=== PATIENT | male | born 1975 | race Caucasian/White ===

== ENCOUNTER 2018-11-04 17:53 | Emergency (ER) | payer OTHER ==
--- OUTSIDE RECORDS SUMMARY | 2018-11-04 18:09 | XMS REPORT | Continuity of Care Document ---
:1975 External Reference #:[id number] Author Name Kavita Smith Care Team Providers Name Role Phone Aman Dunham MD Primary Care Physician Unavailable Payers Type Date Identification Numbers Payment Provider Subscriber Effective: Policy Number: [id number] Hayder Andrade 2016 Group Number: [id number] [address] PayID: [id number] [place] [address] Advance Directives Description No Information Available Problems Date Description Provider Status Onset: 07/28/2016 Essential hypertension Aman Dunham M.D. Active Onset: 07/28/2016 Thoracic and lumbosacral neuritis Aman Dunham M.D. Active Onset: 07/28/2016 Knee pain Aman Dunham M.D. Active Onset: 07/28/2016 Type 2 diabetes mellitus with Aman Dunham M.D. Active diabetic neuropathy, unspecified Onset: 07/28/2016 Morbid obesity Aman Dunham M.D. Active Onset: 08/11/2016 Spinal stenosis of lumbar region Aman Dunham M.D. Active Onset: 08/11/2016 Mild recurrent major depression Aman Dunham M.D. Active Onset: 08/11/2016 Testicular hypofunction Aman Dunham M.D. Active Onset: 08/11/2016 Mixed hyperlipidemia Aman Dunham M.D. Active Onset: 09/22/2016 Diabetes mellitus Aman Dunham M.D. Active Onset: 10/24/2016 Type II diabetes mellitus Aman Dunham M.D. Active uncontrolled Onset: 11/22/2016 Lumbar radiculopathy Aman Dunham M.D. Active Onset: 11/22/2016 Insomnia Aman Dunham M.D. Active Onset: 09/05/2017 Umbilical hernia Aman Dunham M.D. Active Onset: 03/27/2018 Panic disorder with agoraphobia Aman Dunham M.D. Active Family History Date Family Member(s) Problem(s) Comments General Parkinson's Disease General Heart Disease General Hypertension Father Hypertension Father Heart Disease Mother due to Parkinsons Disease () Social History Type Date Description Comments Sex Unknown Occupation Unemployed [employer] ETOH Use Denies alcohol use Tobacco Use Start: Unknown Patient has never smoked Recreational Drug Use Denies Drug Use Smoking Status Reviewed: 10/23/18 Patient has never smoked Allergies, Adverse Reactions, Alerts Description No Known Drug Allergies Medications Medication Date Status Form Strength Qnty SIG Indications Ordering Provider Trulicity 10/23 Active Solution 0.75mg/0. 2ml inject 0.75mg E11.65 Haseeb Geiger /2018 Pen-Injec 5ML once a week halima Butt M.D. Lisinopril 08/23 Active Tablets 20mg 30tab 1 by mouth I10 s every day Juanita Dunham Basaglar 08/23 Active Solution 100Unit/M 30ml 90 units at E11.65 Aman Kwik Pen-Injec L bedtime Roly varghese M.D. Escitalopram 03/27 Active Tablets 10mg 30tab 1 by mouth F40.01 Aman Oxalate s every day Juanita Dunham Pen [place] 12/05 Active Misc 32G X 5 90uni once daily with Aman mm milagro Dunham M.D. BD Pen 12/04 Active Misc 31G X 5 100un use with Haseeb Geiger Needle/Mini/Ul mm carlos Morris/31G X Juanita 12/22" Zolpidem 11/22 Active Tablets 10mg 30tab 1/2 to 1 tab by G47.00 [place] Tartrate s mouth every MD Mamadou night at bedtime as needed Amlodipine 10/24 Active Tablets 5mg 30tab 1 by mouth I10 [place] Besylate s every day in [place] the morning , Juanita Oxycodone-Acet 10/24 Active Tablets 10-325mg 120ta take 1 tablet M51.16 Haseeb Geiger aminophen bs by mouth every Filomena, 6 hours as M.DPaddy needed for pain Atorvastatin 10/13 Active Tablets 40mg 30tab 1 by mouth E78.2 [place] Calcium s every day Juanita Dunham Contour Next 10/13 Active Kit 1unit chesk cs twice E11.8 [place] One Blood s daily Roly Glucose Juanita Monitoring System Control Test 10/13 Active Strips 100un check cs twice E11.8 its daily and as Roly needed , MJayce Testosterone 09/22 Active Gel 50mg/5GM 150gm apply 1 E29.1 (1%) application MD Mamadou (50mg) to the skin once daily Freestyle Lite 09/22 Active Device 1unit check [place] [facility] Dx: Juanita System E11.40 Last visit: 09/22/16 Freestyle Lite 09/22 Active Strips 100un test up to 2 Test its times a day dx Roly code: e11.Juanita Carr last visit: 09/22/16 Freestyle Lite 09/22 Active 100un two times daily Lanc its or as needed Roly dx: e11.40 Juanita Harper visit: 09/22/16 Metformin HCL 07/28 Active Tablets 1000mg 60tab Take One Tablet E11.40 s By Mouth Twice Roly Daily Juanita Basaglar 07/24 Hx Solution 100Unit/M 15ml 75 units sc E11.40 Uvaldo Ibarra Pen-Injec L once daily Carleen Medel M.D.,[facility] 08/23 Toujeo 07/12 Hx Solution 300Unit/M 4.500 inject 75 units E11.40 Marco Shane Pen-Injec L ml subcutaneously Carleen Medel t once daily Juanita,[facility] 07/24 Basaglar 07/31 Hx Solution 100Unit/M 9ml 65 units at E11.40 [place] Pen-Injec L bedtime [place] - t , M.DPaddy 07/12 Basaglar 03/27 Hx Solution 100Unit/M 30ml 50 units at E11.40 Pen-Injec L bedtime [place] - t , M.D. 05/08 Basaglar 01/09 Hx Solution 100Unit/M 15ml 35 units at E11.40 [place] Pen-Injec L bedtime [place] - t , M.DPaddy 03/27 Basaglar 12/07 Hx Solution 100Unit/M 15ml 45 units at E11.65 [place] Pen-Injec L bedtime [place] - t , M.DPaddy 01/09 Basaglar 11/30 Hx Solution 100Unit/M 30ml 25 units at E11.65 [place] Pen-Injec L bedtime [place] - t , M.DPaddy 12/07 Oxycodone HCL 06/26 Hx Tab ER 10mg 10tab 1 jozef every 12 M54.16 [place] 12H s hours [place] - Abuse-Det , Juanita 08/01 Glipizide 01/10 Hx Tablets 10mg 60tab take 1 tablet E11. s by mouthtwiJoseph HighDPaddy 11/30 Invokana 01/10 Hx Tablets 100mg 30tab once daily E11.65 s Roly - Juanita 12/07 Bupropion HCL 12/06 Hx Tablets 300mg 30tab 1 tab in in the 3.0 [place] ER (XL) ER 24HR s morning [place] - Juanita 03/27 Bupropion HCL 11/22 Hx Tablets 150mg 30tab once daily in 3.0 [place] ER (XL) ER 24HR s the morning [place] - with food Juanita 12/06 Tradjenta 10/24 Hx Tablets 5mg 30tab once daily E11.65 s Roly Durant M.D. 03/27 Glipizide 10/13 Hx Tablets 10mg 45tab take 1 tablet E11.8 s by mouth every [place] - morning and 10/10 , M.DPaddy 01/10 tab in the evening Prednisone 10/13 Hx Tablets 10mg 30tab 5tabx 2days,[address] M51[address] [facility] - 4rdgw3gqqg,2tab , JosephDPaddy 10/24 x2days,1tabx . Oxycodone-Acet 10/13 Hx Tablets 10-325mg 42tab take 1 tablet M51.16 [place] s by mouth every [place] - 8 hours as , M.DPaddy 10/24 needed for pain Escitalopram 09/22 Hx Tablets 20mg 30tab 1 by mouth F33.0 s every day Roly Durant M.D. 03/27 [place] 09/22 Hx Misc 30G 60uni test twice E11.8 ts daily Roly Druant M.D. 10/13 [place] Test 09/22 Hx Strips 100un test three E11.8 its times daily Roly Durant M.D. 10/13 Escitalopram 08/25 Hx Tablets 10mg 30tab 1 by mouth s every day Roly Durant M.D. 09/22 Wellbutrin XL 08/17 Hx Tablets 150mg 30tab 1 by mouth ER 24HR s every day in in [place] - the morning , M.DPaddy 08/25 with food /2015 Naproxen 08/11 Hx Tablets 500mg 60tab 1 by mouth M25.561 [facility] , M.DPaddy 01/10 is not using) /2016 Duloxetine HCL 08/[address] 30mg 14cap once a day in F33.0 Part s full stomach Joseph EncarnacionDPaddy 08/17 Oxycodone-Acet 07/28 Hx Tablets 10-325mg 60tab take 1 tablet M51.16 [place] s by mouth every [place] - 12 hours as , M.DPaddy 10/13 needed for pain Gabapentin Hx Capsules 300mg 1 by mouth Unknown /0000 three times a - day 11/30 Metformin HCL Hx Tablets 500mg 1 by mouth Unknown /0000 twice a day - 07/28 Lisinopril Hx Tablets 10mg 30tab 1 by mouth s every day Roly - Juanita 08/23 Ibuprofen Hx Tablets 800mg 1 by mouth two Unknown /0000 times a day as - needed 08/11 Immunizations CPT Code Status Date Vaccine Reaction Lot # [id number] Given 10/24/2016 Pneumonia Vaccine no reaction, pt tolerated well [id number] Vital Signs Date Vital Result Comment 10/23/2018 11:21am Height 76 inches 6'4" Weight 405.00 lb Heart Rate 112 /min BP Systolic Sitting 148 mmHg BP Diastolic Sitting 104 mmHg Pain Level 6 hernia--at rest O2 % BldC Oximetry 97 % BMI (Body Mass Index) 49.3 kg/m2 08/23/2018 3:09pm Height 76 inches 6'4" Weight 397.00 lb Heart Rate 109 /min BP Systolic 140 mmHg BP Diastolic 100 mmHg Body Temperature 98.5 F O2 % BldC Oximetry 97 % BMI (Body Mass Index) 48.3 kg/m2 05/08/2018 7:53am Height 76 inches 6'4" Weight 393.00 lb Heart Rate 102 /min BP Systolic 124 mmHg BP Diastolic 80 mmHg O2 % BldC Oximetry 97 % BMI (Body Mass Index) 47.8 kg/m2 03/27/2018 3:10pm Height 76 inches 6'4" Weight 400.00 lb Heart Rate 117 /min BP Systolic Sitting 160 mmHg BP Diastolic Sitting 90 mmHg Body Temperature 98.5 F O2 % BldC Oximetry 97 % BMI (Body Mass Index) 48.7 kg/m2 02/01/2018 2:05pm Height 76 inches 6'4" Weight 390.00 lb Heart Rate 108 /min BP Systolic 130 mmHg BP Diastolic 84 mmHg Respiratory Rate 20 /min Body Temperature 97.2 F BMI (Body Mass Index) 47.5 kg/m2 01/23/2018 1:02pm Weight 389.00 lb Heart Rate 106 /min BP Systolic 130 mmHg BP Diastolic 90 mmHg Body Temperature 98.1 F O2 % BldC Oximetry 97 % 01/09/2018 8:47am Weight 394.00 lb Heart Rate 97 /min BP Systolic 125 mmHg BP Diastolic 70 mmHg Body Temperature 98.1 F O2 % BldC Oximetry 95 % 11/30/2017 9:48am Height 75 inches 6'3" Weight 383.19 lb Heart Rate 124 /min BP Systolic Sitting 132 mmHg BP Diastolic Sitting 82 mmHg O2 % BldC Oximetry 98 % BMI (Body Mass Index) 47.9 kg/m2 09/05/2017 8:58am Weight 405.00 lb Heart Rate 76 /min BP Systolic Sitting 132 mmHg BP Diastolic Sitting 90 mmHg O2 % BldC Oximetry 94 % 06/26/2017 3:00pm Height 75 inches 6'3" Weight 390.50 lb Heart Rate 103 /min BP Systolic 140 mmHg BP Diastolic 90 mmHg Body Temperature 98.7 F O2 % BldC Oximetry 97 % BMI (Body Mass Index) 48.8 kg/m2 06/08/2017 9:30am Height 75 inches 6'3" Weight 408.00 lb Heart Rate 86 /min BP Systolic 142 mmHg BP Diastolic 86 mmHg Body Temperature 97.8 F O2 % BldC Oximetry 95 % BMI (Body Mass Index) 51.0 kg/m2 04/13/2017 11:29am Weight 406.50 lb Heart Rate 127 /min BP Systolic 146 mmHg BP Diastolic 84 mmHg Body Temperature 97.9 F O2 % BldC Oximetry 97 % 02/08/2017 12:03pm Height 73.5 inches 6'1.50" Weight 390.00 lb Heart Rate 127 /min BP Systolic Sitting 164 mmHg BP Diastolic Sitting 96 mmHg O2 % BldC Oximetry 97 % BMI (Body Mass Index) 50.8 kg/m2 01/10/2017 9:45am Weight 385.00 lb Heart Rate 120 /min BP Systolic Sitting 140 mmHg BP Diastolic Sitting 94 mmHg Body Temperature 99.2 F O2 % BldC Oximetry 98 % 12/06/2016 10:02am Weight 392.50 lb Heart Rate 128 /min BP Systolic Sitting 130 mmHg BP Diastolic Sitting 80 mmHg Body Temperature 97.4 F O2 % BldC Oximetry 98 % 12/05/2016 1:44pm Height 73.5 inches 6'1.50" Weight 397.00 lb Heart Rate 72 /min BP Systolic Sitting 130 mmHg lg BP Diastolic Sitting 90 mmHg lg Pain Level 8 BMI (Body Mass Index) 51.7 kg/m2 11/22/2016 9:22am Height 73.5 inches 6'1.50" Weight 396.25 lb Heart Rate 140 /min BP Systolic Sitting 145 mmHg BP Diastolic Sitting 104 mmHg Body Temperature 98.4 F O2 % BldC Oximetry 99 % BMI (Body Mass Index) 51.6 kg/m2 10/24/2016 1:44pm Height 73.5 inches 6'1.50" Weight 397.38 lb Heart Rate 145 /min BP Systolic Sitting 130 mmHg BP Diastolic Sitting 106 mmHg Body Temperature 96.9 F O2 % BldC Oximetry 99 % BMI (Body Mass Index) 51.7 kg/m2 10/13/2016 10:04am Height 73.5 inches 6'1.50" Weight 395.12 lb Heart Rate 117 /min BP Systolic Sitting 142 mmHg BP Diastolic Sitting 100 mmHg Body Temperature 96.7 F O2 % BldC Oximetry 98 % BMI (Body Mass Index) 51.4 kg/m2 09/22/2016 10:45am Height 73.5 inches 6'1.50" Weight 397.38 lb Heart Rate 118 /min BP Systolic Sitting 158 mmHg BP Diastolic Sitting 118 mmHg Body Temperature 98.5 F O2 % BldC Oximetry 98 % BMI (Body Mass Index) 51.7 kg/m2 08/11/2016 12:37pm Height 73.5 inches 6'1.50" Weight 393.00 lb Heart Rate 115 /min BP Systolic Sitting 148 mmHg BP Diastolic Sitting 98 mmHg Body Temperature 97.7 F O2 % BldC Oximetry 97 % BMI (Body Mass Index) 51.1 kg/m2 07/28/2016 12:43pm Height 73.5 inches 6'1.50" Weight 393.25 lb Heart Rate 80 /min BP Systolic Sitting 136 mmHg BP Diastolic Sitting 112 mmHg Body Temperature 98.0 F O2 % BldC Oximetry 98 % BMI (Body Mass Index) 51.2 kg/m2 Results Test Date Facility Test Result H/L Range Note Laboratory test 10/22/2018 [facility] Testosterone 451.43 N 240-[address] Total ng/[place] [address] [phone] PSA Screening 0.211 ng/mL N 0-4.000 1 Laboratory test 08/23/2018 [facility] Hemoglobin A1c 10.3 High 5-7 finding Drug Abuse 20 08/23/2018 [facility] Urine Amphetamine Negative ng/mL 2, [address] [place] [address] [phone] Urine Barbiturates Negative ng/mL 4 Urine Benzodiazepines Negative ng/mL 5 Urine Cocaine Negative ng/mL 6 Urine Phencyclidine Negative ng/mL Cutoff: 25 Urine Tetrahydrocannabinol Negative ng/mL Cutoff: 50 7 Creatinine, Urine 181.6 mg/dL Specific [place] 1.020 pH 5.6 Oxidants Negative 8 Adulterants Comment Normal Codeine, Ur Not Detected ng/mL Cutoff: 25 9 Momlmoc-0-aucg-glucuronide, Ur Not Detected ng/mL 10 Morphine, Ur Not Detected ng/mL Cutoff: 25 11 Ppnuefjp-3-jlyi-glucuronide, U Not Detected ng/mL 12 6-monoacetylmorphine, Ur Not Detected ng/mL Cutoff: 25 13 Hydrocodone, Ur Not Detected ng/mL Cutoff: 25 14 Norhydrocodone, Ur Not Detected ng/mL Cutoff: 25 15 Dihydrocodeine, Ur Not Detected ng/mL Cutoff: 25 16 Hydromorphone, Ur Not Detected ng/mL Cutoff: 25 17 Hxkajgcfubnvy0avfiooncmdlhqpz Not Detected ng/mL 18 Oxycodone, Ur Present ng/mL Abnormal Cutoff: 25 19 Noroxycodone, Ur Present ng/mL Abnormal Cutoff: 25 20 Oxymorphone, Ur Present ng/mL Abnormal Cutoff: 25 21 Ncloyektozn-5-rgdq-glucuronide Present ng/mL Abnormal 22 Noroxymorphone, Ur Present ng/mL Abnormal Cutoff: 25 23 Fentanyl, Ur Not Detected ng/mL Cutoff: 2 24 Norfentanyl, Ur Not Detected ng/mL Cutoff: 2 25 Meperidine, Ur Not Detected ng/mL Cutoff: 25 26 Normeperidine, Ur Not Detected ng/mL Cutoff: 25 27 Naloxone, Ur Not Detected ng/mL Cutoff: 25 28 Timbxgbr-9-wokw-glucuronide, U Not Detected ng/mL 29 Methadone, Ur Not Detected ng/mL Cutoff: 25 30 Eddp, Ur Not Detected ng/mL Cutoff: 25 31 Propoxyphene, Ur Not Detected ng/mL Cutoff: 25 32 Norpropoxyphene, Ur Not Detected ng/mL Cutoff: 25 33 Tramadol, Ur Not Detected ng/mL Cutoff: 25 34 O-desmethyltramadol, Ur Not Detected ng/mL Cutoff: 25 35 Tapentadol, Ur Not Detected ng/mL Cutoff: 25 36 N-desmethyltapentadol, Ur Not Detected ng/mL Cutoff: 50 37 Avtlyhkaet-mqde-flfkfctgghx, U Not Detected ng/mL 38 Buprenorphine, Ur Not Detected ng/mL Cutoff: 5 39 Norbuprenorphine, Ur Not Detected ng/mL Cutoff: 5 40 Norbuprenorphine glucuronide Not Detected ng/mL Cutoff: 20 41 Opioid Interpretation See Comment 42 Laboratory test 07/04/2018 [facility] Testosterone 386.67 N 240-[address] Total ng/[place] [address] [phone] Lipid Profile 07/04/2018 [facility] Triglycerides 173 mg/dL 43 (Trig/Chol/HDL) [address] [place] [address] [phone] Cholesterol 178 mg/dL 44 HDL Cholesterol 37.3 mg/dL 45 LDL Cholesterol 106 mg/dL 46 Comp Metabolic Panel 07/04/2018 [facility] Sodium 137 mmol/L N 135-[address] [place] [address] [phone] Potassium 4.3 mmol/L N 3.5-5.0 Chloride 99 mmol/L Low 101-111 Co2 Carbon Dioxide 31 mmol/L N 22-32 Anion Gap 7 mmol/L N 2-11 Glucose 199 mg/dL High 70-100 Blood Urea Nitrogen 12 mg/dL N 6-24 Creatinine 0.79 mg/dL N 0.67-1.17 BUN/Creatinine Ratio 15.2 N 8-20 Calcium 9.5 mg/dL N 8.6-10.3 Total Protein 7.7 g/dL N 6.4-8.9 Albumin 4.3 g/dL N 3.2-5.2 Globulin 3.4 g/dL N 2-4 Albumin/Globulin Ratio 1.3 N 1-3 Total Bilirubin 0.50 mg/dL N 0.2-1.0 Alkaline Phosphatase 129 U/L High 34-104 Alt 49 U/L N 7-52 Ast 28 U/L N 13-39 Egfr Non- 107.0 >60 Egfr 129.5 >60 47 Laboratory 07/04/2018 [facility] PSA Screening 1.718 ng/mL N 0 -4.000 48 test finding [address] [place] [address] [phone] Laboratory 07/04/2018 [facility] Hemoglobin A1c 10.2 % High 4.0-5.6 49 test finding [address] (Glyco HGB) [place] [address] [phone] Drug Abuse 20 03/27/2018 [facility] Urine Negative [address] Amphetamine ng/[place] [address] [phone] Urine Barbiturates Negative ng/mL 51 Urine Benzodiazepines Negative ng/mL 52 Urine Cocaine Negative ng/mL 53 Urine Phencyclidine Negative ng/mL Cutoff: 25 Urine Tetrahydrocannabinol Negative ng/mL Cutoff: 50 54 Creatinine, Urine 91.2 mg/dL Specific [place] 1.011 pH 5.9 Oxidants Negative 55 Adulterants Comment Normal Codeine, Ur Not Detected ng/mL Cutoff: 25 56 Murujei-9-crtu-glucuronide, Ur Not Detected ng/mL 57 Morphine, Ur Not Detected ng/mL Cutoff: 25 58 Nxznvked-1-oafa-glucuronide, U Not Detected ng/mL 59 6-monoacetylmorphine, Ur Not Detected ng/mL Cutoff: 25 60 Hydrocodone, Ur Not Detected ng/mL Cutoff: 25 61 Norhydrocodone, Ur Not Detected ng/mL Cutoff: 25 62 Dihydrocodeine, Ur Not Detected ng/mL Cutoff: 25 63 Hydromorphone, Ur Not Detected ng/mL Cutoff: 25 64 Nnsschzzejvib4quqszmwcwlyptgp Not Detected ng/mL 65 Oxycodone, Ur Present ng/mL Abnormal Cutoff: 25 66 Noroxycodone, Ur Present ng/mL Abnormal Cutoff: 25 67 Oxymorphone, Ur Not Detected ng/mL Cutoff: 25 68 Vxtyjpcdtua-6-dpbo-glucuronide Present ng/mL Abnormal 69 Noroxymorphone, Ur Present ng/mL Abnormal Cutoff: 25 70 Fentanyl, Ur Not Detected ng/mL Cutoff: 2 71 Norfentanyl, Ur Not Detected ng/mL Cutoff: 2 72 Meperidine, Ur Not Detected ng/mL Cutoff: 25 73 Normeperidine, Ur Not Detected ng/mL Cutoff: 25 74 Naloxone, Ur Not Detected ng/mL Cutoff: 25 75 Nfmgwsgt-5-bygq-glucuronide, U Not Detected ng/mL 76 Methadone, Ur Not Detected ng/mL Cutoff: 25 77 Eddp, Ur Not Detected ng/mL Cutoff: 25 78 Propoxyphene, Ur Not Detected ng/mL Cutoff: 25 79 Norpropoxyphene, Ur Not Detected ng/mL Cutoff: 25 80 Tramadol, Ur Not Detected ng/mL Cutoff: 25 81 O-desmethyltramadol, Ur Not Detected ng/mL Cutoff: 25 82 Tapentadol, Ur Not Detected ng/mL Cutoff: 25 83 N-desmethyltapentadol, Ur Not Detected ng/mL Cutoff: 50 84 Sxfghpajvh-uqew-wyxgjcbvvya, U Not Detected ng/mL 85 Buprenorphine, Ur Not Detected ng/mL Cutoff: 5 86 Norbuprenorphine, Ur Not Detected ng/mL Cutoff: 5 87 Norbuprenorphine glucuronide Not Detected ng/mL Cutoff: 20 88 Opioid Interpretation See Comment 89 Laboratory test 03/27/2018 [facility] Hemoglobin A1c 9.5 High 5-7 finding Laboratory test 11/30/2017 [facility] Hemoglobin A1c 11.1 High 5-7 finding Laboratory test 11/29/2017 [facility] PSA Screening 0.289 N 0- 4.000 [address] ng/[place] [address] [phone] Urine Microalbumin 11/29/2017 [facility] Ur Microalbumin 73.2 mg /L Random [address] (mg/L) [place] [address] [phone] Urine Creatinine 163.57 mg/dL Urine Microalbumin/Creatinine 44.7 ug/mg High <31 Laboratory 11/29/2017 [facility] Testosterone 85.80 ng/dL Low 240-950 test finding [address] [place] [address] [phone] Drug Abuse 20 09/05/2017 [facility] Urine Negative [address] Amphetamine ng/mL [place], [place] [id number] [phone] Urine Barbiturates Negative ng/mL 92 Urine Benzodiazepines Negative ng/mL 93 Urine Cocaine Negative ng/mL 94 Urine Phencyclidine Negative ng/mL Cutoff: 25 Urine Tetrahydrocannabinol Negative ng/mL Cutoff: 50 95 Creatinine, Urine 227.9 mg/dL Specific [place] 1.021 pH 5.6 Oxidants Negative 96 Adulterants Comment Normal Codeine, Ur Not Detected ng/mL Cutoff: 25 97 Vgddmet-0-ydkz-glucuronide, Ur Not Detected ng/mL 98 Morphine, Ur Not Detected ng/mL Cutoff: 25 99 Liapzsuq-2-vwbd-glucuronide, U Not Detected ng/mL 100 6-monoacetylmorphine, Ur Not Detected ng/mL Cutoff: 25 101 Hydrocodone, Ur Present ng/mL Cutoff: 25 102 Norhydrocodone, Ur Not Detected ng/mL Cutoff: 25 103 Dihydrocodeine, Ur Not Detected ng/mL Cutoff: 25 104 Hydromorphone, Ur Not Detected ng/mL Cutoff: 25 105 Dfmlvxrubxcqk8nniddhpetsnueeu Not Detected ng/mL 106 Oxycodone, Ur Present ng/mL Cutoff: 25 107 Noroxycodone, Ur Present ng/mL Cutoff: 25 108 Oxymorphone, Ur Present ng/mL Cutoff: 25 109 Tcindjgbdhz-0-uplc-glucuronide Present ng/mL 110 Noroxymorphone, Ur Present ng/mL Cutoff: 25 111 Fentanyl, Ur Present ng/mL Cutoff: 2 112 Norfentanyl, Ur Present ng/mL Cutoff: 2 113 Meperidine, Ur Not Detected ng/mL Cutoff: 25 114 Normeperidine, Ur Not Detected ng/mL Cutoff: 25 115 Naloxone, Ur Not Detected ng/mL Cutoff: 25 116 Qsztprph-2-mspj-glucuronide, U Not Detected ng/mL 117 Methadone, Ur Not Detected ng/mL Cutoff: 25 118 Eddp, Ur Not Detected ng/mL Cutoff: 25 119 Propoxyphene, Ur Not Detected ng/mL Cutoff: 25 120 Norpropoxyphene, Ur Not Detected ng/mL Cutoff: 25 121 Tramadol, Ur Not Detected ng/mL Cutoff: 25 122 O-desmethyltramadol, Ur Not Detected ng/mL Cutoff: 25 123 Tapentadol, Ur Not Detected ng/mL Cutoff: 25 124 N-desmethyltapentadol, Ur Not Detected ng/mL Cutoff: 50 125 Wzxlohuony-hnaq-byxbxzjrxat, U Not Detected ng/mL 126 Buprenorphine, Ur Not Detected ng/mL Cutoff: 5 127 Norbuprenorphine, Ur Not Detected ng/mL Cutoff: 5 128 Norbuprenorphine glucuronide Not Detected ng/mL Cutoff: 20 129 Opioid Interpretation See Comment 130 Laboratory test 09/05/2017 [facility] Hemoglobin A1c 8.3 High 5-7 finding Laboratory test 06/23/2017 [facility] Prolactin 14.1 ng/mL N 1.0-20.[address] [place] [address] [phone] FSH And LH 06/23/2017 [facility] FSH (Follicle 1.2 mIU/mL N 1- [address] Stim Hormone) [place] [address] [phone] LH (Lutenizing Hormone) 1.7 mcIU/mL Low 2-12 Laboratory test 06/07/2017 [facility] Testosterone 51.34 Low 240-[address] Total ng/[place] [address] [phone] FSH (Follicle Stim Hormone) 0.7 mIU/mL Low 1-20 LH (Lutenizing Hormone) 0.7 mcIU/mL Low 2-12 Laboratory test 04/13/2017 [facility] Hemoglobin A1c 7.4 High 5-7 finding Drug Abuse 20 04/13/2017 [facility] Urine Negative N 131, [address] Amphetamine ng/[place] [address] [phone] Urine Barbiturates Negative ng/mL N 133 Urine Benzodiazepines Negative ng/mL N 134 Urine Cocaine Negative ng/mL N 135 Urine Phencyclidine Negative ng/mL N Cutoff: 25 Urine Tetrahydrocannabinol Negative ng/mL N Cutoff: 50 136 Creatinine, Urine 75.5 mg/dL N Specific [place] 1.009 N pH 7.5 N Oxidants Negative N 137 Adulterants Comment Normal N Codeine, Ur Not Detected ng/mL N Cutoff: 25 138 Itjkvbw-1-edhb-glucuronide, Ur Not Detected ng/mL N 139 Morphine, Ur Not Detected ng/mL N Cutoff: 25 140 Ogszrfci-0-sbeu-glucuronide, U Not Detected ng/mL N 141 6-monoacetylmorphine, Ur Not Detected ng/mL N Cutoff: 25 142 Hydrocodone, Ur Not Detected ng/mL N Cutoff: 25 143 Norhydrocodone, Ur Not Detected ng/mL N Cutoff: 25 144 Dihydrocodeine, Ur Not Detected ng/mL N Cutoff: 25 145 Hydromorphone, Ur Not Detected ng/mL N Cutoff: 25 146 Qvrfsqroatxzy7snpwrretckfijdm Not Detected ng/mL N 147 Oxycodone, Ur Present ng/mL N Cutoff: 25 148 Noroxycodone, Ur Present ng/mL N Cutoff: 25 149 Oxymorphone, Ur Not Detected ng/mL N Cutoff: 25 150 Wykbprxgywa-8-jghg-glucuronide Present ng/mL N 151 Noroxymorphone, Ur Present ng/mL N Cutoff: 25 152 Fentanyl, Ur Not Detected ng/mL N Cutoff: 2 153 Norfentanyl, Ur Not Detected ng/mL N Cutoff: 2 154 Meperidine, Ur Not Detected ng/mL N Cutoff: 25 155 Normeperidine, Ur Not Detected ng/mL N Cutoff: 25 156 Naloxone, Ur Not Detected ng/mL N Cutoff: 25 157 Vkgzmftm-8-pycy-glucuronide, U Not Detected ng/mL N 158 Methadone, Ur Not Detected ng/mL N Cutoff: 25 159 Eddp, Ur Not Detected ng/mL N Cutoff: 25 160 Propoxyphene, Ur Not Detected ng/mL N Cutoff: 25 161 Norpropoxyphene, Ur Not Detected ng/mL N Cutoff: 25 162 Tramadol, Ur Not Detected ng/mL N Cutoff: 25 163 O-desmethyltramadol, Ur Not Detected ng/mL N Cutoff: 25 164 Tapentadol, Ur Not Detected ng/mL N Cutoff: 25 165 N-desmethyltapentadol, Ur Not Detected ng/mL N Cutoff: 50 166 Iqkecdwnpr-ajmg-wahyyfwgmjs, U Not Detected ng/mL N 167 Buprenorphine, Ur Not Detected ng/mL N Cutoff: 5 168 Norbuprenorphine, Ur Not Detected ng/mL N Cutoff: 5 169 Norbuprenorphine glucuronide Not Detected ng/mL N Cutoff: 20 170 Opioid Interpretation See Comment N 171 Lipid Profile 04/12/2017 [facility] [facility] Triglycerides 266 mg/dL N 172 (Trig/Chol/HDL) [address] [place] [address] [phone] Cholesterol 184 mg/dL N 173 HDL Cholesterol 28.1 mg/dL N 174 LDL Cholesterol 103 mg/dL N 175 Comp Metabolic Panel 04/12/2017 [facility] Sodium 135 mmol/L N 133-145 [address] [place] [address] [phone] Potassium 4.0 mmol/L N 3.5-5.0 Chloride 100 mmol/L Low 101-111 Co2 Carbon Dioxide 33 mmol/L High 22-32 Anion Gap 2 mmol/L N 2-11 Glucose 145 mg/dL High 70-100 Blood Urea Nitrogen 7 mg/dL N 6-24 Creatinine 0.78 mg/dL N 0.67-1.17 BUN/Creatinine Ratio 9.0 N 8-20 Calcium 8.9 mg/dL N 8.6-10.3 Total Protein 7.1 g/dL N 6.4-8.9 Albumin 3.9 g/dL N 3.2-5.2 Globulin 3.2 g/dL N 2-4 Albumin/Globulin Ratio 1.2 N 1-3 Total Bilirubin 0.40 mg/dL N 0.2-1.0 Alkaline Phosphatase 93 U/L N 34-104 Alt 65 U/L High 7-52 Ast 43 U/L High 13-39 Egfr Non- 109.2 N >60 Egfr 140.4 N >60 176 Drug Abuse 02/08/2017 [facility] Urine Amphetamine Negative ng/ mL N 177 [address] [place] [address] [phone] Urine Barbiturates Negative ng/mL N 178 Urine Benzodiazepines Presumptive Posi <SEE NOTE> ng/mL N 179 Urine Cocaine Negative ng/mL N 180 Urine Phencyclidine Negative ng/mL N Cutoff: 25 Urine Tetrahydrocannabinol Negative ng/mL N Cutoff: 50 181 Creatinine 262.3 mg/dL N Specific Rhodes 1.022 N pH 5.3 N Oxidants Negative N 182 Adulterants Comment Normal N Codeine, Ur Not Detected ng/mL N Cutoff: 25 183 Husyezf-5-hyre-glucuronide, Ur Not Detected ng/mL N 184 Morphine, Ur Not Detected ng/mL N Cutoff: 25 185 Wocltjle-3-voah-glucuronide, U Not Detected ng/mL N 186 6-monoacetylmorphine, Ur Not Detected ng/mL N Cutoff: 25 187 Hydrocodone, Ur Not Detected ng/mL N Cutoff: 25 188 Norhydrocodone, Ur Not Detected ng/mL N Cutoff: 25 189 Dihydrocodeine, Ur Not Detected ng/mL N Cutoff: 25 190 Hydromorphone, Ur Not Detected ng/mL N Cutoff: 25 191 Vlvnstkluybid6kbdciipmxvjqicu Not Detected ng/mL N 192 Oxycodone, Ur Present ng/mL N Cutoff: 25 193 Noroxycodone, Ur Present ng/mL N Cutoff: 25 194 Oxymorphone, Ur Present ng/mL N Cutoff: 25 195 Rgwakyvniiw-8-ckhi-glucuronide Present ng/mL N 196 Noroxymorphone, Ur Present ng/mL N Cutoff: 25 197 Fentanyl, Ur Not Detected ng/mL N Cutoff: 2 198 Norfentanyl, Ur Not Detected ng/mL N Cutoff: 2 199 Meperidine, Ur Not Detected ng/mL N Cutoff: 25 200 Normeperidine, Ur Not Detected ng/mL N Cutoff: 25 201 Naloxone, Ur Not Detected ng/mL N Cutoff: 25 202 Evjrrmhs-7-usqv-glucuronide, U Not Detected ng/mL N 203 Methadone, Ur Not Detected ng/mL N Cutoff: 25 204 Eddp, Ur Not Detected ng/mL N Cutoff: 25 205 Propoxyphene, Ur Not Detected ng/mL N Cutoff: 25 206 Norpropoxyphene, Ur Not Detected ng/mL N Cutoff: 25 207 Tramadol, Ur Not Detected ng/mL N Cutoff: 25 208 O-desmethyltramadol, Ur Not Detected ng/mL N Cutoff: 25 209 Tapentadol, Ur Not Detected ng/mL N Cutoff: 25 210 N-desmethyltapentadol, Ur Not Detected ng/mL N Cutoff: 50 211 Ayypzntzvi-dkrg-ehgxvdghkkw, U Not Detected ng/mL N 212 Buprenorphine, Ur Not Detected ng/mL N Cutoff: 5 213 Norbuprenorphine, Ur Not Detected ng/mL N Cutoff: 5 214 Norbuprenorphine glucuronide Not Detected ng/mL N Cutoff: 20 215 Opioid Interpretation See Comment N 216 Benzodiazepine 02/08/2017 [facility] Urine Negative N 217 Confirm Urine [address] Lorazepam ng/[place] [address] GC/MS [phone] Urine Nordiazepam GC/MS Negative ng/mL N 218 Urine Oxazepam GC/MS Negative ng/mL N 219 Urine Temazepam GC/MS Negative ng/mL N 220 Ur Oh Ethyl Flurazepam GC/MS Negative ng/mL N 221 Ur 7 [place] Clonazepam GC/MS Negative ng/mL N 222 Ur 7 [place] Flunitrazepam GC/MS Negative ng/mL N Cutoff: 50 Ur Alpha Oh Alprazolam GC/MS 202 ng/mL N 223 Ur Alpha Oh Triazolam GC/MS Negative ng/mL N 224 Ur Benzodiazepine Interp Positive. N 225 Drug Abuse 01/10/2017 [facility] Urine Amphetamine Negative ng/ mL N 226 [address] [place] [address] [phone] Urine Barbiturates Negative ng/mL N 227 Urine Benzodiazepines Negative ng/mL N 228 Urine Cocaine Negative ng/mL N 229 Urine Phencyclidine Negative ng/mL N Cutoff: 25 Urine Tetrahydrocannabinol Negative ng/mL N Cutoff: 50 230 Creatinine 322.1 mg/dL N Specific Rhodes 1.023 N pH 5.4 N Oxidants Negative N 231 Adulterants Comment Normal N Codeine, Ur Not Detected ng/mL N Cutoff: 25 232 Ubrajhj-6-mqbt-glucuronide, Ur Not Detected ng/mL N 233 Morphine, Ur Not Detected ng/mL N Cutoff: 25 234 Tzopiwwg-2-ttwj-glucuronide, U Not Detected ng/mL N 235 6-monoacetylmorphine, Ur Not Detected ng/mL N Cutoff: 25 236 Hydrocodone, Ur Not Detected ng/mL N Cutoff: 25 237 Norhydrocodone, Ur Not Detected ng/mL N Cutoff: 25 238 Dihydrocodeine, Ur Not Detected ng/mL N Cutoff: 25 239 Hydromorphone, Ur Not Detected ng/mL N Cutoff: 25 240 Fnijuxihycudq8euinljldyrrmywy Not Detected ng/mL N 241 Oxycodone, Ur Not Detected ng/mL N Cutoff: 25 242 Noroxycodone, Ur Not Detected ng/mL N Cutoff: 25 243 Oxymorphone, Ur Not Detected ng/mL N Cutoff: 25 244 Ykvsymeptng-4-vbox-glucuronide Not Detected ng/mL N 245 Noroxymorphone, Ur Not Detected ng/mL N Cutoff: 25 246 Fentanyl, Ur Not Detected ng/mL N Cutoff: 2 247 Norfentanyl, Ur Not Detected ng/mL N Cutoff: 2 248 Meperidine, Ur Not Detected ng/mL N Cutoff: 25 249 Normeperidine, Ur Not Detected ng/mL N Cutoff: 25 250 Naloxone, Ur Not Detected ng/mL N Cutoff: 25 251 Dkmezoif-3-phbx-glucuronide, U Not Detected ng/mL N 252 Methadone, Ur Not Detected ng/mL N Cutoff: 25 253 Eddp, Ur Not Detected ng/mL N Cutoff: 25 254 Propoxyphene, Ur Not Detected ng/mL N Cutoff: 25 255 Norpropoxyphene, Ur Not Detected ng/mL N Cutoff: 25 256 Tramadol, Ur Not Detected ng/mL N Cutoff: 25 257 O-desmethyltramadol, Ur Not Detected ng/mL N Cutoff: 25 258 Tapentadol, Ur Not Detected ng/mL N Cutoff: 25 259 N-desmethyltapentadol, Ur Not Detected ng/mL N Cutoff: 50 260 Splnckuwtg-ftpz-wzzgavuthhv, U Not Detected ng/mL N 261 Buprenorphine, Ur Not Detected ng/mL N Cutoff: 5 262 Norbuprenorphine, Ur Not Detected ng/mL N Cutoff: 5 263 Norbuprenorphine glucuronide Not Detected ng/mL N Cutoff: 20 264 Opioid Interpretation See Comment N 265 Laboratory test 01/10/2017 [facility] Hemoglobin A1c 8.9 High 5-7 finding Drug Abuse 20 10/24/2016 [facility] Urine Amphetamine Negative ng/mL N [address] [place] [address] [phone] Urine Barbiturates Negative ng/mL N 267 Urine Benzodiazepines Negative ng/mL N 268 Urine Cocaine Negative ng/mL N 269 Urine Phencyclidine Negative ng/mL N Cutoff: 25 Urine Tetrahydrocannabinol Negative ng/mL N Cutoff: 50 270 Creatinine 128.8 mg/dL N Specific Rhodes 1.009 N pH 6.1 N Oxidants Negative N 271 Adulterants Comment Normal N Codeine, Ur Not Detected ng/mL N Cutoff: 25 272 Ekluyvz-2-xlpk-glucuronide, Ur Not Detected ng/mL N 273 Morphine, Ur Not Detected ng/mL N Cutoff: 25 274 Nszeczdl-8-komk-glucuronide, U Not Detected ng/mL N 275 6-monoacetylmorphine, Ur Not Detected ng/mL N Cutoff: 25 276 Hydrocodone, Ur Not Detected ng/mL N Cutoff: 25 277 Norhydrocodone, Ur Not Detected ng/mL N Cutoff: 25 278 Dihydrocodeine, Ur Not Detected ng/mL N Cutoff: 25 279 Hydromorphone, Ur Not Detected ng/mL N Cutoff: 25 280 Bfpgqugtovmrb4kyplusxpuncenva Not Detected ng/mL N 281 Oxycodone, Ur Not Detected ng/mL N Cutoff: 25 282 Noroxycodone, Ur Not Detected ng/mL N Cutoff: 25 283 Oxymorphone, Ur Not Detected ng/mL N Cutoff: 25 284 Onotzbfccex-8-hwnz-glucuronide Present ng/mL N 285 Noroxymorphone, Ur Not Detected ng/mL N Cutoff: 25 286 Fentanyl, Ur Not Detected ng/mL N Cutoff: 2 287 Norfentanyl, Ur Not Detected ng/mL N Cutoff: 2 288 Meperidine, Ur Not Detected ng/mL N Cutoff: 25 289 Normeperidine, Ur Not Detected ng/mL N Cutoff: 25 290 Naloxone, Ur Not Detected ng/mL N Cutoff: 25 291 Fyhlwtos-4-ekdv-glucuronide, U Not Detected ng/mL N 292 Methadone, Ur Not Detected ng/mL N Cutoff: 25 293 Eddp, Ur Not Detected ng/mL N Cutoff: 25 294 Propoxyphene, Ur Not Detected ng/mL N Cutoff: 25 295 Norpropoxyphene, Ur Not Detected ng/mL N Cutoff: 25 296 Tramadol, Ur Not Detected ng/mL N Cutoff: 25 297 O-desmethyltramadol, Ur Not Detected ng/mL N Cutoff: 25 298 Tapentadol, Ur Not Detected ng/mL N Cutoff: 25 299 N-desmethyltapentadol, Ur Not Detected ng/mL N Cutoff: 50 300 Evmvitwtyn-kqzi-jhtsxzvuolc, U Not Detected ng/mL N 301 Buprenorphine, Ur Not Detected ng/mL N Cutoff: 5 302 Norbuprenorphine, Ur Not Detected ng/mL N Cutoff: 5 303 Norbuprenorphine glucuronide Not Detected ng/mL N Cutoff: 20 304 Opioid Interpretation See Comment N 305 Laboratory test 10/13/2016 [facility] Hemoglobin A1c 9.4 High 5-7 finding Lipid Profile 10/13/2016 [facility] Triglycerides 168 mg/dL N 306 (Trig/Chol/HDL) [address] [place] [address] [phone] Cholesterol 175 mg/dL N 307 HDL Cholesterol 24.6 mg/dL N 308 LDL Cholesterol 117 mg/dL N 309 Testosterone 10/13/2016 [facility] Free 1.40 Abnormal 4.46- 17.1 310 Free & Total [address] Testosterone ng/[place] [address] ng/dl [phone] Testosterone 35 ng/dL Abnormal 240-950 311 Testosterone 08/22/2016 [facility] Free 1.48 Abnormal 4.46- 17.1 312 Free & Total [address] Testosterone ng/[place] [address] ng/dl [phone] Testosterone 40 ng/dL Abnormal 240-950 313 FSH And LH 08/22/2016 [facility] FSH (Follicle Stim 2.9 mIU/mL N 1-[address] Hormone) [place] [address] [phone] LH (Lutenizing Hormone) 2.2 ?IU/mL N 2-12 Laboratory test 08/22/2016 [facility] PSA Screening 0.226 N 0- 4.000 [address] ng/[place] [address] [phone] Laboratory test 08/22/2016 [facility] Prolactin 6.3 ng/mL N 1.0-20.[address] [place] [address] [phone] Laboratory test 08/10/2016 [facility] TSH (Thyroid 2.05 N 0.34 -5.60 [address] Stim Horm) mcIU/[place] [address] [phone] Cortisol 21.46 ?g/dL N 316 Vitamin B12 And 08/10/2016 [facility] Vitamin B12 704 pg/mL N 180-914 [address] [place] [address] [phone] Folic Acid (Folate) > 20.00 ng/mL N >3.99 318 Comp Metabolic Panel 08/10/2016 [facility] Sodium 136 mmol/L N 133-[address] [place] [address] [phone] Potassium 4.2 mmol/L N 3.5-5.0 Chloride 99 mmol/L Low 101-111 Co2 Carbon Dioxide 28 mmol/L N 22-32 Anion Gap 9 mmol/L N 2-11 Glucose 184 mg/dL High 70-100 Blood Urea Nitrogen 9 mg/dL N 6-24 Creatinine 0.83 mg/dL N 0.67-1.17 BUN/Creatinine Ratio 10.8 N 8-20 Calcium 9.6 mg/dL N 8.6-10.3 Total Protein 7.9 g/dL N 6.4-8.9 Albumin 4.3 g/dL N 3.2-5.2 Globulin 3.6 g/dL N 2-4 Albumin/Globulin Ratio 1.2 N 1-3 Total Bilirubin 0.80 mg/dL N 0.2-1.0 Alkaline Phosphatase 102 U/L N 34-104 Alt 74 U/L High 7-52 Ast 42 U/L High 13-39 Egfr Non- 102.1 N >60 Egfr 131.3 N >60 319 Urine Microalbumin 08/10/2016 [facility] Ur Microalbumin 78.7 mg /L N Random [address] (mg/L) [place] [address] [phone] Urine Creatinine 473.17 mg/dL N Urine Microalbumin/Creatinine 16.6 ug/mg N <31 Lipid Profile 08/10/2016 [facility] Triglycerides 221 mg/dL N 320 (Trig/Chol/HDL) [address] [place] [address] [phone] Cholesterol 262 mg/dL N 321 HDL Cholesterol 34.2 mg/dL N 322 LDL Cholesterol 184 mg/dL N 323 Laboratory test finding 07/28/2016 [facility] Hemoglobin A1c 8.3 High 5 -7 1 Serum levels of PSA measured using the [employer] DXI Hybritech immunoassay should not be interpreted as absolute evidence of the presence or absence of disease. The PSA value should be used in conjunction with other pertinent clinical diagnostic procedures. A PSA value in the range of 0.1 to 0.6 ng/ml is indeterminate if being used as an indicator of recurrent or residual disease. The values obtained with different assay methods or kits cannot be used interchangeably. 2 [id number] 3 REFERENCE VALUE Cutoff: 500 4 REFERENCE VALUE Cutoff: 200 5 REFERENCE VALUE Cutoff: 100 6 REFERENCE VALUE Cutoff: 150 7 ADDITIONAL INFORMATION This report is intended for use in clinical monitoring or management of patients. It is not intended for use in employment-related testing. 8 REFERENCE VALUE Cutoff: 200 mg/L 9 Tylenol 3 10 Metabolite of codeine REFERENCE VALUE Cutoff: 100 11 Nadine Jon, MS Contin; Also a minor metabolite (10%) of codeine and can be seen in low concentrations (<2,000 ng/mL) with poppy seed ingestion. 12 Metabolite of morphine REFERENCE VALUE Cutoff: 100 13 Metabolite of heroin 14 Lortab, Artesian, Vicodin; Also a very minor metabolite of codeine and impurity (<1%) of oxycodone. 15 Metabolite of hydrocodone 16 Metabolite of hydrocodone 17 Dilaudid, Exalgo; Also a metabolite of hydrocodone and a minor (<5%) metabolite of morphine. 18 Metabolite of hydromorphone REFERENCE VALUE Cutoff: 100 19 Endocet, Percocet, Oxycontin 20 Metabolite of oxycodone 21 Numorphan, Opana; Also a metabolite of oxycodone. 22 Metabolite of oxymorphone REFERENCE VALUE Cutoff: 100 23 Metabolite of oxymorphone 24 Actiq, Duragesic, Fentora 25 Metabolite of fentanyl 26 Demerol 27 Metabolite of meperidine 28 Narcan 29 Metabolite of naloxone REFERENCE VALUE Cutoff: 100 30 Dolophine 31 Metabolite of methadone 32 Darvon, Darvocet 33 Metabolite of propoxyphene 34 Tradol, Ultram, Ultracet 35 Metabolite of tramadol 36 Nucynta 37 Metabolite of tapentadol 38 Metabolite of tapentadol REFERENCE VALUE Cutoff: 100 39 Buprenex, Suboxone 40 Metabolite of buprenorphine 41 Metabolite of buprenorphine 42 Test detected the presence of oxycodone and several metabolites (noroxycodone, oxymorphone, noroxymorphone, and gdikdimjjjv-5-dgrw-glucuronide). Suspect use of oxycodone or possibly oxycodone and oxymorphone within the past three days. ADDITIONAL INFORMATION This test was developed and its performance characteristics determined by [facility] in a manner consistent with CLIA requirements. This test has not been cleared or approved by the U.S. Food and Drug Administration. Test Performed by: [facility] [address] [place] [address] 43 Desirable: <150 Borderline High: 150-199 High: 200-499 Very High: >500 44 Desirable: <200 Borderline High: 200-239 High: >239 45 Low: <40 Desirable: 40-60 High: >60 46 Desirable: <100 Near Optimal: 100-129 Borderline High: 130-159 High: 160-189 Very High: >189 47 Because ethnic data is not always readily available, this report includes an eGFR for both -Americans and non- Americans. The National Kidney Disease Education Program (NKDEP) does not endorse the use of the MDRD equation for patients that are not between the ages of 18 and 70, are , have extremes of body size, muscle mass, or nutritional status, or are non- or non-. According to the National Kidney Foundation, irrespective of diagnosis, the stage of the disease is based on the level of kidney function: Stage Description GFR(mL/min/1.73 m(2)) 1 Kidney damage with normal or decreased GFR 90 2 Kidney damage with mild decrease in GFR 60-89 3 Moderate decrease in GFR 30-59 4 Severe decrease in GFR 15-29 5 Kidney failure <15 (or dialysis) 48 Serum levels of PSA measured using the [employer] DXI Hybritech immunoassay should not be interpreted as absolute evidence of the presence or absence of disease. The PSA value should be used in conjunction with other pertinent clinical diagnostic procedures. The values obtained with different assay methods or kits cannot be used interchangeably. 49 Therapeutic target for the treatment of diabetes mellitus patients is <7% HBA1C, and in selective patients <6.0%. Please refer to [place] [employer] diabetic care guidelines for further information. 50 REFERENCE VALUE Cutoff: 500 51 REFERENCE VALUE Cutoff: 200 52 REFERENCE VALUE Cutoff: 100 53 REFERENCE VALUE Cutoff: 150 54 ADDITIONAL INFORMATION This report is intended for use in clinical monitoring or management of patients. It is not intended for use in employment-related testing. 55 REFERENCE VALUE Cutoff: 200 mg/L 56 Tylenol 3 57 Metabolite of codeine REFERENCE VALUE Cutoff: 100 58 Nadine Jon, MS Contin; Also a minor metabolite (10%) of codeine and can be seen in low concentrations (<2,000 ng/mL) with poppy seed ingestion. 59 Metabolite of morphine REFERENCE VALUE Cutoff: 100 60 Metabolite of heroin 61 Lortab, Artesian, Vicodin; Also a very minor metabolite of codeine and impurity (<1%) of oxycodone. 62 Metabolite of hydrocodone 63 Metabolite of hydrocodone 64 Dilaudid, Exalgo; Also a metabolite of hydrocodone and a minor (<5%) metabolite of morphine. 65 Metabolite of hydromorphone REFERENCE VALUE Cutoff: 100 66 Endocet, Percocet, Oxycontin 67 Metabolite of oxycodone 68 Numorphan, Opana; Also a metabolite of oxycodone. 69 Metabolite of oxymorphone REFERENCE VALUE Cutoff: 100 70 Metabolite of oxymorphone 71 Actiq, Duragesic, Fentora 72 Metabolite of fentanyl 73 Demerol 74 Metabolite of meperidine 75 Narcan 76 Metabolite of naloxone REFERENCE VALUE Cutoff: 100 77 Dolophine 78 Metabolite of methadone 79 Darvon, Darvocet 80 Metabolite of propoxyphene 81 Tradol, Ultram, Ultracet 82 Metabolite of tramadol 83 Nucynta 84 Metabolite of tapentadol 85 Metabolite of tapentadol REFERENCE VALUE Cutoff: 100 86 Buprenex, Suboxone 87 Metabolite of buprenorphine 88 Metabolite of buprenorphine 89 Test detected the presence of oxycodone and several metabolites (noroxycodone, noroxymorphone, and ntedbsutmwl-1-lisj-glucuronide). Suspect use of oxycodone or possibly oxycodone and oxymorphone within the past three days. ADDITIONAL INFORMATION This test was developed and its performance characteristics determined by [facility] in a manner consistent with CLIA requirements. This test has not been cleared or approved by the U.S. Food and Drug Administration. Test Performed by: [facility] [address] [place] [address] 90 Serum levels of PSA measured using the [employer] Edmar DXI Hybritech immunoassay should not be interpreted as absolute evidence of the presence or absence of disease. The PSA value should be used in conjunction with other pertinent clinical diagnostic procedures. A PSA value in the range of 0.1 to 0.6 ng/ml is indeterminate if being used as an indicator of recurrent or residual disease. The values obtained with different assay methods or kits cannot be used interchangeably. 91 REFERENCE VALUE Cutoff: 500 92 REFERENCE VALUE Cutoff: 200 93 REFERENCE VALUE Cutoff: 100 94 REFERENCE VALUE Cutoff: 150 95 ADDITIONAL INFORMATION This report is intended for use in clinical monitoring or management of patients. It is not intended for use in employment-related testing. 96 REFERENCE VALUE Cutoff: 200 mg/L 97 Tylenol 3 98 Metabolite of codeine REFERENCE VALUE Cutoff: 100 99 Nadine Jon, Contin; Also a minor metabolite (10%) of codeine and can be seen in low concentrations (<2,000 ng/mL) with poppy seed ingestion. 100 Metabolite of morphine REFERENCE VALUE Cutoff: 100 101 Metabolite of heroin 102 Lortab, Artesian, Vicodin; Also a very minor metabolite of codeine and impurity (<1%) of oxycodone. 103 Metabolite of hydrocodone 104 Metabolite of hydrocodone 105 Dilaudid, Exalgo; Also a metabolite of hydrocodone and a minor (<5%) metabolite of morphine. 106 Metabolite of hydromorphone REFERENCE VALUE Cutoff: 100 107 Endocet, Percocet, Oxycontin 108 Metabolite of oxycodone 109 Numorphan, Opana; Also a metabolite of oxycodone. 110 Metabolite of oxymorphone REFERENCE VALUE Cutoff: 100 111 Metabolite of oxymorphone 112 Actiq, Duragesic, Fentora 113 Metabolite of fentanyl 114 Demerol 115 Metabolite of meperidine 116 Narcan 117 Metabolite of naloxone REFERENCE VALUE Cutoff: 100 118 Dolophine 119 Metabolite of methadone 120 Darvon, Darvocet 121 Metabolite of propoxyphene 122 Tradol, Ultram, Ultracet 123 Metabolite of tramadol 124 Nucynta 125 Metabolite of tapentadol 126 Metabolite of tapentadol REFERENCE VALUE Cutoff: 100 127 Buprenex, Suboxone 128 Metabolite of buprenorphine 129 Metabolite of buprenorphine 130 Test detected the presence of hydrocodone only without any metabolites. Suspect possible adulteration of sample or very recent exposure to hydrocodone. Trace amounts can also be found as an impurity in oxycodone or hydromorphone. Test detected the presence of oxycodone and several metabolites (noroxycodone, oxymorphone, noroxymorphone, and xhnjllsigkw-1-jjdq-glucuronide). Suspect use of oxycodone or possibly oxycodone and oxymorphone within the past three days. Test detected the presence of fentanyl and its metabolite (norfentanyl). Suspect use of fentanyl within the past three days. ADDITIONAL INFORMATION This test was developed and its performance characteristics determined by [facility] in a manner consistent with CLIA requirements. This test has not been cleared or approved by the U.S. Food and Drug Administration. Test Performed by: [facility] [address] [place] [address] [id number] 132 REFERENCE VALUE Cutoff: 500 133 REFERENCE VALUE Cutoff: 200 134 REFERENCE VALUE Cutoff: 100 135 REFERENCE VALUE Cutoff: 150 136 ADDITIONAL INFORMATION This report is intended for use in clinical monitoring or management of patients. It is not intended for use in employment-related testing. 137 REFERENCE VALUE Cutoff: 200 mg/L 138 Tylenol 3 139 Metabolite of codeine REFERENCE VALUE Cutoff: 100 140 Nadine Jon, Contin; Also a minor metabolite (10%) of codeine and can be seen in low concentrations (<2,000 ng/mL) with poppy seed ingestion. 141 Metabolite of morphine REFERENCE VALUE Cutoff: 100 142 Metabolite of heroin 143 Lortab, Artesian, Vicodin; Also a very minor metabolite of codeine and impurity (<1%) of oxycodone. 144 Metabolite of hydrocodone 145 Metabolite of hydrocodone 146 Dilaudid, Exalgo; Also a metabolite of hydrocodone and a minor (<5%) metabolite of morphine. 147 Metabolite of hydromorphone REFERENCE VALUE Cutoff: 100 148 Endocet, Percocet, Oxycontin 149 Metabolite of oxycodone 150 Numorphan, Opana; Also a metabolite of oxycodone. 151 Metabolite of oxymorphone REFERENCE VALUE Cutoff: 100 152 Metabolite of oxymorphone 153 Actiq, Duragesic, Fentora 154 Metabolite of fentanyl 155 Demerol 156 Metabolite of meperidine 157 Narcan 158 Metabolite of naloxone REFERENCE VALUE Cutoff: 100 159 Dolophine 160 Metabolite of methadone 161 Darvon, Darvocet 162 Metabolite of propoxyphene 163 Tradol, Ultram, Ultracet 164 Metabolite of tramadol 165 Nucynta 166 Metabolite of tapentadol 167 Metabolite of tapentadol REFERENCE VALUE Cutoff: 100 168 Buprenex, Suboxone 169 Metabolite of buprenorphine 170 Metabolite of buprenorphine 171 Test detected the presence of oxycodone and several metabolites (noroxycodone, noroxymorphone, and iqwxoevimed-6-fgzr-glucuronide). Suspect use of oxycodone or possibly oxycodone and oxymorphone within the past three days. ADDITIONAL INFORMATION This test was developed and its performance characteristics determined by [facility] in a manner consistent with CLIA requirements. This test has not been cleared or approved by the U.S. Food and Drug Administration. Test Performed by: [address] [id number] 172 Desirable <150 Borderline high 150-199 High 200-499 Very High >500 173 Desirable <200 Borderline high 200-239 High >239 174 Low <40 Desirable: 40-60 High: >60 175 Desirable: <100 mg/dL Near Optimal: 100-129 mg/dL Borderline High: 130-159 mg/dL High: 160-189 mg/dL Very High: >189 mg/dL 176 Because ethnic data is not always readily available, this report includes an eGFR for both -Americans and non- Americans. The National Kidney Disease Education Program (NKDEP) does not endorse the use of the MDRD equation for patients that are not between the ages of 18 and 70, are , have extremes of body size, muscle mass, or nutritional status, or are non- or non-. According to the National Kidney Foundation, irrespective of diagnosis, the stage of the disease is based on the level of kidney function: Stage Description GFR(mL/min/1.73 m(2)) 1 Kidney damage with normal or decreased GFR 90 2 Kidney damage with mild decrease in GFR 60-89 3 Moderate decrease in GFR 30-59 4 Severe decrease in GFR 15-29 5 Kidney failure <15 (or dialysis) 177 REFERENCE VALUE Cutoff: 500 178 REFERENCE VALUE Cutoff: 200 179 Presumptive Positive Drug confirmation to follow. Presumptive Positive means that the screening method is positive, but the test needs to be run by a confirmatory method before being finalized. REFERENCE VALUE Cutoff: 100 180 REFERENCE VALUE Cutoff: 150 181 ADDITIONAL INFORMATION This report is intended for use in clinical monitoring or management of patients. It is not intended for use in employment-related testing. 182 REFERENCE VALUE Cutoff: 200 mg/L 183 Tylenol 3 184 Metabolite of codeine REFERENCE VALUE Cutoff: 100 185 Nadine Jon, MS Contin; Also a minor metabolite (10%) of codeine and can be seen in low concentrations (<2,000 ng/mL) with poppy seed ingestion. 186 Metabolite of morphine REFERENCE VALUE Cutoff: 100 187 Metabolite of heroin 188 Lortab, Artesian, Vicodin; Also a very minor metabolite of codeine and impurity (<1%) of oxycodone. 189 Metabolite of hydrocodone 190 Metabolite of hydrocodone 191 Dilaudid, Exalgo; Also a metabolite of hydrocodone and a minor (<5%) metabolite of morphine. 192 Metabolite of hydromorphone REFERENCE VALUE Cutoff: 100 193 Endocet, Percocet, Oxycontin 194 Metabolite of oxycodone 195 Numorphan, Opana; Also a metabolite of oxycodone. 196 Metabolite of oxymorphone REFERENCE VALUE Cutoff: 100 197 Metabolite of oxymorphone 198 Actiq, Duragesic, Fentora 199 Metabolite of fentanyl 200 Demerol 201 Metabolite of meperidine 202 Narcan 203 Metabolite of naloxone REFERENCE VALUE Cutoff: 100 204 Dolophine 205 Metabolite of methadone 206 Darvon, Darvocet 207 Metabolite of propoxyphene 208 Tradol, Ultram, Ultracet 209 Metabolite of tramadol 210 Nucynta 211 Metabolite of tapentadol 212 Metabolite of tapentadol REFERENCE VALUE Cutoff: 100 213 Buprenex, Suboxone 214 Metabolite of buprenorphine 215 Metabolite of buprenorphine 216 Test detected the presence of oxycodone and several metabolites (noroxycodone, oxymorphone, noroxymorphone, and vbohhpbwree-8-bkqu-glucuronide). Suspect use of oxycodone or possibly oxycodone and oxymorphone within the past three days. ADDITIONAL INFORMATION This test was developed and its performance characteristics determined by [facility] in a manner consistent with CLIA requirements. This test has not been cleared or approved by the U.S. Food and Drug Administration. Test Performed by: [facility] - [address] [address] 217 REFERENCE VALUE Cutoff: 100 218 REFERENCE VALUE Cutoff: 100 219 REFERENCE VALUE Cutoff: 100 220 REFERENCE VALUE Cutoff: 100 221 REFERENCE VALUE Cutoff: 100 222 REFERENCE VALUE Cutoff: 100 223 REFERENCE VALUE Cutoff: 100 224 REFERENCE VALUE Cutoff: 100 225 ADDITIONAL INFORMATION This report is intended for use in clinical monitoring and management of patients. It is not intended for use in employment-related testing. This test was developed and its performance characteristics determined by [facility] in a manner consistent with CLIA requirements. This test has not been cleared or approved by the U.S. Food and Drug Administration. Test Performed by: [facility] - [address] [place] [address] 226 REFERENCE VALUE Cutoff: 500 227 REFERENCE VALUE Cutoff: 200 228 REFERENCE VALUE Cutoff: 100 229 REFERENCE VALUE Cutoff: 150 230 ADDITIONAL INFORMATION This report is intended for use in clinical monitoring or management of patients. It is not intended for use in employment-related testing. 231 REFERENCE VALUE Cutoff: 200 mg/L 232 Tylenol 3 233 Metabolite of codeine REFERENCE VALUE Cutoff: 100 234 Nadine Jon, MS Contin; Also a minor metabolite (10%) of codeine and can be seen in low concentrations (<2,000 ng/mL) with poppy seed ingestion. 235 Metabolite of morphine REFERENCE VALUE Cutoff: 100 236 Metabolite of heroin 237 Lortab, Artesian, Vicodin; Also a very minor metabolite of codeine and impurity (<1%) of oxycodone. 238 Metabolite of hydrocodone 239 Metabolite of hydrocodone 240 Dilaudid, Exalgo; Also a metabolite of hydrocodone and a minor (<5%) metabolite of morphine. 241 Metabolite of hydromorphone REFERENCE VALUE Cutoff: 100 242 Endocet, Percocet, Oxycontin 243 Metabolite of oxycodone 244 Numorphan, Opana; Also a metabolite of oxycodone. 245 Metabolite of oxymorphone REFERENCE VALUE Cutoff: 100 246 Metabolite of oxymorphone 247 Actiq, Duragesic, Fentora 248 Metabolite of fentanyl 249 Demerol 250 Metabolite of meperidine 251 Narcan 252 Metabolite of naloxone REFERENCE VALUE Cutoff: 100 253 Dolophine 254 Metabolite of methadone 255 Darvon, Darvocet 256 Metabolite of propoxyphene 257 Tradol, Ultram, Ultracet 258 Metabolite of tramadol 259 Nucynta 260 Metabolite of tapentadol 261 Metabolite of tapentadol REFERENCE VALUE Cutoff: 100 262 Buprenex, Suboxone 263 Metabolite of buprenorphine 264 Metabolite of buprenorphine 265 No opioids were detected. The absence of expected drug(s) and/or drug metabolite(s) may indicate non-compliance, altered pharmacokinetics, inappropriate timing of specimen collection relative to drug administration, diluted/adulterated urine, or limitations of testing. ADDITIONAL INFORMATION This test was developed and its performance characteristics determined by [facility] in a manner consistent with CLIA requirements. This test has not been cleared or approved by the U.S. Food and Drug Administration. Test Performed by: [facility] - [address] [address] 266 REFERENCE VALUE Cutoff: 500 267 REFERENCE VALUE Cutoff: 200 268 REFERENCE VALUE Cutoff: 100 269 REFERENCE VALUE Cutoff: 150 270 ADDITIONAL INFORMATION This report is intended for use in clinical monitoring or management of patients. It is not intended for use in employment-related testing. 271 REFERENCE VALUE Cutoff: 200 mg/L 272 Tylenol 3 273 Metabolite of codeine REFERENCE VALUE Cutoff: 100 274 Nadine Jon, MS Contin; Also a minor metabolite (10%) of codeine and can be seen in low concentrations (<2,000 ng/mL) with poppy seed ingestion. 275 Metabolite of morphine REFERENCE VALUE Cutoff: 100 276 Metabolite of heroin 277 Lortab, Artesian, Vicodin; Also a very minor metabolite of codeine and impurity (<1%) of oxycodone. 278 Metabolite of hydrocodone 279 Metabolite of hydrocodone 280 Dilaudid, Exalgo; Also a metabolite of hydrocodone and a minor (<5%) metabolite of morphine. 281 Metabolite of hydromorphone REFERENCE VALUE Cutoff: 100 282 Endocet, Percocet, Oxycontin 283 Metabolite of oxycodone 284 Numorphan, Opana; Also a metabolite of oxycodone. 285 Metabolite of oxymorphone REFERENCE VALUE Cutoff: 100 286 Metabolite of oxymorphone 287 Actiq, Duragesic, Fentora 288 Metabolite of fentanyl 289 Demerol 290 Metabolite of meperidine 291 Narcan 292 Metabolite of naloxone REFERENCE VALUE Cutoff: 100 293 Dolophine 294 Metabolite of methadone 295 Darvon, Darvocet 296 Metabolite of propoxyphene 297 Tradol, Ultram, Ultracet 298 Metabolite of tramadol 299 Nucynta 300 Metabolite of tapentadol 301 Metabolite of tapentadol REFERENCE VALUE Cutoff: 100 302 Buprenex, Suboxone 303 Metabolite of buprenorphine 304 Metabolite of buprenorphine 305 Test detected the presence of htzaiinqnki-2-oxod-glucuronide (metabolite of oxymorphone). Suspect use of oxymorphone within the past three days. ADDITIONAL INFORMATION This test was developed and its performance characteristics determined by [facility] in a manner consistent with CLIA requirements. This test has not been cleared or approved by the U.S. Food and Drug Administration. Test Performed by: [facility] [place] [place] [address] Signing Agent: Kyle Hameed II, M.D., Ph.D. 306 Desirable <150 Borderline high 150-199 High 200-499 Very High >500 307 Desirable <200 Borderline high 200-239 High >239 308 Low <40 Desirable: 40-60 High: >60 309 Desirable: <100 mg/dL Near Optimal: 100-129 mg/dL Borderline High: 130-159 mg/dL High: 160-189 mg/dL Very High: >189 mg/dL 310 ADDITIONAL INFORMATION Testing performed by [facility]. This test was developed and its performance characteristics determined by [facility] in a manner consistent with CLIA requirements. This test has not been cleared or approved by the U.S. Food and Drug Administration. 311 ADDITIONAL INFORMATION Testing performed by Liquid Chromatography-Tandem Mass Spectrometry (LC-MS/MS). This test was developed and its performance characteristics determined by [facility] in a manner consistent with CLIA requirements. This test has not been cleared or approved by the U.S. Food and Drug Administration. Test Performed by: [facility] [place] [address] Signing Agent: Kyle Hameed II, M.D., Ph.D. 312 ADDITIONAL INFORMATION Testing performed by [facility]. This test was developed and its performance characteristics determined by [facility] in a manner consistent with CLIA requirements. This test has not been cleared or approved by the U.S. Food and Drug Administration. 313 ADDITIONAL INFORMATION Testing performed by Liquid Chromatography-Tandem Mass Spectrometry (LC-MS/MS). This test was developed and its performance characteristics determined by [facility] in a manner consistent with CLIA requirements. This test has not been cleared or approved by the U.S. Food and Drug Administration. Test Performed by: [facility] [place] [address] Signing Agent: Kyle Hameed II, M.D., Ph.D. 314 Serum levels of PSA measured using the [employer] [place] DXI Hybritech immunoassay should not be interpreted as absolute evidence of the presence or absence of disease. The PSA value should be used in conjunction with other pertinent clinical diagnostic procedures. A PSA value in the range of 0.1 to 0.6 ng/ml is indeterminate if being used as an indicator of recurrent or residual disease. The values obtained with different assay methods or kits cannot be used interchangeably. 315 FASTING 12 HOUR 316 AM 8.7-22.4 PM <10 317 Normal Range 180 to 914 Indeterminate Range 145 to 180 Deficient Range <145 318 FASTING 12 HOUR 319 Because ethnic data is not always readily available, this report includes an eGFR for both -Americans and non- Americans. The National Kidney Disease Education Program (NKDEP) does not endorse the use of the MDRD equation for patients that are not between the ages of 18 and 70, are , have extremes of body size, muscle mass, or nutritional status, or are non- or non-. According to the National Kidney Foundation, irrespective of diagnosis, the stage of the disease is based on the level of kidney function: Stage Description GFR(mL/min/1.73 m(2)) 1 Kidney damage with normal or decreased GFR 90 2 Kidney damage with mild decrease in GFR 60-89 3 Moderate decrease in GFR 30-59 4 Severe decrease in GFR 15-29 5 Kidney failure <15 (or dialysis) 320 Desirable <150 Borderline high 150-199 High 200-499 Very High >500 321 Desirable <200 Borderline high 200-239 High >239 322 Low <40 Desirable: 40-60 High: >60 323 Desirable: <100 mg/dL Near Optimal: 100-129 mg/dL Borderline High: 130-159 mg/dL High: 160-189 mg/dL Very High: >189 mg/dL Procedures Date Code Description Status 01/10/2017 22513 EKG Tracing & Interpretation Completed 12/07/2016 [id number] Diabetic Retinal Eye Exam Completed 07/21/2016 [id number] Diabetic Retinal Eye Exam Completed Encounters Type Date Location Provider Dx Diagnosis Office Visit 08/23/2018 [facility] Internal Aman Dunham, I10 Essential ( primary) 3:20p Medicine - [place] M.[address] hypertension [address] E78.2 Mixed hyperlipidemia E66.01 Morbid (severe) obesity due to excess calories M51.16 Intervertebral disc disorders w radiculopathy, lumbar region E11.65 Type 2 diabetes mellitus with hyperglycemia E29.1 Testicular hypofunction G47.00 Insomnia, unspecified E11.40 Type 2 diabetes mellitus with diabetic neuropathy, unsp Office Visit 05/08/2018 8:00a [facility] Ene [place] E11.40 Type 2 diabetes Jesus Dunham M.D. mellitus with [address] diabetic neuropathy, unsp I10 Essential (primary) hypertension E78.2 Mixed hyperlipidemia E66.01 Morbid (severe) obesity due to excess calories M51.16 Intervertebral disc disorders w radiculopathy, lumbar region E29.1 Testicular hypofunction Office Visit 03/27/2018 3:40p [place] E11.40 Type 2 diabetes Jesus Dunham M.D. 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 mellitus with [address] diabetic neuropathy, unsp Office Visit 01/09/2018 [facility] [place] E11.40 Type 2 diabetes 9:00a Jesus Dunham M.D. mellitus with [address] diabetic neuropathy, unsp Office Visit 11/30/2017 [facility] Ene [place] E11.65 Type 2 diabetes 9:40a Jesus Dunham M.D. mellitus with [address] hyperglycemia M54.16 Radiculopathy, lumbar region E29.1 Testicular hypofunction I10 Essential (primary) hypertension Office Visit 09/05/2017 [facility] [place] E11.65 Type 2 diabetes 8:40a Jesus Dunham M.D. mellitus with [address] hyperglycemia E29.1 Testicular hypofunction M54.16 Radiculopathy, lumbar region Z12.5 Encounter for screening for malignant neoplasm of prostate H61.23 Impacted cerumen, bilateral I10 Essential (primary) hypertension K42.9 Umbilical hernia without obstruction or gangrene Office Visit 06/26/2017 3:00p [place] E29.1 Testicular Jesus Dunham M.D. hypofunction [address] M54.16 Radiculopathy, lumbar region R30.0 Dysuria Office Visit 06/08/2017 [facility] Internal Aman M51.16 Intervertebral disc 9:40a Jesus Dunham M.D. disorders w [address] radiculopathy, lumbar region E66.01 Morbid (severe) obesity due to excess calories E29.1 Testicular hypofunction Office Visit 04/13/2017 [facility] Ene [place] E11.65 Type 2 diabetes 11:40a Jesus Dunham M.D. mellitus with [address] hyperglycemia I10 Essential (primary) hypertension E78.2 Mixed hyperlipidemia M51.16 Intervertebral disc disorders w radiculopathy, lumbar region E66.01 Morbid (severe) obesity due to excess calories Office Visit 02/08/2017 [facility] [place] E11.65 Type 2 diabetes 11:40a Jesus Dunham M.D. mellitus with [place] hyperglycemia M54.16 Radiculopathy, lumbar region E66.01 Morbid (severe) obesity due to excess calories Office Visit 01/10/2017 10:20a Heather [place]ham, F33.0 Major depressive Medicine - M.DPaddy disorder, [address] recurrent, mild E11.65 Type 2 diabetes mellitus with hyperglycemia R00.0 Tachycardia, unspecified M54.16 Radiculopathy, lumbar region Office Visit 12/06/2016 10:40a Heather Dunham, F33.0 Major depressive Medicine - M.DPaddy disorder, [address] recurrent, mild G47.00 Insomnia, unspecified M25.562 Pain in left knee Office Visit 12/05/2016 [facility] M51.26 Other 2:00p [facility] Potts M.D. intervertebral disc displacement, lumbar region Office Visit 11/22/2016 [facility] Internal Aman M54.16 Radiculopathy, 9:40a Medicine - [place], lumbar region Rd M.DPaddy F33.0 Major depressive disorder, recurrent, mild G47.00 Insomnia, unspecified Office Visit 10/24/2016 [facility] Ene [place] E11.65 Type 2 diabetes 2:00p Jesus Dunham M.D. mellitus with [address] hyperglycemia I10 Essential (primary) hypertension E78.2 Mixed hyperlipidemia Z23 Encounter for immunization M51.16 Intervertebral disc disorders w radiculopathy, lumbar region Office Visit 10/13/2016 10:20a [place] E11.8 Type 2 diabetes Jesus Dunham M.D. mellitus with [address] unspecified complications M51.16 Intervertebral disc disorders w radiculopathy, lumbar region I10 Essential (primary) hypertension E66.01 Morbid (severe) obesity due to excess calories E29.1 Testicular hypofunction E78.2 Mixed hyperlipidemia F33.0 Major depressive disorder, recurrent, mild Z00.00 Encntr for general adult medical exam w/o abnormal findings Office Visit 09/22/2016 11:00a [facility] Internal Aman [place], F33.0 Major depressive Medicine - M.D. disorder, [address] recurrent, mild M48.06 Spinal stenosis, lumbar region E11.8 Type 2 diabetes mellitus with unspecified complications E29.1 Testicular hypofunction E78.2 Mixed hyperlipidemia Office Visit 08/11/2016 1:00p [facility] Internal Aman [place], M48.06 Spinal stenosis, Medicine - M.D. lumbar region [address] M25.561 Pain in right knee F33.0 Major depressive disorder, recurrent, mild E29.1 Testicular hypofunction E78.2 Mixed hyperlipidemia Z12.5 Encounter for screening for malignant neoplasm of prostate Office Visit 07/28/2016 1:00p [facility] Internal Aman E11.40 Type 2 diabetes Jesus Dunham M.D. mellitus with [address] diabetic neuropathy, unsp I10 Essential (primary) hypertension M51.16 Intervertebral disc disorders w radiculopathy, lumbar region M25.561 Pain in right knee E66.01 Morbid (severe) obesity due to excess calories Z68.43 Body mass index (BMI) 50-59.9 , adult Office Visit 03/06/2016 [facility] E11.8 Type 2 diabetes 11:11a Asskumar ashraf NP mellitus with Hospitalists unspecified complications Office Visit 03/05/2016 [facility] E11.8 Type 2 diabetes 11:10a Asskumar ashraf NP mellitus with Hospitalists unspecified complications Plan of Treatment Future Appointment(s):11/14/2018 2:00 pm - Forest Marmolejo MD at [facility]11/20/2018 4:00 pm - Haseeb Butt M.D. at [facility] Internal Medicine - [place]75/07/2019 9:30 am - Karen Deal MD at [facility]10/23/2018 - Haseeb Butt M.D.E11.65 Type 2 diabetes mellitus with hyperglycemiaNew Medication:Trulicity 0.75 mg/ 0.5ML - inject 0.75mg once a weekNew Labs:Basic Metabolic Panel, Ordered: I10 Essential (primary) hypertensionFollow up:1 LndwmV84.2 Mixed nafsaqakvaxafiL21.01 Morbid (severe) obesity due to excess qhkydzbwU21.9 Ventral hernia without obstruction or gangreneReferral:Gurwinder Mason MD, Surgery ,General
[2018-11-04 20:45] LABS: ABS Basophils 0.1 10^3/ul (0-0.2); ABS Eosinophils 0.1 10^3/ul (0-0.6); ABS Monocytes 0.9 10^3/ul (0-0.8); ABS Neutrophils 10.4 10^3/ul (1.5-7.7); ABS Nucleated RBC 0 10^3/ul; Eosinophil % 0.9 %; Hematocrit 44 % (42-52); Hemoglobin 15.2 g/dl (14.0-18.0); Lymphocyte % 20.9 %; Mean Corpuscular HGB Conc 34 g/dl (31-36); Mean Corpuscular Hemoglobin 31 pg (27-31); Mean Corpuscular Volume 89 fL (80-94); Mean Platelet Volume 7.5 fL (7.4-10.4); Nucleated Red Blood Cells % 0; Platelet Count 372 10^3/ul (150-450); Red Blood Count 4.98 10^6/ul (4.00-5.40); Red Cell Distribution Width 14 % (10.5-15); White Blood Count 14.5 10^3/ul (3.5-10.8)
[2018-11-04 21:02] LABS: Albumin 4.5 g/dL (3.2-5.2); Albumin/Globulin Ratio 1.1 (1-3); BUN/Creatinine Ratio 14.3 (8-20); C Reactive Protein 23.73 mg/L (<8.01); Calcium 9.4 mg/dL (8.6-10.3); EGFR African American 120.1 (>60); EGFR Non-African American 99.3 (>60); Potassium 3.9 mmol/L (3.5-5.0); Total Bilirubin 0.4 mg/dL (0.2-1.0); Total Protein 8.5 g/dL (6.4-8.9)
[2018-11-04 21:06] LABS: Urine Appearance Cloudy; Urine Bacteria Absent (Absent); Urine Bilirubin Negative (Negative); Urine Blood Negative (Negative); Urine Color Yellow; Urine Glucose 3+(>=500 mg/dL) (Negative); Urine Ketones Trace (Negative); Urine Nitrite Negative (Negative); Urine Protein Negative (Negative); Urine Red Blood Cell 2+(6-10/hpf) (Absent); Urine Specific Gravity 1.026 (1.010-1.030); Urine Squamous Epithelial Cell Present (Absent); Urine Urobilinogen Negative (Negative); Urine White Blood Cell 2+(11-20/hpf) (Absent)
[2018-11-04] MEDS ORDERED: oxyCODONE/Acetamin 10/325(NF) TAB PO ONE (21:55)
[2018-11-04] MEDS ORDERED: Cephalexin CAP* 500 MG PO ONE (22:25)
--- NOTE | 2018-11-04 22:26 | ED ---
Complaint/Male - History of Current Complaint Chief Complaint: EDUrogenitalProblems Time Seen by Provider: 11/04/18 20:28 - Allergies/Home Medications Allergies/Adverse Reactions: Allergies Allergy/AdvReac Type Severity Reaction Status Date / Time No Known Allergies Allergy Verified 02/20/18 14:16 PMH/Surg Hx/FS Hx/Imm Hx Endocrine/Hematology History: Reports: Hx Diabetes Cardiovascular History: Reports: Hx Hypertension Denies: Hx Pacemaker/ICD Respiratory History: Denies: Hx Asthma, Hx Sleep Apnea GI History: Denies: Hx Gastroesophageal Reflux Disease History: Denies: Hx Chronic Renal Failure, Hx Renal Disease Musculoskeletal History: Reports: Hx Back Problems - L4-5 herniated disc Sensory History: Reports: Hx Contacts or Glasses Denies: Hx Hearing Aid Opthamlomology History: Reports: Hx Contacts or Glasses Neurological History: Reports: Other Neuro Impairments/Disorders - PAIN CLINIC PATIENT Psychiatric History: Reports: Hx Anxiety, Hx Attention Deficit Hyperactivity Disorder, Hx Depression, Hx Inpatient Treatment, Hx Community Mental Health Tx Denies: Hx Eating Disorder, Hx Panic Disorder, Hx of Violent Episodes Against Others - Surgical History Surgery Procedure, Year, and Place: TONSILECTOMY Infectious Disease History: No Infectious Disease History: Denies: Traveled Outside the [place] in Last 30 Days - Family History Known Family History: Positive: Hypertension, Diabetes - Social History Alcohol Use: None Hx Substance Use: No Substance Use Type: Reports: None Hx Tobacco Use: No Smoking Status (MU): Never Smoked Tobacco Physical Exam Vital Signs On Initial Exam: Initial Vitals Temp Pulse Resp BP Pulse Ox 97.8 F 114 18 172/102 97 11/04/18 17:58 11/04/18 17:58 11/04/18 17:58 11/04/18 17:58 11/04/18 17:58 Diagnostics - Vital Signs Vital Signs Temp Pulse Resp BP Pulse Ox 11/04/18 22:00 89 9 98 11/04/18 21:53 96 162/99 99 11/04/18 21:52 96 99 11/04/18 20:13 97.8 F 114 18 175/122 97 11/04/18 17:58 97.8 F 114 18 172/102 97 - Laboratory Lab Results: Lab Results 11/04/18 11/04/18 11/04/18 Range/Units 20:37 20:37 20:55 WBC 14.5 H (3.5-10.8) 10^3/ul RBC 4.98 (4.00-5.40) 10^6/ul Hgb 15.2 (14.0-18.0) g/dl Hct 44 (42-52) % MCV 89 (80-94) fL MCH 31 (27-31) pg MCHC 34 (31-36) g/dl RDW 14 (10.5-15) % Plt Count 372 (150-450) 10^3/ul MPV 7.5 (7.4-10.4) fL Neut % (Auto) 71.5 % Lymph % (Auto) 20.9 % [place] % (Auto) 6.0 % Eos % (Auto) 0.9 % Baso % (Auto) 0.7 % Absolute Neuts (auto) 10.4 H (1.5-7.7) 10^3/ul Absolute Lymphs (auto) 3.0 (1.0-4.8) 10^3/ul Absolute Monos (auto) 0.9 H (0-0.8) 10^3/ul Absolute Eos (auto) 0.1 (0-0.6) 10^3/ul Absolute Basos (auto) 0.1 (0-0.2) 10^3/ul Absolute Nucleated RBC 0 10^3/ul Nucleated RBC % 0 Sodium 136 (135-145) mmol/L Potassium 3.9 (3.5-5.0) mmol/L Chloride 99 L (101-111) mmol/L Carbon Dioxide 29 (22-32) mmol/L Anion Gap 8 (2-11) mmol/L BUN 12 (6-24) mg/dL Creatinine 0.84 (0.67-1.17) mg/dL Est GFR ( Amer) 120.1 (>60) Est GFR (Non-Af Amer) 99.3 (>60) BUN/Creatinine Ratio 14.3 (8-20) Glucose 245 H (70-100) mg/dL Lactic Acid (0.5-2.0) mmol/L Calcium 9.4 (8.6-10.3) mg/dL Total Bilirubin 0.40 (0.2-1.0) mg/dL AST 27 (13-39) U/L ALT 45 (7-52) U/L Alkaline Phosphatase 106 H (34-104) U/L C-Reactive Protein 23.73 H (<8.01) mg/L Total Protein 8.5 (6.4-8.9) g/dL Albumin 4.5 (3.2-5.2) g/dL Globulin 4.0 (2-4) g/dL Albumin/Globulin Ratio 1.1 (1-3) Urine Color Yellow Urine Appearance Cloudy Urine pH 6.0 (5-9) Ur Specific [place] 1.026 (1.010-1.030) Urine Protein Negative (Negative) Urine Ketones Trace A (Negative) Urine Blood Negative (Negative) Urine Nitrate Negative (Negative) Urine Bilirubin Negative (Negative) Urine Urobilinogen Negative (Negative) Ur Leukocyte Esterase Trace A (Negative) Urine WBC (Auto) 2+(11-20/hpf) A (Absent) Urine RBC (Auto) 2+(6-10/hpf) A (Absent) Ur Squamous Epith Cells Present A (Absent) Urine Bacteria Absent (Absent) Urine Glucose 3+(>=500 mg/dl) A (Negative) 11/04/18 Range/Units 21:57 WBC (3.5-10.8) 10^3/ul RBC (4.00-5.40) 10^6/ul Hgb (14.0-18.0) g/dl Hct (42-52) % MCV (80-94) fL MCH (27-31) pg MCHC (31-36) g/dl RDW (10.5-15) % Plt Count (150-450) 10^3/ul MPV (7.4-10.4) fL Neut % (Auto) % Lymph % (Auto) % [place] % (Auto) % Eos % (Auto) % Baso % (Auto) % Absolute Neuts (auto) (1.5-7.7) 10^3/ul Absolute Lymphs (auto) (1.0-4.8) 10^3/ul Absolute Monos (auto) (0-0.8) 10^3/ul Absolute Eos (auto) (0-0.6) 10^3/ul Absolute Basos (auto) (0-0.2) 10^3/ul Absolute Nucleated RBC 10^3/ul Nucleated RBC % Sodium (135-145) mmol/L Potassium (3.5-5.0) mmol/L Chloride (101-111) mmol/L Carbon Dioxide (22-32) mmol/L Anion Gap (2-11) mmol/L BUN (6-24) mg/dL Creatinine (0.67-1.17) mg/dL Est GFR ( Amer) (>60) Est GFR (Non-Af Amer) (>60) BUN/Creatinine Ratio (8-20) Glucose (70-100) mg/dL Lactic Acid 1.1 (0.5-2.0) mmol/L Calcium (8.6-10.3) mg/dL Total Bilirubin (0.2-1.0) mg/dL AST (13-39) U/L ALT (7-52) U/L Alkaline Phosphatase (34-104) U/L C-Reactive Protein (<8.01) mg/L Total Protein (6.4-8.9) g/dL Albumin (3.2-5.2) g/dL Globulin (2-4) g/dL Albumin/Globulin Ratio (1-3) Urine Color Urine Appearance Urine pH (5-9) Ur Specific [place] (1.010-1.030) Urine Protein (Negative) Urine Ketones (Negative) Urine Blood (Negative) Urine Nitrate (Negative) Urine Bilirubin (Negative) Urine Urobilinogen (Negative) Ur Leukocyte Esterase (Negative) Urine WBC (Auto) (Absent) Urine RBC (Auto) (Absent) Ur Squamous Epith Cells (Absent) Urine Bacteria (Absent) Urine Glucose (Negative) Result Diagrams: 11/04/18 20:37 11/04/18 20:37 Lab Statement: Any lab studies that have been ordered have been reviewed, and results considered in the medical decision making process. Complaint Male Course/Dx - Differential Dx/Diagnosis Provider Diagnosis: UTI (urinary tract infection)
--- NOTE | 2018-11-04 22:28 | ED ---
GI/ HPI - HPI Summary HPI Summary: Patient complains of pain with urination 4-5 days, as well as concern that left lower quadrant hernia is getting worse. Patient states history of hernia 1 year, getting more aware of hernia 1 month. Patient denies fever, cough, sore throat, CP, SOB, N/V/D, change in BM. Medical history is DM 2 on insulin, opioid dependency for chronic back pain, HTN, depression. Abdominal surgical history is none. Patient has been evaluated months ago for hernia by surgery, and states that he has been advised to return when hernia symptoms become significant. - History of Current Complaint Chief Complaint: EDUrogenitalProblems Time Seen by Provider: 11/04/18 20:28 Stated Complaint: POSS HERNIA/ABD PAIN Hx Obtained From: Patient Onset/Duration: Started Days Ago Timing: Intermittent Severity: Moderate Current Severity: Moderate Pain Intensity: 8 Location of Pain: LLQ Pain Characteristics: Dull Associated Signs and Symptoms: Positive: Dysuria, Abdominal Pain - Additional Pertinent History Primary Care Physician: KELLIE - Allergy/Home Medications Allergies/Adverse Reactions: Allergies Allergy/AdvReac Type Severity Reaction Status Date / Time No Known Allergies Allergy Verified 02/20/18 14:16 PMH/Surg Hx/FS Hx/Imm Hx Endocrine/Hematology History: Reports: Hx Diabetes Cardiovascular History: Reports: Hx Hypertension Denies: Hx Pacemaker/ICD Respiratory History: Denies: Hx Asthma, Hx Sleep Apnea GI History: Denies: Hx Gastroesophageal Reflux Disease History: Denies: Hx Chronic Renal Failure, Hx Renal Disease Musculoskeletal History: Reports: Hx Back Problems - L4-5 herniated disc Sensory History: Reports: Hx Contacts or Glasses Denies: Hx Hearing Aid Opthamlomology History: Reports: Hx Contacts or Glasses Neurological History: Reports: Other Neuro Impairments/Disorders - PAIN CLINIC PATIENT Psychiatric History: Reports: Hx Anxiety, Hx Attention Deficit Hyperactivity Disorder, Hx Depression, Hx Inpatient Treatment, Hx Community Mental Health Tx Denies: Hx Eating Disorder, Hx Panic Disorder, Hx of Violent Episodes Against Others - Surgical History Surgery Procedure, Year, and Place: TONSILECTOMY Infectious Disease History: No Infectious Disease History: Denies: Traveled Outside the [place] in Last 30 Days - Family History Known Family History: Positive: Hypertension, Diabetes - Social History Alcohol Use: None Hx Substance Use: No Substance Use Type: Reports: None Hx Tobacco Use: No Smoking Status (MU): Never Smoked Tobacco Review of Systems Constitutional: Negative Eyes: Negative ENT: Negative Cardiovascular: Negative Respiratory: Negative Positive: Abdominal Pain Positive: dysuria Musculoskeletal: Negative Skin: Negative Neurological: Negative Psychological: Normal All Other Systems Reviewed And Are Negative: Yes Physical Exam - Summary Physical Exam Summary: No obvious hernia noted in left lower quadrant. No pain with palpation of abdomen. No pain with palpation of groin or testicles. Glans of penis appears to be irritated but in general exam otherwise unremarkable. Triage Information Reviewed: Yes Vital Signs On Initial Exam: Initial Vitals Temp Pulse Resp BP Pulse Ox 97.8 F 114 18 172/102 97 11/04/18 17:58 11/04/18 17:58 11/04/18 17:58 11/04/18 17:58 11/04/18 17:58 Vital Signs Reviewed: Yes Appearance: Positive: Well-Appearing Skin: Positive: Warm Head/Face: Positive: Normal Head/Face Inspection Eyes: Positive: Normal Neck: Positive: Supple Respiratory/Lung Sounds: Positive: Clear to Auscultation Cardiovascular: Positive: Normal Abdomen Description: Positive: Nontender Male Genital Exam: Positive: Normal Genitalia. Negative: Epididymal Tenderness , Hernia Mass, Inguinal Tenderness, Lesions, Scrotum Tenderness (R), Scrotum Tenderness (L), Testicular Tenderness (R), Testicular Tenderness (L), Urethral Discharge Musculoskeletal: Positive: Normal Neurological: Positive: Normal Psychiatric: Positive: Normal AVPU Assessment: Alert - [place] Coma Scale Best Eye Response: 4 - Spontaneous Best Motor Response: 6 - Obeys Commands Best Verbal Response: 5 - Oriented Coma Scale Total: 15 Diagnostics - Vital Signs Vital Signs Temp Pulse Resp BP Pulse Ox 11/04/18 22:00 89 9 98 11/04/18 21:53 96 162/99 99 11/04/18 21:52 96 99 11/04/18 20:13 97.8 F 114 18 175/122 97 11/04/18 17:58 97.8 F 114 18 172/102 97 - Laboratory Lab Results: Lab Results 11/04/18 11/04/18 11/04/18 Range/Units 20:37 20:37 20:55 WBC 14.5 H (3.5-10.8) 10^3/ul RBC 4.98 (4.00-5.40) 10^6/ul Hgb 15.2 (14.0-18.0) g/dl Hct 44 (42-52) % MCV 89 (80-94) fL MCH 31 (27-31) pg MCHC 34 (31-36) g/dl RDW 14 (10.5-15) % Plt Count 372 (150-450) 10^3/ul MPV 7.5 (7.4-10.4) fL Neut % (Auto) 71.5 % Lymph % (Auto) 20.9 % [place] % (Auto) 6.0 % Eos % (Auto) 0.9 % Baso % (Auto) 0.7 % Absolute Neuts (auto) 10.4 H (1.5-7.7) 10^3/ul Absolute Lymphs (auto) 3.0 (1.0-4.8) 10^3/ul Absolute Monos (auto) 0.9 H (0-0.8) 10^3/ul Absolute Eos (auto) 0.1 (0-0.6) 10^3/ul Absolute Basos (auto) 0.1 (0-0.2) 10^3/ul Absolute Nucleated RBC 0 10^3/ul Nucleated RBC % 0 Sodium 136 (135-145) mmol/L Potassium 3.9 (3.5-5.0) mmol/L Chloride 99 L (101-111) mmol/L Carbon Dioxide 29 (22-32) mmol/L Anion Gap 8 (2-11) mmol/L BUN 12 (6-24) mg/dL Creatinine 0.84 (0.67-1.17) mg/dL Est GFR ( Amer) 120.1 (>60) Est GFR (Non-Af Amer) 99.3 (>60) BUN/Creatinine Ratio 14.3 (8-20) Glucose 245 H (70-100) mg/dL Lactic Acid (0.5-2.0) mmol/L Calcium 9.4 (8.6-10.3) mg/dL Total Bilirubin 0.40 (0.2-1.0) mg/dL AST 27 (13-39) U/L ALT 45 (7-52) U/L Alkaline Phosphatase 106 H (34-104) U/L C-Reactive Protein 23.73 H (<8.01) mg/L Total Protein 8.5 (6.4-8.9) g/dL Albumin 4.5 (3.2-5.2) g/dL Globulin 4.0 (2-4) g/dL Albumin/Globulin Ratio 1.1 (1-3) Urine Color Yellow Urine Appearance Cloudy Urine pH 6.0 (5-9) Ur Specific [place] 1.026 (1.010-1.030) Urine Protein Negative (Negative) Urine Ketones Trace A (Negative) Urine Blood Negative (Negative) Urine Nitrate Negative (Negative) Urine Bilirubin Negative (Negative) Urine Urobilinogen Negative (Negative) Ur Leukocyte Esterase Trace A (Negative) Urine WBC (Auto) 2+(11-20/hpf) A (Absent) Urine RBC (Auto) 2+(6-10/hpf) A (Absent) Ur Squamous Epith Cells Present A (Absent) Urine Bacteria Absent (Absent) Urine Glucose 3+(>=500 mg/dl) A (Negative) 11/04/18 Range/Units 21:57 WBC (3.5-10.8) 10^3/ul RBC (4.00-5.40) 10^6/ul Hgb (14.0-18.0) g/dl Hct (42-52) % MCV (80-94) fL MCH (27-31) pg MCHC (31-36) g/dl RDW (10.5-15) % Plt Count (150-450) 10^3/ul MPV (7.4-10.4) fL Neut % (Auto) % Lymph % (Auto) % [place] % (Auto) % Eos % (Auto) % Baso % (Auto) % Absolute Neuts (auto) (1.5-7.7) 10^3/ul Absolute Lymphs (auto) (1.0-4.8) 10^3/ul Absolute Monos (auto) (0-0.8) 10^3/ul Absolute Eos (auto) (0-0.6) 10^3/ul Absolute Basos (auto) (0-0.2) 10^3/ul Absolute Nucleated RBC 10^3/ul Nucleated RBC % Sodium (135-145) mmol/L Potassium (3.5-5.0) mmol/L Chloride (101-111) mmol/L Carbon Dioxide (22-32) mmol/L Anion Gap (2-11) mmol/L BUN (6-24) mg/dL Creatinine (0.67-1.17) mg/dL Est GFR ( Amer) (>60) Est GFR (Non-Af Amer) (>60) BUN/Creatinine Ratio (8-20) Glucose (70-100) mg/dL Lactic Acid 1.1 (0.5-2.0) mmol/L Calcium (8.6-10.3) mg/dL Total Bilirubin (0.2-1.0) mg/dL AST (13-39) U/L ALT (7-52) U/L Alkaline Phosphatase (34-104) U/L C-Reactive Protein (<8.01) mg/L Total Protein (6.4-8.9) g/dL Albumin (3.2-5.2) g/dL Globulin (2-4) g/dL Albumin/Globulin Ratio (1-3) Urine Color Urine Appearance Urine pH (5-9) Ur Specific [place] (1.010-1.030) Urine Protein (Negative) Urine Ketones (Negative) Urine Blood (Negative) Urine Nitrate (Negative) Urine Bilirubin (Negative) Urine Urobilinogen (Negative) Ur Leukocyte Esterase (Negative) Urine WBC (Auto) (Absent) Urine RBC (Auto) (Absent) Ur Squamous Epith Cells (Absent) Urine Bacteria (Absent) Urine Glucose (Negative) Result Diagrams: 11/04/18 20:37 11/04/18 20:37 Lab Statement: Any lab studies that have been ordered have been reviewed, and results considered in the medical decision making process. GIGU Course/Dx - Course Course Of Treatment: Patient complains of pain with urination 4-5 days, as well as concern that left lower quadrant hernia is getting worse. Patient states history of hernia 1 year, getting more aware of hernia 1 month. Patient denies fever, cough, sore throat, CP, SOB, N/V/D, change in BM. Medical history is DM 2 on insulin, opioid dependency for chronic back pain, HTN , depression. Abdominal surgical history is none. Patient has been evaluated months ago for hernia by surgery, and states that he has been advised to return when hernia symptoms become significant. Physical exam:No obvious hernia noted in left lower quadrant. No pain with palpation of abdomen. No pain with palpation of groin or testicles. Glans of penis appears to be irritated but in general exam otherwise unremarkable. Vital signs within normal limits. WBC 14.5. Lactic normal. BGL 245. CRP 23. Labs otherwise unremarkable. UA apparently positive for UTI. Patient started on Keflex here in the ED. Rx for same. Follow-up with primary care for better management of diabetes. Upon discharge Patient also complains of ongoing depression, denies SI, HI. Patient states he was taken off his anti-depression meds 1 month ago by primary care. Patient advised to follow-up with primary care for further evaluation of depression.. Patient understands and approves plan. - Diagnoses Provider Diagnoses: UTI (urinary tract infection) Discharge - Sign-Out/Discharge Documenting (check all that apply): Patient Departure - Discharge Plan Condition: Stable Disposition: HOME Prescriptions: Cephalexin CAP* [Keflex CAP*] 500 mg PO TID 7 Days #21 cap Patient Education Materials: Urinary Tract Infection in Men (ED) Referrals: Aman Dunham MD [Primary Care Provider] - Additional Instructions: Take antibiotics as directed. Follow-up with primary care for management of elevated blood glucose levels. Return to the ED for any new or worsening symptoms - Billing Disposition and Condition Condition: STABLE Disposition: Home
[2018-11-04] MEDS ORDERED: oxyCODONE TAB* 5 MG TAB PO ONE (22:30)
[2018-11-04] MEDS ORDERED: oxyCODONE/Acetamin 5/325 MG* TAB PO ONE (22:30)
[2018-11-04 22:58] VITALS: BP 173/96
== END 2018-11-04 23:06 | disposition home or self-care (01) ==
LOC: ED 17:53
DX: N39.0 Urinary tract infection, site not specified (principal); R30.0 Dysuria; R10.9 Unspecified abdominal pain
CPT/HCPCS: 36415; 74176; 80053; 81003; 81015; 83605; 85025; 86140; 87077; 87086; 99283; A9270-GY

== ENCOUNTER 2018-11-06 15:14 | Inpatient (IN) | payer OTHER ==
[2018-11-06] MEDS ORDERED: Nicotine Inhaler* 10 MG AMP INH PRN (16:01)
[2018-11-06 16:09] LABS: Urine Appearance Cloudy; Urine Bilirubin Negative (Negative); Urine Blood Negative (Negative); Urine Color Yellow; Urine Glucose 2+(150 mg/dL) (Negative); Urine Ketones Negative (Negative); Urine Nitrite Negative (Negative); Urine Protein Negative (Negative); Urine Specific Gravity 1.023 (1.010-1.030); Urine Urobilinogen Negative (Negative)
--- NOTE | 2018-11-06 16:17 | ED ---
Psychiatric Complaint - HPI Summary HPI Summary: Patient is a 43-year-old male presenting to the ED with suicidal ideation. He states he was on his way to get a gun when he decided to drive buying come to the hospital and sent. He was seen for same 2 years ago. He has a history of depression and anxiety. He states he's been more suicidal due to health reasons. He was recently seen for UTI, states he has had several issues with his bowels and recently placed on testosterone. He denies any HI. His plan includes shooting himself. He denies any fevers or recent illness other than his UTI. He states his symptoms physically have improved. He does take Latuda which is prescribed by his PCP. He does not see a psychiatrist or therapist. - History Of Current Complaint Chief Complaint: EDMentalHealth Time Seen by Provider: 11/06/18 15:36 Hx Obtained From: Patient Onset/Duration: Gradual Onset Timing: Constant Severity Initially: Moderate Severity Currently: Moderate Character: Depressed, Anxious Aggravating Factor(s): Recent Stress, Other - Health problems Alleviating Factor(s): Nothing, Other - Recently taken off antidepressants due to testosterone helping mood Associated Signs And Symptoms: Positive: Negative Has Suicidal: Reports: Thoughts, With A Plan - Suicide with gun - Risk Factor(s) Completed Suicide Risk Factors: Male, White [place] - Allergies/Home Medications Allergies/Adverse Reactions: Allergies Allergy/AdvReac Type Severity Reaction Status Date / Time No Known Allergies Allergy Verified 11/06/18 15:28 PMH/Surg Hx/FS Hx/Imm Hx Previously Healthy: Yes Endocrine/Hematology History: Reports: Hx Diabetes Cardiovascular History: Reports: Hx Hypertension Denies: Hx Pacemaker/ICD Respiratory History: Denies: Hx Asthma, Hx Sleep Apnea GI History: Denies: Hx Gastroesophageal Reflux Disease History: Denies: Hx Chronic Renal Failure, Hx Renal Disease Musculoskeletal History: Reports: Hx Back Problems - L4-5 herniated disc Sensory History: Reports: Hx Contacts or Glasses Denies: Hx Hearing Aid Opthamlomology History: Reports: Hx Contacts or Glasses Neurological History: Reports: Other Neuro Impairments/Disorders - PAIN CLINIC PATIENT Psychiatric History: Reports: Hx Anxiety, Hx Attention Deficit Hyperactivity Disorder, Hx Depression, Hx Inpatient Treatment, Hx Community Mental Health Tx Denies: Hx Eating Disorder, Hx Panic Disorder, Hx of Violent Episodes Against Others - Surgical History Surgery Procedure, Year, and Place: TONSILECTOMY - Immunization History Hx Pertussis Vaccination: No Immunizations Up to Date: Yes Infectious Disease History: No Infectious Disease History: Denies: Traveled Outside the [place] in Last 30 Days - Family History Known Family History: Positive: Hypertension, Diabetes - Social History Occupation: Employed Part-time Lives: Alone Alcohol Use: None Hx Substance Use: No Substance Use Type: Reports: None Hx Tobacco Use: No Smoking Status (MU): Never Smoked Tobacco Review of Systems Constitutional: Negative Negative: Fever, Chills, Fatigue, Skin Diaphoresis Negative: Palpitations, Chest Pain Negative: Shortness Of Breath, Cough Genitourinary: Negative Positive: no symptoms reported, see HPI Negative: Arthralgia, Myalgia Negative: Rash, Bruising Neurological: Negative Positive: Anxious, Depressed All Other Systems Reviewed And Are Negative: Yes Physical Exam Triage Information Reviewed: Yes Vital Signs On Initial Exam: Initial Vitals Temp Pulse Resp BP Pulse Ox 97.2 F 113 16 155/101 97 11/06/18 15:24 11/06/18 15:24 11/06/18 15:24 11/06/18 15:24 11/06/18 15:24 Vital Signs Reviewed: Yes Appearance: Positive: Well-Appearing, Well-Nourished Skin: Positive: Skin Color Reflects Adequate Perfusion Head/Face: Positive: Normal Head/Face Inspection Eyes: Positive: EOMI, Conjunctiva Clear Neck: Positive: Supple, No Lymphadenopathy Respiratory/Lung Sounds: Positive: Clear to Auscultation, Breath Sounds Present Cardiovascular: Positive: RRR, Pulses are Symmetrical in both Upper and Lower Extremities Musculoskeletal: Positive: Normal, Strength/ROM Intact Neurological: Positive: Alert, Oriented to Person Place, Time, Speech Normal Psychiatric: Positive: Normal, Affect/Mood Appropriate AVPU Assessment: Alert Diagnostics - Vital Signs Vital Signs Temp Pulse Resp BP Pulse Ox 11/06/18 15:24 97.2 F 113 16 155/101 97 - Laboratory Lab Results: Lab Results 11/06/18 Range/Units 15:52 Urine Color Yellow Urine Appearance Cloudy Urine pH 5.0 (5-9) Ur Specific [place] 1.023 (1.010-1.030) Urine Protein Negative (Negative) Urine Ketones Negative (Negative) Urine Blood Negative (Negative) Urine Nitrate Negative (Negative) Urine Bilirubin Negative (Negative) Urine Urobilinogen Negative (Negative) Ur Leukocyte Esterase Negative (Negative) Urine Glucose 2+(150 mg/dl) A (Negative) Lab Statement: Any lab studies that have been ordered have been reviewed, and results considered in the medical decision making process. Course/Dx - Course Course Of Treatment: During the course of treatment, the patient is evaluated for suicidal ideation. He states he wants to commit suicide with a gun, however when he was on his way to get the gun, he drove past the house and came to the ED instead. He denies any HI. He is cleared for mental health evaluation. He is signed out to JOAO Dowell. - Differential Dx/Clinical Impression Differential Diagnosis/HQI/PQRI: Positive: Suicide Attempt, Suicidal Ideation, Suicidal Gesture Provider Diagnosis: Depression Discharge - Sign-Out/Discharge Documenting (check all that apply): Sign-Out Patient Signing out patient TO: Alex Her - Discharge Plan Condition: Good Referrals: Aman Dunham MD [Primary Care Provider] - - Billing Disposition and Condition Condition: GOOD
[2018-11-06 16:23] LABS: ABS Basophils 0.1 10^3/ul (0-0.2); ABS Eosinophils 0.1 10^3/ul (0-0.6); ABS Lymphocytes 2.3 10^3/ul (1.0-4.8); ABS Monocytes 0.6 10^3/ul (0-0.8); ABS Neutrophils 8.8 10^3/ul (1.5-7.7); ABS Nucleated RBC 0 10^3/ul; Eosinophil % 0.9 %; Hematocrit 42 % (42-52); Hemoglobin 14.1 g/dl (14.0-18.0); Lymphocyte % 19.3 %; Mean Corpuscular HGB Conc 34 g/dl (31-36); Mean Corpuscular Hemoglobin 30 pg (27-31); Mean Corpuscular Volume 89 fL (80-94); Mean Platelet Volume 7.5 fL (7.4-10.4); Nucleated Red Blood Cells % 0.1; Platelet Count 354 10^3/ul (150-450); Red Blood Count 4.69 10^6/ul (4.00-5.40); Red Cell Distribution Width 14 % (10.5-15)
[2018-11-06 16:38] LABS: ALT 49 U/L (7-52); AST 33 U/L (13-39); Albumin 4.3 g/dL (3.2-5.2); Albumin/Globulin Ratio 1.2 (1-3); Alkaline Phosphatase 103 U/L (34-104); Anion Gap 5 mmol/L (2-11); BUN/Creatinine Ratio 10.2 (8-20); Blood Urea Nitrogen 9 mg/dL (6-24); CO2 Carbon Dioxide 28 mmol/L (22-32); Calcium 9.4 mg/dL (8.6-10.3); Chloride 101 mmol/L (101-111); EGFR African American 113.8 (>60); EGFR Non-African American 94.1 (>60); Globulin 3.7 g/dL (2-4); Glucose 240 mg/dL (70-100); Potassium 4.4 mmol/L (3.5-5.0); Sodium 134 mmol/L (135-145)
[2018-11-06 16:42] LABS: Barbiturates Urine Screen None Detected (None Detect); Benzodiazepine Urine Screen None Detected (None Detect); Urine Cannabinoids Screen None Detected (None Detect)
[2018-11-06 17:02] LABS: Acetaminophen < 15 mcg/mL; Alcohol < 10 mg/dL (<10); Salicylate < 2.50 mg/dL (<30)
[2018-11-06 17:16] LABS: TSH (Thyroid Stimulating Horm) 1.17 mcIU/mL (0.34-5.60)
[2018-11-06] MEDS ORDERED: oxyCODONE TAB* 5 MG TAB ONE (18:47)
[2018-11-06] MEDS: oxyCODONE TAB* 5 MG TAB PO PRN ×2 (18:49→23:13)
[2018-11-06] MEDS: oxyCODONE/Acetamin 5/325 MG* TAB PO PRN ×2 (18:49→23:14)
--- NOTE | 2018-11-06 19:33 | PN ---
Progress Note - Progress Note Date of Service: 11/06/18 Note: Admitted voluntarily to [facility] psychiatric unit with diagnosis of unspecified depressive disorder by a psychiatrist Dr. Rowe
--- NOTE | 2018-11-06 21:17 | ED ---
Progress - Progress Note Progress Note: Receiving sign out from JULIETA Hartmann, pending MHE. Pt is voluntarily admitted with a diagnosis of major depression. Course/Dx - Diagnoses Provider Diagnoses: Major depression - Provider Notifications Discussed Care Of Patient With: Aubrie Rowe Time Discussed With Above Provider: 21:17 Instructed by Provider To: Admit As Inpatient Discharge - Sign-Out/Discharge Documenting (check all that apply): Patient Departure - admit, Receiving Sign- Out Receiving patient FROM: Florence Pop - Discharge Plan Condition: Good Disposition: [facility]YCHIATRIC FACILITY-[facility] [place] [facility] - Billing Disposition and Condition Condition: GOOD Disposition: Psychiatric Facility [facility] - Attestation Statements Document Initiated by Scribe: Yes Documenting Scribe: Vero [place] Provider For Whom Sherryibe is Documenting (Include Credential): Reagan Garcia MD Scribe Attestation: Vero Mallory, scribed for Reagan Garcia MD on 11/07/18 at 0114. Scribe Documentation Reviewed: Yes Provider Attestation: The documentation as recorded by the Vero braga accurately reflects the service I personally performed and the decisions made by Reagan fernandez MD Status of Scribe Document: Viewed
[2018-11-06] MEDS ORDERED: Insulin GLARGINE(*) 1 UNITS UNIT SUBCUT ONE (21:54)
[2018-11-06] MEDS ORDERED: Al Hydrox/Mg Hydrox/Simet LIQ* 30 ML UDC PO PRN (22:11)
[2018-11-06] MEDS ORDERED: Ibuprofen TAB* 600 MG PO PRN (22:11)
[2018-11-06] MEDS ORDERED: Acetaminophen TAB* 325 MG PO PRN (22:11)
[2018-11-06] MEDS ORDERED: Insulin GLARGINE(*) 1 UNITS UNIT SUBCUT SCH (22:30)
[2018-11-06] MEDS: Cephalexin CAP* 500 MG PO SCH (23:09)
[2018-11-06] MEDS: Zolpidem TAB* 10 MG PO PRN (23:15)
[2018-11-07] MEDS: oxyCODONE/Acetamin 5/325 MG* TAB PO PRN ×5 (04:26→21:52)
[2018-11-07] MEDS: oxyCODONE TAB* 5 MG TAB PO PRN ×5 (04:27→21:51)
--- NOTE | 2018-11-07 06:51 | PN ---
Progress Note - Progress Note Date of Service: 11/04/18 Note: Pt. seen in ED 11/04 and started on Keflex for UTI. Culture toda yis growing aerococcus urinae. Pt. was then in ED again 11/06 for MHE. U/A obtained at that time and is neg for bacteria, nitrates, leukocytes. Appears UTI has resolved. No change in treatment needed at this time.
[2018-11-07 07:04] LABS: HDL Cholesterol 27.3 mg/dL
[2018-11-07] MEDS: Cephalexin CAP* 500 MG PO SCH ×3 (08:45→21:47)
[2018-11-07] MEDS: Vitamin THERAPEUTIC TAB PO SCH (08:45)
[2018-11-07] MEDS: TESTOSTERONE GEL 25 MG (NF) IN 2.5 GM SIZE PACKET TOPICAL SCH (08:47)
[2018-11-07] MEDS ORDERED: Dulaglutide (NF) 0.75 MG/0.5 ML SYRINGE SUBCUT SCH (09:00)
[2018-11-07] MEDS ORDERED: DULoxetine DR CAP* 30 MG CAP.DR PO ONE (12:00)
[2018-11-07] MEDS: Lisinopril TAB* 10 MG PO SCH (12:58)
--- NOTE | 2018-11-07 17:22 | HP ---
HISTORY AND PHYSICAL: DATE OF ADMISSION: 11/06/18 PROVIDER: Shreya Shea NP in Psychiatry. SUPERVISING PHYSICIAN: Ej Rob MD * (DICTATED BY SHREYA SHEA NP ) JUSTIFICATION FOR ADMISSION: The patient is in need of 24-hour supervision and care secondary to suicidal ideation with a plan. CHIEF COMPLAINT: "I feel very hopeless. There is no point. It is never going to get any better." HISTORY OF PRESENT ILLNESS: Annette is a 43-year-old single white male with a history of depressive disorder, who arrives brought in by himself and is here on a voluntary status after he decided that life was not worth living and he was going to shoot himself with a gun. Annette is a man who is from [place] and is moved here to [place] a few years ago to follow his father who in the wake of Annette's mother dying found a new girlfriend and moved to the [place] area. 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 His mother passed in 2014. Now, Annette wonders what the purpose of his life is. He struggles with this question and states he has always had suicidal ideation since he was a child. His health conditions make him feel like life is not worth living. He has back problems, with his vertebrae. He has type 2 diabetes that is not in control and he states everything is getting worse. His stressors include feeling useless, having a dad who he believes perceives him to be a burden. He is not sleeping very well. His interest is diminished. He feels guilty about almost everything and seems to have perceptions of the external world that are both black and white and lead to guilt feelings. His appetite is good. PAST PSYCHIATRIC HISTORY: He states he was briefly in therapy 5 years ago in [place]. He lived in [place] and he lived in [place] until about 3 years ago. He states he woke up today and noticed that nothing had improved in the 3 years that he has lived here. He feels guilty about the stress that he has put on his father. He has taken Cymbalta in the past, but not what he calls "mood stabilizers." He states that the Cymbalta helped him in addition to testosterone gel that he was taking and because he felt better with the gel, he stopped the Cymbalta, felt good for 6 months and then everything deteriorated once again. Even while he was on the Cymbalta, however, he was still having suicidal ideation. PAST MEDICAL HISTORY: He states he cannot stand or walk for more than 15 minutes. He gave the example that if he goes to the store to purchase groceries he is in so much pain for the rest of the day that he cannot possibly do anything else for the rest of the day. He is ordered in the outpatient Percocet 10 mg q.4 to 6 hours and he states he used to take more than that. He does have type 2 diabetes, which he states is uncontrolled and insulin is continually increased. He does not seem to adhere to a diabetic diet. FAMILY HISTORY: He states mom had depression. One brother and one sister had depression. Both brothers are alcoholics. Annette is the youngest. SOCIAL HISTORY: He was born in [place] and lived there until age 39 or 40. 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 Apparently, his father had a girlfriend for part of the time that his mother was alive and that also bothers Annette. He does not talk about abuse. He is not or partnered. He does not have children. He is not employed. He is trying to get disability. He was denied the first time. He then got a obstetrics tech and then the hearing was delayed by 5 months, which is very frustrating to him. He has not been in the . He does not have any legal problems. REVIEW OF SYSTEMS: Annette reports feeling fatigued. He denies shortness of breath, heat or cold intolerance, chest pain or abdominal pain. He does have back pain. He denies fevers or changes in weight. PHYSICAL EXAMINATION VITAL SIGNS: On 11/07/18 at 08:25, temperature was 97.3, pulse 87, respirations 16, O2 sat on room air 100%, blood pressure 135/94. For further exam data, please see the emergency department records. LABORATORY DATA: Most data are within normal limits. Exceptions include white blood cells high at 12, absolute neutrophils high at 8.8. Hemoglobin A1c 9.2. Triglycerides are 171, cholesterol 191, LDL cholesterol 130, HDL cholesterol 27.3. Glucose was high at 240, sodium was low at 134. Urine was normal with the exception of the presence of glucose. Toxicology screen was clear. MENTAL STATUS EXAMINATION: Annette is a morbidly obese man with a ceja and light colored hair. He sits comfortably still while we speak. He is calm and cooperative. His speech is of normal rate, tone, and volume. He is dysthymic. He is tearful. His thought processes are normal. His thought content is free of delusions. He is not homicidal. He is suicidal. He has no auditory or visual hallucinations reported. His insight is good. His judgment is fair. He is alert and oriented x3. DIAGNOSES: [place] I: Major depressive disorder, severe. [place] II: Deferred. [place] III: Spinal problems, diabetes type 2. IMPRESSION: Annette is a 43-year-old single man, who comes to the hospital with the idea that life is simply not worth living and in that context he would like to end his own life using a gun that he owns. The gun is in [place]. PLAN: The patient is admitted to the adult behavioral health unit and placed on q.15 minute checks for his own safety. He is encouraged to participate in supportive milieu, individual and group therapy, which he agreed to do. Estimated length of stay is 5 to 7 days. I will obtain an MMPI for diagnostic clarification. We will be titrating medications including starting Cymbalta to efficacy and to monitor for mood and thought content. Discharge planning will include family involvement if he chooses and outpatient providers. SHREYA SHEA NP [id number]/CPS #: [id number] BRYANT
[2018-11-07] MEDS: Insulin GLARGINE(*) 1 UNITS UNIT SUBCUT SCH (21:48)
[2018-11-07] MEDS: Zolpidem TAB* 10 MG PO PRN (21:51)
[2018-11-08] MEDS: oxyCODONE TAB* 5 MG TAB PO PRN ×5 (02:50→20:17)
[2018-11-08] MEDS: oxyCODONE/Acetamin 5/325 MG* TAB PO PRN ×5 (02:50→20:17)
[2018-11-08] MEDS ORDERED: DULoxetine DR CAP* 60 MG CAP.DR PO ONE (09:00)
[2018-11-08] MEDS: Vitamin THERAPEUTIC TAB PO SCH (10:56)
[2018-11-08] MEDS: Lisinopril TAB* 10 MG PO SCH (11:00)
[2018-11-08] MEDS: Cephalexin CAP* 500 MG PO SCH ×3 (11:01→20:12)
[2018-11-08] MEDS: TESTOSTERONE GEL 25 MG (NF) IN 2.5 GM SIZE PACKET TOPICAL SCH (11:03)
--- NOTE | 2018-11-08 15:53 | PN ---
Subjective - Subjective Date of Service: 11/08/18 Service Type: 67069 Hosp care 25 min moderate complexity Subjective: Annette doesn't feel like life will ever get better. he feels unsupported and like a burden. He sometimes sits with his head in his hands. He states he likes to play the guitar and before he started feeling back and physically impaired he used to play in a classic rock band. He feels shy and feels criticism when there actually might be none. Objective - Appearance Appearance: Obese Dysmorphic Features: No Hygiene: Normal Grooming: Well Kept - Behavior Psychomotor Activities: Normal Exhibits Abnormal Movement: No - Attitude and Relatedness Attitude and Relatedness: Needy Eye Contact: Fair - Speech Quality: Unpressured Latencies: Normal Quantity: Terse - Mood Patient's Decription of Mood: "Sad" - Affect Observed Affect: Tearful Affect Consistent with: Dysphoria - Thought Process Patient's Thought Process: Coherent, Goal Directed Thought Content: Yes Passive Wish, Yes Suicidal Planning, No Homicidal Ideation, No Paranoid Ideation - Sensorium Experiencing Hallucinations: No, Sensorium is Clear Type of Hallucinations: Visual: No, Auditory: No, Command: No - Level of Consciousness Level of Consciousness: Alert Orientation: Yes Intact, Yes Orientated to Time, Yes Orientated to Place, Yes Orientated to Person - Impulse Control Impulse Control: Tenuous - Insight and Judgement Insight and Judgement: Fair - Group Participation Particating in Group Activities: Yes - Medication Management Medication Management Adherence: Yes Assessment - Assessment Merits Inpatient Hospitalization: For Immediate Safety Inpatient DSM-V Dx: F32.2 Clinical Impression: Annette is a 43-year-old white male originally from [place] who comes to [place] following his father and now feels lost and as though he is a burden, so he would like to end his life, possibly with a gun that he will use to shoot himself in the head. Plan - Plan Treatment Plan: Name: ANNETTE WHALEY Birthdate: 1975 [id number] Continued Medication Management: Start Medication Medications: Current Medications Acetaminophen (Tylenol Tab*) 650 mg PO Q4H PRN PRN Reason: PAIN or TEMP > 101 F Al Hydrox/Mg Hydrox/Simethicone (Maalox Plus*) 30 ml PO Q4H PRN PRN Reason: INDIGESTION Cephalexin HCl (Keflex Cap*) 500 mg PO TID [facility] Stop: 11/10/18 13:00 Last Admin: 11/08/18 15:35 Dose: 500 mg Dulaglutide (Trulicity (Nf)) 0.75 mg SUBCUT WEEKLY [facility] Duloxetine HCl (Cymbalta Cap*) 90 mg PO DAILY [facility] Ibuprofen (Motrin Tab*) 600 mg PO Q6H PRN PRN Reason: PAIN Insulin Glargine (Lantus(*)) 90 units SUBCUT 2100 [facility] Last Admin: 11/07/18 21:48 Dose: 90 unit Lisinopril (Prinivil Tab*) 20 mg PO DAILY [facility] Last Admin: 11/08/18 11:00 Dose: 20 mg Multivitamins (Theragran Tab*) 1 tab PO DAILY [facility] Last Admin: 11/08/18 10:56 Dose: 1 tab Nicotine (Nicotine Inhaler*) 10 mg INH Q2H PRN PRN Reason: CRAVING Oxycodone HCl (Roxycodone Tab*) 5 mg PO Q4H PRN PRN Reason: PAIN Last Admin: 11/08/18 15:35 Dose: 5 mg Oxycodone/Acetaminophen (Percocet 5/325 Tab*) 1 tab PO Q4H PRN PRN Reason: PAIN Last Admin: 11/08/18 15:35 Dose: 1 tab Testosterone (Testosterone Gel 25 Mg/2.5 G) 50 mg TOPICAL DAILY [facility] Stop: 11/14/18 08:59 Last Admin: 11/08/18 11:03 Dose: 50 mg Zolpidem Tartrate (Ambien Tab*) 10 mg PO BEDTIME PRN PRN Reason: SLEEP Last Admin: 11/07/18 21:51 Dose: 10 mg - Discharge Plan Discharge Plan: Outpatient Follow Up Outpatient Program: [facility] Additional Comments: Annette will be started on duloxetine and rapidly titrated up. He hasn't been able to tolerate the nausea, so Zofran was started. There is a plan in place to get Annette to play his guitar in the privacy of the comfort room.
[2018-11-08] MEDS: Insulin GLARGINE(*) 1 UNITS UNIT SUBCUT SCH (20:12)
[2018-11-09] MEDS: oxyCODONE TAB* 5 MG TAB PO PRN ×5 (00:47→20:27)
[2018-11-09] MEDS: Zolpidem TAB* 10 MG PO PRN (00:47)
[2018-11-09] MEDS: oxyCODONE/Acetamin 5/325 MG* TAB PO PRN ×5 (00:48→20:27)
[2018-11-09] MEDS: Lisinopril TAB* 10 MG PO SCH (07:41)
[2018-11-09] MEDS: Vitamin THERAPEUTIC TAB PO SCH (07:41)
[2018-11-09] MEDS: Cephalexin CAP* 500 MG PO SCH ×3 (07:41→20:33)
[2018-11-09] MEDS: TESTOSTERONE GEL 25 MG (NF) IN 2.5 GM SIZE PACKET TOPICAL SCH (08:14)
[2018-11-09] MEDS: Ondansetron ODT TAB* 4 MG PO PRN (11:14)
[2018-11-09] MEDS: DULoxetine DR CAP* 30 MG CAP.DR PO SCH (11:14)
[2018-11-09] MEDS: Insulin GLARGINE(*) 1 UNITS UNIT SUBCUT SCH (20:32)
--- NOTE | 2018-11-09 21:40 | PN ---
Subjective - Subjective Date of Service: 11/09/18 Service Type: 54785 Hosp care 15 min low complexity Subjective: Annette remains low energy. He is not moving from his room very much, although he has played guitar in the comfort room on occasion. He remains hopeless and somewhat helpless. It is unclear whether he has had visitors. Objective - Appearance Appearance: Obese Dysmorphic Features: No Hygiene: Normal Grooming: Disheveled - Behavior Psychomotor Activities: Normal Exhibits Abnormal Movement: No - Attitude and Relatedness Attitude and Relatedness: Needy Eye Contact: Fair - Speech Quality: Unpressured Latencies: Short Quantity: Appropriate - Mood Patient's Decription of Mood: "Sad" - Affect Observed Affect: Depressed Affect Consistent with: Dysphoria - Thought Process Patient's Thought Process: Coherent Thought Content: Yes Passive Wish, Yes Suicidal Planning, No Homicidal Ideation, No Paranoid Ideation - Sensorium Experiencing Hallucinations: No, Sensorium is Clear Type of Hallucinations: Visual: No, Auditory: No, Command: No - Level of Consciousness Level of Consciousness: Alert Orientation: Yes Intact, Yes Orientated to Time, Yes Orientated to Place, Yes Orientated to Person - Impulse Control Impulse Control: Impaired - Insight and Judgement Insight and Judgement: Fair - Group Participation Particating in Group Activities: No - Medication Management Medication Management Adherence: Yes Assessment - Assessment Merits Inpatient Hospitalization: For Immediate Safety Inpatient DSM-V Dx: F32.2 Clinical Impression: Annette is a 43-year-old white male originally from [place] who comes to [place] following his father and now feels lost and as though he is a burden, so he would like to end his life, possibly with a gun that he will use to shoot himself in the head. Plan - Plan Treatment Plan: Name: ANNETTE WHALEY Birthdate: 1975 [id number] Medications: Current Medications Acetaminophen (Tylenol Tab*) 650 mg PO Q4H PRN PRN Reason: PAIN or TEMP > 101 F Al Hydrox/Mg Hydrox/Simethicone (Maalox Plus*) 30 ml PO Q4H PRN PRN Reason: INDIGESTION Cephalexin HCl (Keflex Cap*) 500 mg PO TID [facility] Stop: 11/10/18 13:00 Last Admin: 11/09/18 20:33 Dose: 500 mg Dulaglutide (Trulicity (Nf)) 0.75 mg SUBCUT WEEKLY [facility] Duloxetine HCl (Cymbalta Cap*) 90 mg PO DAILY [facility] Last Admin: 11/09/18 11:14 Dose: 90 mg Ibuprofen (Motrin Tab*) 600 mg PO Q6H PRN PRN Reason: PAIN Last Admin: 11/09/18 15:00 Dose: 600 mg Insulin Glargine (Lantus(*)) 90 units SUBCUT 2100 [facility] Last Admin: 11/09/18 20:32 Dose: 90 unit Lisinopril (Prinivil Tab*) 20 mg PO DAILY [facility] Last Admin: 11/09/18 07:41 Dose: 20 mg Multivitamins (Theragran Tab*) 1 tab PO DAILY [facility] Last Admin: 11/09/18 07:41 Dose: 1 tab Nicotine (Nicotine Inhaler*) 10 mg INH Q2H PRN PRN Reason: CRAVING Ondansetron HCl (Zofran Odt Tab*) 8 mg PO Q6H PRN PRN Reason: NAUSEA Last Admin: 11/09/18 11:14 Dose: 8 mg Oxycodone HCl (Roxycodone Tab*) 5 mg PO Q4H PRN PRN Reason: PAIN Last Admin: 11/09/18 20:27 Dose: 5 mg Oxycodone/Acetaminophen (Percocet 5/325 Tab*) 1 tab PO Q4H PRN PRN Reason: PAIN Last Admin: 11/09/18 20:27 Dose: 1 tab Testosterone (Testosterone Gel 25 Mg/2.5 G) 50 mg TOPICAL DAILY [facility] Stop: 11/14/18 08:59 Last Admin: 11/09/18 08:14 Dose: 50 mg Zolpidem Tartrate (Ambien Tab*) 10 mg PO BEDTIME PRN PRN Reason: SLEEP Last Admin: 11/09/18 00:47 Dose: 10 mg - Discharge Plan Discharge Plan: Outpatient Follow Up Additional Comments: Annette will be started on duloxetine and rapidly titrated up. He hasn't been able to tolerate the nausea, so Zofran was started. There is a plan in place to get Annette to play his guitar in the privacy of the comfort room. 11/09/18: Annette is no longer complaining of nausea. he remains in his room and will be encouraged to participate.
[2018-11-10] MEDS: oxyCODONE TAB* 5 MG TAB PO PRN ×6 (01:02→20:00)
[2018-11-10] MEDS: oxyCODONE/Acetamin 5/325 MG* TAB PO PRN ×5 (01:03→20:00)
[2018-11-10] MEDS: Zolpidem TAB* 10 MG PO PRN (01:03)
[2018-11-10] MEDS: Vitamin THERAPEUTIC TAB PO SCH (10:55)
[2018-11-10] MEDS: DULoxetine DR CAP* 30 MG CAP.DR PO SCH (10:55)
[2018-11-10] MEDS: Cephalexin CAP* 500 MG PO SCH (10:55)
[2018-11-10] MEDS: Lisinopril TAB* 10 MG PO SCH (10:55)
[2018-11-10] MEDS: TESTOSTERONE GEL 25 MG (NF) IN 2.5 GM SIZE PACKET TOPICAL SCH (10:56)
[2018-11-10] MEDS: Ondansetron ODT TAB* 4 MG PO PRN (15:37)
--- NOTE | 2018-11-10 18:27 | PN ---
Subjective - Subjective Date of Service: 11/10/18 Service Type: [id number] Hosp care 15 min low complexity Subjective: Annette reports little change in his mood, still feeling hopeless, citing his health problems (diabetes, diabetic neuropathy, chronic back pain, did not note obesity) and feeling a burden to his father. He reports also having dyspepsia/ nausea attributed to Cymbalta. Objective - Appearance Appearance: Obese Dysmorphic Features: No Hygiene: Normal Grooming: Disheveled - Behavior Psychomotor Activities: Abnormal-Decreased Exhibits Abnormal Movement: No - Attitude and Relatedness Attitude and Relatedness: Cooperative Eye Contact: Good - Speech Quality: Unpressured Latencies: Normal Quantity: Appropriate - Mood Patient's Decription of Mood: "Hopeless" - Affect Observed Affect: Depressed - Thought Process Patient's Thought Process: Coherent, Goal Directed Thought Content: Yes Passive Wish, Yes Suicidal Planning, No Homicidal Ideation, No Paranoid Ideation - Sensorium Experiencing Hallucinations: No, Sensorium is Clear - Level of Consciousness Level of Consciousness: Alert Orientation: Yes Intact, Yes Orientated to Time, Yes Orientated to Place, Yes Orientated to Person - Impulse Control Impulse Control: Intact - Insight and Judgement Insight and Judgement: Fair - Group Participation Particating in Group Activities: No - Medication Management Medication Management Adherence: Yes Assessment - Assessment Merits Inpatient Hospitalization: For Immediate Safety, For Stabilization, To Initiate Treatment, Pending Safe DC Plan Inpatient DSM-V Dx: F32.2 Clinical Impression: Annette is a 43-year-old white male originally from [place] who comes to [place] following his father and now feels lost and as though he is a burden, so he would like to end his life, possibly with a gun that he will use to shoot himself in the head. Plan - Plan Treatment Plan: Name: ANNETTE WHALEY Birthdate: 1975 [id number] Annette has been compliant with Cymbalta, now at 90 mg, and other meds. he reports he would be agreeable to outpatient f/u at [facility]. He would benefit from anything we can offer that would make him feel less of a burden to his father. He has agreed to make arrangements to ensure he cannot get to a gun, particularly the one he knows of in [place], and this should be followed up on by the team. He might also benefit from referral to bariatric intervention for his obesity, perhaps with [facility] if this is fungible. Medications: Current Medications Acetaminophen (Tylenol Tab*) 650 mg PO Q4H PRN PRN Reason: PAIN or TEMP > 101 F Al Hydrox/Mg Hydrox/Simethicone (Maalox Plus*) 30 ml PO Q4H PRN PRN Reason: INDIGESTION Dulaglutide (Trulicity (Nf)) 0.75 mg SUBCUT WEEKLY [facility] Duloxetine HCl (Cymbalta Cap*) 90 mg PO DAILY [facility] Last Admin: 11/10/18 10:55 Dose: 90 mg Ibuprofen (Motrin Tab*) 600 mg PO Q6H PRN PRN Reason: PAIN Last Admin: 11/09/18 15:00 Dose: 600 mg Insulin Glargine (Lantus(*)) 90 units SUBCUT 2100 [facility] Last Admin: 11/09/18 20:32 Dose: 90 unit Lisinopril (Prinivil Tab*) 20 mg PO DAILY [facility] Last Admin: 11/10/18 10:55 Dose: 20 mg Multivitamins (Theragran Tab*) 1 tab PO DAILY [facility] Last Admin: 11/10/18 10:55 Dose: 1 tab Nicotine (Nicotine Inhaler*) 10 mg INH Q2H PRN PRN Reason: CRAVING Ondansetron HCl (Zofran Odt Tab*) 8 mg PO Q6H PRN PRN Reason: NAUSEA Last Admin: 11/10/18 15:37 Dose: 8 mg Oxycodone HCl (Roxycodone Tab*) 5 mg PO Q4H PRN PRN Reason: PAIN Last Admin: 11/10/18 15:38 Dose: 5 mg Oxycodone/Acetaminophen (Percocet 5/325 Tab*) 1 tab PO Q4H PRN PRN Reason: PAIN Last Admin: 11/10/18 15:38 Dose: 1 tab Testosterone (Testosterone Gel 25 Mg/2.5 G) 50 mg TOPICAL DAILY [facility] Stop: 11/14/18 08:59 Last Admin: 11/10/18 10:56 Dose: 50 mg Zolpidem Tartrate (Ambien Tab*) 10 mg PO BEDTIME PRN PRN Reason: SLEEP Last Admin: 11/10/18 01:03 Dose: 10 mg - Discharge Plan Discharge Plan: Outpatient Follow Up Outpatient Program: [facility]
[2018-11-10] MEDS: Insulin GLARGINE(*) 1 UNITS UNIT SUBCUT SCH (20:01)
[2018-11-10] MEDS ORDERED: Polyethylene Glycol 3350* 17 GM PACKET ONE (21:57)
[2018-11-11] MEDS: Zolpidem TAB* 10 MG PO PRN
[2018-11-11] MEDS: oxyCODONE TAB* 5 MG TAB PO PRN ×6 (05:20→21:46)
[2018-11-11] MEDS: oxyCODONE/Acetamin 5/325 MG* TAB PO PRN ×6 (05:20→21:45)
[2018-11-11] MEDS: Vitamin THERAPEUTIC TAB PO SCH (09:34)
[2018-11-11] MEDS: DULoxetine DR CAP* 30 MG CAP.DR PO SCH (09:35)
[2018-11-11] MEDS: Lisinopril TAB* 10 MG PO SCH (09:35)
[2018-11-11] MEDS: TESTOSTERONE GEL 25 MG (NF) IN 2.5 GM SIZE PACKET TOPICAL SCH (09:36)
[2018-11-11] MEDS: Polyethylene Glycol 3350* 17 GM PACKET PO PRN (13:35)
[2018-11-11] MEDS: Ondansetron ODT TAB* 4 MG PO PRN (13:35)
[2018-11-11] MEDS: Insulin GLARGINE(*) 1 UNITS UNIT SUBCUT SCH (21:43)
[2018-11-12] MEDS: oxyCODONE TAB* 5 MG TAB PO PRN ×5 (02:00→21:00)
[2018-11-12] MEDS: Zolpidem TAB* 10 MG PO PRN (02:00)
[2018-11-12] MEDS: oxyCODONE/Acetamin 5/325 MG* TAB PO PRN ×5 (02:00→20:59)
[2018-11-12] MEDS: DULoxetine DR CAP* 30 MG CAP.DR PO SCH (07:23)
[2018-11-12] MEDS: Lisinopril TAB* 10 MG PO SCH (07:24)
[2018-11-12] MEDS: TESTOSTERONE GEL 25 MG (NF) IN 2.5 GM SIZE PACKET TOPICAL SCH (07:25)
[2018-11-12] MEDS: Vitamin THERAPEUTIC TAB PO SCH (07:25)
[2018-11-12] MEDS: Ondansetron ODT TAB* 4 MG PO PRN ×2 (12:03→20:59)
--- NOTE | 2018-11-12 13:12 | PN ---
Subjective - Subjective Date of Service: 11/12/18 Service Type: 60615 Hosp care 25 min moderate complexity Subjective: Ananya López and I spoke with Annette regarding the unit's perception that he stays in his room. He states he has been coming out of his room and trying groups, but he states he is not connecting with people or the material. Further he is frustrated by some of the patients who he feels interfere with him or are irritating. Annette feels like people do not understand him and that he is unique in the way he has suffered. This is discussed and he is encouraged to trust others' knowledge and experience. Objective - Appearance Appearance: Obese Dysmorphic Features: No Hygiene: Normal Grooming: Fairly Well Kept - Behavior Psychomotor Activities: Normal Exhibits Abnormal Movement: No - Attitude and Relatedness Attitude and Relatedness: Well Related Eye Contact: Good - Speech Quality: Unpressured Latencies: Normal Quantity: Appropriate - Mood Patient's Decription of Mood: "Sad" - Affect Observed Affect: Depressed Affect Consistent with: Dysphoria - Thought Process Patient's Thought Process: Coherent, Goal Directed Thought Content: Yes Passive Wish, Yes Suicidal Planning, No Homicidal Ideation, No Paranoid Ideation - Sensorium Experiencing Hallucinations: No, Sensorium is Clear Type of Hallucinations: Visual: No, Auditory: No, Command: No - Level of Consciousness Level of Consciousness: Alert Orientation: Yes Intact, Yes Orientated to Time, Yes Orientated to Place, Yes Orientated to Person - Impulse Control Impulse Control: Tenuous - Insight and Judgement Insight and Judgement: Fair - Group Participation Particating in Group Activities: No - Medication Management Medication Management Adherence: Yes Assessment - Assessment Inpatient DSM-V Dx: F32.2 Clinical Impression: Annette is a 43-year-old white male originally from [place] who comes to [place] following his father and now feels lost and as though he is a burden, so he would like to end his life, possibly with a gun that he will use to shoot himself in the head. Plan - Plan Treatment Plan: Name: ANNETTE WHALEY Birthdate: 1975 [id number] Medications: Current Medications Acetaminophen (Tylenol Tab*) 650 mg PO Q4H PRN PRN Reason: PAIN or TEMP > 101 F Al Hydrox/Mg Hydrox/Simethicone (Maalox Plus*) 30 ml PO Q4H PRN PRN Reason: INDIGESTION Dulaglutide (Trulicity (Nf)) 0.75 mg SUBCUT WEEKLY [facility] Duloxetine HCl (Cymbalta Cap*) 90 mg PO DAILY [facility] Last Admin: 11/12/18 07:23 Dose: 90 mg Ibuprofen (Motrin Tab*) 600 mg PO Q6H PRN PRN Reason: PAIN Last Admin: 11/09/18 15:00 Dose: 600 mg Insulin Glargine (Lantus(*)) 90 units SUBCUT 2100 [facility] Last Admin: 11/11/18 21:43 Dose: 90 unit Lisinopril (Prinivil Tab*) 20 mg PO DAILY [facility] Last Admin: 11/12/18 07:24 Dose: 20 mg Multivitamins (Theragran Tab*) 1 tab PO DAILY [facility] Last Admin: 11/12/18 07:25 Dose: 1 tab Nicotine (Nicotine Inhaler*) 10 mg INH Q2H PRN PRN Reason: CRAVING Ondansetron HCl (Zofran Odt Tab*) 8 mg PO Q6H PRN PRN Reason: NAUSEA Last Admin: 11/12/18 12:03 Dose: 8 mg Oxycodone HCl (Roxycodone Tab*) 5 mg PO Q4H PRN PRN Reason: PAIN Last Admin: 11/12/18 12:03 Dose: 5 mg Oxycodone/Acetaminophen (Percocet 5/325 Tab*) 1 tab PO Q4H PRN PRN Reason: PAIN Last Admin: 11/12/18 12:02 Dose: 1 tab Polyethylene Glycol/Electrolytes (Miralax*) 17 gm PO DAILY PRN PRN Reason: CONSTIPATION Last Admin: 11/11/18 13:35 Dose: 17 gm Testosterone (Testosterone Gel 25 Mg/2.5 G) 50 mg TOPICAL DAILY [facility] Stop: 11/14/18 08:59 Last Admin: 11/12/18 07:25 Dose: 50 mg Zolpidem Tartrate (Ambien Tab*) 10 mg PO BEDTIME PRN PRN Reason: SLEEP Last Admin: 11/12/18 02:00 Dose: 10 mg - Discharge Plan Discharge Plan: Outpatient Follow Up [facility] Additional Comments: Annette will be started on duloxetine and rapidly titrated up. He hasn't been able to tolerate the nausea, so Zofran was started. There is a plan in place to get Annette to play his guitar in the privacy of the comfort room. 11/09/18: Annette is no longer complaining of nausea. he remains in his room and will be encouraged to participate. 11/12/18: Annette will continue to be encouraged to leave his room and go to groups as well as trust in the staff to understand him. Continue duloxetine at 90 mg and Zofran at 8 mg.
[2018-11-12] MEDS: Insulin GLARGINE(*) 1 UNITS UNIT SUBCUT SCH (20:58)
[2018-11-13] MEDS: oxyCODONE/Acetamin 5/325 MG* TAB PO PRN ×5 (01:42→20:30)
[2018-11-13] MEDS: Zolpidem TAB* 10 MG PO PRN (01:42)
[2018-11-13] MEDS: oxyCODONE TAB* 5 MG TAB PO PRN ×5 (01:42→20:29)
[2018-11-13] MEDS: DULoxetine DR CAP* 30 MG CAP.DR PO SCH (09:31)
[2018-11-13] MEDS: Vitamin THERAPEUTIC TAB PO SCH (09:31)
[2018-11-13] MEDS: Lisinopril TAB* 10 MG PO SCH (09:31)
[2018-11-13] MEDS: TESTOSTERONE GEL 25 MG (NF) IN 2.5 GM SIZE PACKET TOPICAL SCH (09:32)
[2018-11-13] MEDS: Polyethylene Glycol 3350* 17 GM PACKET PO PRN (09:33)
[2018-11-13] MEDS ORDERED: PTO: Dulaglutide (NF) 0.75 MG/0.5 ML SYRINGE SUBCUT SCH (13:00)
--- NOTE | 2018-11-13 15:58 | PN ---
Subjective - Subjective Date of Service: 11/13/18 Service Type: 16910 Hosp care 25 min moderate complexity Subjective: Annette continues to spend some time by himself, but he is also going to groups and spending time with others in the milieu. He responds negatively to chaos and as this is a chaotic space at this time, he is struggling a bit to stay out of his room. He states he is struggling with automatic negative thoughts. He has been invited to imagine what the world would look like if it were...fill in the blank. Objective - Appearance Appearance: Obese Dysmorphic Features: No Hygiene: Normal Grooming: Fairly Well Kept - Behavior Psychomotor Activities: Normal Exhibits Abnormal Movement: No - Attitude and Relatedness Attitude and Relatedness: Cooperative Eye Contact: Fair - Speech Quality: Unpressured Latencies: Normal Quantity: Appropriate - Mood Patient's Decription of Mood: "Terrible" - Affect Observed Affect: Depressed Affect Consistent with: Dysphoria - Thought Process Patient's Thought Process: Coherent, Goal Directed Thought Content: Yes Passive Wish, Yes Suicidal Planning, No Homicidal Ideation, No Paranoid Ideation - Sensorium Experiencing Hallucinations: No, Sensorium is Clear Type of Hallucinations: Visual: No, Auditory: No, Command: No - Level of Consciousness Level of Consciousness: Alert Orientation: Yes Intact, Yes Orientated to Time, Yes Orientated to Place, Yes Orientated to Person - Impulse Control Impulse Control: Tenuous - Insight and Judgement Insight and Judgement: Fair - Group Participation Particating in Group Activities: Yes - Medication Management Medication Management Adherence: Yes Assessment - Assessment Merits Inpatient Hospitalization: For Immediate Safety, For Discharge Planning Inpatient DSM-V Dx: F32.2 Clinical Impression: Annette is a 43-year-old white male originally from [place] who comes to [place] following his father and now feels lost and as though he is a burden, so he would like to end his life, possibly with a gun that he will use to shoot himself in the head. Plan - Plan Treatment Plan: Name: ANNETTE WHALEY Birthdate: 1975 [id number] Medications: Current Medications Acetaminophen (Tylenol Tab*) 650 mg PO Q4H PRN PRN Reason: PAIN or TEMP > 101 F Al Hydrox/Mg Hydrox/Simethicone (Maalox Plus*) 30 ml PO Q4H PRN PRN Reason: INDIGESTION Dulaglutide (Trulicity (Nf)) 0.75 mg SUBCUT Q7D [facility] Last Admin: 11/13/18 14:55 Dose: 0.75 mg Duloxetine HCl (Cymbalta Cap*) 90 mg PO DAILY [facility] Last Admin: 11/13/18 09:31 Dose: 90 mg Ibuprofen (Motrin Tab*) 600 mg PO Q6H PRN PRN Reason: PAIN Last Admin: 11/09/18 15:00 Dose: 600 mg Insulin Glargine (Lantus(*)) 90 units SUBCUT 2100 [facility] Last Admin: 11/12/18 20:58 Dose: 90 unit Lisinopril (Prinivil Tab*) 20 mg PO DAILY [facility] Last Admin: 11/13/18 09:31 Dose: 20 mg Multivitamins (Theragran Tab*) 1 tab PO DAILY [facility] Last Admin: 11/13/18 09:31 Dose: 1 tab Nicotine (Nicotine Inhaler*) 10 mg INH Q2H PRN PRN Reason: CRAVING Ondansetron HCl (Zofran Odt Tab*) 8 mg PO Q6H PRN PRN Reason: NAUSEA Last Admin: 11/12/18 20:59 Dose: 8 mg Oxycodone HCl (Roxycodone Tab*) 5 mg PO Q4H PRN PRN Reason: PAIN Last Admin: 11/13/18 11:36 Dose: 5 mg Oxycodone/Acetaminophen (Percocet 5/325 Tab*) 1 tab PO Q4H PRN PRN Reason: PAIN Last Admin: 11/13/18 11:36 Dose: 1 tab Polyethylene Glycol/Electrolytes (Miralax*) 17 gm PO DAILY PRN PRN Reason: CONSTIPATION Last Admin: 11/13/18 09:33 Dose: 17 gm Testosterone (Testosterone Gel 25 Mg/2.5 G) 50 mg TOPICAL DAILY [facility] Stop: 11/14/18 08:59 Last Admin: 11/13/18 09:32 Dose: 50 mg Zolpidem Tartrate (Ambien Tab*) 10 mg PO BEDTIME PRN PRN Reason: SLEEP Last Admin: 11/13/18 01:42 Dose: 10 mg - Discharge Plan Discharge Plan: Outpatient Follow Up Outpatient Program: [facility] Additional Comments: Annette will be started on duloxetine and rapidly titrated up. He hasn't been able to tolerate the nausea, so Zofran was started. There is a plan in place to get Annette to play his guitar in the privacy of the comfort room. 11/09/18: Annette is no longer complaining of nausea. he remains in his room and will be encouraged to participate. 11/12/18: Annette will continue to be encouraged to leave his room and go to groups as well as trust in the staff to understand him. Continue duloxetine at 90 mg and Zofran at 8 mg. 11/13/18: [facility] has been suggested as an option for Annette upon discharge. He does not want to reduce the dose of duloxetine but the nausea is not something he's complaining of anymore. He really wants to feel better; we are working to improve his opportunities to create connections with others including his family.
[2018-11-13] MEDS: Insulin GLARGINE(*) 1 UNITS UNIT SUBCUT SCH (20:12)
[2018-11-14] MEDS: oxyCODONE TAB* 5 MG TAB PO PRN ×6 (00:10→21:38)
[2018-11-14] MEDS: Zolpidem TAB* 10 MG PO PRN (00:10)
[2018-11-14] MEDS: oxyCODONE/Acetamin 5/325 MG* TAB PO PRN ×6 (00:10→21:38)
[2018-11-14] MEDS: Vitamin THERAPEUTIC TAB PO SCH (09:43)
[2018-11-14] MEDS: Lisinopril TAB* 10 MG PO SCH (09:43)
[2018-11-14] MEDS: DULoxetine DR CAP* 30 MG CAP.DR PO SCH (09:44)
--- NOTE | 2018-11-14 11:40 | PN ---
MHU: Group Therapy Note - Service Type Service Type: [id number] Group Psychotherapy - Cognitive Behavioral Group Therapy ( CBT):Patient was attentive and participatory in CBT programming this morning, and remained in good behavioral control. Patient expressed positive insights regarding relevant treatment interventions and goals.
--- NOTE | 2018-11-14 14:28 | PN ---
Subjective - Subjective Date of Service: 11/14/18 Service Type: 96080 Hosp care 15 min low complexity Subjective: Patient is more active about the unit and participating moreso in programming. He reports poor sleep, especially r/t environmental factors. Patient goes on to describe chronic pain and impact on mood. He reports "trying everything" and feels that suicide is the only plausible solution. He states "it's not the right answer, I know." He states he saw a surgeon who told him he has to lose weight and that this worsened depression. He states he went to physical therapy but "it made it worse." He is receptive to therapeutic suggestions of brief exercises for core muscles and discussing complications of chronic pain with therapist. Objective - Appearance Appearance: Obese Dysmorphic Features: Yes Hygiene: Normal Grooming: Well Kept - Behavior Psychomotor Activities: Normal Exhibits Abnormal Movement: No - Attitude and Relatedness Attitude and Relatedness: Cooperative Eye Contact: Good - Speech Quality: Unpressured Latencies: Normal Quantity: Appropriate - Mood Patient's Decription of Mood: "Okay" - Affect Observed Affect: Depressed Affect Consistent with: Dysphoria - Thought Process Patient's Thought Process: Impoverished Thought Content: Yes Passive Wish, Yes Suicidal Planning, No Homicidal Ideation, No Paranoid Ideation - Sensorium Experiencing Hallucinations: No, Sensorium is Clear Type of Hallucinations: Visual: No, Auditory: No, Command: No - Level of Consciousness Level of Consciousness: Alert Orientation: Yes Intact, Yes Orientated to Time, Yes Orientated to Place, Yes Orientated to Person - Impulse Control Impulse Control: Poor - Insight and Judgement Insight and Judgement: Poor - Group Participation Particating in Group Activities: Yes - Medication Management Medication Management Adherence: Yes Assessment - Assessment Merits Inpatient Hospitalization: For Immediate Safety, For Stabilization Inpatient DSM-V Dx: F32.2 Clinical Impression: Annette is a 43-year-old white male originally from [place] who comes to [place] following his father and now feels lost and as though he is a burden, so he would like to end his life, possibly with a gun that he will use to shoot himself in the head. Plan - Plan Treatment Plan: Name: ANNETTE WHALEY Birthdate: 1975 [id number] continue acute intensive psychiatric treatment. trial amitriptyline at bedtime; BELKIS ontiveros. renew testosterone gel. discharge planning to include referral to outpatient mental health. Continued Medication Management: Different Medication Medications: Current Medications Acetaminophen (Tylenol Tab*) 650 mg PO Q4H PRN PRN Reason: PAIN or TEMP > 101 F Al Hydrox/Mg Hydrox/Simethicone (Maalox Plus*) 30 ml PO Q4H PRN PRN Reason: INDIGESTION Amitriptyline HCl (Elavil Tab*) 25 mg PO BEDTIME [facility] Dulaglutide (Trulicity (Nf)) 0.75 mg SUBCUT Q7D [facility] Last Admin: 11/13/18 14:55 Dose: 0.75 mg Duloxetine HCl (Cymbalta Cap*) 90 mg PO DAILY [facility] Last Admin: 11/14/18 09:44 Dose: 90 mg Ibuprofen (Motrin Tab*) 600 mg PO Q6H PRN PRN Reason: PAIN Last Admin: 11/09/18 15:00 Dose: 600 mg Insulin Glargine (Lantus(*)) 90 units SUBCUT 2100 [facility] Last Admin: 11/13/18 20:12 Dose: 90 unit Lisinopril (Prinivil Tab*) 20 mg PO DAILY [facility] Last Admin: 11/14/18 09:43 Dose: 20 mg Multivitamins (Theragran Tab*) 1 tab PO DAILY [facility] Last Admin: 11/14/18 09:43 Dose: 1 tab Nicotine (Nicotine Inhaler*) 10 mg INH Q2H PRN PRN Reason: CRAVING Ondansetron HCl (Zofran Odt Tab*) 8 mg PO Q6H PRN PRN Reason: NAUSEA Last Admin: 11/12/18 20:59 Dose: 8 mg Oxycodone HCl (Roxycodone Tab*) 5 mg PO Q4H PRN PRN Reason: PAIN Last Admin: 11/14/18 09:45 Dose: 5 mg Oxycodone/Acetaminophen (Percocet 5/325 Tab*) 1 tab PO Q4H PRN PRN Reason: PAIN Last Admin: 11/14/18 09:44 Dose: 1 tab Polyethylene Glycol/Electrolytes (Miralax*) 17 gm PO DAILY PRN PRN Reason: CONSTIPATION Last Admin: 11/13/18 09:33 Dose: 17 gm - Discharge Plan Discharge Plan: Outpatient Follow Up
[2018-11-14] MEDS: Polyethylene Glycol 3350* 17 GM PACKET PO PRN (14:29)
[2018-11-14] MEDS: CMCS: TESTOSTERONE GEL 25 MG (NF) IN 2.5 GM SIZE PACKET TOPICAL SCH (15:32)
[2018-11-14] MEDS: Insulin GLARGINE(*) 1 UNITS UNIT SUBCUT SCH (20:57)
[2018-11-14] MEDS: Amitriptyline TAB* 25 MG PO SCH (21:38)
[2018-11-15] MEDS: oxyCODONE/Acetamin 5/325 MG* TAB PO PRN ×6 (01:55→22:51)
[2018-11-15] MEDS: oxyCODONE TAB* 5 MG TAB PO PRN ×6 (01:55→22:50)
[2018-11-15] MEDS: DULoxetine DR CAP* 30 MG CAP.DR PO SCH (10:39)
[2018-11-15] MEDS: Lisinopril TAB* 10 MG PO SCH (10:39)
[2018-11-15] MEDS: Vitamin THERAPEUTIC TAB PO SCH (10:39)
[2018-11-15] MEDS: CMCS: TESTOSTERONE GEL 25 MG (NF) IN 2.5 GM SIZE PACKET TOPICAL SCH (10:43)
--- NOTE | 2018-11-15 13:14 | PN ---
MHU: Group Therapy Note - Service Type Service Type: [id number] Group Psychotherapy - Cognitive Behavioral Group Therapy ( CBT):Patient was attentive and participatory in CBT programming this morning, and remained in good behavioral control. Patient expressed positive insights regarding relevant treatment interventions and goals.
[2018-11-15] MEDS: Insulin GLARGINE(*) 1 UNITS UNIT SUBCUT SCH (19:59)
[2018-11-15] MEDS: Amitriptyline TAB* 25 MG PO SCH (22:50)
[2018-11-15] MEDS: Polyethylene Glycol 3350* 17 GM PACKET PO PRN (22:55)
[2018-11-16] MEDS: oxyCODONE TAB* 5 MG TAB PO PRN ×5 (03:25→19:59)
[2018-11-16] MEDS: oxyCODONE/Acetamin 5/325 MG* TAB PO PRN ×5 (03:25→20:00)
[2018-11-16] MEDS: Vitamin THERAPEUTIC TAB PO SCH (07:32)
[2018-11-16] MEDS: CMCS: TESTOSTERONE GEL 25 MG (NF) IN 2.5 GM SIZE PACKET TOPICAL SCH (07:32)
[2018-11-16] MEDS: Lisinopril TAB* 10 MG PO SCH (07:33)
[2018-11-16] MEDS: DULoxetine DR CAP* 30 MG CAP.DR PO SCH (07:33)
[2018-11-16] MEDS: Ondansetron ODT TAB* 4 MG PO PRN (15:33)
[2018-11-16] MEDS: Polyethylene Glycol 3350* 17 GM PACKET PO PRN (15:34)
[2018-11-16] MEDS: Docusate CAP* 100 MG PO PRN (20:01)
[2018-11-16] MEDS: Insulin GLARGINE(*) 1 UNITS UNIT SUBCUT SCH (20:02)
--- NOTE | 2018-11-16 21:17 | PN ---
Subjective - Subjective Date of Service: 11/16/18 Service Type: 06611 Hosp care 15 min low complexity Subjective: Annette is found lying in bed with a stomach ache. He has not taken advantage of the Zofran that is available to him, despite havinig used it before and acknowledging that it might help. He states he is feeling better, that the despair and hopelessness have gone away. He says that with a trace of happiness and wonder. Objective - Appearance Appearance: Obese Dysmorphic Features: No Hygiene: Normal Grooming: Fairly Well Kept - Behavior Psychomotor Activities: Normal Exhibits Abnormal Movement: No - Attitude and Relatedness Attitude and Relatedness: Cooperative Eye Contact: Good - Speech Quality: Unpressured Latencies: Normal Quantity: Appropriate - Mood Patient's Decription of Mood: "Okay" - Affect Observed Affect: Fair Affect Consistent with: Dysphoria - Thought Process Patient's Thought Process: Coherent, Goal Directed Thought Content: Yes Passive Wish, No Suicidal Planning, No Homicidal Ideation, No Paranoid Ideation - Sensorium Experiencing Hallucinations: No, Sensorium is Clear Type of Hallucinations: Visual: No, Auditory: No, Command: No - Level of Consciousness Level of Consciousness: Alert Orientation: Yes Intact, Yes Orientated to Time, Yes Orientated to Place, Yes Orientated to Person - Impulse Control Impulse Control: Intact - Insight and Judgement Insight and Judgement: Fair - Group Participation Particating in Group Activities: No - Medication Management Medication Management Adherence: Yes Assessment - Assessment Inpatient DSM-V Dx: F32.2 Clinical Impression: Annette is a 43-year-old white male originally from [place] who comes to [place] following his father and now feels lost and as though he is a burden, so he would like to end his life, possibly with a gun that he will use to shoot himself in the head. Plan - Plan Treatment Plan: Name: ANNETTE WHALEY Birthdate: 1975 [id number] continue acute intensive psychiatric treatment. trial amitriptyline at bedtime; BELKIS ontiveros. renew testosterone gel. discharge planning to include referral to outpatient mental health. Medications: Current Medications Acetaminophen (Tylenol Tab*) 650 mg PO Q4H PRN PRN Reason: PAIN or TEMP > 101 F Al Hydrox/Mg Hydrox/Simethicone (Maalox Plus*) 30 ml PO Q4H PRN PRN Reason: INDIGESTION Amitriptyline HCl (Elavil Tab*) 25 mg PO BEDTIME [facility] Last Admin: 11/15/18 22:50 Dose: 25 mg Docusate Sodium (Colace Cap*) 100 mg PO BID PRN PRN Reason: CONSTIPATION Last Admin: 11/16/18 20:01 Dose: 100 mg Dulaglutide (Trulicity (Nf)) 0.75 mg SUBCUT Q7D [facility] Last Admin: 11/13/18 14:55 Dose: 0.75 mg Duloxetine HCl (Cymbalta Cap*) 90 mg PO DAILY [facility] Last Admin: 11/16/18 07:33 Dose: 90 mg Ibuprofen (Motrin Tab*) 600 mg PO Q6H PRN PRN Reason: PAIN Last Admin: 11/09/18 15:00 Dose: 600 mg Insulin Glargine (Lantus(*)) 90 units SUBCUT 2100 [facility] Last Admin: 11/16/18 20:02 Dose: 90 unit Lisinopril (Prinivil Tab*) 20 mg PO DAILY [facility] Last Admin: 11/16/18 07:33 Dose: 20 mg Multivitamins (Theragran Tab*) 1 tab PO DAILY [facility] Last Admin: 11/16/18 07:32 Dose: 1 tab Nicotine (Nicotine Inhaler*) 10 mg INH Q2H PRN PRN Reason: CRAVING Ondansetron HCl (Zofran Odt Tab*) 8 mg PO Q6H PRN PRN Reason: NAUSEA Last Admin: 11/16/18 15:33 Dose: 8 mg Oxycodone HCl (Roxycodone Tab*) 5 mg PO Q4H PRN PRN Reason: PAIN Last Admin: 11/16/18 19:59 Dose: 5 mg Oxycodone/Acetaminophen (Percocet 5/325 Tab*) 1 tab PO Q4H PRN PRN Reason: PAIN Last Admin: 11/16/18 20:00 Dose: 1 tab Polyethylene Glycol/Electrolytes (Miralax*) 17 gm PO DAILY PRN PRN Reason: CONSTIPATION Last Admin: 11/16/18 15:34 Dose: 17 gm Testosterone (Testosterone Gel 25 Mg/2.5 G) 50 mg TOPICAL DAILY [facility] Last Admin: 11/16/18 07:32 Dose: 50 mg Zolpidem Tartrate (Ambien Tab*) 10 mg PO BEDTIME PRN PRN Reason: INSOMNIA - Discharge Plan Discharge Plan: Outpatient [facility] Additional Comments: Annette will be started on duloxetine and rapidly titrated up. He hasn't been able to tolerate the nausea, so Zofran was started. There is a plan in place to get Annette to play his guitar in the privacy of the comfort room. 11/09/18: Annette is no longer complaining of nausea. he remains in his room and will be encouraged to participate. 11/12/18: Annette will continue to be encouraged to leave his room and go to groups as well as trust in the staff to understand him. Continue duloxetine at 90 mg and Zofran at 8 mg. 11/13/18: [facility] has been suggested as an option for Annette upon discharge. He does not want to reduce the dose of duloxetine but the nausea is not something he's complaining of anymore. He really wants to feel better; we are working to improve his opportunities to create connections with others including his family. 11/16/18: Discharge Monday. Annette is more comfortable with the idea of going home.
[2018-11-16] MEDS: Amitriptyline TAB* 25 MG PO SCH (21:18)
[2018-11-17] MEDS: Zolpidem TAB* 10 MG PO PRN (00:05)
[2018-11-17] MEDS: oxyCODONE/Acetamin 5/325 MG* TAB PO PRN ×6 (00:05→21:36)
[2018-11-17] MEDS: oxyCODONE TAB* 5 MG TAB PO PRN ×6 (00:05→21:36)
[2018-11-17] MEDS: DULoxetine DR CAP* 30 MG CAP.DR PO SCH (09:13)
[2018-11-17] MEDS: Vitamin THERAPEUTIC TAB PO SCH (09:14)
[2018-11-17] MEDS: Lisinopril TAB* 10 MG PO SCH (09:14)
[2018-11-17] MEDS: CMCS: TESTOSTERONE GEL 25 MG (NF) IN 2.5 GM SIZE PACKET TOPICAL SCH (09:15)
[2018-11-17] MEDS: Docusate CAP* 100 MG PO PRN (17:36)
[2018-11-17] MEDS: Polyethylene Glycol 3350* 17 GM PACKET PO PRN (17:37)
[2018-11-17] MEDS: Amitriptyline TAB* 25 MG PO SCH (21:34)
[2018-11-17] MEDS: Insulin GLARGINE(*) 1 UNITS UNIT SUBCUT SCH (21:37)
[2018-11-18] MEDS: oxyCODONE TAB* 5 MG TAB PO PRN ×5 (01:26→19:02)
[2018-11-18] MEDS: oxyCODONE/Acetamin 5/325 MG* TAB PO PRN ×5 (01:27→19:03)
[2018-11-18] MEDS: Zolpidem TAB* 10 MG PO PRN (01:29)
[2018-11-18] MEDS: DULoxetine DR CAP* 30 MG CAP.DR PO SCH (10:41)
[2018-11-18] MEDS: Lisinopril TAB* 10 MG PO SCH (10:41)
[2018-11-18] MEDS: Vitamin THERAPEUTIC TAB PO SCH (10:41)
[2018-11-18] MEDS: CMCS: TESTOSTERONE GEL 25 MG (NF) IN 2.5 GM SIZE PACKET TOPICAL SCH (10:42)
[2018-11-18] MEDS: Ondansetron ODT TAB* 4 MG PO PRN (19:02)
[2018-11-18] MEDS: Insulin GLARGINE(*) 1 UNITS UNIT SUBCUT SCH (22:02)
[2018-11-18] MEDS: Amitriptyline TAB* 25 MG PO SCH (22:02)
[2018-11-19] MEDS: oxyCODONE TAB* 5 MG TAB PO PRN ×4 (00:18→12:49)
[2018-11-19] MEDS: Zolpidem TAB* 10 MG PO PRN (00:18)
[2018-11-19] MEDS: oxyCODONE/Acetamin 5/325 MG* TAB PO PRN ×4 (00:18→12:50)
[2018-11-19 08:28] VITALS: BP 102/60
[2018-11-19] MEDS: Vitamin THERAPEUTIC TAB PO SCH (08:43)
[2018-11-19] MEDS: Lisinopril TAB* 10 MG PO SCH (08:45)
[2018-11-19] MEDS: DULoxetine DR CAP* 30 MG CAP.DR PO SCH (08:45)
[2018-11-19] MEDS: CMCS: TESTOSTERONE GEL 25 MG (NF) IN 2.5 GM SIZE PACKET TOPICAL SCH (08:46)
--- NOTE | 2018-11-19 21:17 | DS ---
DISCHARGE SUMMARY: DATE OF ADMISSION: 11/06/18 DATE OF DISCHARGE: 11/19/18 PROVIDER: Shreya Shea NP, in Psychiatry SUPERVISING PHYSICIAN: Dr. Ej Rob * (DICTATED BY SHREYA SHEA NP ) DIAGNOSES: [place] I: Major depressive disorder, recurrent, severe. [place] II: Cluster B traits. [place] III: Intervertebral disk disorder, hernia. CONDITION AT THE TIME OF DISCHARGE: Annette is improved, psychiatrically cleared, stable. He participated in a few groups and was mildly social with peers. His family is agreeable to his discharge and was Annette. He has done well here psychiatrically. He tolerated new meds including Cymbalta well with the addition of Zofran. He will attend [facility]. MENTAL STATUS EXAMINATION: At the time of discharge, Anntete is anxious, cooperative, and makes good eye contact. He is alert and oriented x3. His grooming is good. His speech pace is a little slow. His thought processes are logical. He is not psychotic or delusional. He denies AH, VH, SI, and HI. His insight fair. His judgment is good. He is willing to follow up and he is urged to see a therapist. DISCHARGE INSTRUCTIONS TO THE PATIENT: A. Medications: 1. Colace 100 mg b.i.d. p.r.n. constipation. 2. Trulicity 0.75 mg subcutaneously q.7 days. 3. Cymbalta 90 mg daily. 4. Ibuprofen 600 mg q.6 hours p.r.n. pain. 5. Lantus 90 units subcutaneously at 2100. 6. Lisinopril 20 mg daily. 7. Zofran ODT 8 mg q.6 hours p.r.n. nausea. 8. Roxicodone 5 mg q.4 hours p.r.n. pain. 9. MiraLAX 17 g daily p.r.n. constipation. 10. Testosterone gel 25 mg per 2.5 g, take 15 mg topically. 11. Ambien 10 mg at bedtime p.r.n. insomnia. B. Diet is diabetic. C. Activities as tolerated. Annette is a smoker but he has declined referral to the [facility] Smokers Quit Line at this time. If he decides to access this free service in the future, he can call them at [phone]. There are no studies pending at the time of discharge. D. Followup care: He has appointments with [facility] on 11/20/18 at 9:45 with Acacia Rao. He is encouraged to inquire about the [facility] program as well. He also is scheduled to see Shiraz Mcgrath on at 1:30, Karen Deal on 01/17/19 at 1:30, and Aman Dunham at his office, but will meet with Dr. Butt on 11/20/18 at 4 p.m. E. Substance abuse: Followup is not indicated. HOSPITAL COURSE: Part A: Chief complaint: "I feel very hopeless, there is no point it is never going to get any better." Annette is a 43-year-old single white male with a history of depressive disorder, who arrives brought in by himself and is here on a voluntary status after he decided that his life was not worth living and he was going to shoot himself with a gun. Annette is a man who is from [place] and is moved here to [place] a few years ago to follow his father who in the vague of Annette's mother dying found a new girlfriend and moved to the [place] area. 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 His mother in 2014, now Annette wonders what the purpose of his life is. He struggles with this question and states he has always had suicidal ideation since he was a child. His health conditions make him feel like life is not worth living. He has back problems with his vertebrae. He has type 2 diabetes that is not in control and he states everything is getting worse. His stressors including feeling useless, having a dad who he believes perceives him to be a burden. He is not sleeping very well. His interest is diminished. He feels guilty at almost everything and seems to have perceptions of the external world that are both black and white and lead to guilty feelings. His appetite is good. Part B: Psychiatric treatment was rendered. Annette was admitted to the adult behavioral unit and placed on 15-minute checks for safety. Annette was slow to improve and did not begin to feel as though he was hopeful until about 3 days before his discharge. He was largely seclusive to himself and did not go to many groups. We started Cymbalta and went to a high dose as that is what worked for him in the past. He tolerated it by taking Zofran. He did have problems with constipation which is why his stomach hurt more than might have been expected. We attempted to change him from Ambien to amitriptyline, but he did not tolerate that well at all. I did briefly meet his father who seemed to be cheerful in caring about his son. No nutrition consult was entered as Annette declined it. A pain consult was not indicated when I called the pain clinic; they believed his pain problems were more of an outpatient issue. He is improved , although he is anxious. His affect remains flat, but brighter. He seems happier than he was when he got here and his affect is brighter than when he arrived. SHREYA SHEA, NUBIA [id number]/[facility] #: [id number] [place]
== END 2018-11-19 13:45 | disposition home or self-care (01) | DRG 751 ==
LOC: ED 15:14 → BSU 21:16
PROVIDERS: ADMIT Psychiatry & Neurology Psychiatry; ATTEND Psychiatry & Neurology Psychiatry
DX: F33.2 Major depressive disorder, recurrent severe without psychotic features (principal); R45.851 Suicidal ideations; E11.65 Type 2 diabetes mellitus with hyperglycemia; M51.26 Other intervertebral disc displacement, lumbar region; F17.210 Nicotine dependence, cigarettes, uncomplicated; K59.00 Constipation, unspecified; Z81.8 Family history of other mental and behavioral disorders; Z81.1 Family history of alcohol abuse and dependence
CPT/HCPCS: 36415; 80053; 80061; 80307; 80320; 80329; 81003; 83036; 84443; 85025; 90853; 99222; 99231; 99232; 99238; 99284; A9270-GY; G0480

== ENCOUNTER 2018-12-06 19:11 | Inpatient (IN) | payer OTHER ==
[2018-12-06] MEDS ORDERED: Nicotine Inhaler* 10 MG AMP INH PRN (19:28)
--- NOTE | 2018-12-06 19:52 | ED ---
Psychiatric Complaint - HPI Summary HPI Summary: Pt is a 43 y/o male who presents to the ED c/o SI. He was admitted for SI on for over a week for SI and was put on Cymbalta. Pt was feeling better, but has felt worse in the past 2 days. He has SI, and states hes been on the brink of following through with his plan to use a razor. Pt also has been crying uncontrollably, without any obvious reason. Pt denies any fever, chills, diaphoresis, insomnia, erythema of eyes, sore throat, CP, SOB, cough, abdominal pain, N/V, dysuria, hematuria, myalgia, edema, rash, dizziness, auditory/visual hallucinations. PMHx depression, anxiety, ADHD, and SI. FHx depression and alcoholism. He denies any smoking or alcohol use. - History Of Current Complaint Chief Complaint: [facility]ental[facility] Time Seen by Provider: 12/06/18 19:27 Hx Obtained From: Patient Onset/Duration: Gradual Onset, Lasting Weeks, Worse Since Timing: Constant Character: Depressed Aggravating Factor(s): Nothing Alleviating Factor(s): Nothing Associated Signs And Symptoms: Positive: Negative Related History: Positive For: Prior Psychiatric Issues Has Suicidal: Reports: Thoughts, With A Plan - Allergies/Home Medications Allergies/Adverse Reactions: Allergies Allergy/AdvReac Type Severity Reaction Status Date / Time No Known Allergies Allergy Verified 12/06/18 19:15 PMH/Surg Hx/FS Hx/Imm Hx Endocrine/Hematology History: Reports: Hx Diabetes Cardiovascular History: Reports: Hx Hypertension Denies: Hx Pacemaker/ICD Respiratory History: Denies: Hx Asthma, Hx Sleep Apnea GI History: Denies: Hx Gastroesophageal Reflux Disease History: Denies: Hx Chronic Renal Failure, Hx Renal Disease Musculoskeletal History: Reports: Hx Back Problems - L4-5 herniated disc, Hx Tendonitis - bilateral knees Sensory History: Reports: Hx Contacts or Glasses, Hx Hearing Problem - Pt is [employer] Denies: Hx Hearing Aid Opthamlomology History: Reports: Hx Contacts or Glasses Neurological History: Reports: Other Neuro Impairments/Disorders - PAIN CLINIC PATIENT Psychiatric History: Reports: Hx Anxiety, Hx Attention Deficit Hyperactivity Disorder, Hx Depression, Hx Inpatient Treatment, Hx Community Mental Health Tx Denies: Hx Eating Disorder, Hx Panic Disorder, Hx of Violent Episodes Against Others - Surgical History Surgery Procedure, Year, and Place: TONSILECTOMY Infectious Disease History: No Infectious Disease History: Denies: Traveled Outside the [place] in Last 30 Days - Family History Known Family History: Positive: Hypertension, Diabetes, Other - depression, alcoholism - Social History Alcohol Use: None Hx Substance Use: No Substance Use Type: Reports: Prescribed Hx Tobacco Use: No Smoking Status (MU): Never Smoked Tobacco Review of Systems Negative: Fever, Chills, Skin Diaphoresis, Other - insomnia Negative: Erythema Negative: Sore Throat Negative: Chest Pain Negative: Shortness Of Breath, Cough Negative: Abdominal Pain, Vomiting, Nausea Negative: dysuria, hematuria Negative: Myalgia, Edema Negative: Rash Neurological: Other - NEGATIVE: dizziness Positive: Depressed, Other - SI, NEGATIVE: auditory/visual hallucinations All Other Systems Reviewed And Are Negative: Yes Physical Exam - Summary Physical Exam Summary: Constitutional: Well-developed, Well-nourished, Alert. (-) Distressed Skin: Warm, Dry HENT: Normocephalic; Atraumatic Eyes: Conjunctiva normal Neck: Musculoskeletal ROM normal neck. (-) JVD, (-) Stridor, (-) Tracheal deviation Cardio: Rhythm regular, rate normal, Heart sounds normal; Intact distal pulses; The pedal pulses are 2+ and symmetric. Radial pulses are 2+ and symmetric. (-) Murmur Pulmonary/Chest wall: Effort normal. (-) Respiratory distress, (-) Wheezes, (-) Rales Abd: Soft, (-) epigastric tenderness, (-) Distension, (-) Guarding, (-) Rebound Musculoskeletal: (-) Edema Lymph: (-) Cervical adenopathy Neuro: Alert, Oriented x3 Psych: Mood and affect Normal Triage Information Reviewed: Yes Vital Signs On Initial Exam: Initial Vitals Temp Pulse Resp BP Pulse Ox 97.6 F 110 18 153/98 97 12/06/18 19:13 12/06/18 19:13 12/06/18 19:13 12/06/18 19:13 12/06/18 19:13 Vital Signs Reviewed: Yes Diagnostics - Vital Signs Vital Signs Temp Pulse Resp BP Pulse Ox 12/06/18 19:13 97.6 F 110 18 153/98 97 - Laboratory Result Diagrams: 12/06/18 19:50 12/06/18 19:50 Lab Statement: Any lab studies that have been ordered have been reviewed, and results considered in the medical decision making process. Re-Evaluation - Re-Evaluation First Eval Re-Evaluation Time: 20:45 Change: Unchanged Comment: Pt is medically cleared for a MHE. Course/Dx - Course Course Of Treatment: Pt is a 43 y/o male who presents to the ED c/o SI. He has an active plan and prior attempts. Pt also has been crying uncontrollably, without any obvious reason. He denies any smoking or alcohol use. PMHx depression, anxiety, ADHD, and SI. Pt will be signed out to Dr. Muir, pending MHE. Final dx of SI. He is agreeable with this plan. - Differential Dx/Clinical Impression Provider Diagnosis: Suicidal ideation Discharge - Sign-Out/Discharge Documenting (check all that apply): Sign-Out Patient Signing out patient TO: Rei Muir Patient Received Moderate/Deep Sedation with Procedure: No - Discharge Plan Referrals: Aman Dunham MD [Primary Care Provider] - - Attestation Statements Document Initiated by Scribe: Yes Documenting Scribe: Vero [place] Provider For Whom Scribe is Documenting (Include Credential): Jose Antonio Benito MD Scribe Attestation: Vero Mallory, scribed for Jose Antonio Benito MD on 12/06/18 at 1727. Status of Scribe Document: Ready
[2018-12-06 19:56] LABS: ABS Basophils 0.1 10^3/ul (0-0.2); ABS Eosinophils 0.3 10^3/ul (0-0.6); ABS Lymphocytes 3.6 10^3/ul (1.0-4.8); ABS Monocytes 0.9 10^3/ul (0-0.8); ABS Neutrophils 9.8 10^3/ul (1.5-7.7); ABS Nucleated RBC 0 10^3/ul; Eosinophil % 2.1 %; Hematocrit 45 % (42-52); Hemoglobin 15.3 g/dl (14.0-18.0); Lymphocyte % 24.5 %; Mean Corpuscular HGB Conc 34 g/dl (31-36); Mean Corpuscular Hemoglobin 30 pg (27-31); Mean Corpuscular Volume 90 fL (80-94); Nucleated Red Blood Cells % 0; Platelet Count 348 10^3/ul (150-450); Red Blood Count 5.01 10^6/ul (4.00-5.40); Red Cell Distribution Width 14 % (10.5-15); White Blood Count 14.8 10^3/ul (3.5-10.8)
[2018-12-06 20:14] LABS: ALT 37 U/L (7-52); AST 26 U/L (13-39); Albumin 4.3 g/dL (3.2-5.2); Albumin/Globulin Ratio 1.2 (1-3); Alkaline Phosphatase 99 U/L (34-104); Anion Gap 7 mmol/L (2-11); BUN/Creatinine Ratio 11.3 (8-20); Blood Urea Nitrogen 9 mg/dL (6-24); CO2 Carbon Dioxide 29 mmol/L (22-32); Calcium 9.2 mg/dL (8.6-10.3); Chloride 101 mmol/L (101-111); EGFR African American 127.1 (>60); Globulin 3.7 g/dL (2-4); Glucose 153 mg/dL (70-100); Potassium 4.2 mmol/L (3.5-5.0); Sodium 137 mmol/L (135-145)
[2018-12-06 20:22] LABS: Acetaminophen < 15 mcg/mL; Alcohol < 10 mg/dL (<10); Salicylate < 2.50 mg/dL (<30)
[2018-12-06 20:23] LABS: Urine Appearance Clear; Urine Bilirubin Negative (Negative); Urine Blood Negative (Negative); Urine Color Yellow; Urine Glucose 1+(50 mg/dL) (Negative); Urine Ketones Negative (Negative); Urine Nitrite Negative (Negative); Urine Protein Negative (Negative); Urine Urobilinogen Negative (Negative)
--- OUTSIDE RECORDS SUMMARY | 2018-12-06 20:28 | XMS REPORT | Continuity of Care Document ---
:1975 External Reference #:[id number] Author Name Katty Bedoya Care Team Providers Name Role Phone Marika Schroeder M.D. Primary Care Physician Unavailable Payers Date Identification Numbers Payment Provider Subscriber Effective: 2016 Policy Number: [id number] [employer]der [employer] Number: [id number] [address] PayID: [id number] [place] [address] Advance Directives Description No Information Available Problems [...] M.D. Active Family History Date Family Member(s) Observation Comments General Parkinson's Disease General Heart Disease General Hypertension Father Hypertension Father Heart Disease Mother due to Parkinsons Disease () Social History Type Date Description Comments Sex Unknown Occupation Unemployed [employer] Occupation Disabled awaiting disability hearing ETOH Use Denies alcohol use Tobacco Use Start: Unknown Patient has never smoked Recreational Drug Use Denies Drug Use Smoking Status Reviewed: 11/23/18 Patient has never smoked Allergies, Adverse Reactions, Alerts Description No Known Drug Allergies Medications Medication Date Status Form Strength Qnty SIG Indications Ordering Provider Truliclenora 10/23 Active Solution 0.75mg/0. 2ml inject 0.75mg E11.65 Haseeb Geiger /2018 Pen-Injec 5ML once a week halima Butt M.D. Lisinopril 08/23 Active Tablets 20mg 30tab 1 by mouth I10 [place] s every day Juanita Dunham Basaglar 08/23 Active Solution 100Unit/M 30ml 90 units at E11.65 Aman Pen-Injec L bedtime Roly varghese M.D. Pen [place] 12/05 Active Misc 32G X 5 90uni once daily with Aman mm milagro Dunham M.D. BD Pen 12/04 Active Misc 31G X 5 100un use with Haseeb Geiger Needle/Mini/Ul mm carlos Morris/31G X Juanita 12/22" Zolpidem 11/22 Active Tablets 10mg 30tab 1/2 to 1 tab by G47.00 Marika Tartrate s mouth every Schroeder, night at MD bedtime as needed Amlodipine 10/24 Active Tablets 5mg 30tab 1 by mouth I10 Aman Besylate s every day in Roly the Juanita martinez Oxycodone-Acet 10/24 Active Tablets 10-325mg 120ta take 1 tablet M51.16 Marika aminophen bs by mouth every Schroeder, 6 hours as MD needed for pain Atorvastatin 10/13 Active Tablets 40mg 30tab 1 by mouth E78.2 Aman Calcium s every day Juanita Dunham Contour Next 10/13 Active Kit 1unit chesk cs twice E11.8 [place] One Blood s daily Roly Glucose Juanita Monitoring System Control Test 10/13 Active Strips 100un check cs twice E11.8 its daily and as Roly needed Juanita Testosterone 09/22 Active Gel 50mg/5GM 150gm apply 1 E29.1 [place] (1%) application MD Mamadou (50mg) to the skin once daily Freestyle Lite 09/22 Active Device 1unit check Blood Glucose s fingerstick [place] Monitoring daily Dx: Juanita System E11.40 Last visit: 09/22/16 Freestyle Lite 09/22 Active Strips 100un test up to 2 Test its times a day dx Roly code: e11.40 Juanita last visit: 09/22/16 Freestyle Lite 09/22 Active 100un two times daily Lanc its or as needed Roly dx: e11.40 Juanita Harper visit: 09/22/16 Metformin HCL 20 Active Tablets 1000mg 60tab Take One Tablet E11.40 s By Mouth Twice Roly Razo M.D. Duloxetine HCL [address] 60mg Unknown /0000 Part Duloxetine HCL Active Caps DR 30mg Unknown /0000 Part Basaglar 07/24 Hx Solution 100Unit/M 15ml 75 units sc E11.40 Uvaldo Ibarra Pen-Injec L once daily Carleen Medel M.D.,[facility] 08/23 Toujeo 07/12 Hx Solution 300Unit/M 4.500 inject 75 units E11.40 Marco Shane Pen-Injec L ml subcutaneously Carleen Medel once daily Juanita,[facility] 07/24 Basaglar 05/08 Hx Solution 100Unit/M 9ml 65 units at E11.40 [place] Pen-Injec L bedtime Pachikara - t , M.D. 07/12 Basaglar 03/27 Hx Solution 100Unit/M 30ml 50 units at E11.40 [place] Pen-Injec L bedtime Pachikara - t , M.D. 05/08 Escitalopram 03/27 Hx Tablets 10mg 30tab 1 by mouth F40.01 [place] s every day P[place]ikara - , M.D. 11/23 Basaglar 01/09 Hx Solution 100Unit/M 15ml 35 units at E11.40 [place] Pen-Injec L bedtime Pachikara - t , M.DPaddy 03/27 Basaglar 12/07 Hx Solution 100Unit/M 15ml 45 units at E11.65 [place] Pen-Injec L bedtime [place]ikara - t , M.DPaddy 01/09 Basaglar 11/30 Hx Solution 100Unit/M 30ml 25 units at E11.65 [place] Pen-Injec L bedtime Pachikara - t , M.DPaddy 12/07 Oxycodone HCL 06/26 Hx Tab ER 10mg 10tab 1 jozef every 12 M54.16 [place] 12H s hours Pachikara - Abuse-Det , M.DPaddy 08/01 Glipizide 01/10 Hx Tablets 10mg 60tab take 1 tablet E11.65 s by mouthtwice Pachmelbara - daily , M.DPaddy 11/30 Invokana 01/10 Hx Tablets 100mg 30tab once daily E11.65 s [place] - , M.DPaddy 12/07 Bupropion HCL 12/06 Hx Tablets 300mg 30tab 1 tab in in the F33.0 [place] ER (XL) ER 24HR s morning Pachikara - , M.DPaddy 03/27 Bupropion HCL 11/22 Hx Tablets 150mg 30tab once daily in F33.0 [place] ER (XL) ER 24HR s the morning Pachikara - with food , MDayannaPaddy 12/06 Tradjenta 10/24 Hx Tablets 5mg 30tab once daily E11.65 s Roly - Juanita 03/27 Glipizide 10/13 Hx Tablets 10mg 45tab take 1 tablet E11.8 s by mouth every Pachikara - morning and 10/10 , M.D. 01/10 tab in evening Prednisone 10/13 Hx Tablets 10mg 30tab 5tabx 2days,4 M51.16 s sfqf1vayh [place]ach[place] - 3oryn0vqbn,2tab , M.DPaddy 10/24 x2days,1tabx . Oxycodone-Acet 10/13 Hx Tablets 10-325mg 42tab take 1 tablet M51.16 s by mouth every Pachikara - 8 hours as , M.DPaddy 10/24 needed for pain Escitalopram 09/22 Hx Tablets 20mg 30tab 1 by mouth F33.0 s every day Roly - Juanita 03/27 [place] 09/22 Hx Misc 30G 60uni test twice E11.8 ts daily Roly Anderson - Juanita 10/13 [place] Test 09/22 Hx Strips 100un test three E11.8 its times daily Roly - M.DPaddy 10/13 Escitalopram 08/25 Hx Tablets 10mg 30tab 1 by mouth s every day Roly - Juanita 09/22 Wellbutrin XL 08/17 Hx Tablets 150mg 30tab 1 by mouth ER 24HR s every day in in [place] - the morning , M.DPaddy 08/25 with food Naproxen 08/11 Hx Tablets 500mg 60tab 1 by mouth M25.561 s twice a day Pachikara - with food (pt , M.D. 01/10 is not using) Duloxetine HCL 08/[address] 30mg 14cap once a day in F33.0 Part s full stomach Roly Durant M.D. 08/17 Oxycodone-Acet 07/28 Hx Tablets 10-325mg 60tab take 1 tablet M51.16 s by mouth every Pachika - 12 hours Juanita goodrich 10/13 needed for pain Gabapentin Hx Capsules 300mg 1 by mouth Unknown /0000 three times a - day 11/30 Metformin HCL Hx Tablets 500mg 1 by mouth Unknown /0000 twice a day - 07/28 Lisinopril Hx Tablets 10mg 30tab 1 by mouth s every day Roly Durant M.D. 08/23 Ibuprofen Hx Tablets 800mg 1 by mouth two Unknown /0000 times a day as - needed 08/11 Immunizations CPT Code Status Date Vaccine Reaction Lot # [id number] Given 10/24/2016 Pneumonia Vaccine no reaction, pt tolerated well [id number] Vital Signs Date Vital Result Comment 11/23/2018 10:59am Height 76 inches 6'4" Weight 399.00 lb Heart Rate 105 /min BP Systolic Sitting 120 mmHg BP Diastolic Sitting 82 mmHg O2 % BldC Oximetry 97 % BMI (Body Mass Index) 48.6 kg/m2 10/23/2018 11:21am Height 76 inches 6'4" Weight [...] Test Result H/L Range Note Laboratory test 11/23/2018 [facility] Hemoglobin A1c <pending> 5-7 finding Urinalysis Profile 11/06/2018 [facility] Urine Color Yellow [address] [place] [address] [phone] Urine Appearance Cloudy Urine Specific [place] 1.023 N 1.010-1.030 Urine pH 5.0 N 5-9 Urine Urobilinogen Negative Negative Urine Ketones Negative Negative Urine Protein Negative Negative Urine Leukocytes Negative Negative Urine Blood Negative Negative Urine Nitrite Negative Negative Urine Bilirubin Negative Negative Urine Glucose 2+(150 mg/dL) Abnormal Negative Urine Drug 11/06/2018 [facility] Amphetamine Ur None Detected None Detect SCR ED & [address] [place] [address] [phone] Barbiturates Urine Screen None Detected None Detect Benzodiazepine Urine Screen None Detected None Detect Urine Cannabinoids Screen None Detected None Detect Urine Cocaine Screen None Detected None Detect Urine Opiates Screen None Detected None Detect Urine Phencyclidine Screen None Detected None Detect 1 CBC Auto 11/06/2018 [facility] White Blood 12.0 10^3/uL High 3.5-10.[address] [place] [address] [phone] Red Blood Count 4.69 10^6/uL N 4.00-5.40 Hemoglobin 14.1 g/dL N 14.0-18.0 Hematocrit 42 % N 42-52 Mean Corpuscular Volume 89 fL N 80-94 Mean Corpuscular Hemoglobin 30 pg N 27-31 Mean Corpuscular HGB Conc 34 g/dL N 31-36 Red Cell Distribution Width 14 % N 10.5-15 Platelet Count 354 10^3/uL N 150-450 Mean Platelet Volume 7.5 fL N 7.4-10.4 Abs Neutrophils 8.8 10^3/uL High 1.5-7.7 Abs Lymphocytes 2.3 10^3/uL N 1.0-4.8 Abs Monocytes 0.6 10^3/uL N 0-0.8 Abs Eosinophils 0.1 10^3/uL N 0-0.6 Abs Basophils 0.1 10^3/uL N 0-0.2 Abs Nucleated RBC 0 10^3/uL Granulocyte % 73.6 % Lymphocyte % 19.3 % Monocyte % 5.4 % Eosinophil % 0.9 % Basophil % 0.8 % Nucleated Red Blood Cells % 0.1 Comp Metabolic Panel 11/06/2018 [facility] Sodium 134 mmol/L Low [address] [place] [address] [phone] Potassium 4.4 mmol/L N 3.5-5.0 Chloride 101 mmol/L N 101-111 Co2 Carbon Dioxide 28 mmol/L N 22-32 Anion Gap 5 mmol/L N 2-11 Glucose 240 mg/dL High 70-100 Blood Urea Nitrogen 9 mg/dL N 6-24 Creatinine 0.88 mg/dL N 0.67-1.17 BUN/Creatinine Ratio 10.2 N 8-20 Calcium 9.4 mg/dL N 8.6-10.3 Total Protein 8.0 g/dL N 6.4-8.9 Albumin 4.3 g/dL N 3.2-5.2 Globulin 3.7 g/dL N 2-4 Albumin/Globulin Ratio 1.2 N 1-3 Total Bilirubin 0.60 mg/dL N 0.2-1.0 Alkaline Phosphatase 103 U/L N 34-104 Alt 49 U/L N 7-52 Ast 33 U/L N 13-39 Egfr Non- 94.1 >60 Egfr 113.8 >60 2 Laboratory test 11/06/2018 [facility] Acetaminophen < 15 g/mL [address] [place] [address] [phone] Alcohol < 10 mg/dL N <10 Salicylate < 2.50 mg/dL <30 TSH (Thyroid Stim Horm) 1.17 mcIU/mL N 0.34-5.60 Urine Culture And 11/04/2018 [facility] Urine Culture SEE RESULT [address] [place] [address] [phone] Urinalysis Profile 11/04/2018 [facility] Urine Color Yellow [address] [place] [address] [phone] Urine Appearance Cloudy Urine Specific [place] 1.026 N 1.010-1.030 Urine pH 6.0 N 5-9 Urine Urobilinogen Negative Negative Urine Ketones Trace Abnormal Negative Urine Protein Negative Negative Urine Leukocytes Trace Abnormal Negative Urine Blood Negative Negative Urine Nitrite Negative Negative Urine Bilirubin Negative Negative Urine Glucose 3+(>=500 mg/dL) Abnormal Negative Urine White Blood Cell 2+(11-20/hpf) Abnormal Absent Urine Red Blood Cell 2+(6-10/hpf) Abnormal Absent Urine Bacteria Absent Absent Urine Squamous Epithelial Cell Present Abnormal Absent Laboratory test 11/04/2018 [facility] C Reactive 23.73 mg/L High <8.[address] [place] [address] [phone] Comp Metabolic 11/04/2018 [facility] Sodium 136 mmol/L N 135- [address] [place] [address] [phone] Potassium 3.9 mmol/L N 3.5-5.0 Chloride 99 mmol/L Low 101-111 Co2 Carbon Dioxide 29 mmol/L N 22-32 Anion Gap 8 mmol/L N 2-11 Glucose 245 mg/dL High 70-100 Blood Urea Nitrogen 12 mg/dL N 6-24 Creatinine 0.84 mg/dL N 0.67-1.17 BUN/Creatinine Ratio 14.3 N 8-20 Calcium 9.4 mg/dL N 8.6-10.3 Total Protein 8.5 g/dL N 6.4-8.9 Albumin 4.5 g/dL N 3.2-5.2 Globulin 4.0 g/dL N 2-4 Albumin/Globulin Ratio 1.1 N 1-3 Total Bilirubin 0.40 mg/dL N 0.2-1.0 Alkaline Phosphatase 106 U/L High 34-104 Alt 45 U/L N 7-52 Ast 27 U/L N 13-39 Egfr Non- 99.3 >60 Egfr 120.1 >60 5 CBC Auto 11/04/2018 [facility] White Blood 14.5 10^3/uL High 3.5-10.[address] [place] [address] [phone] Red Blood Count 4.98 10^6/uL N 4.00-5.40 Hemoglobin 15.2 g/dL N 14.0-18.0 Hematocrit 44 % N 42-52 Mean Corpuscular Volume 89 fL N 80-94 Mean Corpuscular Hemoglobin 31 pg N 27-31 Mean Corpuscular HGB Conc 34 g/dL N 31-36 Red Cell Distribution Width 14 % N 10.5-15 Platelet Count 372 10^3/uL N 150-450 Mean Platelet Volume 7.5 fL N 7.4-10.4 Abs Neutrophils 10.4 10^3/uL High 1.5-7.7 Abs Lymphocytes 3.0 10^3/uL N 1.0-4.8 Abs Monocytes 0.9 10^3/uL High 0-0.8 Abs Eosinophils 0.1 10^3/uL N 0-0.6 Abs Basophils 0.1 10^3/uL N 0-0.2 Abs Nucleated RBC 0 10^3/uL Granulocyte % 71.5 % Lymphocyte % 20.9 % Monocyte % 6.0 % Eosinophil % 0.9 % Basophil % 0.7 % Nucleated Red Blood Cells % 0 Laboratory test 11/04/2018 [facility] Lactic Acid 1.1 mmol/L N 0.5-2.0 [address] [place] [address] [phone] Laboratory test 10/22/2018 [facility] Testosterone 451.43 N 240-950 finding [address] [facility] Total ng/[place] [address] [phone] PSA Screening 0.211 ng/mL N 0-4.000 7 Drug Abuse 08/23/2018 [facility] Urine Amphetamine Negative ng/ mL 8, 9 [address] [place] [address] [phone] Urine Barbiturates Negative ng/mL 10 Urine Benzodiazepines Negative ng/mL 11 Urine Cocaine Negative ng/mL 12 Urine Phencyclidine Negative ng/mL Cutoff: 25 Urine Tetrahydrocannabinol Negative ng/mL Cutoff: 50 13 Creatinine, Urine 181.6 mg/dL Specific [place] 1.020 pH 5.6 Oxidants Negative 14 Adulterants Comment Normal Codeine, Ur Not Detected ng/mL Cutoff: 25 15 Kjagvfg-2-bgcg-glucuronide, Ur Not Detected ng/mL 16 Morphine, Ur Not Detected ng/mL Cutoff: 25 17 Hobvmpdu-6-gqej-glucuronide, U Not Detected ng/mL 18 6-monoacetylmorphine, Ur Not Detected ng/mL Cutoff: 25 19 Hydrocodone, Ur Not Detected ng/mL Cutoff: 25 20 Norhydrocodone, Ur Not Detected ng/mL Cutoff: 25 21 Dihydrocodeine, Ur Not Detected ng/mL Cutoff: 25 22 Hydromorphone, Ur Not Detected ng/mL Cutoff: 25 23 Pyhuodxdpmsdc3oidxiidmdpuodcb Not Detected ng/mL 24 Oxycodone, Ur Present ng/mL Abnormal Cutoff: 25 25 Noroxycodone, Ur Present ng/mL Abnormal Cutoff: 25 26 Oxymorphone, Ur Present ng/mL Abnormal Cutoff: 25 27 Rjmvdffwayb-2-ppgx-glucuronide Present ng/mL Abnormal 28 Noroxymorphone, Ur Present ng/mL Abnormal Cutoff: 25 29 Fentanyl, Ur Not Detected ng/mL Cutoff: 2 30 Norfentanyl, Ur Not Detected ng/mL Cutoff: 2 31 Meperidine, Ur Not Detected ng/mL Cutoff: 25 32 Normeperidine, Ur Not Detected ng/mL Cutoff: 25 33 Naloxone, Ur Not Detected ng/mL Cutoff: 25 34 Zrhmcpsg-5-etqb-glucuronide, U Not Detected ng/mL 35 Methadone, Ur Not Detected ng/mL Cutoff: 25 36 Eddp, Ur Not Detected ng/mL Cutoff: 25 37 Propoxyphene, Ur Not Detected ng/mL Cutoff: 25 38 Norpropoxyphene, Ur Not Detected ng/mL Cutoff: 25 39 Tramadol, Ur Not Detected ng/mL Cutoff: 25 40 O-desmethyltramadol, Ur Not Detected ng/mL Cutoff: 25 41 Tapentadol, Ur Not Detected ng/mL Cutoff: 25 42 N-desmethyltapentadol, Ur Not Detected ng/mL Cutoff: 50 43 Thnlftniwx-yikf-efxtmdftdlg, U Not Detected ng/mL 44 Buprenorphine, Ur Not Detected ng/mL Cutoff: 5 45 Norbuprenorphine, Ur Not Detected ng/mL Cutoff: 5 46 Norbuprenorphine glucuronide Not Detected ng/mL Cutoff: 20 47 Opioid Interpretation See Comment 48 Laboratory test 08/23/2018 [facility] Hemoglobin A1c 10.3 High 5-7 finding Laboratory test 07/04/2018 [facility] Testosterone Total 386.67 N 240-[address] ng/[place] [address] [phone] Lipid Profile 07/04/2018 [facility] Triglycerides 173 mg/dL 49 (Trig/Chol/HDL) [address] [place], [place] [id number] [phone] Cholesterol 178 mg/dL 50 HDL Cholesterol 37.3 mg/dL 51 LDL Cholesterol 106 mg/dL 52 Comp Metabolic Panel 07/04/2018 [facility] Sodium 137 mmol/L N 135-[address] [place] [address] [phone] Potassium 4.3 mmol/L N 3.5-5.0 Chloride 99 [...] Egfr Non- 107.0 >60 Egfr 129.5 >60 53 Laboratory 07/04/2018 [facility] PSA Screening 1.718 ng/mL N 0 -4.000 [address] [place] [address] [phone] Laboratory 07/04/2018 [facility] Hemoglobin A1c 10.2 % High 4.0-5.6 55 test finding 101 (Glyco HGB) [place] [address] [phone] Drug Abuse 20 03/27/2018 [facility] Urine Negative [address] Amphetamine ng/[place] [address] [phone] Urine Barbiturates Negative ng/mL 57 Urine Benzodiazepines Negative ng/mL 58 Urine Cocaine Negative ng/mL 59 Urine Phencyclidine Negative ng/mL Cutoff: 25 Urine Tetrahydrocannabinol Negative ng/mL Cutoff: 50 60 Creatinine, Urine 91.2 mg/dL Specific [place] 1.011 pH 5.9 Oxidants Negative 61 Adulterants Comment Normal Codeine, Ur Not Detected ng/mL Cutoff: 25 62 Vfrxhiw-6-aawo-glucuronide, Ur Not Detected ng/mL 63 Morphine, Ur Not Detected ng/mL Cutoff: 25 64 Vueiowmo-5-pmdk-glucuronide, U Not Detected ng/mL 65 6-monoacetylmorphine, Ur Not Detected ng/mL Cutoff: 25 66 Hydrocodone, Ur Not Detected ng/mL Cutoff: 25 67 Norhydrocodone, Ur Not Detected ng/mL Cutoff: 25 68 Dihydrocodeine, Ur Not Detected ng/mL Cutoff: 25 69 Hydromorphone, Ur Not Detected ng/mL Cutoff: 25 70 Xarxiixhjpmzp8tblrgrokduihqet Not Detected ng/mL 71 Oxycodone, Ur Present ng/mL Abnormal Cutoff: 25 72 Noroxycodone, Ur Present ng/mL Abnormal Cutoff: 25 73 Oxymorphone, Ur Not Detected ng/mL Cutoff: 25 74 Cngortxdcfq-8-xmwy-glucuronide Present ng/mL Abnormal 75 Noroxymorphone, Ur Present ng/mL Abnormal Cutoff: 25 76 Fentanyl, Ur Not Detected ng/mL Cutoff: 2 77 Norfentanyl, Ur Not Detected ng/mL Cutoff: 2 78 Meperidine, Ur Not Detected ng/mL Cutoff: 25 79 Normeperidine, Ur Not Detected ng/mL Cutoff: 25 80 Naloxone, Ur Not Detected ng/mL Cutoff: 25 81 Zgfktbus-6-qkrt-glucuronide, U Not Detected ng/mL 82 Methadone, Ur Not Detected ng/mL Cutoff: 25 83 Eddp, Ur Not Detected ng/mL Cutoff: 25 84 Propoxyphene, Ur Not Detected ng/mL Cutoff: 25 85 Norpropoxyphene, Ur Not Detected ng/mL Cutoff: 25 86 Tramadol, Ur Not Detected ng/mL Cutoff: 25 87 O-desmethyltramadol, Ur Not Detected ng/mL Cutoff: 25 88 Tapentadol, Ur Not Detected ng/mL Cutoff: 25 89 N-desmethyltapentadol, Ur Not Detected ng/mL Cutoff: 50 90 Lpvkmwmlug-yljf-vvgbeuhvjts, U Not Detected ng/mL 91 Buprenorphine, Ur Not Detected ng/mL Cutoff: 5 92 Norbuprenorphine, Ur Not Detected ng/mL Cutoff: 5 93 Norbuprenorphine glucuronide Not Detected ng/mL Cutoff: 20 94 Opioid Interpretation See Comment 95 Laboratory test 03/27/2018 [facility] Hemoglobin A1c 9.5 High 5-7 finding Laboratory test 11/30/2017 [facility] Hemoglobin A1c 11.1 High 5-7 finding Laboratory test 11/29/2017 [facility] PSA Screening 0.289 N 0- 4.000 [address] ng/[place] [address] [phone] Urine Microalbumin 11/29/2017 [facility] Ur Microalbumin 73.2 mg /L Random [address] (mg/L) [place] [address] [phone] Urine Creatinine 163.57 mg/dL Urine Microalbumin/Creatinine 44.7 ug/mg High <31 Laboratory 11/29/2017 [facility] Testosterone 85.80 ng/dL Low 240-950 test finding [address] [place] [address] [phone] Laboratory 09/05/2017 [facility] Hemoglobin A1c 8.3 High 5-7 test finding Drug Abuse 20 09/05/2017 [facility] Urine Negative [address] Amphetamine ng/[place] [address] [phone] Urine Barbiturates Negative ng/mL 98 Urine Benzodiazepines Negative ng/mL 99 Urine Cocaine Negative ng/mL 100 Urine Phencyclidine Negative ng/mL Cutoff: 25 Urine Tetrahydrocannabinol Negative ng/mL Cutoff: 50 101 Creatinine, Urine 227.9 mg/dL Specific [place] 1.021 pH 5.6 Oxidants Negative 102 Adulterants Comment Normal Codeine, Ur Not Detected ng/mL Cutoff: 25 103 Vcabwdy-5-tlow-glucuronide, Ur Not Detected ng/mL 104 Morphine, Ur Not Detected ng/mL Cutoff: 25 105 Eovyliwi-4-ntyw-glucuronide, U Not Detected ng/mL 106 6-monoacetylmorphine, Ur Not Detected ng/mL Cutoff: 25 107 Hydrocodone, Ur Present ng/mL Cutoff: 25 108 Norhydrocodone, Ur Not Detected ng/mL Cutoff: 25 109 Dihydrocodeine, Ur Not Detected ng/mL Cutoff: 25 110 Hydromorphone, Ur Not Detected ng/mL Cutoff: 25 111 Azgqveexvwwjt0kppuiqhxkswffrq Not Detected ng/mL 112 Oxycodone, Ur Present ng/mL Cutoff: 25 113 Noroxycodone, Ur Present ng/mL Cutoff: 25 114 Oxymorphone, Ur Present ng/mL Cutoff: 25 115 Coenaxggovj-8-gytq-glucuronide Present ng/mL 116 Noroxymorphone, Ur Present ng/mL Cutoff: 25 117 Fentanyl, Ur Present ng/mL Cutoff: 2 118 Norfentanyl, Ur Present ng/mL Cutoff: 2 119 Meperidine, Ur Not Detected ng/mL Cutoff: 25 120 Normeperidine, Ur Not Detected ng/mL Cutoff: 25 121 Naloxone, Ur Not Detected ng/mL Cutoff: 25 122 Jhbdwohj-1-caxl-glucuronide, U Not Detected ng/mL 123 Methadone, Ur Not Detected ng/mL Cutoff: 25 124 Eddp, Ur Not Detected ng/mL Cutoff: 25 125 Propoxyphene, Ur Not Detected ng/mL Cutoff: 25 126 Norpropoxyphene, Ur Not Detected ng/mL Cutoff: 25 127 Tramadol, Ur Not Detected ng/mL Cutoff: 25 128 O-desmethyltramadol, Ur Not Detected ng/mL Cutoff: 25 129 Tapentadol, Ur Not Detected ng/mL Cutoff: 25 130 N-desmethyltapentadol, Ur Not Detected ng/mL Cutoff: 50 131 Mgpdbgojee-jhgi-ogduhhxydmv, U Not Detected ng/mL 132 Buprenorphine, Ur Not Detected ng/mL Cutoff: 5 133 Norbuprenorphine, Ur Not Detected ng/mL Cutoff: 5 134 Norbuprenorphine glucuronide Not Detected ng/mL Cutoff: 20 135 Opioid Interpretation See Comment 136 Laboratory test 06/23/2017 [facility] Prolactin 14.1 ng/mL N 1.0-20.[address] [place] [address] [phone] FSH And LH 06/23/2017 [facility] FSH (Follicle 1.2 mIU/mL N 1- [address] Stim Hormone) [place] [address] [phone] LH (Lutenizing Hormone) 1.7 mcIU/mL Low 2-12 Laboratory test 06/07/2017 [facility] Testosterone 51.34 Low 240-[address] Total ng/[place] [address] [phone] FSH (Follicle Stim Hormone) 0.7 mIU/mL Low 1-20 LH (Lutenizing Hormone) 0.7 mcIU/mL Low 2-12 Drug Abuse 04/13/2017 [facility] Urine Amphetamine Negative N 137, 138 [address] ng/[place] [address] [phone] Urine Barbiturates Negative ng/mL N 139 Urine Benzodiazepines Negative ng/mL N 140 Urine Cocaine Negative ng/mL N 141 Urine Phencyclidine Negative ng/mL N Cutoff: 25 Urine Tetrahydrocannabinol Negative ng/mL N Cutoff: 50 142 Creatinine, Urine 75.5 mg/dL N Specific [place] 1.009 N pH 7.5 N Oxidants Negative N 143 Adulterants Comment Normal N Codeine, Ur Not Detected ng/mL N Cutoff: 25 144 Itbdqhp-4-vyfv-glucuronide, Ur Not Detected ng/mL N 145 Morphine, Ur Not Detected ng/mL N Cutoff: 25 146 Ptlekhwq-9-blcs-glucuronide, U Not Detected ng/mL N 147 6-monoacetylmorphine, Ur Not Detected ng/mL N Cutoff: 25 148 Hydrocodone, Ur Not Detected ng/mL N Cutoff: 25 149 Norhydrocodone, Ur Not Detected ng/mL N Cutoff: 25 150 Dihydrocodeine, Ur Not Detected ng/mL N Cutoff: 25 151 Hydromorphone, Ur Not Detected ng/mL N Cutoff: 25 152 Ohlmmenyemzra3onwcsjeyzqkipsj Not Detected ng/mL N 153 Oxycodone, Ur Present ng/mL N Cutoff: 25 154 Noroxycodone, Ur Present ng/mL N Cutoff: 25 155 Oxymorphone, Ur Not Detected ng/mL N Cutoff: 25 156 Mzsdiswzots-8-mvio-glucuronide Present ng/mL N 157 Noroxymorphone, Ur Present ng/mL N Cutoff: 25 158 Fentanyl, Ur Not Detected ng/mL N Cutoff: 2 159 Norfentanyl, Ur Not Detected ng/mL N Cutoff: 2 160 Meperidine, Ur Not Detected ng/mL N Cutoff: 25 161 Normeperidine, Ur Not Detected ng/mL N Cutoff: 25 162 Naloxone, Ur Not Detected ng/mL N Cutoff: 25 163 Lzmdnqci-7-siij-glucuronide, U Not Detected ng/mL N 164 Methadone, Ur Not Detected ng/mL N Cutoff: 25 165 Eddp, Ur Not Detected ng/mL N Cutoff: 25 166 Propoxyphene, Ur Not Detected ng/mL N Cutoff: 25 167 Norpropoxyphene, Ur Not Detected ng/mL N Cutoff: 25 168 Tramadol, Ur Not Detected ng/mL N Cutoff: 25 169 O-desmethyltramadol, Ur Not Detected ng/mL N Cutoff: 25 170 Tapentadol, Ur Not Detected ng/mL N Cutoff: 25 171 N-desmethyltapentadol, Ur Not Detected ng/mL N Cutoff: 50 172 Seeogvspts-safl-qlumkwynjqs, U Not Detected ng/mL N 173 Buprenorphine, Ur Not Detected ng/mL N Cutoff: 5 174 Norbuprenorphine, Ur Not Detected ng/mL N Cutoff: 5 175 Norbuprenorphine glucuronide Not Detected ng/mL N Cutoff: 20 176 Opioid Interpretation See Comment N 177 Laboratory test 04/13/2017 [facility] Hemoglobin A1c 7.4 High 5-7 finding Lipid Profile 04/12/2017 [facility] Triglycerides 266 mg/dL N 178 (Trig/Chol/HDL) [address] [place], [place] [id number] [phone] Cholesterol 184 mg/dL N 179 HDL Cholesterol 28.1 mg/dL N 180 LDL Cholesterol 103 mg/dL N 181 Comp Metabolic Panel 04/12/2017 [facility] Sodium 135 mmol/L N 133-145 [address] [place], [place] [id number] [phone] Potassium 4.0 mmol/L N 3.5-5.0 Chloride 100 [...] 109.2 N >60 Egfr 140.4 N >60 182 Drug Abuse 02/08/2017 [facility] Urine Amphetamine Negative ng/ mL N 183 [address] [place] [address] [phone] Urine Barbiturates Negative ng/mL N 184 Urine Benzodiazepines Presumptive Posi <SEE NOTE> ng/mL N 185 Urine Cocaine Negative ng/mL N 186 Urine Phencyclidine Negative ng/mL N Cutoff: 25 Urine Tetrahydrocannabinol Negative ng/mL N Cutoff: 50 187 Creatinine 262.3 mg/dL N Specific [place] 1.022 N pH 5.3 N Oxidants Negative N 188 Adulterants Comment Normal N Codeine, Ur Not Detected ng/mL N Cutoff: 25 189 Oqhrvlw-5-vmpi-glucuronide, Ur Not Detected ng/mL N 190 Morphine, Ur Not Detected ng/mL N Cutoff: 25 191 Rzymsxef-5-tuav-glucuronide, U Not Detected ng/mL N 192 6-monoacetylmorphine, Ur Not Detected ng/mL N Cutoff: 25 193 Hydrocodone, Ur Not Detected ng/mL N Cutoff: 25 194 Norhydrocodone, Ur Not Detected ng/mL N Cutoff: 25 195 Dihydrocodeine, Ur Not Detected ng/mL N Cutoff: 25 196 Hydromorphone, Ur Not Detected ng/mL N Cutoff: 25 197 Axpvaogglcciz4ugamihannahvrlh Not Detected ng/mL N 198 Oxycodone, Ur Present ng/mL N Cutoff: 25 199 Noroxycodone, Ur Present ng/mL N Cutoff: 25 200 Oxymorphone, Ur Present ng/mL N Cutoff: 25 201 Yvefuxqlhne-3-yuhq-glucuronide Present ng/mL N 202 Noroxymorphone, Ur Present ng/mL N Cutoff: 25 203 Fentanyl, Ur Not Detected ng/mL N Cutoff: 2 204 Norfentanyl, Ur Not Detected ng/mL N Cutoff: 2 205 Meperidine, Ur Not Detected ng/mL N Cutoff: 25 206 Normeperidine, Ur Not Detected ng/mL N Cutoff: 25 207 Naloxone, Ur Not Detected ng/mL N Cutoff: 25 208 Eyltvlyf-1-acvg-glucuronide, U Not Detected ng/mL N 209 Methadone, Ur Not Detected ng/mL N Cutoff: 25 210 Eddp, Ur Not Detected ng/mL N Cutoff: 25 211 Propoxyphene, Ur Not Detected ng/mL N Cutoff: 25 212 Norpropoxyphene, Ur Not Detected ng/mL N Cutoff: 25 213 Tramadol, Ur Not Detected ng/mL N Cutoff: 25 214 O-desmethyltramadol, Ur Not Detected ng/mL N Cutoff: 25 215 Tapentadol, Ur Not Detected ng/mL N Cutoff: 25 216 N-desmethyltapentadol, Ur Not Detected ng/mL N Cutoff: 50 217 Khpazfcdpn-mhwd-ljkomqrkuyl, U Not Detected ng/mL N 218 Buprenorphine, Ur Not Detected ng/mL N Cutoff: 5 219 Norbuprenorphine, Ur Not Detected ng/mL N Cutoff: 5 220 Norbuprenorphine glucuronide Not Detected ng/mL N Cutoff: 20 221 Opioid Interpretation See Comment N 222 Benzodiazepine 02/08/2017 [facility] Urine Negative N 223 Confirm Urine [address] Lorazepam ng/[place] [address] GC/MS [phone] Urine Nordiazepam GC/MS Negative ng/mL N 224 Urine Oxazepam GC/MS Negative ng/mL N 225 Urine Temazepam GC/MS Negative ng/mL N 226 Ur Oh Ethyl Flurazepam GC/MS Negative ng/mL N 227 Ur 7 [place] Clonazepam GC/MS Negative ng/mL N 228 Ur 7 NH Flunitrazepam GC/MS Negative ng/mL N Cutoff: 50 Ur Alpha Oh Alprazolam GC/MS 202 ng/mL N 229 Ur Alpha Oh Triazolam GC/MS Negative ng/mL N 230 Ur Benzodiazepine Interp Positive. N 231 Drug Abuse 01/10/2017 [facility] Urine Amphetamine Negative ng/ mL N 232 [address] [place], [place] [id number] [phone] Urine Barbiturates Negative ng/mL N 233 Urine Benzodiazepines Negative ng/mL N 234 Urine Cocaine Negative ng/mL N 235 Urine Phencyclidine Negative ng/mL N Cutoff: 25 Urine Tetrahydrocannabinol Negative ng/mL N Cutoff: 50 236 Creatinine 322.1 mg/dL N Specific [place] 1.023 N pH 5.4 N Oxidants Negative N 237 Adulterants Comment Normal N Codeine, Ur Not Detected ng/mL N Cutoff: 25 238 Zfsvabj-1-xchy-glucuronide, Ur Not Detected ng/mL N 239 Morphine, Ur Not Detected ng/mL N Cutoff: 25 240 Jrgcbppq-2-rkku-glucuronide, U Not Detected ng/mL N 241 6-monoacetylmorphine, Ur Not Detected ng/mL N Cutoff: 25 242 Hydrocodone, Ur Not Detected ng/mL N Cutoff: 25 243 Norhydrocodone, Ur Not Detected ng/mL N Cutoff: 25 244 Dihydrocodeine, Ur Not Detected ng/mL N Cutoff: 25 245 Hydromorphone, Ur Not Detected ng/mL N Cutoff: 25 246 Hhptgompthytr4mznanhwlhaxmusa Not Detected ng/mL N 247 Oxycodone, Ur Not Detected ng/mL N Cutoff: 25 248 Noroxycodone, Ur Not Detected ng/mL N Cutoff: 25 249 Oxymorphone, Ur Not Detected ng/mL N Cutoff: 25 250 Jrqhjyknsaf-8-iorv-glucuronide Not Detected ng/mL N 251 Noroxymorphone, Ur Not Detected ng/mL N Cutoff: 25 252 Fentanyl, Ur Not Detected ng/mL N Cutoff: 2 253 Norfentanyl, Ur Not Detected ng/mL N Cutoff: 2 254 Meperidine, Ur Not Detected ng/mL N Cutoff: 25 255 Normeperidine, Ur Not Detected ng/mL N Cutoff: 25 256 Naloxone, Ur Not Detected ng/mL N Cutoff: 25 257 Trezgbwe-4-wwyq-glucuronide, U Not Detected ng/mL N 258 Methadone, Ur Not Detected ng/mL N Cutoff: 25 259 Eddp, Ur Not Detected ng/mL N Cutoff: 25 260 Propoxyphene, Ur Not Detected ng/mL N Cutoff: 25 261 Norpropoxyphene, Ur Not Detected ng/mL N Cutoff: 25 262 Tramadol, Ur Not Detected ng/mL N Cutoff: 25 263 O-desmethyltramadol, Ur Not Detected ng/mL N Cutoff: 25 264 Tapentadol, Ur Not Detected ng/mL N Cutoff: 25 265 N-desmethyltapentadol, Ur Not Detected ng/mL N Cutoff: 50 266 Xsheufqkaq-sbsn-iovvzcmvyfi, U Not Detected ng/mL N 267 Buprenorphine, Ur Not Detected ng/mL N Cutoff: 5 268 Norbuprenorphine, Ur Not Detected ng/mL N Cutoff: 5 269 Norbuprenorphine glucuronide Not Detected ng/mL N Cutoff: 20 270 Opioid Interpretation See Comment N 271 Laboratory test 01/10/2017 [facility] [employer] [facility] Hemoglobin A1c 8.9 High 5-7 finding Drug Abuse 20 10/24/2016 [facility] Urine Amphetamine Negative ng/mL N [address] [place] [address] [phone] Urine Barbiturates Negative ng/mL N 273 Urine Benzodiazepines Negative ng/mL N 274 Urine Cocaine Negative ng/mL N 275 Urine Phencyclidine Negative ng/mL N Cutoff: 25 Urine Tetrahydrocannabinol Negative ng/mL N Cutoff: 50 276 Creatinine 128.8 mg/dL N Specific [place] 1.009 N pH 6.1 N Oxidants Negative N 277 Adulterants Comment Normal N Codeine, Ur Not Detected ng/mL N Cutoff: 25 278 Klmzwmg-2-nvyf-glucuronide, Ur Not Detected ng/mL N 279 Morphine, Ur Not Detected ng/mL N Cutoff: 25 280 Kjuanunl-3-wdtu-glucuronide, U Not Detected ng/mL N 281 6-monoacetylmorphine, Ur Not Detected ng/mL N Cutoff: 25 282 Hydrocodone, Ur Not Detected ng/mL N Cutoff: 25 283 Norhydrocodone, Ur Not Detected ng/mL N Cutoff: 25 284 Dihydrocodeine, Ur Not Detected ng/mL N Cutoff: 25 285 Hydromorphone, Ur Not Detected ng/mL N Cutoff: 25 286 Bzuwpmjbcjyuj9hrhkpevykeqkadw Not Detected ng/mL N 287 Oxycodone, Ur Not Detected ng/mL N Cutoff: 25 288 Noroxycodone, Ur Not Detected ng/mL N Cutoff: 25 289 Oxymorphone, Ur Not Detected ng/mL N Cutoff: 25 290 Mbvvfiuvpzc-0-nfpu-glucuronide Present ng/mL N 291 Noroxymorphone, Ur Not Detected ng/mL N Cutoff: 25 292 Fentanyl, Ur Not Detected ng/mL N Cutoff: 2 293 Norfentanyl, Ur Not Detected ng/mL N Cutoff: 2 294 Meperidine, Ur Not Detected ng/mL N Cutoff: 25 295 Normeperidine, Ur Not Detected ng/mL N Cutoff: 25 296 Naloxone, Ur Not Detected ng/mL N Cutoff: 25 297 Iumfoyix-1-ktoc-glucuronide, U Not Detected ng/mL N 298 Methadone, Ur Not Detected ng/mL N Cutoff: 25 299 Eddp, Ur Not Detected ng/mL N Cutoff: 25 300 Propoxyphene, Ur Not Detected ng/mL N Cutoff: 25 301 Norpropoxyphene, Ur Not Detected ng/mL N Cutoff: 25 302 Tramadol, Ur Not Detected ng/mL N Cutoff: 25 303 O-desmethyltramadol, Ur Not Detected ng/mL N Cutoff: 25 304 Tapentadol, Ur Not Detected ng/mL N Cutoff: 25 305 N-desmethyltapentadol, Ur Not Detected ng/mL N Cutoff: 50 306 Ltrfavetrj-bjyl-ngpypfgirqf, U Not Detected ng/mL N 307 Buprenorphine, Ur Not Detected ng/mL N Cutoff: 5 308 Norbuprenorphine, Ur Not Detected ng/mL N Cutoff: 5 309 Norbuprenorphine glucuronide Not Detected ng/mL N Cutoff: 20 310 Opioid Interpretation See Comment N 311 Laboratory test 10/13/2016 [facility] Hemoglobin A1c 9.4 High 5-7 finding Lipid Profile 10/13/2016 [facility] Triglycerides 168 mg/dL N 312 (Trig/Chol/HDL) [address] [place], [place] [id number] [phone] Cholesterol 175 mg/dL N 313 HDL Cholesterol 24.6 mg/dL N 314 LDL Cholesterol 117 mg/dL N 315 Testosterone 10/13/2016 [facility] Free 1.40 Abnormal 4.46- 17.1 316 Free & Total [address] Testosterone ng/[place] [address] ng/dl [phone] Testosterone 35 ng/dL Abnormal 240-950 317 Testosterone 08/22/2016 [facility] Free 1.48 Abnormal 4.46- 17.1 318 Free & Total [address] Testosterone ng/[place] [address] ng/dl [phone] Testosterone 40 ng/dL Abnormal 240-950 319 FSH And LH 08/22/2016 [facility] FSH (Follicle Stim 2.9 mIU/mL N 1-[address] Hormone) [place], [place] [id number] [phone] LH (Lutenizing Hormone) 2.2 ?IU/mL N 2-12 Laboratory test 08/22/2016 [facility] PSA Screening 0.226 N 0- 4.000 [address] ng/mL [place], [place] [id number] [phone] Laboratory test 08/22/2016 [facility] Prolactin 6.3 ng/mL N 1.0-20.[address] [place], [place] [address] [phone] Laboratory test 08/10/2016 [facility] TSH (Thyroid 2.05 N 0.34 -5.[address] Stim Horm) mcIU/[place] [address] [phone] Cortisol 21.46 ?g/dL N 322 Vitamin B12 And 08/10/2016 [facility] Vitamin B12 704 pg/mL N 180-914 323 Folate Serum [address] [place] [address] [phone] Folic Acid (Folate) > 20.00 ng/mL N >3.99 324 Comp Metabolic Panel 08/10/2016 [facility] Sodium 136 mmol/L N 133-145 [address] [place] [address] [phone] Potassium 4.2 mmol/L N 3.5-5.0 Chloride 99 [...] 102.1 N >60 Egfr 131.3 N >60 325 Urine Microalbumin 08/10/2016 [facility] Ur Microalbumin 78.7 mg /L N Random 101 (mg/L) [place] [address] [phone] Urine Creatinine 473.17 mg/dL N Urine Microalbumin/Creatinine 16.6 ug/mg N <31 Lipid Profile 08/10/2016 [facility] Triglycerides 221 mg/dL N 326 (Trig/Chol/HDL) [address] [place] [address] [phone] Cholesterol 262 mg/dL N 327 HDL Cholesterol 34.2 mg/dL N 328 LDL Cholesterol 184 mg/dL N 329 Laboratory test finding 07/28/2016 [facility] Hemoglobin A1c 8.3 High 5 -7 1 The urine specimen was tested at the listed cutoffs: Drug class test level (ng/mL) Amphetamines 500 Barbiturates 200 Benzodiazepine metabolites 200 Cocaine metabolites 150 Cannabinoids 50 Opiates 300 Pcp 25 Specimen was received without chain of custody. Results should be used for medical purposes only. 2 Because ethnic data is not always readily [...] 15-29 5 Kidney failure <15 (or dialysis) 3 Therapeutic concentration: <50 ug/mL Toxic concentration: >120 ug/mL 4 SEE RESULT BELOW Name: ANNETTE WHALEY : [address]: Rikki Rivera MD Acct: [id number] Unit: [id number] AGE: 43 Location: ED Re11/04/18 SEX: M Status: DEP ER SPEC: [id number] SERINA: 11/04/[address]: Alex RENDON REQ: [id number] RECD: 11/04/18 STATUS: RITA ALMONTE DR: [facility] Aman Dunham MD _ SOURCE: URINE SPDESC: ORDERED: Urine Culture Procedure Result Reported Site Urine Culture Final 11/06/18- 0942 ML Organism 1 AEROCOCCUS URINAE [place] Count 75-100,000 (Many) CFU/ML Aerococcus isolates are too fastidious for routine susceptibility studies. Aerococcus are usually susceptible to penicillin, amoxicillin, piperacillin, cefipime, rifampin and vancomycin. Moderate to good activity occurs with the quinolones, tetracyclines and erythromycin. ([employer] and Textbook of Diagnostic Microbiology 6th Ed. 2006, p. 705-6.) * ML - Main Lab . END OF REPORT DEPARTMENT OF PATHOLOGY, [address] [place] [address] Ivan Castrejon M.D. Director [facility] # [id number] 5 Because ethnic data is not always readily [...] 15-29 5 Kidney failure <15 (or dialysis) 6 [facility] Severe Sepsis and Septic Shock Management Bundle Measure requires all lactic acids initially measuring >2.0 mmol/L be repeated. 7 Serum levels of PSA measured using the [employer] [place] DXI Hybritech immunoassay should not be interpreted [...] methods or kits cannot be used interchangeably. 8 [id number] REFERENCE VALUE Cutoff: 500 10 REFERENCE VALUE Cutoff: 200 11 REFERENCE VALUE Cutoff: 100 12 REFERENCE VALUE Cutoff: 150 13 ADDITIONAL INFORMATION This report is intended for use in clinical monitoring or management of patients. It is not intended for use in employment-related testing. 14 REFERENCE VALUE Cutoff: 200 mg/L 15 Tylenol 3 16 Metabolite of codeine REFERENCE VALUE Cutoff: 100 17 Nadine Jon, Contin; Also a minor metabolite (10%) of codeine and can be seen in low concentrations (<2,000 ng/mL) with poppy seed ingestion. 18 Metabolite of morphine REFERENCE VALUE Cutoff: 100 19 Metabolite of heroin 20 Lortab, [place], Vicodin; Also a very minor metabolite of codeine and impurity (<1%) of oxycodone. 21 Metabolite of hydrocodone 22 Metabolite of hydrocodone 23 Dilaudid, Exalgo; Also a metabolite of hydrocodone and a minor (<5%) metabolite of morphine. 24 Metabolite of hydromorphone REFERENCE VALUE Cutoff: 100 25 Endocet, Percocet, Oxycontin 26 Metabolite of oxycodone 27 Numorphan, Opana; Also a metabolite of oxycodone. 28 Metabolite of oxymorphone REFERENCE VALUE Cutoff: 100 29 Metabolite of oxymorphone 30 Actiq, Duragesic, Fentora 31 Metabolite of fentanyl 32 Demerol 33 Metabolite of meperidine 34 Narcan 35 Metabolite of naloxone REFERENCE VALUE Cutoff: 100 36 Dolophine 37 Metabolite of methadone 38 Darvon, Darvocet 39 Metabolite of propoxyphene 40 Tradol, Ultram, Ultracet 41 Metabolite of tramadol 42 Nucynta 43 Metabolite of tapentadol 44 Metabolite of tapentadol REFERENCE VALUE Cutoff: 100 45 Buprenex, Suboxone 46 Metabolite of buprenorphine 47 Metabolite of buprenorphine 48 Test detected the presence of oxycodone and several metabolites (noroxycodone, oxymorphone, noroxymorphone, and yuwcntsbftj-1-bhsx-glucuronide). Suspect use of oxycodone or possibly oxycodone and oxymorphone within the past three days. ADDITIONAL INFORMATION This test was developed and its performance characteristics determined by [facility] in a manner consistent with CLIA requirements. This test has not been cleared or approved by the U.S. Food and Drug Administration. Test Performed by: [facility] [address] [place] [address] 49 Desirable: <150 Borderline High: 150-199 High: 200-499 Very High: >500 50 Desirable: <200 Borderline High: 200-239 High: >239 51 Low: <40 Desirable: 40-60 High: >60 52 Desirable: <100 Near Optimal: 100-129 Borderline High: 130-159 High: 160-189 Very High: >189 53 Because ethnic data is not always readily [...] 15-29 5 Kidney failure <15 (or dialysis) 54 Serum levels of PSA measured using the Felisa [employer] DXI Hybritech immunoassay should not be interpreted as absolute evidence of the presence or absence of disease. The PSA value should be used in conjunction with other pertinent clinical diagnostic procedures. The values obtained with different assay methods or kits cannot be used interchangeably. 55 Therapeutic target for the treatment of diabetes mellitus patients is <7% HBA1C, and in selective patients <6.0%. Please refer to [place] [employer] diabetic care guidelines for further information. 56 REFERENCE VALUE Cutoff: 500 57 REFERENCE VALUE Cutoff: 200 58 REFERENCE VALUE Cutoff: 100 59 REFERENCE VALUE Cutoff: 150 60 ADDITIONAL INFORMATION This report is intended for use in clinical monitoring or management of patients. It is not intended for use in employment-related testing. 61 REFERENCE VALUE Cutoff: 200 mg/L 62 Tylenol 3 63 Metabolite of codeine REFERENCE VALUE Cutoff: 100 64 Nadine Jon MS Contin; Also a minor metabolite (10%) of codeine and can be seen in low concentrations (<2,000 ng/mL) with poppy seed ingestion. 65 Metabolite of morphine REFERENCE VALUE Cutoff: 100 66 Metabolite of heroin 67 Lortab, [place], Vicodin; Also a very minor metabolite of codeine and impurity (<1%) of oxycodone. 68 Metabolite of hydrocodone 69 Metabolite of hydrocodone 70 Dilaudid, Exalgo; Also a metabolite of hydrocodone and a minor (<5%) metabolite of morphine. 71 Metabolite of hydromorphone REFERENCE VALUE Cutoff: 100 72 Endocet, Percocet, Oxycontin 73 Metabolite of oxycodone 74 Numorphan, Opana; Also a metabolite of oxycodone. 75 Metabolite of oxymorphone REFERENCE VALUE Cutoff: 100 76 Metabolite of oxymorphone 77 Actiq, Duragesic, Fentora 78 Metabolite of fentanyl 79 Demerol 80 Metabolite of meperidine 81 Narcan 82 Metabolite of naloxone REFERENCE VALUE Cutoff: 100 83 Dolophine 84 Metabolite of methadone 85 Darvon, Darvocet 86 Metabolite of propoxyphene 87 Tradol, Ultram, Ultracet 88 Metabolite of tramadol 89 Nucynta 90 Metabolite of tapentadol 91 Metabolite of tapentadol REFERENCE VALUE Cutoff: 100 92 Buprenex, Suboxone 93 Metabolite of buprenorphine 94 Metabolite of buprenorphine 95 Test detected the presence of oxycodone and several metabolites (noroxycodone, noroxymorphone, and ffvlujjgfwq-9-adpc-glucuronide). Suspect use of oxycodone or possibly oxycodone and oxymorphone within the past three days. ADDITIONAL INFORMATION This test was developed and its performance characteristics determined by [facility] in a manner consistent with CLIA requirements. This test has not been cleared or approved by the U.S. Food and Drug Administration. Test Performed by: [facility] [address] [place] [address] 96 Serum levels of PSA measured using the [employer] [place] DXI Hybritech immunoassay should not be interpreted [...] methods or kits cannot be used interchangeably. 97 REFERENCE VALUE Cutoff: 500 98 REFERENCE VALUE Cutoff: 200 99 REFERENCE VALUE Cutoff: 100 100 REFERENCE VALUE Cutoff: 150 101 ADDITIONAL INFORMATION This report is intended for use in clinical monitoring or management of patients. It is not intended for use in employment-related testing. 102 REFERENCE VALUE Cutoff: 200 mg/L 103 Tylenol 3 104 Metabolite of codeine REFERENCE VALUE Cutoff: 100 105 Nadine Jon, Contin; Also a minor metabolite (10%) of codeine and can be seen in low concentrations (<2,000 ng/mL) with poppy seed ingestion. 106 Metabolite of morphine REFERENCE VALUE Cutoff: 100 107 Metabolite of heroin 108 Lortab, [place], Vicodin; Also a very minor metabolite of codeine and impurity (<1%) of oxycodone. 109 Metabolite of hydrocodone 110 Metabolite of hydrocodone 111 Dilaudid, Exalgo; Also a metabolite of hydrocodone and a minor (<5%) metabolite of morphine. 112 Metabolite of hydromorphone REFERENCE VALUE Cutoff: 100 113 Endocet, Percocet, Oxycontin 114 Metabolite of oxycodone 115 Numorphan, Opana; Also a metabolite of oxycodone. 116 Metabolite of oxymorphone REFERENCE VALUE Cutoff: 100 117 Metabolite of oxymorphone 118 Actiq, Duragesic, Fentora 119 Metabolite of fentanyl 120 Demerol 121 Metabolite of meperidine 122 Narcan 123 Metabolite of naloxone REFERENCE VALUE Cutoff: 100 124 Dolophine 125 Metabolite of methadone 126 Darvon, Darvocet 127 Metabolite of propoxyphene 128 Tradol, Ultram, Ultracet 129 Metabolite of tramadol 130 Nucynta 131 Metabolite of tapentadol 132 Metabolite of tapentadol REFERENCE VALUE Cutoff: 100 133 Buprenex, Suboxone 134 Metabolite of buprenorphine 135 Metabolite of buprenorphine 136 Test detected the presence of hydrocodone only without any metabolites. Suspect possible adulteration of sample or very recent exposure to hydrocodone. Trace amounts can also be found as an impurity in oxycodone or hydromorphone. Test detected the presence of oxycodone and several metabolites (noroxycodone, oxymorphone, noroxymorphone, and ygbhhrqougk-8-jfra-glucuronide). Suspect use of oxycodone or possibly oxycodone and oxymorphone within the past three days. Test detected the presence of fentanyl and its metabolite (norfentanyl). Suspect use of fentanyl within the past three days. ADDITIONAL INFORMATION This test was developed and its performance characteristics determined by [facility] in a manner consistent with CLIA requirements. This test has not been cleared or approved by the U.S. Food and Drug Administration. Test Performed by: [facility] [address] [place] [address] [id number] REFERENCE VALUE Cutoff: 500 139 REFERENCE VALUE Cutoff: 200 140 REFERENCE VALUE Cutoff: 100 141 REFERENCE VALUE Cutoff: 150 142 ADDITIONAL INFORMATION This report is intended for use in clinical monitoring or management of patients. It is not intended for use in employment-related testing. 143 REFERENCE VALUE Cutoff: 200 mg/L 144 Tylenol 3 145 Metabolite of codeine REFERENCE VALUE Cutoff: 100 146 Nadine Jon, MS Contin; Also a minor metabolite (10%) of codeine and can be seen in low concentrations (<2,000 ng/mL) with poppy seed ingestion. 147 Metabolite of morphine REFERENCE VALUE Cutoff: 100 148 Metabolite of heroin 149 Lortab, [place], Vicodin; Also a very minor metabolite of codeine and impurity (<1%) of oxycodone. 150 Metabolite of hydrocodone 151 Metabolite of hydrocodone 152 Dilaudid, Exalgo; Also a metabolite of hydrocodone and a minor (<5%) metabolite of morphine. 153 Metabolite of hydromorphone REFERENCE VALUE Cutoff: 100 154 Endocet, Percocet, Oxycontin 155 Metabolite of oxycodone 156 Numorphan, Opana; Also a metabolite of oxycodone. 157 Metabolite of oxymorphone REFERENCE VALUE Cutoff: 100 158 Metabolite of oxymorphone 159 Actiq, Duragesic, Fentora 160 Metabolite of fentanyl 161 Demerol 162 Metabolite of meperidine 163 Narcan 164 Metabolite of naloxone REFERENCE VALUE Cutoff: 100 165 Dolophine 166 Metabolite of methadone 167 Darvon, Darvocet 168 Metabolite of propoxyphene 169 Tradol, Ultram, Ultracet 170 Metabolite of tramadol 171 Nucynta 172 Metabolite of tapentadol 173 Metabolite of tapentadol REFERENCE VALUE Cutoff: 100 174 Buprenex, Suboxone 175 Metabolite of buprenorphine 176 Metabolite of buprenorphine 177 Test detected the presence of oxycodone and several metabolites (noroxycodone, noroxymorphone, and wcbenpngmam-0-iqmk-glucuronide). Suspect use of oxycodone or possibly oxycodone and oxymorphone within the past three days. ADDITIONAL INFORMATION This test was developed and its performance characteristics determined by [facility] in a manner consistent with CLIA requirements. This test has not been cleared or approved by the U.S. Food and Drug Administration. Test Performed by: [facility] - [address] [address] 178 Desirable <150 Borderline high 150-199 High 200-499 Very High >500 179 Desirable <200 Borderline high 200-239 High >239 180 Low <40 Desirable: 40-60 High: >60 181 Desirable: <100 mg/dL Near Optimal: 100-129 mg/dL Borderline High: 130-159 mg/dL High: 160-189 mg/dL Very High: >189 mg/dL 182 Because ethnic data is not always readily [...] 15-29 5 Kidney failure <15 (or dialysis) 183 REFERENCE VALUE Cutoff: 500 184 REFERENCE VALUE Cutoff: 200 185 Presumptive Positive Drug confirmation to follow. Presumptive Positive means that the screening method is positive, but the test needs to be run by a confirmatory method before being finalized. REFERENCE VALUE Cutoff: 100 186 REFERENCE VALUE Cutoff: 150 187 ADDITIONAL INFORMATION This report is intended for use in clinical monitoring or management of patients. It is not intended for use in employment-related testing. 188 REFERENCE VALUE Cutoff: 200 mg/L 189 Tylenol 3 190 Metabolite of codeine REFERENCE VALUE Cutoff: 100 191 Nadine Jon, Contin; Also a minor metabolite (10%) of codeine and can be seen in low concentrations (<2,000 ng/mL) with poppy seed ingestion. 192 Metabolite of morphine REFERENCE VALUE Cutoff: 100 193 Metabolite of heroin 194 Lortab, [place], Vicodin; Also a very minor metabolite of codeine and impurity (<1%) of oxycodone. 195 Metabolite of hydrocodone 196 Metabolite of hydrocodone 197 Dilaudid, Exalgo; Also a metabolite of hydrocodone and a minor (<5%) metabolite of morphine. 198 Metabolite of hydromorphone REFERENCE VALUE Cutoff: 100 199 Endocet, Percocet, Oxycontin 200 Metabolite of oxycodone 201 Numorphan, Opana; Also a metabolite of oxycodone. 202 Metabolite of oxymorphone REFERENCE VALUE Cutoff: 100 203 Metabolite of oxymorphone 204 Actiq, Duragesic, Fentora 205 Metabolite of fentanyl 206 Demerol 207 Metabolite of meperidine 208 Narcan 209 Metabolite of naloxone REFERENCE VALUE Cutoff: 100 210 Dolophine 211 Metabolite of methadone 212 Darvon, Darvocet 213 Metabolite of propoxyphene 214 Tradol, Ultram, Ultracet 215 Metabolite of tramadol 216 Nucynta 217 Metabolite of tapentadol 218 Metabolite of tapentadol REFERENCE VALUE Cutoff: 100 219 Buprenex, Suboxone 220 Metabolite of buprenorphine 221 Metabolite of buprenorphine 222 Test detected the presence of oxycodone and several metabolites (noroxycodone, oxymorphone, noroxymorphone, and rshinozxier-7-nuab-glucuronide). Suspect use of oxycodone or possibly oxycodone and oxymorphone within the past three days. ADDITIONAL INFORMATION This test was developed and its performance characteristics determined by [facility] in a manner consistent with CLIA requirements. This test has not been cleared or approved by the U.S. Food and Drug Administration. Test Performed by: [facility] - [address] [address] 223 REFERENCE VALUE Cutoff: 100 224 REFERENCE VALUE Cutoff: 100 225 REFERENCE VALUE Cutoff: 100 226 REFERENCE VALUE Cutoff: 100 227 REFERENCE VALUE Cutoff: 100 228 REFERENCE VALUE Cutoff: 100 229 REFERENCE VALUE Cutoff: 100 230 REFERENCE VALUE Cutoff: 100 231 ADDITIONAL INFORMATION This report is intended for use in clinical monitoring and management of patients. It is not intended for use in employment-related testing. This test was developed and its performance characteristics determined by [facility] in a manner consistent with CLIA requirements. This test has not been cleared or approved by the U.S. Food and Drug Administration. Test Performed by: [facility] - [address] [address] 232 REFERENCE VALUE Cutoff: 500 233 REFERENCE VALUE Cutoff: 200 234 REFERENCE VALUE Cutoff: 100 235 REFERENCE VALUE Cutoff: 150 236 ADDITIONAL INFORMATION This report is intended for use in clinical monitoring or management of patients. It is not intended for use in employment-related testing. 237 REFERENCE VALUE Cutoff: 200 mg/L 238 Tylenol 3 239 Metabolite of codeine REFERENCE VALUE Cutoff: 100 240 Nadine Jon, Contin; Also a minor metabolite (10%) of codeine and can be seen in low concentrations (<2,000 ng/mL) with poppy seed ingestion. 241 Metabolite of morphine REFERENCE VALUE Cutoff: 100 242 Metabolite of heroin 243 Lortab, [place], Vicodin; Also a very minor metabolite of codeine and impurity (<1%) of oxycodone. 244 Metabolite of hydrocodone 245 Metabolite of hydrocodone 246 Dilaudid, Exalgo; Also a metabolite of hydrocodone and a minor (<5%) metabolite of morphine. 247 Metabolite of hydromorphone REFERENCE VALUE Cutoff: 100 248 Endocet, Percocet, Oxycontin 249 Metabolite of oxycodone 250 Numorphan, Opana; Also a metabolite of oxycodone. 251 Metabolite of oxymorphone REFERENCE VALUE Cutoff: 100 252 Metabolite of oxymorphone 253 Actiq, Duragesic, Fentora 254 Metabolite of fentanyl 255 Demerol 256 Metabolite of meperidine 257 Narcan 258 Metabolite of naloxone REFERENCE VALUE Cutoff: 100 259 Dolophine 260 Metabolite of methadone 261 Darvon, Darvocet 262 Metabolite of propoxyphene 263 Tradol, Ultram, Ultracet 264 Metabolite of tramadol 265 Nucynta 266 Metabolite of tapentadol 267 Metabolite of tapentadol REFERENCE VALUE Cutoff: 100 268 Buprenex, Suboxone 269 Metabolite of buprenorphine 270 Metabolite of buprenorphine 271 No opioids were detected. The absence of expected drug(s) and/or drug metabolite(s) may indicate non-compliance, altered pharmacokinetics, inappropriate timing of specimen collection relative to drug administration, diluted/adulterated urine, or limitations of testing. ADDITIONAL INFORMATION This test was developed and its performance characteristics determined by [facility] in a manner consistent with CLIA requirements. This test has not been cleared or approved by the U.S. Food and Drug Administration. Test Performed by: [facility] [address] [place] [id number] 272 REFERENCE VALUE Cutoff: 500 273 REFERENCE VALUE Cutoff: 200 274 REFERENCE VALUE Cutoff: 100 275 REFERENCE VALUE Cutoff: 150 276 ADDITIONAL INFORMATION This report is intended for use in clinical monitoring or management of patients. It is not intended for use in employment-related testing. 277 REFERENCE VALUE Cutoff: 200 mg/L 278 Tylenol 3 279 Metabolite of codeine REFERENCE VALUE Cutoff: 100 280 Nadine Jon, Contin; Also a minor metabolite (10%) of codeine and can be seen in low concentrations (<2,000 ng/mL) with poppy seed ingestion. 281 Metabolite of morphine REFERENCE VALUE Cutoff: 100 282 Metabolite of heroin 283 Lortab, [place], Vicodin; Also a very minor metabolite of codeine and impurity (<1%) of oxycodone. 284 Metabolite of hydrocodone 285 Metabolite of hydrocodone 286 Dilaudid, Exalgo; Also a metabolite of hydrocodone and a minor (<5%) metabolite of morphine. 287 Metabolite of hydromorphone REFERENCE VALUE Cutoff: 100 288 Endocet, Percocet, Oxycontin 289 Metabolite of oxycodone 290 Numorphan, Opana; Also a metabolite of oxycodone. 291 Metabolite of oxymorphone REFERENCE VALUE Cutoff: 100 292 Metabolite of oxymorphone 293 Actiq, Duragesic, Fentora 294 Metabolite of fentanyl 295 Demerol 296 Metabolite of meperidine 297 Narcan 298 Metabolite of naloxone REFERENCE VALUE Cutoff: 100 299 Dolophine 300 Metabolite of methadone 301 Darvon, Darvocet 302 Metabolite of propoxyphene 303 Tradol, Ultram, Ultracet 304 Metabolite of tramadol 305 Nucynta 306 Metabolite of tapentadol 307 Metabolite of tapentadol REFERENCE VALUE Cutoff: 100 308 Buprenex, Suboxone 309 Metabolite of buprenorphine 310 Metabolite of buprenorphine 311 Test detected the presence of dyhjhgbjirb-7-iyrr-glucuronide (metabolite of oxymorphone). Suspect use of oxymorphone within the past three days. ADDITIONAL INFORMATION This test was developed and its performance characteristics determined by [facility] in a manner consistent with CLIA requirements. This test has not been cleared or approved by the U.S. Food and Drug Administration. Test Performed by: [address] [address] Pricing Associate: Kyle Hameed II, M.D., Ph.D. 312 Desirable <150 Borderline high 150-199 High 200-499 Very High >500 313 Desirable <200 Borderline high 200-239 High >239 314 Low <40 Desirable: 40-60 High: >60 315 Desirable: <100 mg/dL Near Optimal: 100-129 mg/dL Borderline High: 130-159 mg/dL High: 160-189 mg/dL Very High: >189 mg/dL 316 ADDITIONAL INFORMATION Testing performed by [facility]. This test was developed and its performance characteristics determined by [facility] in a manner consistent with CLIA requirements. This test has not been cleared or approved by the U.S. Food and Drug Administration. 317 ADDITIONAL INFORMATION Testing performed by Liquid Chromatography-Tandem Mass Spectrometry (LC-MS/MS). This test was developed and its performance characteristics determined by [facility] in a manner consistent with CLIA requirements. This test has not been cleared or approved by the U.S. Food and Drug Administration. Test Performed by: [facility] - [address] [address] Pricing Associate: Kyle Hameed II, M.D., Ph.D. 318 ADDITIONAL INFORMATION Testing performed by [facility]. This test was developed and its performance characteristics determined by [facility] in a manner consistent with CLIA requirements. This test has not been cleared or approved by the U.S. Food and Drug Administration. 319 ADDITIONAL INFORMATION Testing performed by Liquid Chromatography-Tandem Mass Spectrometry (LC-MS/MS). This test was developed and its performance characteristics determined by [facility] in a manner consistent with CLIA requirements. This test has not been cleared or approved by the U.S. Food and Drug Administration. Test Performed by: [facility] - [address] [address] Pricing Associate: Kyle Hameed II, M.D., Ph.D. 320 Serum levels of PSA measured using the [...] methods or kits cannot be used interchangeably. 321 FASTING 12 HOUR 322 AM 8.7-22.4 PM <10 323 Normal Range 180 to 914 Indeterminate Range 145 to 180 Deficient Range <145 324 FASTING 12 HOUR 325 Because ethnic data is not always readily [...] 15-29 5 Kidney failure <15 (or dialysis) 326 Desirable <150 Borderline high 150-199 High 200-499 Very High >500 327 Desirable <200 Borderline high 200-239 High >239 328 Low <40 Desirable: 40-60 High: >60 329 Desirable: <100 mg/dL Near Optimal: 100-129 mg/dL Borderline High: 130-159 mg/dL High: 160-189 mg/dL Very High: >189 mg/dL Procedures Date Code Description Status 01/10/2017 14312 EKG Tracing & Interpretation Completed 12/07/2016 [id number] Diabetic Retinal Eye Exam Completed 07/21/2016 [id number] Diabetic Retinal Eye Exam Completed Encounters Type Date Location Provider Dx Diagnosis Office Visit 08/23/2018 [facility] Ene Dunham, I10 Essential ( primary) 3:20p Medicine - [address] E78.2 Mixed hyperlipidemia E66.01 Morbid (severe) obesity due to excess calories M51.16 Intervertebral disc disorders w radiculopathy, lumbar region E11.65 Type 2 diabetes mellitus with hyperglycemia E29.1 Testicular hypofunction G47.00 Insomnia, unspecified E11.40 Type 2 diabetes mellitus with diabetic neuropathy, unsp Office Visit 05/08/2018 8:00a Heather Newton E11.40 Type 2 diabetes Jesus Dunham M.D. mellitus with [address] diabetic neuropathy, unsp I10 Essential (primary) hypertension E78.2 Mixed hyperlipidemia E66.01 Morbid (severe) obesity due to excess calories M51.16 Intervertebral disc disorders w radiculopathy, lumbar region E29.1 Testicular hypofunction Office Visit 03/27/2018 3:40p [facility] Ene Newton E11.40 Type 2 diabetes Jesus Dunham M.D. 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 disorders w [address] radiculopathy, lumbar region E66.01 Morbid (severe) obesity due to excess calories E29.1 Testicular hypofunction Office Visit 04/13/2017 [facility] Internal Aman E11.65 Type 2 diabetes 11:40a Jesus Dunham M.D. mellitus with [address] hyperglycemia I10 Essential (primary) hypertension E78.2 Mixed hyperlipidemia M51.16 Intervertebral disc disorders w radiculopathy, lumbar region E66.01 Morbid (severe) obesity due to excess calories Office Visit 02/08/2017 [facility] Ene Newton E11.65 Type 2 diabetes 11:40a Jesus Dunham M.D. mellitus with [place] hyperglycemia M54.16 Radiculopathy, lumbar region E66.01 Morbid (severe) obesity due to excess calories Office Visit 01/10/2017 10:20a [facility] Ene Dunham, F33.0 Major depressive Medicine - M.DPaddy disorder, [address] recurrent, mild E11.65 Type 2 diabetes mellitus with hyperglycemia R00.0 Tachycardia, unspecified M54.16 Radiculopathy, lumbar region Office Visit 12/06/2016 10:40a [facility] Ene Dunham, F33.0 Major depressive Medicine - JosephDPaddy disorder, [address] recurrent, mild G47.00 Insomnia, unspecified M25.562 Pain in left knee Office Visit 12/05/2016 Neurosurgery Moses M51.26 Other 2:00p [facility] Heather Potts M.D. intervertebral disc displacement, lumbar region Office Visit 11/22/2016 [facility] Internal Aman M54.16 Radiculopathy, 9:40a Medicine - [place], lumbar region Rd M.D. F33.0 Major depressive disorder, recurrent, mild G47.00 Insomnia, unspecified Office Visit 10/24/2016 [facility] Ene [place] E11.65 Type 2 diabetes 2:00p Jesus Dunham M.D. mellitus with [address] hyperglycemia I10 Essential (primary) hypertension E78.2 Mixed hyperlipidemia Z23 Encounter for immunization M51.16 Intervertebral disc disorders w radiculopathy, lumbar region Office Visit 10/13/2016 10:20a [facility] Ene [place] E11.8 Type 2 diabetes Jesus Dunham M.D. 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 disorder, [address] recurrent, mild M48.06 Spinal stenosis, lumbar region E11.8 Type 2 diabetes mellitus with unspecified complications E29.1 Testicular hypofunction E78.2 Mixed hyperlipidemia Office Visit 08/11/2016 1:00p [facility] Internal [place] Roly, M48.06 Spinal stenosis, Medicine - M.D. lumbar region [address] M25.561 Pain in right knee F33.0 Major depressive disorder, recurrent, mild E29.1 Testicular hypofunction E78.2 Mixed hyperlipidemia Z12.5 Encounter for screening for malignant neoplasm of prostate Office Visit 07/28/2016 1:00p [facility] Internal Aman E11.40 Type 2 diabetes Jesus Dunham M.D. mellitus with [address] diabetic neuropathy, unsp I10 Essential (primary) hypertension M51.16 Intervertebral disc disorders w radiculopathy, lumbar region M25.561 Pain in right knee E66.01 Morbid (severe) obesity due to excess calories Z68.43 Body mass index (BMI) 50-59.9 , adult Office Visit 03/06/2016 [facility] E11.8 Type 2 diabetes 11:11a Asskumar ashraf NP mellitus with Hospitalists unspecified complications Office Visit 03/05/2016 [facility] E11.8 Type 2 diabetes 11:10a kumar Martinez NP mellitus with Hospitalists unspecified complications Plan of Treatment Future Appointment(s):02/22/2019 1:40 pm - Marika Schroeder MD at [facility] Internal Medicine - Qrvnqrmrh62/11/2019 2:00 pm - Karen Deal MD at [facility]11/23/2018 - Marika Schroeder MDE11.65 Type 2 diabetes mellitus with hyperglycemiaComments:Keep up the good work!Your A1c is down to 8.0%There will be no changes to your current regimenReturnin 3 monthsFollow up: 3 pfoexeQ33 Essential (primary) hypertensionComments:Continue with your current medication.F33.1 Major depressive disorder, recurrent, moderateComments:[facility] Agoraphobia with panic disorderComments:discuss anxiety medication with your drwszokeaxkqC46.4 Chronic pain gzpotjqdE24.00 Insomnia, wtdeolrbnrsC28.16 Intervertebral disc disorders with radiculopathy, lumbar regNew Therapy:Physical Therapy
[2018-12-06 20:37] LABS: TSH (Thyroid Stimulating Horm) 1.95 mcIU/mL (0.34-5.60)
[2018-12-06 20:48] LABS: Barbiturates Urine Screen None Detected (None Detect); Benzodiazepine Urine Screen None Detected (None Detect); Urine Cannabinoids Screen None Detected (None Detect)
--- NOTE | 2018-12-06 22:44 | ED ---
Progress - Progress Note Progress Note: The pt is a signout from Dr. Benito. He has been evaluated and will be involuntarily admitted to [facility] with a dx of mood disorder. Re-Evaluation - Re-Evaluation First Eval Re-Evaluation Time: 20:45 Change: Unchanged Comment: Pt is medically cleared for a MHE. Course/Dx - Course Course Of Treatment: The pt is a signout from Dr. Benito. He has been evaluated and will be involuntarily admitted to [facility] under Dr. Rob with a dx of mood disorder. - Diagnoses Provider Diagnoses: Mood disorder Discharge - Sign-Out/Discharge Documenting (check all that apply): Patient Departure - Discharge Plan Condition: Stable Disposition: ADMITTED TO [facility] Referrals: Aman Dunham MD [Primary Care Provider] - - Billing Disposition and Condition Condition: STABLE Disposition: Admitted to [facility] - Attestation Statements Document Initiated by Scribe: Yes Documenting Scribe: Kamilla Pablo Provider For Whom Ashley is Documenting (Include Credential): Rei Muir MD. Scribe Attestation: Kamilla Mallory, madisoned for Rei Muir MD. on 12/06/18 at 2300. Scribe Documentation Reviewed: Yes Provider Attestation: The documentation as recorded by the Kamilla braga accurately reflects the service I personally performed and the decisions made by Rei fernandez MD. Status of Scribe Document: Viewed
[2018-12-06] MEDS ORDERED: traMADol TAB* 50 MG ONE (22:50)
[2018-12-07] MEDS ORDERED: oxyCODONE/Acetamin 10/325(NF) TAB PO PRN (00:24)
[2018-12-07] MEDS ORDERED: oxyCODONE/Acetamin 5/325 MG* TAB PO PRN (00:28)
[2018-12-07] MEDS ORDERED: Mouth Piece, Nicotine* 1 EACH CARTRIDGE INH PRN (00:30)
[2018-12-07] MEDS: oxyCODONE TAB* 5 MG TAB PO PRN ×5 (00:49→19:54)
[2018-12-07] MEDS ORDERED: Acetaminophen TAB* 325 MG PO PRN (05:59)
[2018-12-07] MEDS ORDERED: Al Hydrox/Mg Hydrox/Simet LIQ* 30 ML UDC PO PRN (05:59)
[2018-12-07 08:01] LABS: HDL Cholesterol 29.2 mg/dL
[2018-12-07] MEDS: Lisinopril TAB* 10 MG PO SCH (10:13)
[2018-12-07] MEDS: DULoxetine DR CAP* 60 MG CAP.DR PO SCH (10:13)
[2018-12-07] MEDS: DULoxetine DR CAP* 30 MG CAP.DR PO SCH (10:13)
[2018-12-07] MEDS: Vitamin THERAPEUTIC TAB PO SCH (10:13)
[2018-12-07] MEDS: TESTOSTERONE GEL 25 MG (NF) IN 2.5 GM SIZE PACKET TOPICAL SCH (10:17)
[2018-12-07] MEDS: oxyCODONE/Acetamin 5/325 MG* TAB PO PRN ×3 (11:18→19:53)
[2018-12-07] MEDS: hydrOXYzine HCL TAB* 50 MG PO PRN (15:36)
[2018-12-07] MEDS: Polyethylene Glycol 3350* 17 GM PACKET PO PRN (16:10)
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
[2018-12-07] MEDS: Insulin GLARGINE(*) 1 UNITS UNIT SUBCUT SCH (20:38)
[2018-12-08] MEDS: Zolpidem TAB* 10 MG PO PRN (01:13)
[2018-12-08] MEDS: oxyCODONE/Acetamin 5/325 MG* TAB PO PRN ×6 (01:13→22:29)
[2018-12-08] MEDS: oxyCODONE TAB* 5 MG TAB PO PRN ×6 (01:13→22:28)
[2018-12-08] MEDS: Vitamin THERAPEUTIC TAB PO SCH (10:02)
[2018-12-08] MEDS: DULoxetine DR CAP* 60 MG CAP.DR PO SCH (10:02)
[2018-12-08] MEDS: DULoxetine DR CAP* 30 MG CAP.DR PO SCH (10:02)
[2018-12-08] MEDS: TESTOSTERONE GEL 25 MG (NF) IN 2.5 GM SIZE PACKET TOPICAL SCH (10:03)
[2018-12-08] MEDS: hydrOXYzine HCL TAB* 50 MG PO PRN ×4 (10:06→22:28)
[2018-12-08] MEDS: Docusate CAP* 100 MG PO PRN ×2 (10:07→22:28)
[2018-12-08] MEDS: Polyethylene Glycol 3350* 17 GM PACKET PO PRN (10:08)
[2018-12-08] MEDS: Lisinopril TAB* 10 MG PO SCH (10:16)
[2018-12-08] MEDS: Insulin GLARGINE(*) 1 UNITS UNIT SUBCUT SCH (21:13)
[2018-12-09] MEDS: oxyCODONE TAB* 5 MG TAB PO PRN ×6 (02:13→22:33)
[2018-12-09] MEDS: oxyCODONE/Acetamin 5/325 MG* TAB PO PRN ×6 (02:13→22:33)
[2018-12-09] MEDS: Zolpidem TAB* 10 MG PO PRN ×2 (02:14→22:34)
[2018-12-09] MEDS: Vitamin THERAPEUTIC TAB PO SCH (08:46)
[2018-12-09] MEDS: DULoxetine DR CAP* 60 MG CAP.DR PO SCH (08:46)
[2018-12-09] MEDS: Lisinopril TAB* 10 MG PO SCH (08:46)
[2018-12-09] MEDS: TESTOSTERONE GEL 25 MG (NF) IN 2.5 GM SIZE PACKET TOPICAL SCH (08:46)
[2018-12-09] MEDS: DULoxetine DR CAP* 30 MG CAP.DR PO SCH (08:46)
[2018-12-09] MEDS: Polyethylene Glycol 3350* 17 GM PACKET PO PRN (12:23)
[2018-12-09] MEDS: Insulin GLARGINE(*) 1 UNITS UNIT SUBCUT SCH (22:27)
[2018-12-09] MEDS: hydrOXYzine HCL TAB* 50 MG PO PRN (22:34)
[2018-12-10] MEDS: oxyCODONE/Acetamin 5/325 MG* TAB PO PRN ×5 (02:35→19:47)
[2018-12-10] MEDS: oxyCODONE TAB* 5 MG TAB PO PRN ×5 (02:35→19:48)
[2018-12-10] MEDS: DULoxetine DR CAP* 60 MG CAP.DR PO SCH (09:12)
[2018-12-10] MEDS: Lisinopril TAB* 10 MG PO SCH (09:12)
[2018-12-10] MEDS: DULoxetine DR CAP* 30 MG CAP.DR PO SCH (09:12)
[2018-12-10] MEDS: Vitamin THERAPEUTIC TAB PO SCH (09:12)
[2018-12-10] MEDS: TESTOSTERONE GEL 25 MG (NF) IN 2.5 GM SIZE PACKET TOPICAL SCH (09:12)
[2018-12-10] MEDS: hydrOXYzine HCL TAB* 50 MG PO PRN ×2 (11:27→15:36)
--- NOTE | 2018-12-10 13:17 | PN ---
BSU: Group Therapy Note - Service Type Service Type: 31550 Group Psychotherapy - Cognitive Behavioral Group Therapy ( CBT):Patient was attentive and participatory in CBT programming this morning, and remained in good behavioral control. Patient expressed positive insights regarding relevant treatment interventions and goals.
--- NOTE | 2018-12-10 16:23 | PN ---
Subjective - Subjective Date of Service: 12/10/18 Service Type: 55000 Hosp care 25 min moderate complexity Subjective: Ginger Villalobos and I met with Annette to discuss his treatment so far. According to records, he did not go to groups as agreed over the weekend, but he is going today. He has a negative outlook, believing he will never do anything useful in his life. When pointed out that he took care of his mother while she was dying, he stated, "Someone else could have done that." We discuss his diagnosis of borderline personality disorder, which he agrees fits him. He is confused when told that there is no medication for BPD. We discuss discharge on Monday. He would like that to be a soft discharge date in case he can't feel safe. Objective - Appearance Appearance: Obese Dysmorphic Features: No Hygiene: Normal Grooming: Well Kept - Behavior Psychomotor Activities: Normal Exhibits Abnormal Movement: No - Attitude and Relatedness Attitude and Relatedness: Irritable Eye Contact: Good - Speech Quality: Unpressured Latencies: Short Quantity: Appropriate - Mood Patient's Decription of Mood: "Anxious" - Affect Observed Affect: Constricted Affect Consistent with: Dysphoria - Thought Process Patient's Thought Process: Coherent Thought Content: Yes Passive Wish, Yes Suicidal Planning, No Homicidal Ideation, No Paranoid Ideation - Sensorium Experiencing Hallucinations: No, Sensorium is Clear Type of Hallucinations: Visual: No, Auditory: No, Command: No - Level of Consciousness Level of Consciousness: Alert Orientation: Yes Intact, Yes Orientated to Time, Yes Orientated to Place, Yes Orientated to Person - Impulse Control Impulse Control: Impaired - Insight and Judgement Insight and Judgement: Poor - Group Participation Particating in Group Activities: Yes - Medication Management Medication Management Adherence: Yes Assessment - Assessment Merits Inpatient Hospitalization: For Immediate Safety, For Discharge Planning Clinical Impression: Annette is a 43-year-old man who comes to the hospital again following having suicidal ideation, this time with a plan to cut himself and exsanguinate in the bathtub. BSU: Problem List - Patient Problems (1) Borderline personality disorder Current Visit: Yes Status: Acute Code(s): F60.3 - BORDERLINE PERSONALITY DISORDER SNOMED Code(s): 91209888 Plan - Plan Treatment Plan: Name: ANNETTE WHALEY Birthdate: 1975 [id number] Continued Medication Management: Different Medication Medications: Current Medications Acetaminophen (Tylenol Tab*) 650 mg PO Q4H PRN PRN Reason: PAIN or TEMP > 101 F Al Hydrox/Mg Hydrox/Simethicone (Maalox Plus*) 30 ml PO Q4H PRN PRN Reason: INDIGESTION Device (Nicotine Mouth Piece*) 1 each INH .USE W/ CARTRIDGE PRN PRN Reason: WITHDRAWAL - NICOTINE Docusate Sodium (Colace Cap*) 100 mg PO BID PRN PRN Reason: CONSTIPATION Last Admin: 12/08/18 22:28 Dose: 100 mg Dulaglutide (Trulicity (Nf)) 0.75 mg SUBCUT Q7D [facility] Duloxetine HCl (Cymbalta Cap*) 30 mg PO DAILY [facility] Last Admin: 12/10/18 09:12 Dose: 30 mg Duloxetine HCl (Cymbalta Cap*) 60 mg PO DAILY [facility] Last Admin: 12/10/18 09:12 Dose: 60 mg Hydroxyzine HCl (Atarax Tab*) 50 mg PO Q4H PRN PRN Reason: ANXIETY Last Admin: 12/10/18 15:36 Dose: 50 mg Insulin Glargine (Lantus(*)) 90 units SUBCUT BEDTIME [facility] Last Admin: 12/09/18 22:27 Dose: 90 units Lisinopril (Prinivil Tab*) 20 mg PO DAILY [facility] Last Admin: 12/10/18 09:12 Dose: 20 mg Multivitamins (Theragran Tab*) 1 tab PO DAILY [facility] Last Admin: 12/10/18 09:12 Dose: 1 tab Nicotine (Nicotine Inhaler*) 10 mg INH Q2H PRN PRN Reason: CRAVING Oxycodone HCl (Roxycodone Tab*) 5 mg PO Q4H PRN PRN Reason: PAIN Last Admin: 12/10/18 15:36 Dose: 5 mg Oxycodone/Acetaminophen (Percocet 5/325 Tab*) 2 tab PO Q4H PRN PRN Reason: PAIN Last Admin: 12/10/18 15:37 Dose: 2 tab Polyethylene Glycol/Electrolytes (Miralax*) 17 gm PO DAILY PRN PRN Reason: CONSTIPATION Last Admin: 12/09/18 12:23 Dose: 17 gm Testosterone (Testosterone Gel 25 Mg/2.5 G) 50 mg TOPICAL DAILY [facility] Stop: 12/14/18 08:59 Last Admin: 12/10/18 09:12 Dose: 50 mg Zolpidem Tartrate (Ambien Tab*) 10 mg PO BEDTIME PRN PRN Reason: SLEEP Last Admin: 12/09/18 22:34 Dose: 10 mg - Discharge Plan Discharge Plan: Outpatient Follow Up Outpatient Program: [facility] Additional Comments: Reduce Cymbalta to 60 mg as he describes high anxiety and agitation which could come from too high of a dose. Continue encouragement of going to groups and expressing himself.
[2018-12-10] MEDS: Insulin GLARGINE(*) 1 UNITS UNIT SUBCUT SCH (21:50)
[2018-12-11] MEDS: oxyCODONE/Acetamin 5/325 MG* TAB PO PRN ×6 (00:17→20:49)
[2018-12-11] MEDS: oxyCODONE TAB* 5 MG TAB PO PRN ×6 (00:18→20:50)
[2018-12-11] MEDS: Zolpidem TAB* 10 MG PO PRN (00:18)
[2018-12-11] MEDS ORDERED: PTO: Dulaglutide (NF) 0.75 MG/0.5 ML SYRINGE SUBCUT SCH (08:00)
[2018-12-11] MEDS: DULoxetine DR CAP* 30 MG CAP.DR PO SCH (08:02)
[2018-12-11] MEDS: DULoxetine DR CAP* 60 MG CAP.DR PO SCH (08:02)
[2018-12-11] MEDS: Lisinopril TAB* 10 MG PO SCH (08:02)
[2018-12-11] MEDS: Vitamin THERAPEUTIC TAB PO SCH (08:03)
[2018-12-11] MEDS: Docusate CAP* 100 MG PO PRN (08:03)
[2018-12-11] MEDS: hydrOXYzine HCL TAB* 50 MG PO PRN ×2 (08:04→12:36)
[2018-12-11] MEDS: TESTOSTERONE GEL 25 MG (NF) IN 2.5 GM SIZE PACKET TOPICAL SCH (09:10)
--- NOTE | 2018-12-11 15:01 | PN ---
Subjective - Subjective Date of Service: 12/11/18 Service Type: [id number] Hosp care 15 min low complexity Subjective: I met with Annette twice, both times in his room. The first time he had a headache. The second time he had just gotten out of a group. We discussed a discharge date of so that Annette could go directly from here to the [facility] for his intake appointment. Annette is agreeable. It is concerning that he has somatic complaints that get in the way of going to groups or being out of bed. With the headache, for example, he hadn' t asked for more pain medication, despite the headache being apparently so debilitating that he could not leave his room. what appears to be Annette's lack of energy could be his depression getting in the way. Nevertheless, there is no question that there are barriers to treatment, even in the hospital. Objective - Appearance Appearance: Healthy Appearing, Obese Dysmorphic Features: No Hygiene: Normal Grooming: Well Kept - Behavior Psychomotor Activities: Normal Exhibits Abnormal Movement: No - Attitude and Relatedness Attitude and Relatedness: Superficially Cooperative Eye Contact: Good - Speech Quality: Unpressured Latencies: Normal Quantity: Appropriate - Mood Patient's Decription of Mood: "Okay" - Affect Observed Affect: Constricted Affect Consistent with: Dysphoria - Thought Process Patient's Thought Process: Coherent Thought Content: Yes Passive Wish, Yes Suicidal Planning, No Homicidal Ideation, No Paranoid Ideation - Sensorium Experiencing Hallucinations: No, Sensorium is Clear Type of Hallucinations: Visual: No, Auditory: No, Command: No - Level of Consciousness Level of Consciousness: Alert Orientation: Yes Intact, Yes Orientated to Time, Yes Orientated to Place, Yes Orientated to Person - Impulse Control Impulse Control: Tenuous - Insight and Judgement Insight and Judgement: Fair - Group Participation Particating in Group Activities: Yes - Medication Management Medication Management Adherence: Yes Assessment - Assessment Merits Inpatient Hospitalization: For Immediate Safety, For Discharge Planning Clinical Impression: Annette is a 43-year-old man who comes to the hospital again following having suicidal ideation, this time with a plan to cut himself and exsanguinate in the bathtub. BSU: Problem List - Patient Problems (1) Borderline personality disorder Current Visit: Yes Status: Acute Code(s): F60.3 - BORDERLINE PERSONALITY DISORDER SNOMED Code(s): 60786590 Plan - Plan Treatment Plan: Name: ANNETTE WHLAEY Birthdate: 1975 [id number] Continued Medication Management: Different Medication Medications: Current Medications Acetaminophen (Tylenol Tab*) 650 mg PO Q4H PRN PRN Reason: PAIN or TEMP > 101 F Last Admin: 12/11/18 10:38 Dose: 650 mg Al Hydrox/Mg Hydrox/Simethicone (Maalox Plus*) 30 ml PO Q4H PRN PRN Reason: INDIGESTION Device (Nicotine Mouth Piece*) 1 each INH .USE W/ CARTRIDGE PRN PRN Reason: WITHDRAWAL - NICOTINE Docusate Sodium (Colace Cap*) 100 mg PO BID PRN PRN Reason: CONSTIPATION Last Admin: 12/11/18 08:03 Dose: 100 mg Dulaglutide (Trulicity (Nf)) 0.75 mg SUBCUT Q7D [facility] Last Admin: 12/11/18 09:12 Dose: 0.75 mg Duloxetine HCl (Cymbalta Cap*) 30 mg PO DAILY [facility] Last Admin: 12/11/18 08:02 Dose: 30 mg Duloxetine HCl (Cymbalta Cap*) 60 mg PO DAILY [facility] Last Admin: 12/11/18 08:02 Dose: 60 mg Hydroxyzine HCl (Atarax Tab*) 50 mg PO Q4H PRN PRN Reason: ANXIETY Last Admin: 12/11/18 12:36 Dose: 50 mg Insulin Glargine (Lantus(*)) 90 units SUBCUT BEDTIME [facility] Last Admin: 12/10/18 21:50 Dose: 90 units Lisinopril (Prinivil Tab*) 20 mg PO DAILY [facility] Last Admin: 12/11/18 08:02 Dose: 20 mg Multivitamins (Theragran Tab*) 1 tab PO DAILY [facility] Last Admin: 12/11/18 08:03 Dose: 1 tab Nicotine (Nicotine Inhaler*) 10 mg INH Q2H PRN PRN Reason: CRAVING Oxycodone HCl (Roxycodone Tab*) 5 mg PO Q4H PRN PRN Reason: PAIN Last Admin: 12/11/18 12:36 Dose: 5 mg Oxycodone/Acetaminophen (Percocet 5/325 Tab*) 2 tab PO Q4H PRN PRN Reason: PAIN Last Admin: 12/11/18 12:36 Dose: 2 tab Polyethylene Glycol/Electrolytes (Miralax*) 17 gm PO DAILY PRN PRN Reason: CONSTIPATION Last Admin: 12/09/18 12:23 Dose: 17 gm Testosterone (Testosterone Gel 25 Mg/2.5 G) 50 mg TOPICAL DAILY [facility] Stop: 12/14/18 08:59 Last Admin: 12/11/18 09:10 Dose: 50 mg Zolpidem Tartrate (Ambien Tab*) 10 mg PO BEDTIME PRN PRN Reason: SLEEP Last Admin: 12/11/18 00:18 Dose: 10 mg - Discharge Plan Discharge Plan: Outpatient Follow Up Outpatient Program: [facility] Additional Comments: Reduced Cymbalta to 60 mg as he describes high anxiety and agitation which could come from too high of a dose. Continue encouragement of going to groups and expressing himself. Discharge date is 12/13/18 in the morning so he can go directly to the [facility].
[2018-12-11] MEDS: Insulin GLARGINE(*) 1 UNITS UNIT SUBCUT SCH (20:48)
[2018-12-12] MEDS: Zolpidem TAB* 10 MG PO PRN ×2 (01:25→22:14)
[2018-12-12] MEDS: oxyCODONE TAB* 5 MG TAB PO PRN ×6 (01:25→22:10)
[2018-12-12] MEDS: oxyCODONE/Acetamin 5/325 MG* TAB PO PRN ×6 (01:25→22:09)
[2018-12-12] MEDS: hydrOXYzine HCL TAB* 50 MG PO PRN ×2 (05:32→13:37)
[2018-12-12] MEDS: DULoxetine DR CAP* 30 MG CAP.DR PO SCH (08:20)
[2018-12-12] MEDS: Lisinopril TAB* 10 MG PO SCH (08:20)
[2018-12-12] MEDS: Vitamin THERAPEUTIC TAB PO SCH (08:20)
[2018-12-12] MEDS: DULoxetine DR CAP* 60 MG CAP.DR PO SCH (08:20)
[2018-12-12] MEDS: TESTOSTERONE GEL 25 MG (NF) IN 2.5 GM SIZE PACKET TOPICAL SCH (08:22)
[2018-12-12] MEDS: Docusate CAP* 100 MG PO PRN (09:35)
--- NOTE | 2018-12-12 16:22 | PN ---
Subjective - Subjective Date of Service: 12/12/18 Service Type: [id number] Hosp care 25 min moderate complexity Subjective: Annette is anxious about leaving tomorrow, but he also acknowledges that his emotional and psychological state will not improve more in the hospital than it would at home. He is pleased that he will be going directly to [facility] from here. He discusses his progress through life, how he has stopped being hopeful and feels like life will never be as good as it was. He does not find the prospect of minor improvements building up over time appealing. Objective - Appearance Appearance: Healthy Appearing, Obese Dysmorphic Features: No Hygiene: Normal Grooming: Well Kept - Behavior Psychomotor Activities: Normal Exhibits Abnormal Movement: No - Attitude and Relatedness Attitude and Relatedness: Withdrawn Eye Contact: Fair - Speech Quality: Unpressured Latencies: Short Quantity: Appropriate - Mood Patient's Decription of Mood: "Okay" - Affect Observed Affect: Constricted Affect Consistent with: Dysphoria - Thought Process Patient's Thought Process: Coherent, Goal Directed Thought Content: Yes Passive Wish, No Suicidal Planning, No Homicidal Ideation, No Paranoid Ideation - Sensorium Experiencing Hallucinations: No, Sensorium is Clear Type of Hallucinations: Visual: No, Auditory: No, Command: No - Level of Consciousness Level of Consciousness: Alert Orientation: Yes Intact, Yes Orientated to Time, Yes Orientated to Place, Yes Orientated to Person - Impulse Control Impulse Control: Impaired - Insight and Judgement Insight and Judgement: Fair - Group Participation Particating in Group Activities: Yes - Medication Management Medication Management Adherence: Yes Assessment - Assessment Merits Inpatient Hospitalization: For Immediate Safety Inpatient DSM-V Dx: F33.9 Clinical Impression: Annette is a 43-year-old man who comes to the hospital again following having suicidal ideation, this time with a plan to cut himself and exsanguinate in the bathtub. BSU: Problem List - Patient Problems (1) Borderline personality disorder Current Visit: Yes Status: Acute Code(s): F60.3 - BORDERLINE PERSONALITY DISORDER SNOMED Code(s): 82084955 Plan - Plan Treatment Plan: Name: ANNETTE WHALEY Birthdate: 1975 [id number] Continued Medication Management: Continue Outpt Medication Medications: Current Medications Acetaminophen (Tylenol Tab*) 650 mg PO Q4H PRN PRN Reason: PAIN or TEMP > 101 F Last Admin: 12/11/18 10:38 Dose: 650 mg Al Hydrox/Mg Hydrox/Simethicone (Maalox Plus*) 30 ml PO Q4H PRN PRN Reason: INDIGESTION Device (Nicotine Mouth Piece*) 1 each INH .USE W/ CARTRIDGE PRN PRN Reason: WITHDRAWAL - NICOTINE Docusate Sodium (Colace Cap*) 100 mg PO BID PRN PRN Reason: CONSTIPATION Last Admin: 12/12/18 09:35 Dose: 100 mg Dulaglutide (Trulicity (Nf)) 0.75 mg SUBCUT Q7D [facility] Last Admin: 12/11/18 09:12 Dose: 0.75 mg Duloxetine HCl (Cymbalta Cap*) 30 mg PO DAILY [facility] Last Admin: 12/12/18 08:20 Dose: Not Given Duloxetine HCl (Cymbalta Cap*) 60 mg PO DAILY [facility] Last Admin: 12/12/18 08:20 Dose: 60 mg Hydroxyzine HCl (Atarax Tab*) 50 mg PO Q4H PRN PRN Reason: ANXIETY Last Admin: 12/12/18 13:37 Dose: 50 mg Insulin Glargine (Lantus(*)) 90 units SUBCUT BEDTIME [facility] Last Admin: 12/11/18 20:48 Dose: 90 units Lisinopril (Prinivil Tab*) 20 mg PO DAILY [facility] Last Admin: 12/12/18 08:20 Dose: 20 mg Multivitamins (Theragran Tab*) 1 tab PO DAILY [facility] Last Admin: 12/12/18 08:20 Dose: 1 tab Nicotine (Nicotine Inhaler*) 10 mg INH Q2H PRN PRN Reason: CRAVING Oxycodone HCl (Roxycodone Tab*) 5 mg PO Q4H PRN PRN Reason: PAIN Last Admin: 12/12/18 13:37 Dose: 5 mg Oxycodone/Acetaminophen (Percocet 5/325 Tab*) 2 tab PO Q4H PRN PRN Reason: PAIN Last Admin: 12/12/18 13:38 Dose: 2 tab Polyethylene Glycol/Electrolytes (Miralax*) 17 gm PO DAILY PRN PRN Reason: CONSTIPATION Last Admin: 12/09/18 12:23 Dose: 17 gm Testosterone (Testosterone Gel 25 Mg/2.5 G) 50 mg TOPICAL DAILY [facility] Stop: 12/14/18 08:59 Last Admin: 12/12/18 08:22 Dose: 50 mg Zolpidem Tartrate (Ambien Tab*) 10 mg PO BEDTIME PRN PRN Reason: SLEEP Last Admin: 12/12/18 01:25 Dose: 10 mg - Discharge Plan Discharge Plan: Outpatient Follow Up Outpatient Program: [facility] Additional Comments: Reduced Cymbalta to 60 mg as he describes high anxiety and agitation which could come from too high of a dose. Continue encouragement of going to groups and expressing himself. Discharge date is 12/13/18 in the morning so he can go directly to the [facility]. Continue encouragement of positive thoughts and future thinking.
[2018-12-12] MEDS: Insulin GLARGINE(*) 1 UNITS UNIT SUBCUT SCH (21:13)
[2018-12-13] MEDS: oxyCODONE TAB* 5 MG TAB PO PRN ×3 (02:20→10:17)
[2018-12-13] MEDS: oxyCODONE/Acetamin 5/325 MG* TAB PO PRN ×3 (02:20→10:16)
[2018-12-13 08:47] VITALS: BP 122/72
[2018-12-13] MEDS: Vitamin THERAPEUTIC TAB PO SCH (09:07)
[2018-12-13] MEDS: DULoxetine DR CAP* 30 MG CAP.DR PO SCH (09:08)
[2018-12-13] MEDS: Lisinopril TAB* 10 MG PO SCH (09:08)
[2018-12-13] MEDS: DULoxetine DR CAP* 60 MG CAP.DR PO SCH (09:08)
[2018-12-13] MEDS: TESTOSTERONE GEL 25 MG (NF) IN 2.5 GM SIZE PACKET TOPICAL SCH (09:09)
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
== END 2018-12-13 10:20 | disposition home or self-care (01) | DRG 751 ==
LOC: ED 19:11 → BSU 22:52
PROVIDERS: ADMIT Psychiatry & Neurology Psychiatry; ATTEND Psychiatry & Neurology Psychiatry
PROC: GZHZZZZ Group Psychotherapy (ICD-10-PCS; principal; 2018-12-06)
DX: F33.1 Major depressive disorder, recurrent, moderate (principal); R45.851 Suicidal ideations; Z68.42 Body mass index [BMI] 45.0-49.9, adult; F60.3 Borderline personality disorder; F41.9 Anxiety disorder, unspecified; G89.29 Other chronic pain; E11.9 Type 2 diabetes mellitus without complications; F39 Unspecified mood [affective] disorder; I10 Essential (primary) hypertension; M51.26 Other intervertebral disc displacement, lumbar region; F90.9 Attention-deficit hyperactivity disorder, unspecified type; E66.9 Obesity, unspecified; Z82.49 Family history of ischemic heart disease and other diseases of the circulatory system; Z81.8 Family history of other mental and behavioral disorders; Z79.4 Long term (current) use of insulin; Z81.1 Family history of alcohol abuse and dependence; Z56.0 Unemployment, unspecified; Z83.3 Family history of diabetes mellitus
CPT/HCPCS: 36415; 80053; 80061; 80307; 80320; 80329; 81003; 83036; 84443; 85025; 90853; 99222; 99231; 99232; 99238; 99284; A9270-GY; G0480

== ENCOUNTER 2019-01-17 18:11 | Inpatient (IN) | payer OTHER ==
[2019-01-17] MEDS ORDERED: Nicotine Inhaler* 10 MG AMP INH PRN (19:23)
--- NOTE | 2019-01-17 19:24 | ED ---
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 He is still depressed and feels like he would "be better off ." He was admitted to the [facility] recently and released 2-3 days ago. At that time, he was prescribed 5 days of Roxycodone for his chronic back pain that was supposed to last him until he can see his family doctor. However, the pharmacy won't fill the prescription because "it's too soon." He's agitated. He has a swollen tooth that is painful, but he has not seen a dentist yet. Denies SI, hallucinations. - History Of Current Complaint Chief Complaint: EDSuicidal Time Seen by Provider: 01/17/19 19:18 Hx Obtained From: Patient Onset/Duration: Still Present Timing: Constant Severity Initially: Moderate Severity Currently: Severe Character: Angry Aggravating Factor(s): Recent Stress Alleviating Factor(s): Medication Associated Signs And Symptoms: Positive: Hostile. Negative: Hallucinating Related History: Positive For: Prior Psychiatric Issues Has Suicidal: Reports: Thoughts Has Homicidal: Denies: Thoughts - Allergies/Home Medications Allergies/Adverse Reactions: Allergies Allergy/AdvReac Type Severity Reaction Status Date / Time No Known Allergies Allergy Verified 01/17/19 19:01 PMH/Surg Hx/FS Hx/Imm Hx Previously Healthy: No Endocrine/Hematology History: Reports: Hx Diabetes Cardiovascular History: Reports: Hx Hypertension Denies: Hx Pacemaker/ICD Respiratory History: Denies: Hx Asthma, Hx Sleep Apnea GI History: Denies: Hx Gastroesophageal Reflux Disease History: Denies: Hx Chronic Renal Failure, Hx Renal Disease Musculoskeletal History: Reports: Hx Back Problems - L4-5 herniated disc, Hx Tendonitis - bilateral knees Sensory History: Reports: Hx Contacts or Glasses, Hx Hearing Problem - Pt is [place] , Other Sensory Impairments - BILATERAL LEWER EXTREMETY NEUROPATHY Denies: Hx Hearing Aid Opthamlomology History: Reports: Hx Contacts or Glasses, Other Sensory Impairments - BILATERAL LEWER EXTREMETY NEUROPATHY Neurological History: Reports: Other Neuro Impairments/Disorders - NEUROPATHY Psychiatric History: Reports: Hx Anxiety, Hx Attention Deficit Hyperactivity Disorder, Hx Depression, Hx Inpatient Treatment, Hx Community Mental Health Tx Denies: Hx Eating Disorder, Hx Panic Disorder, Hx of Violent Episodes Against Others - Surgical History Surgery Procedure, Year, and Place: TONSILECTOMY Infectious Disease History: No Infectious Disease History: Denies: Traveled Outside the US in Last 30 Days - Family History Known Family History: Positive: Hypertension, Diabetes, Other - depression, alcoholism - Social History Occupation: Unemployed Lives: With Family Alcohol Use: None Hx Substance Use: No Substance Use Type: Reports: Prescribed Hx Tobacco Use: No Smoking Status (MU): Never Smoked Tobacco Review of Systems Negative: Fever Negative: Cough Psychological: Other - pos: agitated, SI Negative: Other - neg: HI, hallucinations All Other Systems Reviewed And Are Negative: Yes Physical Exam - Summary Physical Exam Summary: GENERAL: Patient is a well-developed and nourished MALE who is lying comfortable in the stretcher. Patient is not in any acute respiratory distress. HEAD AND FACE: Normocephalic EYES: PERRLA, EOMI x 2. EARS: Hearing grossly intact. MOUTH: Oropharynx within normal limits. NECK: Supple, trachea is midline, no adenopathy, no JVD, no carotid bruit. CHEST: Symmetric, no tenderness at palpation LUNGS: Clear to auscultation bilaterally. No wheezing or crackles. CVS: Regular rate and rhythm, S1 and S2 present, no murmurs or gallops appreciated. ABDOMEN: Soft, non-tender. Bowel sounds are normal. No abdominal abnormal pulsations. EXTREMITIES: Full ROM in all major joints, no edema, no cyanosis or clubbing. NEURO: Alert and oriented x 3. No acute neurological deficits. Speech is normal and follows commands. SKIN: Dry and warm PSYCH: Sad affect, became tearful. Triage Information Reviewed: Yes Vital Signs On Initial Exam: Initial Vitals Temp Pulse Resp BP Pulse Ox 97.9 F 113 16 168/116 97 01/17/19 18:51 01/17/19 18:51 01/17/19 18:51 01/17/19 18:51 01/17/19 18:51 Vital Signs Reviewed: Yes Diagnostics - Vital Signs Vital Signs Temp Pulse Resp BP Pulse Ox 01/17/19 18:51 97.9 F 113 16 168/116 97 - Laboratory Result Diagrams: 01/17/19 19:42 01/17/19 19:42 Lab Statement: Any lab studies that have been ordered have been reviewed, and results considered in the medical decision making process. 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 He is still depressed and feels like he would "be better off .". Pt is medically clear for MHE at 2032. Pt will be signed out to Dr. Valencia at shift change pending MHE. - Differential Dx/Clinical Impression Provider Diagnosis: Opioid abuse with opioid-induced disorder Discharge - Sign-Out/Discharge Documenting (check all that apply): Sign-Out Patient Signing out patient TO: Rio Valencia - pending MHE - Discharge Plan Condition: Stable Disposition: [place]IATRIC [place]AC[place] [place] Billing Disposition and Condition Condition: STABLE Disposition: Psychiatric Facility [facility] [place] Attestation Statements Document Initiated by Scribe: Yes Documenting Scribe: Maurizio Stuart Provider For Whom Scribe is Documenting (Include Credential): Dr. Gurjit Santacruz MD Scribe Attestation: I, Maurizio Stuart, scribed for Dr. Gurjit Santacruz MD on 01/19/19 at 0752. Scribe Documentation Reviewed: Yes Provider Attestation: The documentation as recorded by the emersonibMaurizio murray accurately reflects the service I personally performed and the decisions made by me, Dr. Gurjit Santacruz MD Status of Scribe Document: Viewed
[2019-01-17 19:51] LABS: ABS Basophils 0.1 10^3/ul (0-0.2); ABS Eosinophils 0.3 10^3/ul (0-0.6); ABS Monocytes 0.7 10^3/ul (0-0.8); ABS Nucleated RBC 0 10^3/ul; Eosinophil % 2.3 %; Hematocrit 43 % (36-46); Hemoglobin 14.8 g/dL (14.0-18.0); Lymphocyte % 23.1 %; Mean Corpuscular HGB Conc 34 g/dL (31-36); Mean Corpuscular Hemoglobin 30 pg (27-31); Mean Corpuscular Volume 88 fL (80-94); Nucleated Red Blood Cells % 0; Platelet Count 399 10^3/uL (150-450); Red Blood Count 4.91 10^6 /uL (4.18-5.48); Red Cell Distribution Width 13 % (10.5-15); White Blood Count 13.1 10^3/uL (3.5-10.8)
[2019-01-17] MEDS ORDERED: oxyCODONE TAB* 5 MG TAB PO ONE ×2 (19:57→22:26)
[2019-01-17 20:10] LABS: ALT 43 U/L (7-52); AST 22 U/L (13-39); Albumin 4.2 g/dL (3.2-5.2); Albumin/Globulin Ratio 1.1 (1-3); Alkaline Phosphatase 121 U/L (34-104); Anion Gap 5 mmol/L (2-11); BUN/Creatinine Ratio 10.5 (8-20); Blood Urea Nitrogen 8 mg/dL (6-24); CO2 Carbon Dioxide 31 mmol/L (22-32); Calcium 9.4 mg/dL (8.6-10.3); Chloride 101 mmol/L (101-111); EGFR African American 134.8 (>60); EGFR Non-African American 111.4 (>60); Globulin 3.9 g/dL (2-4); Glucose 187 mg/dL (70-100); Potassium 4.1 mmol/L (3.5-5.0); Sodium 137 mmol/L (135-145); Total Protein 8.1 g/dL (6.4-8.9)
[2019-01-17 20:36] LABS: Acetaminophen < 15 mcg/mL; Alcohol < 10 mg/dL (<10); Salicylate < 2.50 mg/dL (<30)
[2019-01-17 20:52] LABS: TSH (Thyroid Stimulating Horm) 0.66 mcIU/mL (0.34-5.60)
[2019-01-17] MEDS ORDERED: Mouth Piece, Nicotine* 1 EACH CARTRIDGE INH PRN (21:17)
--- NOTE | 2019-01-17 22:28 | ED ---
Progress - Progress Note Progress Note: Receiving sign out from Dr. Santacruz at shift change, pending MHE. Pt's condition has been stable. He will be admitted involuntarily to Dr. Rodríguez. Course/Dx - Course Course Of Treatment: Receiving sign out from Dr. Santacruz at shift change, pending MHE. He will be admitted involuntarily to Dr. Rodríguez. Pt will be held overnight and discharged in the morning. Final dx of opioid abuse disorder. - Diagnoses Provider Diagnoses: Opioid abuse with opioid-induced disorder - Provider Notifications Discussed Care Of Patient With: Jesus Rodríguez Time Discussed With Above Provider: 00:40 Instructed by Provider To: Admit As Inpatient - Involuntary admission. Discharge - Sign-Out/Discharge Documenting (check all that apply): Patient Departure - Admit, Receiving Sign- Out Receiving patient FROM: Gurjit Santacruz Patient Received Moderate/Deep Sedation with Procedure: No - Discharge Plan Condition: Stable Disposition: PS[facility]IATRIC FAC[place] [place] Referrals: Marika Schroeder MD [Primary Care Provider] - - Attestation Statements Document Initiated by Scribe: Yes Documenting Scribe: Vero Birmingham Provider For Whom Scribe is Documenting (Include Credential): Rio Valencia MD Scribe Attestation: Vero Mallory, scribed for Rio Valencia MD on 01/18/19 at 0154. Status of Scribe Document: Ready
[2019-01-17 22:51] LABS: Urine Appearance Clear; Urine Bacteria Absent (Absent); Urine Bilirubin Negative (Negative); Urine Blood 1+ (Negative); Urine Color Yellow; Urine Glucose Negative (Negative); Urine Ketones Negative (Negative); Urine Nitrite Negative (Negative); Urine Protein Negative (Negative); Urine Red Blood Cell Trace(0-2/hpf) (Absent); Urine Specific Gravity 1.025 (1.010-1.030); Urine Squamous Epithelial Cell Present (Absent); Urine Urobilinogen Negative (Negative); Urine White Blood Cell 1+(6-10/hpf) (Absent)
[2019-01-17 23:11] LABS: Barbiturates Urine Screen None Detected (None Detect); Benzodiazepine Urine Screen None Detected (None Detect); Urine Cannabinoids Screen None Detected (None Detect)
[2019-01-18] MEDS ORDERED: oxyCODONE TAB* 5 MG TAB PO ONE (02:35)
[2019-01-18] MEDS ORDERED: Acetaminophen TAB* 325 MG PO PRN (03:15)
[2019-01-18] MEDS ORDERED: Al Hydrox/Mg Hydrox/Simet LIQ* 30 ML UDC PO PRN (03:17)
[2019-01-18 07:42] VITALS: BP 159/110
[2019-01-18] MEDS ORDERED: Lisinopril TAB* 10 MG PO SCH (09:00)
[2019-01-18] MEDS ORDERED: Multivitamins/Minerals TAB PO SCH (09:00)
[2019-01-18] MEDS ORDERED: hydrOXYzine HCL TAB* 50 MG PO PRN (09:56)
[2019-01-18] MEDS ORDERED: oxyCODONE TAB* 5 MG TAB PO SCH (10:00)
--- NOTE | 2019-01-18 19:46 | HP ---
HISTORY AND PHYSICAL/DISCHARGE SUMMARY: DATE OF ADMISSION: 01/18/19 DATE OF DISCHARGE: PROVIDER: Shreya Shea NP, in Psychiatry. SUPERVISING PHYSICIAN: Ej Rob MD JUSTIFICATION FOR ADMISSION: The patient is in need of 24-hour supervision and care secondary to suicidal ideation in the context of opioid dependence. CHIEF COMPLAINT: "I don't want to be here." HISTORY OF PRESENT ILLNESS: The patient is a 43-year-old single white male with a history of opioid dependence and major depressive disorder who arrives, brought in by himself and is here on a 9.39 status after coming to the hospital for help obtaining pain medication. Annette has consumed all of his opioids at home long before this date. He has been hospitalized and was receiving medication, specifically Roxycodone 15 mg q.6 hours from his outpatient providers. All of his month's worth of medication is gone, so he was without opioid pain medication and he was in significant distress based on his level of pain. Annette found that the emergency department would not help him with his pain medication request. There is a somewhat complicated story regarding him trying to get medication that I prescribed for 7 days to cover him until his new appointment, but that medication prescription would not be filled by his pharmacist as it was too early. I then called his doctor, Dr. Schroeder, and discussed with her what would be an appropriate treatment for him upon being discharged from the hospital. Annette's main stressor is poverty. He has a social security disability hearing on 02/01/19 that he is looking forward to and believes that being approved for disability will "change my life substantially." He is struggling with physical ailments such as a disk protruding between L3 and L4 and he has spinal stenosis , which prevents him from walking too far. His sleep has been disrupted due to pain. He feels angry and distressed and frustrated because he feels so much pain. PAST PSYCHIATRIC HISTORY: Annette has been to this hospital 3 times before recently, the first time on 11/06/18 where he stayed until 11/19/18. He then returned on 12/06/18 and stayed until 12/13/18. He returned to this emergency room on 01/07/19, was admitted on 01/09/19 and was discharged on 01/15/19. He has had suicidal ideation in the past and has not been violent. Does not currently have access to weapons, although he does have a gun in [place] where he used to live. He has been set up with outpatient providers at [facility], but is declining to go there at this moment. He states his previous psychiatric medications included Cymbalta and Ambien and he is taking both of those now. He was also in therapy for 5 years in [place]. PAST MEDICAL HISTORY: Annette states he cannot walk or stand for more than 15 minutes. He gave the example that if he goes into a store to purchase groceries , he is in so much pain for the rest of the day that he cannot do anything else for the rest of the day. He is ordered in the outpatient setting 15 mg q.6 hours of oxycodone and he states that he used to take much more than that when he was living in [place]. He does have type 2 diabetes, which he states is uncontrolled and insulin is constantly being increased. He is not adhering strictly to a diabetic diet. He also has hypertension. FAMILY HISTORY: His mother had depression. One brother and one sister have depression. Both brothers are alcoholics. Annette is the youngest. SOCIAL HISTORY: Annette was born in [place] and lived there until about age 39. 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 Apparently, his father had a girlfriend for part of that time and his mother was alive and that also bothers Annette. He does not talk about abuse. He is not or partnered. He does not have children. He is not employed. He is trying to get disability, he was denied the first time. 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 He has not been in the . He does not have any legal problems. REVIEW OF SYSTEMS: Annette reports feeling fatigued. He denies shortness of breath, heat or cold intolerance, chest pain, abdominal pain. He does have back pain. He denies fevers or changes in weight. PHYSICAL EXAMINATION GENERAL: The patient is a well-developed and nourished male who is lying comfortable in bed. He is not in any acute respiratory distress. VITAL SIGNS: On 01/18/19 at 7:31 in the morning, temperature 98.9, pulse 81, respirations 16, O2 sat 98%, his blood pressure 159/110. HEENT: Head and face are normocephalic. Eyes: PERRLA. EOMI x2. Ears: Hearing is grossly intact. Mouth: Oropharynx within normal limits. NECK: Supple. Trachea is midline. No adenopathy. No JVD. No carotid bruit. CHEST: Symmetric. No tenderness on palpation. LUNGS: Clear to auscultation bilaterally. No wheezing or crackles. CVS: Regular rate and rhythm. S1 and S2 present. No murmurs or gallops appreciated. ABDOMEN: Soft, nontender. Bowel sounds are normal. No abdominal abnormal pulsations. EXTREMITIES: Full range of motion in all major joints. No edema. No cyanosis or clubbing. NEURO: Alert and oriented x4. No acute neurological deficits. Speech is normal. Follows commands. SKIN: Dry and warm. PSYCH: Sad affect. LABORATORY DATA: Most are within normal limits. Abnormalities include white blood cells high at 13.1, MPV low at 7, absolute neutrophils high at 9. Glucose high at 187. Alkaline phosphatase high at 121. Urine screen contains blood, leukocyte esterase, white blood cells and squamous epithelial cells. Toxicology is positive for opiates, which makes sense given the fact that he takes oxycodone. MENTAL STATUS EXAM: This is a tall obese man who has closely cropped reddish hair and wears glasses. He sits quite still. He is calm and cooperative, although he states he is irritable. His speech is in normal rate, the volume is soft. He is dysthymic. He is not tearful, but he has a constricted affect that seems to be concealing anger. His thought processes are normal. His thought content is full of negative automatic thoughts. He is not homicidal. He is not suicidal at this time, but states that when he is in significant pain , he is suicidal. He is not reporting hallucinations to me. His insight is fair. His judgment is poor. He is alert and oriented x4. DIAGNOSES: 1. Major depressive disorder, recurrent. 2. Severe generalized anxiety disorder. IMPRESSION: Annette is a 43-year-old man who comes to the hospital following lack of pain medication in the hope that the emergency department would provide it. In its absence, he stated that he was suicidal. PLAN: Annette is admitted to the adult behavioral health unit and placed on q.15- minute checks for his own safety. He is encouraged to participate in supportive milieu, individual, and group therapies. Estimated length of stay is 1 to 2 days. We will continue his outpatient medications. Discharge planning will include family involvement and outpatient providers. HOSPITAL COURSE: Psychiatric treatment was rendered. Annette was admitted to the adult behavioral unit and placed on 15-minute checks for safety. Annette did not want to be on the unit, but he did come in and he was reasonable and pleasant with staff and peers. His medications were organized, so that he could get doses of the medications that he lacked at home such as oxycodone and hydroxyzine. He has consumed all of his oxycodone at home and that is why he came in. I did contact Dr. Schroeder who discussed with me that we need to do something for him for his pain and his opioid addiction on the way out, so that by the time he reaches her office on 01/24/19, he will not be in opioid withdrawal. We discussed tramadol 50 mg t.i.d., but that would not decrease the opioid withdrawal risk. Instead, we will prescribe morphine short acting 10 mg 3 times a day for 7 days. This is going to be a liquid formulation as I was unable to prescribe a tablet formulation. There is concern that some of this addiction that is apparent may in fact be pseudoaddiction as his pain is not adequately managed. The morphine is not intended to take the place of the high doses of Roxicodone that he was taking, rather it is intended to reduce the risk of withdrawal until he reaches Dr. Schroeder's office on , . At that point, according to the ATTORNEY RECRUITER utilization report, he will be due for more oxycodone. Annette does need to be referred to pain specialist and he has been referred to Dr. Mikael Wall's office. It is important that Annette improve his pain medication regimen as this is likely contributing to his depression, the fact that he is taking so many opioid medications. Annette is working hard to take care of his acknowledged disability and his pain medication abuse problem. He feels ashamed of it and he wants it to be different. He is, however, easily discouraged and gets frustrated easily, so working with him will require significant encouragement and repetition of lessons and new techniques to manage pain. At this point, Annette denies being suicidal. He states as long as he can have some kind of pain medication, he will not suicide. That is the reasoning behind giving him an alternate opioid rather than the tramadol that was a possibility for pain. SHREYA SHEA, STEAM OVEN OPERATOR [id number]/[facility] #: [id number] [facility] MEDICAL CENTERNaveen
== END 2019-01-18 12:55 | disposition home or self-care (01) | DRG 751 ==
LOC: ED 18:11 → BSU 01-18 01:20 → UNDOADMIN 01-18 02:59
PROVIDERS: ADMIT Psychiatry & Neurology Psychiatry; ATTEND Psychiatry & Neurology Psychiatry
DX: F33.9 Major depressive disorder, recurrent, unspecified (principal); R45.851 Suicidal ideations; F11.20 Opioid dependence, uncomplicated; G89.29 Other chronic pain; I10 Essential (primary) hypertension; F41.9 Anxiety disorder, unspecified; F90.9 Attention-deficit hyperactivity disorder, unspecified type; E11.40 Type 2 diabetes mellitus with diabetic neuropathy, unspecified; M51.26 Other intervertebral disc displacement, lumbar region; M48.061 Spinal stenosis, lumbar region without neurogenic claudication; E11.65 Type 2 diabetes mellitus with hyperglycemia; F41.1 Generalized anxiety disorder; Z82.49 Family history of ischemic heart disease and other diseases of the circulatory system; Z83.3 Family history of diabetes mellitus; Z81.1 Family history of alcohol abuse and dependence; Z81.8 Family history of other mental and behavioral disorders; Z56.0 Unemployment, unspecified
CPT/HCPCS: 36415; 80053; 80307; 80320; 80329; 81003; 81015; 84443; 85025; 87086; 99238; 99284; A9270-GY; G0480

== ENCOUNTER 2019-02-02 07:38 | Emergency (ER) | payer OTHER ==
--- NOTE | 2019-02-02 08:01 | ED ---
Psychiatric Complaint - HPI Summary HPI Summary: Patient is a 43-year-old male presenting to the ED with thoughts of severe suicidal depression with plan. He states his plan was to slit his wrists with a razor blades. He has had these thoughts and plans in the past. He states over the past 2 months the symptoms have been worsening. He denies any HI. He states he has been seen in the ED several times and has been admitted. He is currently on Abilify - History Of Current Complaint Chief Complaint: EDSuicidal Time Seen by Provider: 02/02/19 07:52 Hx Obtained From: Patient Onset/Duration: Gradual Onset Timing: Constant Severity Initially: Moderate Severity Currently: Moderate Character: Depressed Aggravating Factor(s): Nothing Alleviating Factor(s): Nothing Associated Signs And Symptoms: Positive: Negative Has Suicidal: Reports: Thoughts, With A Plan - razorblade - Risk Factor(s) Completed Suicide Risk Factors: Male, White [place] - Allergies/Home Medications Allergies/Adverse Reactions: Allergies Allergy/AdvReac Type Severity Reaction Status Date / Time No Known Allergies Allergy Verified 02/02/19 08:13 Home Medications: Home Medications ARIPiprazole [Aripiprazole] 5 mg PO QAM 02/02/19 [History Confirmed 02/02/19] DULoxetine DR CAP* [Cymbalta CAP*] 60 mg PO QAM 02/02/19 [History Confirmed ] Lisinopril 20 mg PO DAILY 02/02/19 [History Confirmed 02/02/19] Metformin HCl [Glucophage] 500 mg PO BID 02/02/19 [History Confirmed 02/02/19] Polyethylene Glycol 3350* [Miralax*] 17 gm PO 0800,2100 PRN 02/02/19 [History Confirmed 02/02/19] PMH/Surg Hx/FS Hx/Imm Hx Previously Healthy: Yes Endocrine/Hematology History: Reports: Hx Diabetes Cardiovascular History: Reports: Hx Hypertension Denies: Hx Pacemaker/ICD Respiratory History: Denies: Hx Asthma, Hx Sleep Apnea GI History: Denies: Hx Gastroesophageal Reflux Disease History: Denies: Hx Chronic Renal Failure, Hx Renal Disease Musculoskeletal History: Reports: Hx Back Problems - L4-5 herniated disc, Hx Tendonitis - bilateral knees Sensory History: Reports: Hx Contacts or Glasses, Hx Hearing Problem - Pt is [place] , Other Sensory Impairments - BILATERAL LEWER EXTREMETY NEUROPATHY Denies: Hx Hearing Aid Opthamlomology History: Reports: Hx Contacts or Glasses, Other Sensory Impairments - BILATERAL LEWER EXTREMETY NEUROPATHY Neurological History: Reports: Other Neuro Impairments/Disorders - NEUROPATHY Psychiatric History: Reports: Hx Anxiety, Hx Attention Deficit Hyperactivity Disorder, Hx Depression, Hx Inpatient Treatment, Hx Community Mental Health Tx, Hx Substance Abuse - Roxycodone Denies: Hx Eating Disorder, Hx Panic Disorder, Hx Post Traumatic Stress Disorder, Hx Schizophrenia, Hx Bipolar Disorder, Hx Suicide Attempt, Hx of Violent Episodes Against Others - Surgical History Surgery Procedure, Year, and Place: TONSILECTOMY - Immunization History Hx Pertussis Vaccination: No Immunizations Up to Date: Yes Infectious Disease History: No Infectious Disease History: Denies: Traveled Outside the US in Last 30 Days - Family History Known Family History: Positive: Hypertension, Diabetes, Other - depression, alcoholism - Social History Occupation: Unemployed, Disabled Lives: With Family Alcohol Use: None Hx Substance Use: No Substance Use Type: Reports: Prescribed Hx Tobacco Use: No Smoking Status (MU): Never Smoked Tobacco Review of Systems Constitutional: Negative Negative: Fever, Chills, Fatigue, Skin Diaphoresis ENT: Negative Cardiovascular: Negative Genitourinary: Negative Musculoskeletal: Negative Skin: Negative Positive: Anxious, Depressed All Other Systems Reviewed And Are Negative: Yes Physical Exam Triage Information Reviewed: Yes Vital Signs On Initial Exam: Initial Vitals Temp Pulse Resp BP Pulse Ox 97.1 F 100 18 158/90 99 02/02/19 07:44 02/02/19 07:44 02/02/19 07:44 02/02/19 07:44 02/02/19 07:44 Vital Signs Reviewed: Yes Appearance: Positive: Well-Appearing, Well-Nourished Skin: Positive: Warm, Skin Color Reflects Adequate Perfusion Head/Face: Positive: Normal Head/Face Inspection Eyes: Positive: EOMI, Conjunctiva Clear Neck: Positive: Supple, No Lymphadenopathy Respiratory/Lung Sounds: Positive: Clear to Auscultation, Breath Sounds Present Cardiovascular: Positive: RRR, Pulses are Symmetrical in both Upper and Lower Extremities Musculoskeletal: Positive: Normal, Strength/ROM Intact Neurological: Positive: CN Intact II-III Psychiatric: Positive: Depressed AVPU Assessment: Alert Diagnostics - Vital Signs Vital Signs Temp Pulse Resp BP Pulse Ox 02/02/19 07:44 97.1 F 100 18 158/90 99 - Laboratory Result Diagrams: 02/02/19 08:02 02/02/19 08:02 Lab Statement: Any lab studies that have been ordered have been reviewed, and results considered in the medical decision making process. Course/Dx - Course Course Of Treatment: During the course of treatment, the patient is evaluated for suicidal ideation. He states he has plan with intent with cutting his wrists with a razor blade. He is stating he would like to receive electroshock therapy at this time and would like to speak with someone. He still is currently actively suicidal, but states he will not attempt at this time as he is looking forward to new procedures which may help his depression. He is cleared for MHU. Mental health evaulation completed and states he is safe for DC home. He is given information for electroshock therapy. - Differential Dx/Clinical Impression Differential Diagnosis/HQI/PQRI: Positive: Depression, Suicidal Ideation Provider Diagnosis: Depression Discharge - Sign-Out/Discharge Documenting (check all that apply): Patient Departure Patient Received Moderate/Deep Sedation with Procedure: No - Discharge Plan Condition: Stable Disposition: HOME Patient Education Materials: Depression (ED) Referrals: Marika Schroeder MD [Primary Care Provider] - Additional Instructions: Please follow up with your ECT as discussed with mental health If you develop any worsening symptoms - please return to the ED Take all your at home medications as prescribed. - Billing Disposition and Condition Condition: STABLE Disposition: Home
--- OUTSIDE RECORDS SUMMARY | 2019-02-02 08:12 | XMS REPORT | Continuity of Care Document ---
:1975 External Reference #:[id number] Author Name Katty Bedoya Care Team Providers Name Role Phone Marika Schroeder M.D. Primary Care Physician Unavailable Payers Date Identification Numbers Payment Provider Subscriber Effective: 2016 Policy Number: [id number] [employer] Number: [id number] [address] PayID: [id number] [place] [address] Advance Directives Description No Information Available Problems Active Problems Provider Date Essential hypertension Aman Dunham M.D. Onset: 07/28/2016 Thoracic and lumbosacral neuritis Aman Dunham M.D. Onset: 07/28/2016 Knee pain Aman Dunham M.D. Onset: 07/28/2016 Type 2 diabetes mellitus with diabetic Aman Dunham M.D. Onset: 2015 neuropathy, unspecified Morbid obesity Aman Dunham M.D. Onset: 07/28/2016 Spinal stenosis of lumbar region Aman Dunham M.D. Onset: 08/11/2016 Mild recurrent major depression Aman Dunhma M.D. Onset: 08/11/2016 Testicular hypofunction Aman Dunham M.D. Onset: 08/11/2016 Mixed hyperlipidemia Aman Dunham M.D. Onset: 08/11/2016 Diabetes mellitus Aman Dunham M.D. Onset: 09/22/2016 Type II diabetes mellitus uncontrolled Aman Dunham M.D. Onset: 2016 Lumbar radiculopathy Aman Dunham M.D. Onset: 11/22/2016 Insomnia Aman Dunham M.D. Onset: 11/22/2016 Umbilical hernia Aman Dunham M.D. Onset: 09/05/2017 Panic disorder with agoraphobia Aman Dunham M.D. Onset: 03/27/2018 Family History Date Family Member(s) Observation Comments General Parkinson's Disease General Heart Disease General Hypertension Father Hypertension Father Heart Disease Father Chronic pain on opiates Mother due to Parkinsons Disease () Social History Type Date Description Comments Sex Unknown Marital Status Single Lives With Father Occupation Unemployed Occupation Disabled awaiting disability hearing ETOH Use Denies alcohol use Tobacco Use Start: Unknown Patient has never smoked Recreational Drug Use Denies Drug Use Smoking Status Reviewed: 01/24/19 Patient has never smoked Allergies, Adverse Reactions, Alerts Description No Known Drug Allergies Medications Active Medications SIG Qnty Indications Ordering Date Provider Oxycodone HCL one by mouth q6hr 120tabs G89.4 Yolis Coffman, 12/18/2018 15mg as needed pain N.P. Tablets mdd4 Trulicity inject 0.75mg once 2ml E11.65 Haseeb Geiger 10/23/2018 a week Juanita Butt 0.75mg/0.5ML Solution Pen-Inject Lisinopril 1 by mouth every 30tabs I10 Jones 08/23/2018 20mg day Juanita Dunham Tablets Basaglar Kwikpen 90 units at 30ml E11.65 Jones 08/23/2018 bedtime Juanita Dunham 100Unit/ML Solution Pen-Inject Pen [place] once daily with 90units Jones 12/05/2017 32G X 5 poncho Dunham M.D. mm Misc BD Pen use with basaglar 100units Yolis Coffman, 12/04/2017 Needle/Mini/Ultrafin N.P. e/31G X 16" 31G X 5 mm Misc Zolpidem Tartrate 1/2 to 1 tab by 30tabs G47.00 Marika Schroeder MD 11/22/2016 mouth every night 10mg Tablets at bedtime as needed Amlodipine Besylate 1 by mouth every 30tabs I10 Jones 10/24/2016 day in the morning Juanita Dunham 5mg Tablets Atorvastatin Calcium 1 by mouth every 30tabs E78.2 Jones 10/13/2016 day Juanita Dunham 40mg Tablets Contour Next One chesk cs twice 1units E11.8 Jones 10/13/2016 Blood Glucose daily Juanita Dunham Monitoring System Kit Control Test check cs twice 100units E11.8 Jones 10/13/2016 Strips daily and as Juanita Dunham needed Freestyle Lite two times daily or 100units Jones 09/22/2016 Lancets as needed dx: Juanita Dunham e11.40 Last visit: 09/22/16 Freestyle Lite Test test up to 2 times 100units Jones 09/22/2016 a day dx code: Juanita Dunham Strips e1140 last visit: 09/22/16 Freestyle Lite Blood check fingerstick 1units Jones 09/22/2016 Glucose Monitoring daily Dx: E11.40 Juanita Dunham System Last visit: Device 09/22/16 Testosterone apply 1 150gm E29.1 Venice Cedillo MD 09/22/2016 50mg/5GM application (50mg) (1%) Gel to the skin once daily Metformin HCL Take One Tablet By 60tabs E11.40 Jones 07/28/2016 1000mg Mouth Twice Daily Juanita Dunham Tablets Stool Softener twice daily Unknown 100mg Capsules Hydroxyzine HCL 2 tablets by mouth Unknown 25mg every 4 hours as Tablets needed for anxiety or insomnia Polyethylene Glycol 17gm in liquid of Unknown 3350 choice by mouth Powder everyday as needed Duloxetine HCL Shabbir, 60mg Shreya, N.P. Caps DR Crews Duloxetine HCL 01/24/19 reports Ladora, 30mg not taking Shreya, N.P. Caps DR Crews History Medications Basaglar Kwikpen 75 units sc once 15ml E11.40 Uvaldo Tate 07/24/2018 - daily Juanita Graves,FACP 08/23/2018 100Unit/ML Solution Pen-Inject Toujeo Solostar inject 75 units 4.500ml E11.40 Uvaldo Tate 07/12/2018 - subcutaneously once Joseph GravesD.,FACP 07/24/2018 300Unit/ML daily Solution Pen-Inject Basaglar Kwikpen 65 units at bedtime 9ml E11.40 Jones 05/08/2018 - Juanita Dunham 07/12/2018 100Unit/ML Solution Pen-Inject Basaglar Kwikpen 50 units at bedtime 30ml E11.40 Jones 03/27/2018 - Juanita Dunham 05/08/2018 100Unit/ML Solution Pen-Inject Escitalopram 1 by mouth every day 30tabs F40.01 Jones 03/27/2018 - Oxalate Juanita Dunham 11/23/2018 10mg Tablets Basaglar Kwikpen 35 units at bedtime 15ml E11.40 Jones 01/09/2018 - Juanita Dunham 03/27/2018 100Unit/ML Solution Pen-Inject Basaglar Kwikpen 45 units at bedtime 15ml E11.65 Jones 12/07/2017 - Juanita Dunham 01/09/2018 100Unit/ML Solution Pen-Inject Basaglar Kwikpen 25 units at bedtime 30ml E11.65 Jones 11/30/2017 - Juanita Dunham 12/07/2017 100Unit/ML Solution Pen-Inject Oxycodone HCL ER 1 jozef every 12 10tabs M54.16 Jones 06/26/2017 - hours Juanita Dunham 08/01/2017 10mg Tab ER 12H Abuse-Det Glipizide take 1 tablet by 60tabs E11.65 Jones 01/10/2017 - 10mg mouthtwice daily Juanita Dunham 11/30/2017 Tablets Invokana once daily 30tabs E11.65 Jones 01/10/2017 - 100mg Juanita Dunham 12/07/2017 Tablets Bupropion HCL ER 1 tab in in the 30tabs F33.0 Jones 12/06/2016 - (XL) morning Juanita Dunham 03/27/2018 300mg Tablets ER 24HR Bupropion HCL ER once daily in the 30tabs F33.0 Jones 11/22/2016 - (XL) morning with food Juanita Dunham 12/06/2016 150mg Tablets ER 24HR Tradjenta once daily 30tabs E11.65 Jones 10/24/2016 - 5mg Juanita Dunham 03/27/2018 Tablets Oxycodone-Acetamin take 1 tablet by 120tabs G89.4 Marika Schroeder MD 2016 - ophen mouth every 6 hours 12/18/2018 10-325mg as needed for pain Tablets Glipizide take 1 tablet by 45tabs E11.8 Jones 10/13/2016 - 10mg mouth every morning Juanita Dunham 01/10/2017 Tablets and 1/2 tab in the evening Prednisone 5tabx 2days,4 30tabs M51.16 Jones 10/13/2016 - 10mg [id number] Juanita Dunham 10/24/2016 Tablets 1mavh7faxp,7bubn0lmc s,1tabxday. Oxycodone-Acetamin take 1 tablet by 42tabs M51.16 Aman 10/13/2016 - ophen mouth every 8 hours Juanita Dunham 10/24/2016 10-325mg as needed for pain Tablets [place] Test test three times 100units E11.8 Jones 09/22/2016 - daily Juanita Dunham 10/13/2016 Strips [place] [facility] test twice daily 60units E11.8 Jones 09/22/2016 - Lancsammi Dunham M.D. 10/13/2016 30G Misc Escitalopram 1 by mouth every day 30tabs F33.0 Jones 09/22/2016 - Oxalate Juanita Dunham 03/27/2018 20mg Tablets Escitalopram 1 by mouth every day 30tabs Jones 08/25/2016 - Oxalate Juanita Dunham 09/22/2016 10mg Tablets Wellbutrin XL 1 by mouth every day 30tabs Jones 08/17/2016 - in in the morning Juanita Dunham 08/25/2016 150mg Tablets ER with food 24HR Naproxen 1 by mouth twice a 60tabs M25.561 Jones 08/11/2016 - 500mg day with food (pt is Juanita Dunham 01/10/2017 Tablets not using) Duloxetine HCL once a day in full 14caps F33.0 Jones 08/11/2016 - stomach Juanita Dunham 08/17/[address] Crews Oxycodone-Acetamin take 1 tablet by 60tabs M51.16 Jones 07/28/2016 - ophen mouth every 12 hours Juanita Dunham 10/13/2016 10-325mg as needed for pain Tablets Gabapentin 1 by mouth three Unknown - 300mg times a day 11/30/2017 Capsules Metformin HCL 1 by mouth twice a Unknown - day 07/28/2016 500mg Tablets Lisinopril 1 by mouth every day 30tabs Jones - 10mg Juanita Dunham 08/23/2018 Tablets Ibuprofen 1 by mouth two times Unknown - 800mg a day as needed 08/11/2016 Tablets Duloxetine HCL Unknown - 12/14/[address] Crews Lantus 90 u before bedtime Unknown - 100Unit/ML 12/18/2018 Solution Immunizations CPT Code Status Date Vaccine Reaction Lot # [id number] Given 10/24/2016 Pneumonia Vaccine no reaction, pt tolerated well [id number] Vital Signs Date Vital Result Comment 01/24/2019 11:18am Height 75 inches 6'3" Weight 401.00 lb Heart Rate 102 /min BP Systolic Sitting 153 mmHg BP Diastolic Sitting 97 mmHg Body Temperature 97.3 F O2 % BldC Oximetry 96 % BMI (Body Mass Index) 50.1 kg/m2 01/24/2019 11:14am Height 75 inches 6'3" Weight 401.00 lb BMI (Body Mass Index) 50.1 kg/m2 12/18/2018 1:38pm Height 76 inches 6'4" Weight 399.12 lb Heart Rate 105 /min BP Systolic 139 mmHg BP Diastolic 90 mmHg Body Temperature 96.7 F O2 % BldC Oximetry 97 % BMI (Body Mass Index) 48.6 kg/m2 11/23/2018 10:59am Height 76 inches 6'4" Weight [...] Test Result H/L Range Note Laboratory test 01/18/2019 [facility] Point of Care 120 mg/dL High 70-100 [address] [place] [address] [phone] CBC Auto Diff 01/17/2019 [facility] White Blood 13.1 10^3/uL High 3.5-10.[address] [place] [address] [phone] Red Blood Count 4.91 10^6/uL N 4.18-5.48 Hemoglobin 14.8 g/dL N 14.0-18.0 Hematocrit 43 % N 36-46 Mean Corpuscular Volume 88 fL N 80-94 Mean Corpuscular Hemoglobin 30 pg N 27-31 Mean Corpuscular HGB Conc 34 g/dL N 31-36 Red Cell Distribution Width 13 % N 10.5-15 Platelet Count 399 10^3/uL N 150-450 Mean Platelet Volume 7.0 fL Low 7.4-10.4 Abs Neutrophils 9.0 10^3/uL High 1.5-7.7 Abs Lymphocytes 3.0 10^3/uL N 1.0-4.8 Abs Monocytes 0.7 10^3/uL N 0-0.8 Abs Eosinophils 0.3 10^3/uL N 0-0.6 Abs Basophils 0.1 10^3/uL N 0-0.2 Abs Nucleated RBC 0 10^3/uL Granulocyte % 68.3 % Lymphocyte % 23.1 % Monocyte % 5.5 % Eosinophil % 2.3 % Basophil % 0.8 % Nucleated Red Blood Cells % 0 Comp Metabolic Panel 01/17/2019 [facility] Sodium 137 mmol/L N 135-145 [address] [place] [address] [phone] Potassium 4.1 mmol/L N 3.5-5.0 Chloride 101 mmol/L N 101-111 Co2 Carbon Dioxide 31 mmol/L N 22-32 Anion Gap 5 mmol/L N 2-11 Glucose 187 mg/dL High 70-100 Blood Urea Nitrogen 8 mg/dL N 6-24 Creatinine 0.76 mg/dL N 0.67-1.17 BUN/Creatinine Ratio 10.5 N 8-20 Calcium 9.4 mg/dL N 8.6-10.3 Total Protein 8.1 g/dL N 6.4-8.9 Albumin 4.2 g/dL N 3.2-5.2 Globulin 3.9 g/dL N 2-4 Albumin/Globulin Ratio 1.1 N 1-3 Total Bilirubin 0.30 mg/dL N 0.2-1.0 Alkaline Phosphatase 121 U/L High 34-104 Alt 43 U/L N 7-52 Ast 22 U/L N 13-39 Egfr Non- 111.4 >60 Egfr 134.8 >60 2 Laboratory test 01/17/2019 [facility] Acetaminophen < 15 g/mL 3 finding [address] [place] [address] [phone] Alcohol < 10 mg/dL N <10 Salicylate < 2.50 mg/dL <30 TSH (Thyroid Stim Horm) 0.66 mcIU/mL N 0.34-5.60 Urinalysis Profile 01/17/2019 [facility] Urine Color Yellow [address] [place] [address] [phone] Urine Appearance Clear Urine Specific [place] 1.025 N 1.010-1.030 Urine pH 5.0 N 5-9 Urine Urobilinogen Negative Negative Urine Ketones Negative Negative Urine Protein Negative Negative Urine Leukocytes Trace Abnormal Negative Urine Blood 1+ Abnormal Negative Urine Nitrite Negative Negative Urine Bilirubin Negative Negative Urine Glucose Negative Negative Urine White Blood Cell 1+(6-10/hpf) Abnormal Absent Urine Red Blood Cell Trace(0-2/hpf) Absent Urine Bacteria Absent Absent Urine Squamous Epithelial Cell Present Abnormal Absent Urine Drug 01/17/2019 [facility] Amphetamine Ur None Detected None Detect SCR ED & [address] [place] [address] [phone] Barbiturates Urine Screen None Detected None Detect Benzodiazepine Urine Screen None Detected None Detect Urine Cannabinoids Screen None Detected None Detect Urine Cocaine Screen None Detected None Detect Urine Opiates Screen Presumptive Posi <SEE NOTE> Abnormal None Detect 4 Urine Phencyclidine Screen None Detected None Detect 5 Urine Culture And 01/17/2019 [facility] Urine Culture SEE RESULT [address] [place] [address] [phone] Laboratory test 01/08/2019 [facility] Point of Care 286 mg/dL High 70-1 [address] Glucose 00 [place] [address] [phone] Laboratory test 01/07/2019 [facility] Acetaminophen < 15 [address] g/[place] [address] [phone] Alcohol < 10 mg/dL N <10 Salicylate < 2.50 mg/dL <30 TSH (Thyroid Stim Horm) 0.63 mcIU/mL N 0.34-5.60 Comp Metabolic Panel 01/07/2019 [facility] Sodium 135 mmol/L N 135-[address] [place] [address] [phone] Potassium 4.1 mmol/L N 3.5-5.0 Chloride 103 mmol/L N 101-111 Co2 Carbon Dioxide 24 mmol/L N 22-32 Anion Gap 8 mmol/L N 2-11 Glucose 276 mg/dL High 70-100 Blood Urea Nitrogen 9 mg/dL N 6-24 Creatinine 0.82 mg/dL N 0.67-1.17 BUN/Creatinine Ratio 11.0 N 8-20 Calcium 9.2 mg/dL N 8.6-10.3 Total Protein 8.1 g/dL N 6.4-8.9 Albumin 4.3 g/dL N 3.2-5.2 Globulin 3.8 g/dL N 2-4 Albumin/Globulin Ratio 1.1 N 1-3 Total Bilirubin 0.30 mg/dL N 0.2-1.0 Alkaline Phosphatase 103 U/L N 34-104 Alt 41 U/L N 7-52 Ast 24 U/L N 13-39 Egfr Non- 102.1 >60 Egfr 123.5 >60 9 CBC Auto 01/07/2019 [facility] White Blood 15.3 10^3/uL High 3.5-10.[address] [place] [address] [phone] Red Blood Count 4.90 10^6/uL N 4.18-5.48 Hemoglobin 15.1 g/dL N 14.0-18.0 Hematocrit 44 % N 36-46 Mean Corpuscular Volume 89 fL N 80-94 Mean Corpuscular Hemoglobin 31 pg N 27-31 Mean Corpuscular HGB Conc 35 g/dL N 31-36 Red Cell Distribution Width 13 % N 10.5-15 Platelet Count 386 10^3/uL N 150-450 Mean Platelet Volume 7.5 fL N 7.4-10.4 Abs Neutrophils 11.2 10^3/uL High 1.5-7.7 Abs Lymphocytes 3.0 10^3/uL N 1.0-4.8 Abs Monocytes 0.9 10^3/uL High 0-0.8 Abs Eosinophils 0.1 10^3/uL N 0-0.6 Abs Basophils 0.1 10^3/uL N 0-0.2 Abs Nucleated RBC 0 10^3/uL Granulocyte % 73.6 % Lymphocyte % 19.6 % Monocyte % 5.8 % Eosinophil % 0.4 % Basophil % 0.6 % Nucleated Red Blood Cells % 0.1 CBC Auto 12/06/2018 [facility] White Blood 14.8 10^3/uL High 3.5-10.[address] [place] [address] [phone] Red Blood Count 5.01 10^6/uL N 4.00-5.40 Hemoglobin 15.3 g/dL N 14.0-18.0 Hematocrit 45 % N 42-52 Mean Corpuscular Volume 90 fL N 80-94 Mean Corpuscular Hemoglobin 30 pg N 27-31 Mean Corpuscular HGB Conc 34 g/dL N 31-36 Red Cell Distribution Width 14 % N 10.5-15 Platelet Count 348 10^3/uL N 150-450 Mean Platelet Volume 7.0 fL Low 7.4-10.4 Abs Neutrophils 9.8 10^3/uL High 1.5-7.7 Abs Lymphocytes 3.6 10^3/uL N 1.0-4.8 Abs Monocytes 0.9 10^3/uL High 0-0.8 Abs Eosinophils 0.3 10^3/uL N 0-0.6 Abs Basophils 0.1 10^3/uL N 0-0.2 Abs Nucleated RBC 0 10^3/uL Granulocyte % 66.2 % Lymphocyte % 24.5 % Monocyte % 6.4 % Eosinophil % 2.1 % Basophil % 0.8 % Nucleated Red Blood Cells % 0 Comp Metabolic Panel 12/06/2018 [facility] Sodium 137 mmol/L N 135-[address] [place] [address] [phone] Potassium 4.2 mmol/L N 3.5-5.0 Chloride 101 mmol/L N 101-111 Co2 Carbon Dioxide 29 mmol/L N 22-32 Anion Gap 7 mmol/L N 2-11 Glucose 153 mg/dL High 70-100 Blood Urea Nitrogen 9 mg/dL N 6-24 Creatinine 0.80 mg/dL N 0.67-1.17 BUN/Creatinine Ratio 11.3 N 8-20 Calcium 9.2 mg/dL N 8.6-10.3 Total Protein 8.0 g/dL N 6.4-8.9 Albumin 4.3 g/dL N 3.2-5.2 Globulin 3.7 g/dL N 2-4 Albumin/Globulin Ratio 1.2 N 1-3 Total Bilirubin 0.40 mg/dL N 0.2-1.0 Alkaline Phosphatase 99 U/L N 34-104 Alt 37 U/L N 7-52 Ast 26 U/L N 13-39 Egfr Non- 105.0 >60 Egfr 127.1 >60 10 Laboratory test 12/06/2018 [facility] Acetaminophen < 15 g/mL [address] [place] [address] [phone] Alcohol < 10 mg/dL N <10 Salicylate < 2.50 mg/dL <30 TSH (Thyroid Stim Horm) 1.95 mcIU/mL N 0.34-5.60 Urinalysis Profile 12/06/2018 [facility] Urine Color Yellow [address] [place] [address] [phone] Urine Appearance Clear Urine Specific [place] 1.020 N 1.010-1.030 Urine pH 5.0 N 5-9 Urine Urobilinogen Negative Negative Urine Ketones Negative Negative Urine Protein Negative Negative Urine Leukocytes Negative Negative Urine Blood Negative Negative Urine Nitrite Negative Negative Urine Bilirubin Negative Negative Urine Glucose 1+(50 mg/dL) Abnormal Negative Urine Drug 12/06/2018 [facility] Amphetamine Ur None Detected None Detect SCR ED & [address] [facility] [place] [address] [phone] Barbiturates Urine Screen None Detected None Detect Benzodiazepine Urine Screen None Detected None Detect Urine Cannabinoids Screen None Detected None Detect Urine Cocaine Screen None Detected None Detect Urine Opiates Screen Presumptive Posi <SEE NOTE> Abnormal None Detect 12 Urine Phencyclidine Screen None Detected None Detect 13 Laboratory test 11/23/2018 [facility] In House Hemoglobin A1c 8.0 High 5-7 finding Laboratory test 11/06/2018 [facility] Acetaminophen < 15 g/mL [address] [place] [address] [phone] Alcohol < 10 mg/dL N <10 Salicylate < 2.50 mg/dL <30 TSH (Thyroid Stim Horm) 1.17 mcIU/mL N 0.34-5.60 Comp Metabolic Panel 11/06/2018 [facility] Sodium 134 mmol/L Low 135-[address] [place] [address] [phone] Potassium 4.4 mmol/L N 3.5-5.0 Chloride 101 [...] Egfr Non- 94.1 >60 Egfr 113.8 >60 15 CBC Auto 11/06/2018 [facility] White Blood 12.0 10^3/uL High 3.5-10.[address] [place] [address] [phone] Red Blood Count 4.69 10^6/uL N 4.00-5.40 [...] % Nucleated Red Blood Cells % 0.1 Urine Drug 11/06/2018 [facility] Amphetamine Ur None Detected None Detect SCR ED & [address] [place] [address] [phone] Barbiturates Urine Screen None Detected None Detect Benzodiazepine Urine Screen None Detected None Detect Urine Cannabinoids Screen None Detected None Detect Urine Cocaine Screen None Detected None Detect Urine Opiates Screen None Detected None Detect Urine Phencyclidine Screen None Detected None Detect 16 Urinalysis Profile 11/06/2018 [facility] Urine Color Yellow [address] [place] [address] [phone] Urine Appearance Cloudy Urine Specific [place] 1.023 N 1.010-1.030 Urine pH 5.0 N 5-9 Urine Urobilinogen Negative Negative Urine Ketones Negative Negative Urine Protein Negative Negative Urine Leukocytes Negative Negative Urine Blood Negative Negative Urine Nitrite Negative Negative Urine Bilirubin Negative Negative Urine Glucose 2+(150 mg/dL) Abnormal Negative Laboratory test 11/04/2018 [facility] Lactic Acid 1.1 mmol/L N 0.5-2.[address] [place] [address] [phone] CBC Auto Diff 11/04/2018 [facility] White Blood 14.5 High 3.5- 10.[address] Count 10^3/[place] [address] [phone] Red Blood Count 4.98 10^6/uL N 4.00-5.40 [...] % Nucleated Red Blood Cells % 0 Comp Metabolic Panel 11/04/2018 [facility] Sodium 136 mmol/L N 135-[address] [place] [address] [phone] Potassium 3.9 mmol/L N 3.5-5.0 Chloride 99 [...] Egfr Non- 99.3 >60 Egfr 120.1 >60 18 Laboratory test 11/04/2018 [facility] C Reactive 23.73 mg/L High <8.[address] [place] [address] [phone] Urinalysis 11/04/2018 [facility] Urine Color Yellow Profile [address] [place] [address] [phone] Urine Appearance Cloudy Urine Specific [place] 1.026 N 1.010-1.030 Urine pH 6.0 N [...] Urine Squamous Epithelial Cell Present Abnormal Absent Urine Culture And 11/04/2018 [facility] Urine Culture SEE RESULT [address] [place] [address] [phone] Laboratory test 10/22/2018 [facility] Testosterone 451.43 N 240- finding [address] Total ng/dL [address] [place] [address] [phone] PSA Screening 0.211 ng/mL N 0-4.000 20 Laboratory test 08/23/2018 [facility] House Hemoglobin A1c 10.3 High 5-7 finding Drug Abuse 20 08/23/2018 [facility] Urine Negative 21, [address] Amphetamine ng/[place] [address] [phone] Urine Barbiturates Negative ng/mL 23 Urine Benzodiazepines Negative ng/mL 24 Urine Cocaine Negative ng/mL 25 Urine Phencyclidine Negative ng/mL Cutoff: 25 Urine Tetrahydrocannabinol Negative ng/mL Cutoff: 50 26 Creatinine, Urine 181.6 mg/dL Specific [place] 1.020 pH 5.6 Oxidants Negative 27 Adulterants Comment Normal Codeine, Ur Not Detected ng/mL Cutoff: 25 28 Asheftd-1-arvk-glucuronide, Ur Not Detected ng/mL 29 Morphine, Ur Not Detected ng/mL Cutoff: 25 30 Mlhvsytv-8-jnpf-glucuronide, U Not Detected ng/mL 31 6-monoacetylmorphine, Ur Not Detected ng/mL Cutoff: 25 32 Hydrocodone, Ur Not Detected ng/mL Cutoff: 25 33 Norhydrocodone, Ur Not Detected ng/mL Cutoff: 25 34 Dihydrocodeine, Ur Not Detected ng/mL Cutoff: 25 35 Hydromorphone, Ur Not Detected ng/mL Cutoff: 25 36 Sniaebisikhgv9nrijzyvyjaeflpi Not Detected ng/mL 37 Oxycodone, Ur Present ng/mL Abnormal Cutoff: 25 38 Noroxycodone, Ur Present ng/mL Abnormal Cutoff: 25 39 Oxymorphone, Ur Present ng/mL Abnormal Cutoff: 25 40 Vkeqskattor-9-tuie-glucuronide Present ng/mL Abnormal 41 Noroxymorphone, Ur Present ng/mL Abnormal Cutoff: 25 42 Fentanyl, Ur Not Detected ng/mL Cutoff: 2 43 Norfentanyl, Ur Not Detected ng/mL Cutoff: 2 44 Meperidine, Ur Not Detected ng/mL Cutoff: 25 45 Normeperidine, Ur Not Detected ng/mL Cutoff: 25 46 Naloxone, Ur Not Detected ng/mL Cutoff: 25 47 Spediglm-9-fdzj-glucuronide, U Not Detected ng/mL 48 Methadone, Ur Not Detected ng/mL Cutoff: 25 49 Eddp, Ur Not Detected ng/mL Cutoff: 25 50 Propoxyphene, Ur Not Detected ng/mL Cutoff: 25 51 Norpropoxyphene, Ur Not Detected ng/mL Cutoff: 25 52 Tramadol, Ur Not Detected ng/mL Cutoff: 25 53 O-desmethyltramadol, Ur Not Detected ng/mL Cutoff: 25 54 Tapentadol, Ur Not Detected ng/mL Cutoff: 25 55 N-desmethyltapentadol, Ur Not Detected ng/mL Cutoff: 50 56 Dyusxkedqx-qkyk-gdjykpjxilh, U Not Detected ng/mL 57 Buprenorphine, Ur Not Detected ng/mL Cutoff: 5 58 Norbuprenorphine, Ur Not Detected ng/mL Cutoff: 5 59 Norbuprenorphine glucuronide Not Detected ng/mL Cutoff: 20 60 Opioid Interpretation See Comment 61 Laboratory test 07/04/2018 [facility] Hemoglobin A1c 10.2 % High 4.0-5.6 [address] (Glyco HGB) [place] [address] [phone] Laboratory test 07/04/2018 [facility] PSA Screening 1.718 N 0- 4.000 [address] ng/[place] [address] [phone] Comp Metabolic 07/04/2018 [facility] Sodium 137 N 135-[address] mmol/[place] [address] [phone] Potassium 4.3 mmol/L N 3.5-5.0 Chloride 99 [...] Egfr Non- 107.0 >60 Egfr 129.5 >60 64 Lipid Profile 07/04/2018 [facility] Triglycerides 173 mg/dL 65 (Trig/Chol/HDL) [address] [place] [address] [phone] Cholesterol 178 mg/dL 66 HDL Cholesterol 37.3 mg/dL 67 LDL Cholesterol 106 mg/dL 68 Laboratory test 07/04/2018 [facility] Testosterone 386.67 ng/dL N 240-[address] [place] [address] [phone] Drug Abuse 20 03/27/2018 [facility] Urine Negative [address] Amphetamine ng/[place] [address] [phone] Urine Barbiturates Negative ng/mL 70 Urine Benzodiazepines Negative ng/mL 71 Urine Cocaine Negative ng/mL 72 Urine Phencyclidine Negative ng/mL Cutoff: 25 Urine Tetrahydrocannabinol Negative ng/mL Cutoff: 50 73 Creatinine, Urine 91.2 mg/dL Specific [place] 1.011 pH 5.9 Oxidants Negative 74 Adulterants Comment Normal Codeine, Ur Not Detected ng/mL Cutoff: 25 75 Tgmlzlf-9-kfky-glucuronide, Ur Not Detected ng/mL 76 Morphine, Ur Not Detected ng/mL Cutoff: 25 77 Iasyvhom-1-wynp-glucuronide, U Not Detected ng/mL 78 6-monoacetylmorphine, Ur Not Detected ng/mL Cutoff: 25 79 Hydrocodone, Ur Not Detected ng/mL Cutoff: 25 80 Norhydrocodone, Ur Not Detected ng/mL Cutoff: 25 81 Dihydrocodeine, Ur Not Detected ng/mL Cutoff: 25 82 Hydromorphone, Ur Not Detected ng/mL Cutoff: 25 83 Aaqkwacuthivj1qpinqrcfxvphxrz Not Detected ng/mL 84 Oxycodone, Ur Present ng/mL Abnormal Cutoff: 25 85 Noroxycodone, Ur Present ng/mL Abnormal Cutoff: 25 86 Oxymorphone, Ur Not Detected ng/mL Cutoff: 25 87 Qvegxyrxzky-9-njya-glucuronide Present ng/mL Abnormal 88 Noroxymorphone, Ur Present ng/mL Abnormal Cutoff: 25 89 Fentanyl, Ur Not Detected ng/mL Cutoff: 2 90 Norfentanyl, Ur Not Detected ng/mL Cutoff: 2 91 Meperidine, Ur Not Detected ng/mL Cutoff: 25 92 Normeperidine, Ur Not Detected ng/mL Cutoff: 25 93 Naloxone, Ur Not Detected ng/mL Cutoff: 25 94 Uutjrvjo-0-vnmk-glucuronide, U Not Detected ng/mL 95 Methadone, Ur Not Detected ng/mL Cutoff: 25 96 Eddp, Ur Not Detected ng/mL Cutoff: 25 97 Propoxyphene, Ur Not Detected ng/mL Cutoff: 25 98 Norpropoxyphene, Ur Not Detected ng/mL Cutoff: 25 99 Tramadol, Ur Not Detected ng/mL Cutoff: 25 100 O-desmethyltramadol, Ur Not Detected ng/mL Cutoff: 25 101 Tapentadol, Ur Not Detected ng/mL Cutoff: 25 102 N-desmethyltapentadol, Ur Not Detected ng/mL Cutoff: 50 103 Ynyddbmzut-ugek-dvvxjmiynzp, U Not Detected ng/mL 104 Buprenorphine, Ur Not Detected ng/mL Cutoff: 5 105 Norbuprenorphine, Ur Not Detected ng/mL Cutoff: 5 106 Norbuprenorphine glucuronide Not Detected ng/mL Cutoff: 20 107 Opioid Interpretation See Comment 108 Laboratory test 03/27/2018 [facility] Hemoglobin A1c 9.5 High 5-7 finding Laboratory test 11/30/2017 [facility] Hemoglobin A1c 11.1 High 5-7 finding Laboratory test 11/29/2017 [facility] Testosterone Total 85.80 Low 240-[address] ng/[place] [address] [phone] Urine Microalbumin 11/29/2017 [facility] Ur Microalbumin 73.2 mg /L Random [address] (mg/L) [place] [address] [phone] Urine Creatinine 163.57 mg/dL Urine Microalbumin/Creatinine 44.7 ug/mg High <31 Laboratory test 11/29/2017 [facility] PSA Screening 0.289 ng/mL N 0-4.000 [address] [place] [address] [phone] Drug Abuse 20 09/05/2017 [facility] Urine Negative [address] Amphetamine ng/mL [place], [place] [id number] [phone] Urine Barbiturates Negative ng/mL 111 Urine Benzodiazepines Negative ng/mL 112 Urine Cocaine Negative ng/mL 113 Urine Phencyclidine Negative ng/mL Cutoff: 25 Urine Tetrahydrocannabinol Negative ng/mL Cutoff: 50 114 Creatinine, Urine 227.9 mg/dL Specific [place] 1.021 pH 5.6 Oxidants Negative 115 Adulterants Comment Normal Codeine, Ur Not Detected ng/mL Cutoff: 25 116 Bxfagiw-9-yfac-glucuronide, Ur Not Detected ng/mL 117 Morphine, Ur Not Detected ng/mL Cutoff: 25 118 Nkgvuujl-4-bsyn-glucuronide, U Not Detected ng/mL 119 6-monoacetylmorphine, Ur Not Detected ng/mL Cutoff: 25 120 Hydrocodone, Ur Present ng/mL Cutoff: 25 121 Norhydrocodone, Ur Not Detected ng/mL Cutoff: 25 122 Dihydrocodeine, Ur Not Detected ng/mL Cutoff: 25 123 Hydromorphone, Ur Not Detected ng/mL Cutoff: 25 124 Ebljelhahfeee2nwnwwoddlnuhpbw Not Detected ng/mL 125 Oxycodone, Ur Present ng/mL Cutoff: 25 126 Noroxycodone, Ur Present ng/mL Cutoff: 25 127 Oxymorphone, Ur Present ng/mL Cutoff: 25 128 Isnusiksacd-4-zzwh-glucuronide Present ng/mL 129 Noroxymorphone, Ur Present ng/mL Cutoff: 25 130 Fentanyl, Ur Present ng/mL Cutoff: 2 131 Norfentanyl, Ur Present ng/mL Cutoff: 2 132 Meperidine, Ur Not Detected ng/mL Cutoff: 25 133 Normeperidine, Ur Not Detected ng/mL Cutoff: 25 134 Naloxone, Ur Not Detected ng/mL Cutoff: 25 135 Qayoscvz-1-sutv-glucuronide, U Not Detected ng/mL 136 Methadone, Ur Not Detected ng/mL Cutoff: 25 137 Eddp, Ur Not Detected ng/mL Cutoff: 25 138 Propoxyphene, Ur Not Detected ng/mL Cutoff: 25 139 Norpropoxyphene, Ur Not Detected ng/mL Cutoff: 25 140 Tramadol, Ur Not Detected ng/mL Cutoff: 25 141 O-desmethyltramadol, Ur Not Detected ng/mL Cutoff: 25 142 Tapentadol, Ur Not Detected ng/mL Cutoff: 25 143 N-desmethyltapentadol, Ur Not Detected ng/mL Cutoff: 50 144 Wihqqsowuj-dddz-jnlfzgickum, U Not Detected ng/mL 145 Buprenorphine, Ur Not Detected ng/mL Cutoff: 5 146 Norbuprenorphine, Ur Not Detected ng/mL Cutoff: 5 147 Norbuprenorphine glucuronide Not Detected ng/mL Cutoff: 20 148 Opioid Interpretation See Comment 149 Laboratory test 09/05/2017 [facility] Hemoglobin A1c 8.3 High 5-7 finding FSH And LH 06/23/2017 [facility] FSH (Follicle Stim 1.2 mIU/mL N 1-[address] Hormone) [place] [address] [phone] LH (Lutenizing Hormone) 1.7 mcIU/mL Low 2-12 Laboratory test 06/23/2017 [facility] Prolactin 14.1 N 1.0- 20.[address] ng/[place] [address] [phone] Laboratory test 06/07/2017 [facility] Testosterone 51.34 Low 240-[address] Total ng/[place] [address] [phone] FSH (Follicle Stim Hormone) 0.7 mIU/mL Low 1-20 LH (Lutenizing Hormone) 0.7 mcIU/mL Low 2-12 Laboratory test 04/13/2017 [facility] Hemoglobin A1c 7.4 High 5-7 finding Drug Abuse 20 04/13/2017 [facility] Urine Negative N 150, [address] Amphetamine ng/[place] [address] [phone] Urine Barbiturates Negative ng/mL N 152 Urine Benzodiazepines Negative ng/mL N 153 Urine Cocaine Negative ng/mL N 154 Urine Phencyclidine Negative ng/mL N Cutoff: 25 Urine Tetrahydrocannabinol Negative ng/mL N Cutoff: 50 155 Creatinine, Urine 75.5 mg/dL N Specific [place] 1.009 N pH 7.5 N Oxidants Negative N 156 Adulterants Comment Normal N Codeine, Ur Not Detected ng/mL N Cutoff: 25 157 Flluhfs-0-jkxw-glucuronide, Ur Not Detected ng/mL N 158 Morphine, Ur Not Detected ng/mL N Cutoff: 25 159 Wxmekqzp-0-fnqb-glucuronide, U Not Detected ng/mL N 160 6-monoacetylmorphine, Ur Not Detected ng/mL N Cutoff: 25 161 Hydrocodone, Ur Not Detected ng/mL N Cutoff: 25 162 Norhydrocodone, Ur Not Detected ng/mL N Cutoff: 25 163 Dihydrocodeine, Ur Not Detected ng/mL N Cutoff: 25 164 Hydromorphone, Ur Not Detected ng/mL N Cutoff: 25 165 Xpaojuivvlvpy7agixutbtgklfacw Not Detected ng/mL N 166 Oxycodone, Ur Present ng/mL N Cutoff: 25 167 Noroxycodone, Ur Present ng/mL N Cutoff: 25 168 Oxymorphone, Ur Not Detected ng/mL N Cutoff: 25 169 Raodeergtap-2-rtct-glucuronide Present ng/mL N 170 Noroxymorphone, Ur Present ng/mL N Cutoff: 25 171 Fentanyl, Ur Not Detected ng/mL N Cutoff: 2 172 Norfentanyl, Ur Not Detected ng/mL N Cutoff: 2 173 Meperidine, Ur Not Detected ng/mL N Cutoff: 25 174 Normeperidine, Ur Not Detected ng/mL N Cutoff: 25 175 Naloxone, Ur Not Detected ng/mL N Cutoff: 25 176 Hzucevaz-9-wjef-glucuronide, U Not Detected ng/mL N 177 Methadone, Ur Not Detected ng/mL N Cutoff: 25 178 Eddp, Ur Not Detected ng/mL N Cutoff: 25 179 Propoxyphene, Ur Not Detected ng/mL N Cutoff: 25 180 Norpropoxyphene, Ur Not Detected ng/mL N Cutoff: 25 181 Tramadol, Ur Not Detected ng/mL N Cutoff: 25 182 O-desmethyltramadol, Ur Not Detected ng/mL N Cutoff: 25 183 Tapentadol, Ur Not Detected ng/mL N Cutoff: 25 184 N-desmethyltapentadol, Ur Not Detected ng/mL N Cutoff: 50 185 Ugbbyocozu-nihb-vxsitfkmdmt, U Not Detected ng/mL N 186 Buprenorphine, Ur Not Detected ng/mL N Cutoff: 5 187 Norbuprenorphine, Ur Not Detected ng/mL N Cutoff: 5 188 Norbuprenorphine glucuronide Not Detected ng/mL N Cutoff: 20 189 Opioid Interpretation See Comment N 190 Comp Metabolic Panel 04/12/2017 [facility] Sodium 135 mmol/L N 133-[address] [place] [address] [phone] Potassium 4.0 mmol/L N 3.5-5.0 Chloride 100 [...] 109.2 N >60 Egfr 140.4 N >60 191 Lipid Profile 04/12/2017 [facility] Triglycerides 266 mg/dL N 192 (Trig/Chol/HDL) [address] [place] [address] [phone] Cholesterol 184 mg/dL N 193 HDL Cholesterol 28.1 mg/dL N 194 LDL Cholesterol 103 mg/dL N 195 Benzodiazepine 02/08/2017 [facility] Urine Negative N 196 Confirm Urine [address] Lorazepam ng/[place] [address] GC/MS [phone] Urine Nordiazepam GC/MS Negative ng/mL N 197 Urine Oxazepam GC/MS Negative ng/mL N 198 Urine Temazepam GC/MS Negative ng/mL N 199 Ur Oh Ethyl Flurazepam GC/MS Negative ng/mL N 200 Ur 7 [place] Clonazepam GC/MS Negative ng/mL N 201 Ur 7 NH Flunitrazepam GC/MS Negative ng/mL N Cutoff: 50 Ur Alpha Oh Alprazolam GC/MS 202 ng/mL N 202 Ur Alpha Oh Triazolam GC/MS Negative ng/mL N 203 Ur Benzodiazepine Interp Positive. N 204 Drug Abuse 02/08/2017 [facility] Urine Amphetamine Negative ng/ mL N 205 [address] [place] [address] [phone] Urine Barbiturates Negative ng/mL N 206 Urine Benzodiazepines Presumptive Posi <SEE NOTE> ng/mL N 207 Urine Cocaine Negative ng/mL N 208 Urine Phencyclidine Negative ng/mL N Cutoff: 25 Urine Tetrahydrocannabinol Negative ng/mL N Cutoff: 50 209 Creatinine 262.3 mg/dL N Specific [place] 1.022 N pH 5.3 N Oxidants Negative N 210 Adulterants Comment Normal N Codeine, Ur Not Detected ng/mL N Cutoff: 25 211 Gabyido-6-jptl-glucuronide, Ur Not Detected ng/mL N 212 Morphine, Ur Not Detected ng/mL N Cutoff: 25 213 Mgjtzqtk-8-octy-glucuronide, U Not Detected ng/mL N 214 6-monoacetylmorphine, Ur Not Detected ng/mL N Cutoff: 25 215 Hydrocodone, Ur Not Detected ng/mL N Cutoff: 25 216 Norhydrocodone, Ur Not Detected ng/mL N Cutoff: 25 217 Dihydrocodeine, Ur Not Detected ng/mL N Cutoff: 25 218 Hydromorphone, Ur Not Detected ng/mL N Cutoff: 25 219 Dlohqkkjwofpr3plyxfcpgyqowzzi Not Detected ng/mL N 220 Oxycodone, Ur Present ng/mL N Cutoff: 25 221 Noroxycodone, Ur Present ng/mL N Cutoff: 25 222 Oxymorphone, Ur Present ng/mL N Cutoff: 25 223 Fenjkofymmk-9-gzwv-glucuronide Present ng/mL N 224 Noroxymorphone, Ur Present ng/mL N Cutoff: 25 225 Fentanyl, Ur Not Detected ng/mL N Cutoff: 2 226 Norfentanyl, Ur Not Detected ng/mL N Cutoff: 2 227 Meperidine, Ur Not Detected ng/mL N Cutoff: 25 228 Normeperidine, Ur Not Detected ng/mL N Cutoff: 25 229 Naloxone, Ur Not Detected ng/mL N Cutoff: 25 230 Rhvnfnsq-8-hqlx-glucuronide, U Not Detected ng/mL N 231 Methadone, Ur Not Detected ng/mL N Cutoff: 25 232 Eddp, Ur Not Detected ng/mL N Cutoff: 25 233 Propoxyphene, Ur Not Detected ng/mL N Cutoff: 25 234 Norpropoxyphene, Ur Not Detected ng/mL N Cutoff: 25 235 Tramadol, Ur Not Detected ng/mL N Cutoff: 25 236 O-desmethyltramadol, Ur Not Detected ng/mL N Cutoff: 25 237 Tapentadol, Ur Not Detected ng/mL N Cutoff: 25 238 N-desmethyltapentadol, Ur Not Detected ng/mL N Cutoff: 50 239 Vekjlcbuof-iycf-tnwenonswox, U Not Detected ng/mL N 240 Buprenorphine, Ur Not Detected ng/mL N Cutoff: 5 241 Norbuprenorphine, Ur Not Detected ng/mL N Cutoff: 5 242 Norbuprenorphine glucuronide Not Detected ng/mL N Cutoff: 20 243 Opioid Interpretation See Comment N 244 Drug Abuse 01/10/2017 [facility] Urine Amphetamine Negative ng/ mL N 245 [address] [place] [address] [phone] Urine Barbiturates Negative ng/mL N 246 Urine Benzodiazepines Negative ng/mL N 247 Urine Cocaine Negative ng/mL N 248 Urine Phencyclidine Negative ng/mL N Cutoff: 25 Urine Tetrahydrocannabinol Negative ng/mL N Cutoff: 50 249 Creatinine 322.1 mg/dL N Specific [place] 1.023 N pH 5.4 N Oxidants Negative N 250 Adulterants Comment Normal N Codeine, Ur Not Detected ng/mL N Cutoff: 25 251 Ykievhz-5-qeix-glucuronide, Ur Not Detected ng/mL N 252 Morphine, Ur Not Detected ng/mL N Cutoff: 25 253 Daspvtgc-7-bldp-glucuronide, U Not Detected ng/mL N 254 6-monoacetylmorphine, Ur Not Detected ng/mL N Cutoff: 25 255 Hydrocodone, Ur Not Detected ng/mL N Cutoff: 25 256 Norhydrocodone, Ur Not Detected ng/mL N Cutoff: 25 257 Dihydrocodeine, Ur Not Detected ng/mL N Cutoff: 25 258 Hydromorphone, Ur Not Detected ng/mL N Cutoff: 25 259 Nahimuterfbat0jdayccrffriftmf Not Detected ng/mL N 260 Oxycodone, Ur Not Detected ng/mL N Cutoff: 25 261 Noroxycodone, Ur Not Detected ng/mL N Cutoff: 25 262 Oxymorphone, Ur Not Detected ng/mL N Cutoff: 25 263 Ogxqumznsyz-8-gmpl-glucuronide Not Detected ng/mL N 264 Noroxymorphone, Ur Not Detected ng/mL N Cutoff: 25 265 Fentanyl, Ur Not Detected ng/mL N Cutoff: 2 266 Norfentanyl, Ur Not Detected ng/mL N Cutoff: 2 267 Meperidine, Ur Not Detected ng/mL N Cutoff: 25 268 Normeperidine, Ur Not Detected ng/mL N Cutoff: 25 269 Naloxone, Ur Not Detected ng/mL N Cutoff: 25 270 Nszexhcn-1-trll-glucuronide, U Not Detected ng/mL N 271 Methadone, Ur Not Detected ng/mL N Cutoff: 25 272 Eddp, Ur Not Detected ng/mL N Cutoff: 25 273 Propoxyphene, Ur Not Detected ng/mL N Cutoff: 25 274 Norpropoxyphene, Ur Not Detected ng/mL N Cutoff: 25 275 Tramadol, Ur Not Detected ng/mL N Cutoff: 25 276 O-desmethyltramadol, Ur Not Detected ng/mL N Cutoff: 25 277 Tapentadol, Ur Not Detected ng/mL N Cutoff: 25 278 N-desmethyltapentadol, Ur Not Detected ng/mL N Cutoff: 50 279 Gncgcdzocr-wprk-ufsxxciitug, U Not Detected ng/mL N 280 Buprenorphine, Ur Not Detected ng/mL N Cutoff: 5 281 Norbuprenorphine, Ur Not Detected ng/mL N Cutoff: 5 282 Norbuprenorphine glucuronide Not Detected ng/mL N Cutoff: 20 283 Opioid Interpretation See Comment N 284 Laboratory test 01/10/2017 [facility] Hemoglobin A1c 8.9 High 5-7 finding Drug Abuse 20 10/24/2016 [facility] Urine Amphetamine Negative ng/mL N [address] [place] [address] [phone] Urine Barbiturates Negative ng/mL N 286 Urine Benzodiazepines Negative ng/mL N 287 Urine Cocaine Negative ng/mL N 288 Urine Phencyclidine Negative ng/mL N Cutoff: 25 Urine Tetrahydrocannabinol Negative ng/mL N Cutoff: 50 289 Creatinine 128.8 mg/dL N Specific [place] 1.009 N pH 6.1 N Oxidants Negative N 290 Adulterants Comment Normal N Codeine, Ur Not Detected ng/mL N Cutoff: 25 291 Cdtwhgb-2-ynsc-glucuronide, Ur Not Detected ng/mL N 292 Morphine, Ur Not Detected ng/mL N Cutoff: 25 293 Skhvcdcj-3-ihse-glucuronide, U Not Detected ng/mL N 294 6-monoacetylmorphine, Ur Not Detected ng/mL N Cutoff: 25 295 Hydrocodone, Ur Not Detected ng/mL N Cutoff: 25 296 Norhydrocodone, Ur Not Detected ng/mL N Cutoff: 25 297 Dihydrocodeine, Ur Not Detected ng/mL N Cutoff: 25 298 Hydromorphone, Ur Not Detected ng/mL N Cutoff: 25 299 Pizsitgygfsyk6mgnjpxswqajsbtg Not Detected ng/mL N 300 Oxycodone, Ur Not Detected ng/mL N Cutoff: 25 301 Noroxycodone, Ur Not Detected ng/mL N Cutoff: 25 302 Oxymorphone, Ur Not Detected ng/mL N Cutoff: 25 303 Apyrxjuovto-1-tnup-glucuronide Present ng/mL N 304 Noroxymorphone, Ur Not Detected ng/mL N Cutoff: 25 305 Fentanyl, Ur Not Detected ng/mL N Cutoff: 2 306 Norfentanyl, Ur Not Detected ng/mL N Cutoff: 2 307 Meperidine, Ur Not Detected ng/mL N Cutoff: 25 308 Normeperidine, Ur Not Detected ng/mL N Cutoff: 25 309 Naloxone, Ur Not Detected ng/mL N Cutoff: 25 310 Sxiodyhn-4-ghzm-glucuronide, U Not Detected ng/mL N 311 Methadone, Ur Not Detected ng/mL N Cutoff: 25 312 Eddp, Ur Not Detected ng/mL N Cutoff: 25 313 Propoxyphene, Ur Not Detected ng/mL N Cutoff: 25 314 Norpropoxyphene, Ur Not Detected ng/mL N Cutoff: 25 315 Tramadol, Ur Not Detected ng/mL N Cutoff: 25 316 O-desmethyltramadol, Ur Not Detected ng/mL N Cutoff: 25 317 Tapentadol, Ur Not Detected ng/mL N Cutoff: 25 318 N-desmethyltapentadol, Ur Not Detected ng/mL N Cutoff: 50 319 Sxgwjysykn-exos-uxbmzztqjfx, U Not Detected ng/mL N 320 Buprenorphine, Ur Not Detected ng/mL N Cutoff: 5 321 Norbuprenorphine, Ur Not Detected ng/mL N Cutoff: 5 322 Norbuprenorphine glucuronide Not Detected ng/mL N Cutoff: 20 323 Opioid Interpretation See Comment N 324 Laboratory test 10/13/2016 [facility] Hemoglobin A1c 9.4 High 5-7 finding Lipid Profile 10/13/2016 [facility] Triglycerides 168 mg/dL N 325 (Trig/Chol/HDL) [address] [place] [address] [phone] Cholesterol 175 mg/dL N 326 HDL Cholesterol 24.6 mg/dL N 327 LDL Cholesterol 117 mg/dL N 328 Testosterone 10/13/2016 [facility] Free 1.40 Abnormal 4.46- 17.1 329 Free & Total [address] Testosterone ng/[place] [address] ng/dl [phone] Testosterone 35 ng/dL Abnormal 240-950 330 Testosterone 08/22/2016 [facility] Free 1.48 Abnormal 4.46- 17.1 331 Free & Total 101 Testosterone ng/[place] [address] ng/dl [phone] Testosterone 40 ng/dL Abnormal 240-950 332 FSH And LH 08/22/2016 [facility] FSH (Follicle Stim 2.9 mIU/mL N 1-[address] Hormone) [place] [address] [phone] LH (Lutenizing Hormone) 2.2 ?IU/mL N 2-12 Laboratory test 08/22/2016 [facility] PSA Screening 0.226 N 0- 4.[address] ng/[place] [address] [phone] Laboratory test 08/22/2016 [facility] Prolactin 6.3 ng/mL N 1.0-20.[address] [place] [address] [phone] Laboratory test 08/10/2016 [facility] TSH (Thyroid 2.05 N 0.34 -5.60 [address] Stim Horm) mcIU/mL [place], [place] [address] [phone] Cortisol 21.46 ?g/dL N 335 Vitamin B12 And 08/10/2016 [facility] Vitamin B12 704 pg/mL N 180-914 [address] [place] [address] [phone] Folic Acid (Folate) > 20.00 ng/mL N >3.99 337 Comp Metabolic Panel 08/10/2016 [facility] Sodium 136 mmol/L N 133-[address] [place] [address] [phone] Potassium 4.2 mmol/L N 3.5-5.0 Chloride 99 [...] 102.1 N >60 Egfr 131.3 N >60 338 Urine Microalbumin 08/10/2016 [facility] Ur Microalbumin 78.7 mg /L N Random [address] (mg/L) [place] [address] [phone] Urine Creatinine 473.17 mg/dL N Urine Microalbumin/Creatinine 16.6 ug/mg N <31 Lipid Profile 08/10/2016 [facility] Triglycerides 221 mg/dL N 339 (Trig/Chol/HDL) [address] [place] [address] [phone] Cholesterol 262 mg/dL N 340 HDL Cholesterol 34.2 mg/dL N 341 LDL Cholesterol 184 mg/dL N 342 Laboratory test finding 07/28/2016 [facility] House Hemoglobin A1c 8.3 High 5 -7 1 Mental Tester: [id number] 2 Because ethnic data is not always [...] <50 ug/mL Toxic concentration: >120 ug/mL 4 Presumptive Positive Presumptive positive results are unconfirmed. 5 The urine specimen was tested at the listed cutoffs: Drug class test level (ng/mL) Amphetamines 500 Barbiturates 200 Benzodiazepine metabolites 200 Cocaine metabolites 150 Cannabinoids 50 Opiates 300 Pcp 25 Specimen was received without chain of custody. Results should be used for medical purposes only. 6 SEE RESULT BELOW Name: ANNETTE WHALEY : [address]: Jesus Rodríguez MD Acct: [id number] Unit: [id number] AGE: 43 Location: [facility] Re01/18/19 Dis: 01/18/19 SEX: M Status: DIS IN SPEC: [id number] SERINA: 01/17/[address] [facility] [address]: Gurjit Santacruz MD REQ: [id number] RECD: 01/17/19 STATUS: COMP GAGE DR: Marika Schroeder MD _ SOURCE: URINE SPDESC: ORDERED: Urine Culture Procedure Result Reported Site Urine Culture Final 01/19/19- 1202 ML No growth of clinically significant organisms * ML - Main Lab . END OF REPORT DEPARTMENT OF PATHOLOGY, [address] [place] [address] Ivan Castrejon M.D. Director [facility] # [id number] 7 Mental Tester: [id number] 8 Therapeutic concentration: <50 ug/mL Toxic concentration: >120 ug/mL 9 Because ethnic data is not always readily [...] 15-29 5 Kidney failure <15 (or dialysis) 10 Because ethnic data is not always readily [...] 15-29 5 Kidney failure <15 (or dialysis) 11 Therapeutic concentration: <50 ug/mL Toxic concentration: >120 ug/mL 12 Presumptive Positive Presumptive positive results are unconfirmed. 13 The urine specimen was tested at the listed cutoffs: Drug class test level (ng/mL) Amphetamines 500 Barbiturates 200 Benzodiazepine metabolites 200 Cocaine metabolites 150 Cannabinoids 50 Opiates 300 Pcp 25 Specimen was received without chain of custody. Results should be used for medical purposes only. 14 Therapeutic concentration: <50 ug/mL Toxic concentration: >120 ug/mL 15 Because ethnic data is not always readily [...] 15-29 5 Kidney failure <15 (or dialysis) 16 The urine specimen was tested at the listed cutoffs: Drug class test level (ng/mL) Amphetamines 500 Barbiturates 200 Benzodiazepine metabolites 200 Cocaine metabolites 150 Cannabinoids 50 Opiates 300 Pcp 25 Specimen was received without chain of custody. Results should be used for medical purposes only. 17 [facility] Severe Sepsis and Septic Shock Management Bundle Measure requires all lactic acids initially measuring >2.0 mmol/L be repeated. 18 Because ethnic data is not always readily [...] 15-29 5 Kidney failure <15 (or dialysis) 19 SEE RESULT BELOW Name: ANNETTE WHALEY : [address]: Rikki Rivera MD Acct: [id number] Unit: [id number] AGE: 43 Location: ED Re11/04/18 SEX: M Status: DEP ER SPEC: [id number] SERINA: 11/04/[address]: Alex RENDON REQ: [id number] RECD: 11/04/18 STATUS: COMP OT DR: [facility] Aman Dunham MD _ SOURCE: URINE SPDESC: ORDERED: Urine Culture Procedure Result Reported Site Urine Culture Final 11/06/18- 0942 ML Organism 1 AEROCOCCUS URINAE Carman Count 75-100,000 (Many) CFU/ML Aerococcus isolates are too fastidious for routine susceptibility studies. Aerococcus are usually susceptible to penicillin, amoxicillin, piperacillin, cefipime, rifampin and vancomycin. Moderate to good activity occurs with the quinolones, tetracyclines and erythromycin. ([employer] [place] and Textbook of Diagnostic Microbiology 6th Ed. 2006, p. 705-6.) * ML - Main Lab . END OF REPORT DEPARTMENT OF PATHOLOGY, [address] [place] [address] Ivan Castrejon M.D. Director [facility] # [id number] 20 Serum levels of PSA measured using the [employer] [place] DXI Hybritech immunoassay should not be interpreted [...] methods or kits cannot be used interchangeably. 21 [id number] 22 REFERENCE VALUE Cutoff: 500 23 REFERENCE VALUE Cutoff: 200 24 REFERENCE VALUE Cutoff: 100 25 REFERENCE VALUE Cutoff: 150 26 ADDITIONAL INFORMATION This report is intended for use in clinical monitoring or management of patients. It is not intended for use in employment-related testing. 27 REFERENCE VALUE Cutoff: 200 mg/L 28 Tylenol 3 29 Metabolite of codeine REFERENCE VALUE Cutoff: 100 30 Nadine Jon, Contin; Also a minor metabolite (10%) of codeine and can be seen in low concentrations (<2,000 ng/mL) with poppy seed ingestion. 31 Metabolite of morphine REFERENCE VALUE Cutoff: 100 32 Metabolite of heroin 33 Lortab, [place], Vicodin; Also a very minor metabolite of codeine and impurity (<1%) of oxycodone. 34 Metabolite of hydrocodone 35 Metabolite of hydrocodone 36 Dilaudid, Exalgo; Also a metabolite of hydrocodone and a minor (<5%) metabolite of morphine. 37 Metabolite of hydromorphone REFERENCE VALUE Cutoff: 100 38 Endocet, Percocet, Oxycontin 39 Metabolite of oxycodone 40 Numorphan, Opana; Also a metabolite of oxycodone. 41 Metabolite of oxymorphone REFERENCE VALUE Cutoff: 100 42 Metabolite of oxymorphone 43 Actiq, Duragesic, Fentora 44 Metabolite of fentanyl 45 Demerol 46 Metabolite of meperidine 47 Narcan 48 Metabolite of naloxone REFERENCE VALUE Cutoff: 100 49 Dolophine 50 Metabolite of methadone 51 Darvon, Darvocet 52 Metabolite of propoxyphene 53 Tradol, Ultram, Ultracet 54 Metabolite of tramadol 55 Nucynta 56 Metabolite of tapentadol 57 Metabolite of tapentadol REFERENCE VALUE Cutoff: 100 58 Buprenex, Suboxone 59 Metabolite of buprenorphine 60 Metabolite of buprenorphine 61 Test detected the presence of oxycodone and several metabolites (noroxycodone, oxymorphone, noroxymorphone, and eubdtcihdgj-6-vmdd-glucuronide). Suspect use of oxycodone or possibly oxycodone and oxymorphone within the past three days. ADDITIONAL INFORMATION This test was developed and its performance characteristics determined by [facility] in a manner consistent with CLIA requirements. This test has not been cleared or approved by the U.S. Food and Drug Administration. Test Performed by: [facility] [address] [place] [address] 62 Therapeutic target for the treatment of diabetes mellitus patients is <7% HBA1C, and in selective patients <6.0%. Please refer to [place] [employer] diabetic care guidelines for further information. 63 Serum levels of PSA measured using the [employer] [place] DXI Hybritech immunoassay should not be interpreted as absolute evidence of the presence or absence of disease. The PSA value should be used in conjunction with other pertinent clinical diagnostic procedures. The values obtained with different assay methods or kits cannot be used interchangeably. 64 Because ethnic data is not always readily [...] 15-29 5 Kidney failure <15 (or dialysis) 65 Desirable: <150 Borderline High: 150-199 High: 200-499 Very High: >500 66 Desirable: <200 Borderline High: 200-239 High: >239 67 Low: <40 Desirable: 40-60 High: >60 68 Desirable: <100 Near Optimal: 100-129 Borderline High: 130-159 High: 160-189 Very High: >189 69 REFERENCE VALUE Cutoff: 500 70 REFERENCE VALUE Cutoff: 200 71 REFERENCE VALUE Cutoff: 100 72 REFERENCE VALUE Cutoff: 150 73 ADDITIONAL INFORMATION This report is intended for use in clinical monitoring or management of patients. It is not intended for use in employment-related testing. 74 REFERENCE VALUE Cutoff: 200 mg/L 75 Tylenol 3 76 Metabolite of codeine REFERENCE VALUE Cutoff: 100 77 Nadine Jon, Contin; Also a minor metabolite (10%) of codeine and can be seen in low concentrations (<2,000 ng/mL) with poppy seed ingestion. 78 Metabolite of morphine REFERENCE VALUE Cutoff: 100 79 Metabolite of heroin 80 Lortab, [place], Vicodin; Also a very minor metabolite of codeine and impurity (<1%) of oxycodone. 81 Metabolite of hydrocodone 82 Metabolite of hydrocodone 83 Dilaudid, Exalgo; Also a metabolite of hydrocodone and a minor (<5%) metabolite of morphine. 84 Metabolite of hydromorphone REFERENCE VALUE Cutoff: 100 85 Endocet, Percocet, Oxycontin 86 Metabolite of oxycodone 87 Numorphan, Opana; Also a metabolite of oxycodone. 88 Metabolite of oxymorphone REFERENCE VALUE Cutoff: 100 89 Metabolite of oxymorphone 90 Actiq, Duragesic, Fentora 91 Metabolite of fentanyl 92 Demerol 93 Metabolite of meperidine 94 Narcan 95 Metabolite of naloxone REFERENCE VALUE Cutoff: 100 96 Dolophine 97 Metabolite of methadone 98 Darvon, Darvocet 99 Metabolite of propoxyphene 100 Tradol, Ultram, Ultracet 101 Metabolite of tramadol 102 Nucynta 103 Metabolite of tapentadol 104 Metabolite of tapentadol REFERENCE VALUE Cutoff: 100 105 Buprenex, Suboxone 106 Metabolite of buprenorphine 107 Metabolite of buprenorphine 108 Test detected the presence of oxycodone and several metabolites (noroxycodone, noroxymorphone, and swnywehgmjy-9-jxyh-glucuronide). Suspect use of oxycodone or possibly oxycodone and oxymorphone within the past three days. ADDITIONAL INFORMATION This test was developed and its performance characteristics determined by [facility] in a manner consistent with CLIA requirements. This test has not been cleared or approved by the U.S. Food and Drug Administration. Test Performed by: [facility] [address] [place] [address] 914 Serum levels of PSA measured using the [...] methods or kits cannot be used interchangeably. 110 REFERENCE VALUE Cutoff: 500 111 REFERENCE VALUE Cutoff: 200 112 REFERENCE VALUE Cutoff: 100 113 REFERENCE VALUE Cutoff: 150 114 ADDITIONAL INFORMATION This report is intended for use in clinical monitoring or management of patients. It is not intended for use in employment-related testing. 115 REFERENCE VALUE Cutoff: 200 mg/L 116 Tylenol 3 117 Metabolite of codeine REFERENCE VALUE Cutoff: 100 118 Nadine Jon, MS Contin; Also a minor metabolite (10%) of codeine and can be seen in low concentrations (<2,000 ng/mL) with poppy seed ingestion. 119 Metabolite of morphine REFERENCE VALUE Cutoff: 100 120 Metabolite of heroin 121 Lortab, [place], Vicodin; Also a very minor metabolite of codeine and impurity (<1%) of oxycodone. 122 Metabolite of hydrocodone 123 Metabolite of hydrocodone 124 Dilaudid, Exalgo; Also a metabolite of hydrocodone and a minor (<5%) metabolite of morphine. 125 Metabolite of hydromorphone REFERENCE VALUE Cutoff: 100 126 Endocet, Percocet, Oxycontin 127 Metabolite of oxycodone 128 Numorphan, Opana; Also a metabolite of oxycodone. 129 Metabolite of oxymorphone REFERENCE VALUE Cutoff: 100 130 Metabolite of oxymorphone 131 Actiq, Duragesic, Fentora 132 Metabolite of fentanyl 133 Demerol 134 Metabolite of meperidine 135 Narcan 136 Metabolite of naloxone REFERENCE VALUE Cutoff: 100 137 Dolophine 138 Metabolite of methadone 139 Darvon, Darvocet 140 Metabolite of propoxyphene 141 Tradol, Ultram, Ultracet 142 Metabolite of tramadol 143 Nucynta 144 Metabolite of tapentadol 145 Metabolite of tapentadol REFERENCE VALUE Cutoff: 100 146 Buprenex, Suboxone 147 Metabolite of buprenorphine 148 Metabolite of buprenorphine 149 Test detected the presence of hydrocodone only without any metabolites. Suspect possible adulteration of sample or very recent exposure to hydrocodone. Trace amounts can also be found as an impurity in oxycodone or hydromorphone. Test detected the presence of oxycodone and several metabolites (noroxycodone, oxymorphone, noroxymorphone, and xwooxzhljha-4-fbqf-glucuronide). Suspect use of oxycodone or possibly oxycodone and oxymorphone within the past three days. Test detected the presence of fentanyl and its metabolite (norfentanyl). Suspect use of fentanyl within the past three days. ADDITIONAL INFORMATION This test was developed and its performance characteristics determined by [facility] in a manner consistent with CLIA requirements. This test has not been cleared or approved by the U.S. Food and Drug Administration. Test Performed by: [facility] [address] [place] [address] [id number] 151 REFERENCE VALUE Cutoff: 500 152 REFERENCE VALUE Cutoff: 200 153 REFERENCE VALUE Cutoff: 100 154 REFERENCE VALUE Cutoff: 150 155 ADDITIONAL INFORMATION This report is intended for use in clinical monitoring or management of patients. It is not intended for use in employment-related testing. 156 REFERENCE VALUE Cutoff: 200 mg/L 157 Tylenol 3 158 Metabolite of codeine REFERENCE VALUE Cutoff: 100 159 Nadine Jon MS Contin; Also a minor metabolite (10%) of codeine and can be seen in low concentrations (<2,000 ng/mL) with poppy seed ingestion. 160 Metabolite of morphine REFERENCE VALUE Cutoff: 100 161 Metabolite of heroin 162 Lortab, [place], Vicodin; Also a very minor metabolite of codeine and impurity (<1%) of oxycodone. 163 Metabolite of hydrocodone 164 Metabolite of hydrocodone 165 Dilaudid, Exalgo; Also a metabolite of hydrocodone and a minor (<5%) metabolite of morphine. 166 Metabolite of hydromorphone REFERENCE VALUE Cutoff: 100 167 Endocet, Percocet, Oxycontin 168 Metabolite of oxycodone 169 Numorphan, Opana; Also a metabolite of oxycodone. 170 Metabolite of oxymorphone REFERENCE VALUE Cutoff: 100 171 Metabolite of oxymorphone 172 Actiq, Duragesic, Fentora 173 Metabolite of fentanyl 174 Demerol 175 Metabolite of meperidine 176 Narcan 177 Metabolite of naloxone REFERENCE VALUE Cutoff: 100 178 Dolophine 179 Metabolite of methadone 180 Darvon, Darvocet 181 Metabolite of propoxyphene 182 Tradol, Ultram, Ultracet 183 Metabolite of tramadol 184 Nucynta 185 Metabolite of tapentadol 186 Metabolite of tapentadol REFERENCE VALUE Cutoff: 100 187 Buprenex, Suboxone 188 Metabolite of buprenorphine 189 Metabolite of buprenorphine 190 Test detected the presence of oxycodone and several metabolites (noroxycodone, noroxymorphone, and rfpevbcppnu-0-utic-glucuronide). Suspect use of oxycodone or possibly oxycodone and oxymorphone within the past three days. ADDITIONAL INFORMATION This test was developed and its performance characteristics determined by [facility] in a manner consistent with CLIA requirements. This test has not been cleared or approved by the U.S. Food and Drug Administration. Test Performed by: [facility] - [address] [address] 191 Because ethnic data is not always readily [...] 15-29 5 Kidney failure <15 (or dialysis) 192 Desirable <150 Borderline high 150-199 High 200-499 Very High >500 193 Desirable <200 Borderline high 200-239 High >239 194 Low <40 Desirable: 40-60 High: >60 195 Desirable: <100 mg/dL Near Optimal: 100-129 mg/dL Borderline High: 130-159 mg/dL High: 160-189 mg/dL Very High: >189 mg/dL 196 REFERENCE VALUE Cutoff: 100 197 REFERENCE VALUE Cutoff: 100 198 REFERENCE VALUE Cutoff: 100 199 REFERENCE VALUE Cutoff: 100 200 REFERENCE VALUE Cutoff: 100 201 REFERENCE VALUE Cutoff: 100 202 REFERENCE VALUE Cutoff: 100 203 REFERENCE VALUE Cutoff: 100 204 ADDITIONAL INFORMATION This report is intended for use in clinical monitoring and management of patients. It is not intended for use in employment-related testing. This test was developed and its performance characteristics determined by [facility] in a manner consistent with CLIA requirements. This test has not been cleared or approved by the U.S. Food and Drug Administration. Test Performed by: [facility] - [address] [place] [id number] 205 REFERENCE VALUE Cutoff: 500 206 REFERENCE VALUE Cutoff: 200 207 Presumptive Positive Drug confirmation to follow. Presumptive Positive means that the screening method is positive, but the test needs to be run by a confirmatory method before being finalized. REFERENCE VALUE Cutoff: 100 208 REFERENCE VALUE Cutoff: 150 209 ADDITIONAL INFORMATION This report is intended for use in clinical monitoring or management of patients. It is not intended for use in employment-related testing. 210 REFERENCE VALUE Cutoff: 200 mg/L 211 Tylenol 3 212 Metabolite of codeine REFERENCE VALUE Cutoff: 100 213 Nadine Jon MS Contin; Also a minor metabolite (10%) of codeine and can be seen in low concentrations (<2,000 ng/mL) with poppy seed ingestion. 214 Metabolite of morphine REFERENCE VALUE Cutoff: 100 215 Metabolite of heroin 216 Lortab, [place], Vicodin; Also a very minor metabolite of codeine and impurity (<1%) of oxycodone. 217 Metabolite of hydrocodone 218 Metabolite of hydrocodone 219 Dilaudid, Exalgo; Also a metabolite of hydrocodone and a minor (<5%) metabolite of morphine. 220 Metabolite of hydromorphone REFERENCE VALUE Cutoff: 100 221 Endocet, Percocet, Oxycontin 222 Metabolite of oxycodone 223 Numorphan, Opana; Also a metabolite of oxycodone. 224 Metabolite of oxymorphone REFERENCE VALUE Cutoff: 100 225 Metabolite of oxymorphone 226 Actiq, Duragesic, Fentora 227 Metabolite of fentanyl 228 Demerol 229 Metabolite of meperidine 230 Narcan 231 Metabolite of naloxone REFERENCE VALUE Cutoff: 100 232 Dolophine 233 Metabolite of methadone 234 Darvon, Darvocet 235 Metabolite of propoxyphene 236 Tradol, Ultram, Ultracet 237 Metabolite of tramadol 238 Nucynta 239 Metabolite of tapentadol 240 Metabolite of tapentadol REFERENCE VALUE Cutoff: 100 241 Buprenex, Suboxone 242 Metabolite of buprenorphine 243 Metabolite of buprenorphine 244 Test detected the presence of oxycodone and several metabolites (noroxycodone, oxymorphone, noroxymorphone, and xgmnnwacimy-3-pllm-glucuronide). Suspect use of oxycodone or possibly oxycodone and oxymorphone within the past three days. ADDITIONAL INFORMATION This test was developed and its performance characteristics determined by [facility] in a manner consistent with CLIA requirements. This test has not been cleared or approved by the U.S. Food and Drug Administration. Test Performed by: [facility] - [address] [place] [id number] 245 REFERENCE VALUE Cutoff: 500 246 REFERENCE VALUE Cutoff: 200 247 REFERENCE VALUE Cutoff: 100 248 REFERENCE VALUE Cutoff: 150 249 ADDITIONAL INFORMATION This report is intended for use in clinical monitoring or management of patients. It is not intended for use in employment-related testing. 250 REFERENCE VALUE Cutoff: 200 mg/L 251 Tylenol 3 252 Metabolite of codeine REFERENCE VALUE Cutoff: 100 253 Nadine Jon, MS Contin; Also a minor metabolite (10%) of codeine and can be seen in low concentrations (<2,000 ng/mL) with poppy seed ingestion. 254 Metabolite of morphine REFERENCE VALUE Cutoff: 100 255 Metabolite of heroin 256 Lortab, [place], Vicodin; Also a very minor metabolite of codeine and impurity (<1%) of oxycodone. 257 Metabolite of hydrocodone 258 Metabolite of hydrocodone 259 Dilaudid, Exalgo; Also a metabolite of hydrocodone and a minor (<5%) metabolite of morphine. 260 Metabolite of hydromorphone REFERENCE VALUE Cutoff: 100 261 Endocet, Percocet, Oxycontin 262 Metabolite of oxycodone 263 Numorphan, Opana; Also a metabolite of oxycodone. 264 Metabolite of oxymorphone REFERENCE VALUE Cutoff: 100 265 Metabolite of oxymorphone 266 Actiq, Duragesic, Fentora 267 Metabolite of fentanyl 268 Demerol 269 Metabolite of meperidine 270 Narcan 271 Metabolite of naloxone REFERENCE VALUE Cutoff: 100 272 Dolophine 273 Metabolite of methadone 274 Darvon, Darvocet 275 Metabolite of propoxyphene 276 Tradol, Ultram, Ultracet 277 Metabolite of tramadol 278 Nucynta 279 Metabolite of tapentadol 280 Metabolite of tapentadol REFERENCE VALUE Cutoff: 100 281 Buprenex, Suboxone 282 Metabolite of buprenorphine 283 Metabolite of buprenorphine 284 No opioids were detected. The absence of expected drug(s) and/or drug metabolite(s) may indicate non-compliance, altered pharmacokinetics, inappropriate timing of specimen collection relative to drug administration, diluted/adulterated urine, or limitations of testing. ADDITIONAL INFORMATION This test was developed and its performance characteristics determined by [facility] in a manner consistent with CLIA requirements. This test has not been cleared or approved by the U.S. Food and Drug Administration. Test Performed by: [facility] [address] [place] [address] 285 REFERENCE VALUE Cutoff: 500 286 REFERENCE VALUE Cutoff: 200 287 REFERENCE VALUE Cutoff: 100 288 REFERENCE VALUE Cutoff: 150 289 ADDITIONAL INFORMATION This report is intended for use in clinical monitoring or management of patients. It is not intended for use in employment-related testing. 290 REFERENCE VALUE Cutoff: 200 mg/L 291 Tylenol 3 292 Metabolite of codeine REFERENCE VALUE Cutoff: 100 293 Nadine Jon MS Contin; Also a minor metabolite (10%) of codeine and can be seen in low concentrations (<2,000 ng/mL) with poppy seed ingestion. 294 Metabolite of morphine REFERENCE VALUE Cutoff: 100 295 Metabolite of heroin 296 Lortab, [place], Vicodin; Also a very minor metabolite of codeine and impurity (<1%) of oxycodone. 297 Metabolite of hydrocodone 298 Metabolite of hydrocodone 299 Dilaudid, Exalgo; Also a metabolite of hydrocodone and a minor (<5%) metabolite of morphine. 300 Metabolite of hydromorphone REFERENCE VALUE Cutoff: 100 301 Endocet, Percocet, Oxycontin 302 Metabolite of oxycodone 303 Numorphan, Opana; Also a metabolite of oxycodone. 304 Metabolite of oxymorphone REFERENCE VALUE Cutoff: 100 305 Metabolite of oxymorphone 306 Actiq, Duragesic, Fentora 307 Metabolite of fentanyl 308 Demerol 309 Metabolite of meperidine 310 Narcan 311 Metabolite of naloxone REFERENCE VALUE Cutoff: 100 312 Dolophine 313 Metabolite of methadone 314 Darvon, Darvocet 315 Metabolite of propoxyphene 316 Tradol, Ultram, Ultracet 317 Metabolite of tramadol 318 Nucynta 319 Metabolite of tapentadol 320 Metabolite of tapentadol REFERENCE VALUE Cutoff: 100 321 Buprenex, Suboxone 322 Metabolite of buprenorphine 323 Metabolite of buprenorphine 324 Test detected the presence of vuvhskmevci-0-dhao-glucuronide (metabolite of oxymorphone). Suspect use of oxymorphone within the past three days. ADDITIONAL INFORMATION This test was developed and its performance characteristics determined by [facility] in a manner consistent with CLIA requirements. This test has not been cleared or approved by the U.S. Food and Drug Administration. Test Performed by: [facility] - [address] [address] [employer]: Kyle Hameed II, M.D., Ph.D. 325 Desirable <150 Borderline high 150-199 High 200-499 Very High >500 326 Desirable <200 Borderline high 200-239 High >239 327 Low <40 Desirable: 40-60 High: >60 328 Desirable: <100 mg/dL Near Optimal: 100-129 mg/dL Borderline High: 130-159 mg/dL High: 160-189 mg/dL Very High: >189 mg/dL 329 ADDITIONAL INFORMATION Testing performed by [facility]. This test was developed and its performance characteristics determined by [facility] in a manner consistent with CLIA requirements. This test has not been cleared or approved by the U.S. Food and Drug Administration. 330 ADDITIONAL INFORMATION Testing performed by Liquid Chromatography-Tandem Mass Spectrometry (LC-MS/MS). This test was developed and its performance characteristics determined by [facility] in a manner consistent with CLIA requirements. This test has not been cleared or approved by the U.S. Food and Drug Administration. Test Performed by: [place] [address] [employer]: Kyle Hameed II, M.D., Ph.D. 331 ADDITIONAL INFORMATION Testing performed by [facility]. This test was developed and its performance characteristics determined by [facility] in a manner consistent with CLIA requirements. This test has not been cleared or approved by the U.S. Food and Drug Administration. 332 ADDITIONAL INFORMATION Testing performed by Liquid Chromatography-Tandem Mass Spectrometry (LC-MS/MS). This test was developed and its performance characteristics determined by [facility] in a manner consistent with CLIA requirements. This test has not been cleared or approved by the U.S. Food and Drug Administration. Test Performed by: [address] [address] [employer]: Kyle Hameed II, M.D., Ph.D. 333 Serum levels of PSA measured using the [employer] DXI Hybritech immunoassay should not be interpreted [...] methods or kits cannot be used interchangeably. 334 FASTING 12 HOUR 335 AM 8.7-22.4 PM <10 336 Normal Range 180 to 914 Indeterminate Range 145 to 180 Deficient Range <145 337 FASTING 12 HOUR 338 Because ethnic data is not always readily [...] 15-29 5 Kidney failure <15 (or dialysis) 339 Desirable <150 Borderline high 150-199 High 200-499 Very High >500 340 Desirable <200 Borderline high 200-239 High >239 341 Low <40 Desirable: 40-60 High: >60 342 Desirable: <100 mg/dL Near Optimal: 100-129 mg/dL Borderline High: 130-159 mg/dL High: 160-189 mg/dL Very High: >189 mg/dL Procedures Date Code Description Status 01/10/2017 [id number] EKG Tracing & Interpretation Completed 12/07/2016 [id number] Diabetic Retinal Eye Exam Completed 07/21/2016 [id number] Diabetic Retinal Eye Exam Completed Encounters Type Date Location Provider Dx Diagnosis Office Visit 12/18/2018 [facility] Marika Schroeder MD F33.1 Major depressive 1:40p Medicine - [place] disorder, Rd recurrent, moderate G89.4 Chronic pain syndrome Office Visit 11/23/2018 10:40a [facility] Marika Schroeder, E11.65 Type 2 diabetes Medicine - mellitus with [place] hyperglycemia I10 Essential (primary) hypertension F33.1 Major depressive disorder, recurrent, moderate 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 mellitus with [place] hyperglycemia I10 Essential (primary) hypertension E78.2 Mixed hyperlipidemia E66.01 Morbid (severe) obesity due to excess calories K43.9 Ventral hernia without obstruction or gangrene Office Visit 08/23/2018 3:20p [facility] Ene Dunham, I10 Essential (primary) Medicine Carleen Grant hypertension [address] E78.2 Mixed hyperlipidemia E66.01 Morbid (severe) obesity due to excess calories M51.16 Intervertebral disc disorders w radiculopathy, lumbar region E11.65 Type 2 diabetes mellitus with hyperglycemia E29.1 Testicular hypofunction G47.00 Insomnia, unspecified E11.40 Type 2 diabetes mellitus with diabetic neuropathy, unsp Office Visit 05/08/2018 8:00a [facility] Ene [place] E11.40 Type 2 diabetes Jesus Dunham M.D. mellitus with [address] diabetic neuropathy, unsp I10 Essential (primary) hypertension E78.2 Mixed hyperlipidemia E66.01 Morbid (severe) obesity due to excess calories M51.16 Intervertebral disc disorders w radiculopathy, lumbar region E29.1 Testicular hypofunction Office Visit 03/27/2018 3:40p [facility] [place] E11.40 Type 2 diabetes Jesus Dunham M.D. 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 K42.9 [facility] MD Isabella, without FACS obstruction or gangrene E66.01 Morbid (severe) obesity due to excess calories E11.40 Type 2 diabetes mellitus with diabetic neuropathy, unsp Office Visit 01/23/2018 [facility] Aman E11.40 Type 2 diabetes 1:00p Jesus Dunham M.D. mellitus with [address] diabetic neuropathy, unsp Office Visit 01/09/2018 [facility] Ene [place] E11.40 Type 2 diabetes 9:00a Jesus Dunham M.D. mellitus with [address] diabetic neuropathy, unsp Office Visit 11/30/2017 [facility] Ene [place] E11.65 Type 2 diabetes 9:40a Jesus Dunham M.D. mellitus with [address] hyperglycemia M54.16 Radiculopathy, lumbar region E29.1 Testicular hypofunction I10 Essential (primary) hypertension Office Visit 09/05/2017 [facility] [place] E11. Type 2 diabetes 8:40a Jesus Dunham M.D. [...] lumbar region R30.0 Dysuria Office Visit 06/08/2017 [facility] Ene [place] M51.16 Intervertebral disc 9:40a Jesus Dunham M.D. disorders w [address] radiculopathy, lumbar region E66.01 Morbid (severe) obesity due to excess calories E29.1 Testicular hypofunction Office Visit 04/13/2017 [facility] [place] E11.65 Type 2 diabetes 11:40a Jesus Dunham M.D. 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 mellitus with hyperglycemia M54.16 Radiculopathy, lumbar region E66.01 Morbid (severe) obesity due to excess calories Office Visit 01/10/2017 10:20a [facility] Aman Dunham, F33.0 Major depressive Medicine - M.DPaddy disorder, [address] recurrent, mild E11.65 Type 2 diabetes mellitus with hyperglycemia R00.0 Tachycardia, unspecified M54.16 Radiculopathy, lumbar region Office Visit 12/06/2016 10:40a [facility] Aman Dunham, F33.0 Major depressive Medicine - M.DPaddy disorder, [address] recurrent, mild G47.00 Insomnia, unspecified M25.562 Pain in left knee Office Visit 12/05/2016 [facility] M51.26 Other 2:00p [facility] Heather Potts M.D. intervertebral disc displacement, lumbar region Office Visit 11/22/2016 [facility] Aman M54.16 Radiculopathy, 9:40a Medicine - [place], lumbar region Rd M.DPaddy F33.0 Major depressive disorder, recurrent, mild G47.00 Insomnia, unspecified Office Visit 10/24/2016 [facility] [place] E11.65 Type 2 diabetes 2:00p Jesus Dunham M.D. mellitus with [address] hyperglycemia I10 Essential (primary) hypertension E78.2 Mixed hyperlipidemia Z23 Encounter for immunization M51.16 Intervertebral disc disorders w radiculopathy, lumbar region Office Visit 10/13/2016 10:20a [facility] [place] E11.8 Type 2 diabetes Jesus Dunham M.D. mellitus with [address] unspecified complications M51.16 Intervertebral disc disorders w radiculopathy, lumbar region I10 Essential (primary) hypertension E66.01 Morbid (severe) obesity due to excess calories E29.1 Testicular hypofunction E78.2 Mixed hyperlipidemia F33.0 Major depressive disorder, recurrent, mild Z00.00 Encntr for general adult medical exam w/o abnormal findings Office Visit 09/22/2016 11:00a [facility] Aman Dunham, F33.0 Major depressive Medicine - M.D. disorder, [address] recurrent, mild M48.06 Spinal stenosis, lumbar region E11.8 Type 2 diabetes mellitus with unspecified complications E29.1 Testicular hypofunction E78.2 Mixed hyperlipidemia Office Visit 08/11/2016 1:00p [facility] Jones Pachikara, M48.06 Spinal stenosis, Medicine - M.D. lumbar region [address] M25.561 Pain in right knee F33.0 Major depressive disorder, recurrent, mild E29.1 Testicular hypofunction E78.2 Mixed hyperlipidemia Z12.5 Encounter for screening for malignant neoplasm of prostate Office Visit 07/28/2016 1:00p [facility] Jones E11.40 Type 2 diabetes Jesus Dunham M.D. mellitus with [address] diabetic neuropathy, unsp I10 Essential (primary) hypertension M51.16 Intervertebral disc disorders w radiculopathy, lumbar region M25.561 Pain in right knee E66.01 Morbid (severe) obesity due to excess calories Z68.43 Body mass index (BMI) 50-59.9 , adult Office Visit 03/06/2016 [facility] E11.8 Type 2 diabetes 11:11a Assockumar NP mellitus with Hospitalists unspecified complications Office Visit 03/05/2016 [facility] E11.8 Type 2 diabetes 11:10a kumar Martinez NP mellitus with Hospitalists unspecified complications Plan of Treatment Future Appointment(s):02/19/2019 12:00 pm - Forest Marmolejo MD at [facility]02/22/2019 1:40 pm - Marika Schroeder MD at [facility] Internal Ztmvkrpb23/18/2019 - Yolis Coffman N.P.F33.1 Major depressive disorder, recurrent, moderateComments:You seem to be doing better with your depression. Please be sure to touch base with your sister if you start to feel a little down. 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
[2019-02-02 08:13] LABS: ABS Basophils 0 10^3/ul (0-0.2); ABS Eosinophils 0.3 10^3/ul (0-0.6); ABS Lymphocytes 3.3 10^3/ul (1.0-4.8); ABS Monocytes 0.7 10^3/ul (0-0.8); ABS Neutrophils 5.1 10^3/ul (1.5-7.7); ABS Nucleated RBC 0 10^3/ul; Eosinophil % 3.1 %; Hematocrit 38 % (36-46); Hemoglobin 13.1 g/dL (14.0-18.0); Lymphocyte % 34.8 %; Mean Corpuscular HGB Conc 34 g/dL (31-36); Mean Corpuscular Hemoglobin 30 pg (27-31); Mean Corpuscular Volume 89 fL (80-94); Mean Platelet Volume 7.1 fL (7.4-10.4); Nucleated Red Blood Cells % 0; Platelet Count 281 10^3/uL (150-450); Red Blood Count 4.34 10^6 /uL (4.18-5.48); Red Cell Distribution Width 13 % (10.5-15); White Blood Count 9.4 10^3/uL (3.5-10.8)
[2019-02-02] MEDS ORDERED: metFORMIN* 500 MG TAB PO ONE (08:23)
[2019-02-02] MEDS ORDERED: Lisinopril TAB* 10 MG PO ONE (08:24)
[2019-02-02] MEDS ORDERED: oxyCODONE TAB* 5 MG TAB PO ONE ×2 (08:26→13:10)
[2019-02-02 08:30] LABS: ALT 31 U/L (7-52); AST 22 U/L (13-39); Albumin 3.5 g/dL (3.2-5.2); Alkaline Phosphatase 108 U/L (34-104); Anion Gap 6 mmol/L (2-11); BUN/Creatinine Ratio 11.7 (8-20); Blood Urea Nitrogen 9 mg/dL (6-24); CO2 Carbon Dioxide 29 mmol/L (22-32); Calcium 8.8 mg/dL (8.6-10.3); Chloride 102 mmol/L (101-111); EGFR African American 132.8 (>60); EGFR Non-African American 109.8 (>60); Glucose 327 mg/dL (70-100); Potassium 4.3 mmol/L (3.5-5.0); Sodium 137 mmol/L (135-145)
[2019-02-02 08:37] LABS: Urine Appearance Cloudy; Urine Bilirubin Negative (Negative); Urine Blood Negative (Negative); Urine Color Yellow; Urine Glucose 3+(>=500 mg/dL) (Negative); Urine Ketones Negative (Negative); Urine Nitrite Negative (Negative); Urine Protein Negative (Negative); Urine Urobilinogen Negative (Negative)
[2019-02-02 08:57] LABS: Urine Benzodiazepine Screen None Detected (None Detect); Urine Opiates Screen Presumptive Positive (None Detect)
[2019-02-02] MEDS ORDERED: DULoxetine DR CAP* 60 MG CAP.DR PO SCH (09:00)
[2019-02-02] MEDS ORDERED: ARIPiprazole TAB* 5 MG PO SCH (09:00)
[2019-02-02 09:11] LABS: TSH (Thyroid Stimulating Horm) 2.33 mcIU/mL (0.34-5.60)
[2019-02-02 09:27] LABS: Albumin/Globulin Ratio 1.1 (1-3); Globulin 3.3 g/dL (2-4); Total Protein 6.8 g/dL (6.4-8.9)
[2019-02-02 09:49] LABS: Acetaminophen < 15 mcg/mL; Alcohol < 10 mg/dL (<10)
[2019-02-02 10:04] LABS: Salicylate < 2.50 mg/dL (<30)
[2019-02-02] MEDS ORDERED: hydrOXYzine HCL TAB* 25 MG PO ONE (13:10)
[2019-02-02 14:41] VITALS: BP 145/86
== END 2019-02-02 14:39 | disposition home or self-care (01) ==
LOC: ED 07:38
DX: F32.9 Major depressive disorder, single episode, unspecified (principal); I10 Essential (primary) hypertension; E11.9 Type 2 diabetes mellitus without complications; Z79.84 Long term (current) use of oral hypoglycemic drugs; Z79.899 Other long term (current) drug therapy
CPT/HCPCS: 36415; 80053; 80307; 80320; 80329; 81003; 84443; 85025; 99285; A9270-GY; G0480

== ENCOUNTER 2019-02-04 08:46 | Inpatient (IN) | payer OTHER ==
[2019-02-04] MEDS ORDERED: Ketorolac INJ* 60 MG/2 ML VIAL IM ONE (10:51)
[2019-02-04] MEDS ORDERED: metFORMIN* 500 MG TAB PO ONE (12:51)
[2019-02-04] MEDS ORDERED: Lisinopril TAB* 10 MG PO ONE (12:52)
[2019-02-04] MEDS ORDERED: DULoxetine DR CAP* 60 MG CAP.DR PO ONE (12:52)
[2019-02-04] MEDS ORDERED: hydrOXYzine HCL TAB* 25 MG PO ONE (12:52)
[2019-02-04] MEDS ORDERED: ARIPiprazole TAB* 5 MG PO ONE (12:52)
[2019-02-04] MEDS ORDERED: oxyCODONE TAB* 5 MG TAB PO ONE (13:20)
[2019-02-04] MEDS ORDERED: Docusate CAP* 100 MG PO PRN (13:28)
[2019-02-04] MEDS ORDERED: oxyCODONE TAB* 5 MG TAB PO PRN (13:42)
[2019-02-04] MEDS: Lisinopril TAB* 10 MG PO SCH (13:53)
[2019-02-04] MEDS ORDERED: Dulaglutide (NF) 0.75 MG/0.5 ML SYRINGE SUBCUT SCH (14:00)
--- NOTE | 2019-02-04 16:55 | ED ---
Psychiatric Complaint - HPI Summary HPI Summary: Patient is a 43-year-old male who presents to the ED for the second time in 3 days with suicidal thoughts. He states they continue to be worsening. He endorses a plan of cutting his wrist with a razor blade or overdosing. She denies any recent sickness or illness. He states he was sent home 2 days ago after he was offered admission into the hospital, however only with a copy out that he would not be able to take pain medications. He arrives today stating he understands he may not be able to take pain medications while he is here, but would like to be admitted anyway. He has appointments in follow-ups for electroshock therapy, but states he is unable to complete until that time. - History Of Current Complaint Chief Complaint: EDSuicidal Time Seen by Provider: 02/04/19 09:02 Hx Obtained From: Patient Onset/Duration: Gradual Onset Timing: Constant Severity Initially: Severe Severity Currently: Severe Character: Depressed Aggravating Factor(s): Nothing Alleviating Factor(s): Nothing Has Suicidal: Reports: Thoughts, With A Plan - Allergies/Home Medications Allergies/Adverse Reactions: Allergies Allergy/AdvReac Type Severity Reaction Status Date / Time No Known Allergies Allergy Verified 02/04/19 08:48 Home Medications: Home Medications hydrOXYzine HCL TAB* [Atarax TAB 50 MG *] 50 mg PO QID PRN 02/04/19 [History Confirmed 02/04/19] PMH/Surg Hx/FS Hx/Imm Hx Previously Healthy: Yes Endocrine/Hematology History: Reports: Hx Diabetes Cardiovascular History: Reports: Hx Hypertension Denies: Hx Pacemaker/ICD Respiratory History: Denies: Hx Asthma, Hx Sleep Apnea GI History: Denies: Hx Gastroesophageal Reflux Disease History: Denies: Hx Chronic Renal Failure, Hx Renal Disease Musculoskeletal History: Reports: Hx Back Problems - L4-5 herniated disc, Hx Tendonitis - bilateral knees Sensory History: Reports: Hx Contacts or Glasses, Hx Hearing Problem - Pt is QUI[place] , Other Sensory Impairments - BILATERAL LEWER EXTREMETY NEUROPATHY Denies: Hx Hearing Aid Opthamlomology History: Reports: Hx Contacts or Glasses, Other Sensory Impairments - BILATERAL LEWER EXTREMETY NEUROPATHY Neurological History: Reports: Other Neuro Impairments/Disorders - NEUROPATHY Psychiatric History: Reports: Hx Anxiety, Hx Attention Deficit Hyperactivity Disorder, Hx Depression, Hx Inpatient Treatment, Hx Community Mental Health Tx, Hx Substance Abuse - Roxycodone Denies: Hx Eating Disorder, Hx Panic Disorder, Hx Post Traumatic Stress Disorder, Hx Schizophrenia, Hx Bipolar Disorder, Hx Suicide Attempt, Hx of Violent Episodes Against Others - Surgical History Surgery Procedure, Year, and Place: TONSILECTOMY - Immunization History Hx Pertussis Vaccination: No Immunizations Up to Date: Yes Infectious Disease History: No Infectious Disease History: Denies: Traveled Outside the [place] in Last 30 Days - Family History Known Family History: Positive: Hypertension, Diabetes, Other - depression, alcoholism - Social History Occupation: Unemployed Lives: Alone Alcohol Use: None Hx Substance Use: No Substance Use Type: Reports: None Hx Tobacco Use: No Smoking Status (MU): Never Smoked Tobacco Review of Systems Constitutional: Negative Negative: Fever, Chills, Fatigue, Skin Diaphoresis Negative: Palpitations, Chest Pain Negative: Shortness Of Breath, Cough Genitourinary: Negative Positive: no symptoms reported, see HPI Negative: Arthralgia, Myalgia Positive: Depressed All Other Systems Reviewed And Are Negative: Yes Physical Exam Triage Information Reviewed: Yes Vital Signs On Initial Exam: Initial Vitals Temp Pulse Resp BP Pulse Ox 98.6 F 108 22 187/112 99 02/04/19 08:48 02/04/19 08:48 02/04/19 08:48 02/04/19 08:48 02/04/19 08:48 Vital Signs Reviewed: Yes Appearance: Positive: Well-Appearing, Well-Nourished Skin: Positive: Skin Color Reflects Adequate Perfusion Head/Face: Positive: Normal Head/Face Inspection Eyes: Positive: EOMI, Conjunctiva Clear Respiratory/Lung Sounds: Positive: Clear to Auscultation, Breath Sounds Present Cardiovascular: Positive: RRR, Pulses are Symmetrical in both Upper and Lower Extremities Musculoskeletal: Positive: Strength/ROM Intact Neurological: Positive: Speech Normal Psychiatric: Positive: Anxious, Depressed AVPU Assessment: Alert Diagnostics - Vital Signs Vital Signs Temp Pulse Resp BP Pulse Ox 02/04/19 08:48 98.6 F 108 22 187/112 99 - Laboratory Lab Statement: Any lab studies that have been ordered have been reviewed, and results considered in the medical decision making process. Course/Dx - Course Course Of Treatment: Patient is evaluated for worsening suicidal ideations and thoughts. Dr. Dhillon to he patient in the ED and offered admission for suicidal thoughts and plan. He was given his daily dose of medications including a 10 mg hydrocodone. He will be admitted with severe depression and suicidal thoughts to [facility] - Differential Dx/Clinical Impression Differential Diagnosis/HQI/PQRI: Positive: Depression Provider Diagnosis: Suicidal thoughts Discharge - Sign-Out/Discharge Documenting (check all that apply): Patient Departure All imaging exams completed and their final reports reviewed: No Studies Patient Received Moderate/Deep Sedation with Procedure: No - Discharge Plan Condition: Fair Disposition: PSYCHIATRIC FACILITY[place] - Billing Disposition and Condition Condition: FAIR Disposition: Psychiatric Facility [facility]
[2019-02-04] MEDS: oxyCODONE TAB* 5 MG TAB PO PRN (17:57)
[2019-02-04] MEDS: hydrOXYzine HCL TAB* 50 MG PO PRN (18:00)
[2019-02-04] MEDS ORDERED: Al Hydrox/Mg Hydrox/Simet LIQ* 30 ML UDC PO PRN (19:40)
[2019-02-04] MEDS: metFORMIN* 500 MG TAB PO SCH (20:18)
[2019-02-04] MEDS: Insulin GLARGINE(*) 1 UNITS UNIT SUBCUT SCH (20:18)
[2019-02-04] MEDS ORDERED: Zolpidem TAB* 5 MG PO SCH (21:00)
[2019-02-04] MEDS: Acetaminophen TAB* 325 MG PO PRN (22:37)
[2019-02-05] MEDS: hydrOXYzine HCL TAB* 50 MG PO PRN ×4 (00:01→20:22)
[2019-02-05] MEDS: oxyCODONE TAB* 5 MG TAB PO PRN ×2 (00:01→06:06)
[2019-02-05 07:22] LABS: HDL Cholesterol 28.4 mg/dL
[2019-02-05] MEDS: Multivitamins/Minerals TAB PO SCH (09:36)
[2019-02-05] MEDS: Lisinopril TAB* 10 MG PO SCH (09:36)
[2019-02-05] MEDS: ARIPiprazole TAB* 5 MG PO SCH (09:37)
[2019-02-05] MEDS: metFORMIN* 500 MG TAB PO SCH ×2 (09:37→20:18)
[2019-02-05] MEDS: oxyCODONE TAB* 5 MG TAB PO SCH ×3 (10:58→23:03)
--- NOTE | 2019-02-05 12:20 | PN ---
Subjective - Subjective Date of Service: 02/05/19 Service Type: [id number] Hosp care 35 min high complexity Subjective: Annette is in significant pain. He is crying and quivering. He states he's in pain and is very anxious. We restart his oxycodone dose from outpatient prescribing. Annette and I talk about plans for ECT or state hospital. He maintains that he is suicidal and feels "more done than I've ever been." He endorses hopelessness and displays helplessness, largely due to his poverty. He also notices that he has been different since his accident when he hit his head twice. He states MRIs and CTs were done, but no damage was noted. Objective - General Observations Appearance: Disheveled Appears Stated Age: Yes Stature: Overweight, Tall Posture: Slumped Eye Contact: Average Behavior/Activity: Slowed - Interaction Observations Attitude Towards Examiner: Cooperative, Anxious, Defensive Stated Mood: Dysphoric, Irritable, Anxious Affect: Labile Speech Pattern/Tone: Clear, Quiet Volume Thought Process: Coherent, Goal Directed Perception: WNL Thought Content: Preoccupation/Ruminations Thought Process: Lethality: Passive Wish, Suicidal Planning Hallucination Type: None Delusion Type: None - Cognitive Function Orientation: A&O x 4 Level of Consciousness: Awake, Alert, Appropriate Cognition: Impaired Attention/Concentration Estimated Intelligence: Normal Insight: Mostly Blames Others for Problems Judgment Within Normal Limits: No Ability to Make Reasonable Decisions: Mildly Impaired - Medication Compliance Cooperative with Inpatient Medication Regimen: Yes - Group Participation Participates in Group Activities: Partial Assessment - Assessment Merits Inpatient Hospitalization: For Immediate Safety Clinical Impression: Annette is a 43 year old white male with a long history of major depressive disorder and anxiety who comes to the hospital with severely intense thoughts of suicide with a plan. Plan - Plan Treatment Plan: Name: ANNETTE WHALEY Birthdate: 1975 [id number] 02/05/19 Annette's pain medication and Ambien are increased to their maximum doses that they will be prescribed here in the hospital. We talk about ECT or [facility] and he is interested in these. Continued Medication Management: Continue Outpt Medication Medications: Current Medications Acetaminophen (Tylenol Tab*) 650 mg PO Q4H PRN PRN Reason: PAIN Last Admin: 02/04/19 22:37 Dose: 650 mg Al Hydrox/Mg Hydrox/Simethicone (Maalox Plus*) 30 ml PO Q4H PRN PRN Reason: INDIGESTION Aripiprazole (Abilify Tab*) 5 mg PO DAILY [facility] Last Admin: 02/05/19 09:37 Dose: 5 mg Docusate Sodium (Colace Cap*) 100 mg PO BID PRN PRN Reason: CONSTIPATION Dulaglutide (Trulicity (Nf)) 0.75 mg SUBCUT WEEKLY [facility] Hydroxyzine HCl (Atarax Tab*) 50 mg PO QID PRN PRN Reason: ANXIETY Last Admin: 02/05/19 06:06 Dose: 50 mg Insulin Glargine (Lantus(*)) 100 units SUBCUT BEDTIME [facility] Last Admin: 02/04/19 20:18 Dose: 100 units Lisinopril (Prinivil Tab*) 20 mg PO DAILY [facility] Last Admin: 02/05/19 09:36 Dose: 20 mg Metformin HCl (Glucophage*) 500 mg PO BID [facility] Last Admin: 02/05/19 09:37 Dose: 500 mg Multivitamins/Minerals (Theragran/Minerals Tab*) 1 tab PO DAILY [facility] Last Admin: 02/05/19 09:36 Dose: 1 tab Oxycodone HCl (Roxycodone Tab*) 15 mg PO Q6H [facility] Last Admin: 02/05/19 10:58 Dose: 15 mg Zolpidem Tartrate (Ambien Tab*) 10 mg PO BEDTIME [facility] - Discharge Plan Discharge Plan: Consider Longer Term Tx
--- NOTE | 2019-02-05 13:47 | HP ---
HISTORY AND PHYSICAL: DATE OF ADMISSION: 02/04/19 PROVIDER: Shreya Shea NP, in Psychiatry. SUPERVISING PHYSICIAN: Ej Rob MD.* (DICTATED BY SHREYA SHEA NP) JUSTIFICATION FOR ADMISSION: The patient is need of 24-hour supervision and care secondary to suicidal ideation with a plan. "This is as done as I can get. " HISTORY OF PRESENT ILLNESS: The patient is a 43-year-old single white male with history of depressive disorder and opioid dependent disorder, who has brought in by himself and is here on a voluntary status after coming to the hospital emergency department. Again with unmanageable pain and unmanageable depression. Annette has been to the hospital multiple times in the last 6 months. In fact since October this is his fifth admission. He lives with his dad and his dad's girl friend. Annette still holds some contempt for his father and his father's girl friend, as his dad was "cheating on" Annette's mother, while Annette's mother was dying, with this woman. Annette's stressors include not having money, being diabetic, not having money to buy diabetic food, living with his father and not having his own room, being in so much pain that he can walk only one city block before needing to sit down and rest. Annette struggles to sleep without medication and thus takes Ambien 10. He is not interested in much. He feels very guilty simply for being alive. His energy is low. He cannot concentrate due to feeling depressed and being in pain. His appetite is fine. He is constantly fidgeting and he has suicidal ideation with a plan. PAST PSYCHIATRIC HISTORY: Annette has been to this hospital 4 times before recently the first time on 11/06/18 where he stayed until 11/19/18. He then returned on 12/06/18 and stayed until 12/13/18. He returned to the emergency room on 01/07/19 was admitted on 01/09/19 and was discharged on 01/15/19. Then again on 01/18/19 he came to the [facility] and was discharged the same day. At this point on 02/04/19 he was admitted to the unit. He has suicidal ideation at this time. He does not currently have access to weapons such as guns, but he does have razor blades with which he plans to slit his wrist while he sits in a warm bath tub, hoping that he will give his family less to clean up after he dies. He has been set up with outpatient providers at [facility] and has been there several times. He states his previous psychiatric medications included Cymbalta and Ambien and now Abilify also. He was in therapy in [place] for 5 years. PAST MEDICAL HISTORY: Annette states he cannot walk or stand for more than 15 minutes. He gave the example that if he goes to a store to purchase groceries, he is in so much pain for the rest of the day and he cannot do anything else the rest of the day. He was ordered in the outpatient setting 15 mg of q.6 hours of oxycodone and he states that he is to used to take much more when he was living in [place]. He does have type 2 diabetes, which he states is uncontrolled and his insulin is constantly being increased. He is not adhering to a strictly diabetic diet. He also has hypertension. FAMILY HISTORY: His mother has depression, one brother and one sister has depression, both brothers were alcoholic. Annette is the youngest. SOCIAL HISTORY: Annette was born in [place] and lived there until about age 39. 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 Apparently, his father had a girlfriend for part of that time that his mother was alive and that also bothers Annette. He does not talk about abuse. He is not or partnered. He does not have children. He is not employed. He is trying to get disability and he was denied for the first time. He then got a peace officer and then the hearing was delayed by 5 months, which was frustrating to him. He had hearing a week or two ago that he was 45 minutes late to, so he was rescheduled until the 02/13/19. He has not been in the and he does not have legal problems. REVIEW OF SYSTEMS: Annette reports feeling fatigued. He has shortness of breath as he is so anxious that he is "hyperventilating." He denies heat or cold intolerance, chest pain or abdominal pain. He does have back pain. He denies fevers or changes in weight. PHYSICAL EXAMINATION GENERAL: The patient is well-appearing, well-nourished. Skin color reflects adequate perfusion. VITAL SIGNS: On 02/05/19 at 07:47 temperature was 97.9, pulse 81, respirations 16, O2 sat on room air 99%, blood pressure 134/83. HEENT: Normal head and face inspection. Eyes: EOMI. Conjunctiva clear. RESPIRATORY: Lungs sounds clear to auscultation, breath sounds present. CARDIOVASCULAR: RRR. Pulses are symmetrical in both upper and lower extremities. MUSCULOSKELETAL: Strength range of motion intact. NEUROLOGICAL: Speech is normal. LABORATORY DATA: Most data are within normal limits. Exceptions include white blood cells high at 13.1, MPV low at 7.0, absolute neutrophils high at 9.0. Glucose on 01/18/19 at 0306 is 120. Alkaline phosphatase 121. Hemoglobin A1c 8.3. Triglycerides are 183. Cholesterol 185, LDL cholesterol 120, HDL cholesterol 28.4. TSH is 0.66. Urine contains blood, leukocyte esterase, white blood cells, and squamous epithelial cells. Urine toxicology screen is positive for opiates. MENTAL STATUS EXAM: Annette is a 6-foot 3-inch, 400-pound man who has red hair that is cut fairly short and has a ceja. He is hyperkinetic, bouncing his foot and shifting his hands almost constantly. He is cooperative, but he is anxious and somewhat irritable. His speech is soft, but has a normal rate and tone. He is dysthymic. He is tearful. He has normal thought process. He is not delusional. He is not having any hallucinations. He is not homicidal. He is suicidal although he does not plan to suicide on the unit. He does have strong plans to suicide should he go home as he is hopeless and helpless. He has fair insight and fair judgment. He is alert and oriented x4. DIAGNOSIS: Major depressive disorder, severe; opioid dependence. IMPRESSION: Annette is a 43-year-old man who comes to the hospital in significant distress related to feeling as though he will never have relief from his pain and he will never improve and no one will ever be able to help him. PLAN: The patient is admitted to adult behavioral health unit and placed on q.15- minute checks for his own safety. He is encouraged to participate in supportive milieu, individual, and group therapies. Estimated length of stay is 3 to 7 days. We will titrate medications to efficacy and monitor from mood and thought content. Discharge planning will include family involvement and outpatient providers. SHREYA SHEA, NUBIA [id number]/[facility] #: [id number] BRYATN
[2019-02-05] MEDS: Insulin GLARGINE(*) 1 UNITS UNIT SUBCUT SCH (20:16)
[2019-02-05] MEDS: Zolpidem TAB* 5 MG PO SCH (20:19)
[2019-02-05] MEDS: Acetaminophen TAB* 325 MG PO PRN (20:19)
[2019-02-06] MEDS: hydrOXYzine HCL TAB* 50 MG PO PRN (04:40)
[2019-02-06] MEDS: oxyCODONE TAB* 5 MG TAB PO SCH ×4 (04:40→20:47)
[2019-02-06] MEDS: Acetaminophen TAB* 325 MG PO PRN ×3 (04:40→21:46)
[2019-02-06] MEDS: metFORMIN* 500 MG TAB PO SCH ×2 (08:32→20:47)
[2019-02-06] MEDS: Lisinopril TAB* 10 MG PO SCH (08:32)
[2019-02-06] MEDS: Multivitamins/Minerals TAB PO SCH (08:32)
[2019-02-06] MEDS: ARIPiprazole TAB* 5 MG PO SCH (08:32)
[2019-02-06] MEDS: TESTOSTERONE GEL 25 MG (NF) IN 2.5 GM SIZE PACKET TOPICAL SCH (08:33)
--- NOTE | 2019-02-06 16:25 | PN ---
Subjective - Subjective Date of Service: 02/06/19 Subjective: Annette's main concern is his physical health, although he does acknowledge that his reliance solely on medication to feel better is not an adequate solution. When presented with the options of going to state hospital vs. going for ECT he reluctantly chooses ECT. The reluctance comes from his desire to go to a disability hearing that will likely occur while he is hospitalized. Nevertheless , the choice to go home is no longer an option. It has been tried four times before and failed due to continued suicidal thoughts with a plan. Also, Annette advocated for the same amount of oxycodone at a different dosing schedule, which I accommodated. Objective - General Observations Appearance: Neat Appears Stated Age: Yes Stature: Overweight Posture: Slumped Eye Contact: Average Behavior/Activity: Slowed, Agitated - Interaction Observations Attitude Towards Examiner: Cooperative, Anxious, Defensive Stated Mood: Dysphoric, Irritable, Anxious Affect: Restricted Speech Pattern/Tone: Clear Thought Process: Coherent, Goal Directed Perception: WNL Thought Content: Preoccupation/Ruminations, Obsessional Thought Process: Lethality: Suicidal Planning Hallucination Type: None Delusion Type: None - Cognitive Function Orientation: A&O x 4 Level of Consciousness: Awake, Alert, Appropriate Cognition: WNL Estimated Intelligence: Normal Insight: Mostly Blames Others for Problems Judgment Within Normal Limits: No Ability to Make Reasonable Decisions: Moderately Impaired - Medication Compliance Cooperative with Inpatient Medication Regimen: Yes - Group Participation Participates in Group Activities: Partial Assessment - Assessment Merits Inpatient Hospitalization: For Immediate Safety, For Discharge Planning Clinical Impression: Annette is a 43 year old white male with a long history of major depressive disorder and anxiety who comes to the hospital with severely intense thoughts of suicide with a plan. Plan - Plan Treatment Plan: Name: ANNETTE WHALEY Birthdate: 1975 [id number] 02/05/19 Annette's pain medication and Ambien are increased to their maximum doses that they will be prescribed here in the hospital. We talk about ECT or the [facility] and he is interested in these. 02/06/19 Annette will be referred to ECT, despite his desire to be discharged to go to a disability hearing in a week or two. Medications remain the same as Annette's mood is dependent almost entirely on the access he has to pain medication. Medications: Current Medications Acetaminophen (Tylenol Tab*) 650 mg PO Q4H PRN PRN Reason: PAIN Last Admin: 02/06/19 08:39 Dose: 650 mg Al Hydrox/Mg Hydrox/Simethicone (Maalox Plus*) 30 ml PO Q4H PRN PRN Reason: INDIGESTION Aripiprazole (Abilify Tab*) 5 mg PO DAILY [facility] Last Admin: 02/06/19 08:32 Dose: 5 mg Docusate Sodium (Colace Cap*) 100 mg PO BID PRN PRN Reason: CONSTIPATION Last Admin: 02/06/19 04:40 Dose: 100 mg Dulaglutide (Trulicity (Nf)) 0.75 mg SUBCUT WEEKLY [facility] Hydroxyzine HCl (Atarax Tab*) 50 mg PO QID PRN PRN Reason: ANXIETY Last Admin: 02/06/19 04:40 Dose: 50 mg Insulin Glargine (Lantus(*)) 100 units SUBCUT BEDTIME [facility] Last Admin: 02/05/19 20:16 Dose: 100 units Lisinopril (Prinivil Tab*) 20 mg PO DAILY [facility] Last Admin: 02/06/19 08:32 Dose: 20 mg Metformin HCl (Glucophage*) 500 mg PO BID [facility] Last Admin: 02/06/19 08:32 Dose: 500 mg Multivitamins/Minerals (Theragran/Minerals Tab*) 1 tab PO DAILY [facility] Last Admin: 02/06/19 08:32 Dose: 1 tab Oxycodone HCl (Roxycodone Tab*) 10 mg PO Q4H [facility] Testosterone (Testosterone Gel 25 Mg/2.5 G) 50 mg TOPICAL DAILY [facility] Last Admin: 02/06/19 08:33 Dose: 50 mg Zolpidem Tartrate (Ambien Tab*) 10 mg PO BEDTIME [facility] Last Admin: 02/05/19 20:19 Dose: 10 mg - Discharge Plan Discharge Plan: Inpatient Hospitalization
[2019-02-06] MEDS: Insulin GLARGINE(*) 1 UNITS UNIT SUBCUT SCH (20:48)
[2019-02-06] MEDS: Zolpidem TAB* 5 MG PO SCH (21:44)
[2019-02-07] MEDS: oxyCODONE TAB* 5 MG TAB PO SCH ×6 (00:10→20:02)
[2019-02-07] MEDS: metFORMIN* 500 MG TAB PO SCH ×2 (08:00→20:02)
[2019-02-07] MEDS: ARIPiprazole TAB* 5 MG PO SCH (08:00)
[2019-02-07] MEDS: Lisinopril TAB* 10 MG PO SCH (08:00)
[2019-02-07] MEDS: Multivitamins/Minerals TAB PO SCH (08:00)
[2019-02-07] MEDS: TESTOSTERONE GEL 25 MG (NF) IN 2.5 GM SIZE PACKET TOPICAL SCH (08:01)
--- NOTE | 2019-02-07 14:31 | PN ---
Subjective - Subjective Date of Service: 02/07/19 Service Type: [id number] Hosp care 25 min moderate complexity Subjective: Annette states he is feeling much better today. First, he appreciates that his pain med schedule was changed. Second, he engaged in some guitar playing that made him feel hopeful and worthwhile. Interestingly, when the idea of "mastery" was introduced, he denied mastery indicating that guitar is something that you never master. He eventually agreed that he understood the point. He is eager to go to ECT after he calls in to court on the 13 of February. Annette continues to believe that the secret to his future happiness is receiving disability from the government. He states that while he doesn't have suicidal ideation today, he did yesterday and would have "done something bad to myself" if he had been at home yesterday. Objective - General Observations Appearance: Disheveled Appears Stated Age: Yes Stature: Overweight Posture: Slumped Eye Contact: Average Behavior/Activity: Slowed - Interaction Observations Attitude Towards Examiner: Cooperative Stated Mood: Dysphoric Affect: Flat Speech Pattern/Tone: Clear, Quiet Volume Thought Process: Coherent Perception: WNL Thought Content: Preoccupation/Ruminations, Obsessional, Depressive Thought Process: Lethality: Suicidal Planning Hallucination Type: None Delusion Type: None - Cognitive Function Orientation: A&O x 4 Level of Consciousness: Awake, Alert, Appropriate Cognition: WNL, Impaired Ability to Abstract Estimated Intelligence: Normal Insight: Mostly Blames Others for Problems Judgment Within Normal Limits: No Ability to Make Reasonable Decisions: Moderately Impaired - Medication Compliance Cooperative with Inpatient Medication Regimen: Yes - Group Participation Participates in Group Activities: Yes Assessment - Assessment Merits Inpatient Hospitalization: For Immediate Safety, For Discharge Planning Clinical Impression: Annette is a 43 year old white male with a long history of major depressive disorder and anxiety who comes to the hospital with severely intense thoughts of suicide with a plan. Plan - Plan Treatment Plan: Name: ANNETTE WHALEY Birthdate: 1975 [id number] 02/05/19 Annette's pain medication and Ambien are increased to their maximum doses that they will be prescribed here in the hospital. We talk about ECT or [facility] and he is interested in these. 02/06/19 Annette will be referred to ECT, despite his desire to be discharged to go to a disability hearing in a week or two. Medications remain the same as Annette's mood is dependent almost entirely on the access he has to pain medication. 02/07/19 Annette agrees to ECT. He submitted and rescinded a 72-hour notice today and his distress resolved in large part by wondering/thinking he could contact the bankruptcy judge by phone. Medications: Current Medications Acetaminophen (Tylenol Tab*) 650 mg PO Q4H PRN PRN Reason: PAIN Last Admin: 02/06/19 21:46 Dose: 650 mg Al Hydrox/Mg Hydrox/Simethicone (Maalox Plus*) 30 ml PO Q4H PRN PRN Reason: INDIGESTION Aripiprazole (Abilify Tab*) 5 mg PO DAILY [facility] Last Admin: 02/07/19 08:00 Dose: 5 mg Docusate Sodium (Colace Cap*) 100 mg PO BID PRN PRN Reason: CONSTIPATION Last Admin: 02/06/19 04:40 Dose: 100 mg Dulaglutide (Trulicity (Nf)) 0.75 mg SUBCUT WEEKLY [facility] Hydroxyzine HCl (Atarax Tab*) 50 mg PO QID PRN PRN Reason: ANXIETY Last Admin: 02/06/19 04:40 Dose: 50 mg Insulin Glargine (Lantus(*)) 100 units SUBCUT BEDTIME [facility] Last Admin: 02/06/19 20:48 Dose: 100 units Lisinopril (Prinivil Tab*) 20 mg PO DAILY [facility] Last Admin: 02/07/19 08:00 Dose: 20 mg Metformin HCl (Glucophage*) 500 mg PO BID [facility] Last Admin: 02/07/19 08:00 Dose: 500 mg Multivitamins/Minerals (Theragran/Minerals Tab*) 1 tab PO DAILY [facility] Last Admin: 02/07/19 08:00 Dose: 1 tab Oxycodone HCl (Roxycodone Tab*) 10 mg PO Q4H [facility] Last Admin: 02/07/19 12:25 Dose: 10 mg Testosterone (Testosterone Gel 25 Mg/2.5 G) 50 mg TOPICAL DAILY [facility] Last Admin: 02/07/19 08:01 Dose: 50 mg Zolpidem Tartrate (Ambien Tab*) 10 mg PO BEDTIME [facility] Last Admin: 02/06/19 21:44 Dose: 10 mg - Discharge Plan Discharge Plan: Inpatient Hospitalization
[2019-02-07] MEDS: Insulin GLARGINE(*) 1 UNITS UNIT SUBCUT SCH (20:02)
[2019-02-07] MEDS: Zolpidem TAB* 5 MG PO SCH (21:29)
[2019-02-08] MEDS: oxyCODONE TAB* 5 MG TAB PO SCH ×6 (00:30→20:17)
[2019-02-08] MEDS: Multivitamins/Minerals TAB PO SCH (07:56)
[2019-02-08] MEDS: ARIPiprazole TAB* 5 MG PO SCH (07:56)
[2019-02-08] MEDS: metFORMIN* 500 MG TAB PO SCH ×2 (07:56→21:39)
[2019-02-08] MEDS: Lisinopril TAB* 10 MG PO SCH (07:57)
[2019-02-08] MEDS: TESTOSTERONE GEL 25 MG (NF) IN 2.5 GM SIZE PACKET TOPICAL SCH (08:16)
[2019-02-08] MEDS: Acetaminophen TAB* 325 MG PO PRN (11:21)
[2019-02-08] MEDS: hydrOXYzine HCL TAB* 50 MG PO PRN ×2 (11:21→21:34)
[2019-02-08] MEDS ORDERED: Docusate CAP* 100 MG PO PRN (11:46)
[2019-02-08] MEDS: Polyethylene Glycol 3350* 17 GM PACKET PO SCH ×2 (12:12→21:45)
--- NOTE | 2019-02-08 15:48 | PN ---
Subjective - Subjective Date of Service: 02/08/19 Service Type: [id number] Hosp care 15 min low complexity Subjective: Annette is complicated as his ability/desire to attend to his psychiatric needs frequently take a back seat to his physical needs: from pain to caffeine headache to constipation, Annette is rarely comfortable and gives that a reason for why he cannot tolerate groups. In addition, he perceives his sadness to be more intense than others and therefore censors himself and withdraws without testing whether his perception is true. Nevertheless, today he tried going to groups as much as he physically could as his back pain would not allow him to sit in the seats we have here for more than an hour. Objective - General Observations Appearance: Neat Appears Stated Age: Yes Stature: Overweight Posture: Slumped Eye Contact: Intermittent Behavior/Activity: Slowed - Interaction Observations Attitude Towards Examiner: Cooperative, Anxious Stated Mood: Dysphoric, Irritable, Anxious Affect: Restricted Speech Pattern/Tone: Clear Thought Process: Coherent, Goal Directed Perception: WNL Thought Content: Preoccupation/Ruminations, Obsessional, Depressive Hallucination Type: None, Gustatory - Cognitive Function Orientation: A&O x 4 Level of Consciousness: Awake, Alert, Appropriate Cognition: WNL, Impaired Attention/Concentration Estimated Intelligence: Normal Insight: WNL Judgment Within Normal Limits: Yes Ability to Make Reasonable Decisions: Mildly Impaired - Medication Compliance Cooperative with Inpatient Medication Regimen: Yes - Group Participation Participates in Group Activities: Partial Assessment - Assessment Merits Inpatient Hospitalization: For Immediate Safety Clinical Impression: Annette is a 43 year old white male with a long history of major depressive disorder and anxiety who comes to the hospital with severely intense thoughts of suicide with a plan. Plan - Plan Treatment Plan: Name: ANNETTE WHALEY Birthdate: 1975 [id number] 02/05/19 Annette's pain medication and Ambien are increased to their maximum doses that they will be prescribed here in the hospital. We talk about ECT or [facility] and he is interested in these. 02/06/19 Annette will be referred to ECT, despite his desire to be discharged to go to a disability hearing in a week or two. Medications remain the same as Annette's mood is dependent almost entirely on the access he has to pain medication. 02/07/19 Annette agrees to ECT. He submitted and rescinded a 72-hour notice today and his distress resolved in large part by wondering/thinking he could contact the machine wiper by phone. 02/08/19 Annette states he feels better today and wants to go home, but recognizes it is not an option and instead plans for ECT and his disability hearing. He is waiting to hear from his sports lawyer to find out if he can attend the disability hearing by phone. Continued Medication Management: Continue Outpt Medication Medications: Current Medications Acetaminophen (Tylenol Tab*) 650 mg PO Q4H PRN PRN Reason: PAIN Last Admin: 02/08/19 11:21 Dose: 650 mg Al Hydrox/Mg Hydrox/Simethicone (Maalox Plus*) 30 ml PO Q4H PRN PRN Reason: INDIGESTION Aripiprazole (Abilify Tab*) 5 mg PO DAILY [facility] Last Admin: 02/08/19 07:56 Dose: 5 mg Docusate Sodium (Colace Cap*) 200 mg PO BID PRN PRN Reason: CONSTIPATION Dulaglutide (Trulicity (Nf)) 0.75 mg SUBCUT WEEKLY [facility] Hydroxyzine HCl (Atarax Tab*) 50 mg PO QID PRN PRN Reason: ANXIETY Last Admin: 02/08/19 11:21 Dose: 50 mg Insulin Glargine (Lantus(*)) 100 units SUBCUT BEDTIME [facility] Last Admin: 02/07/19 20:02 Dose: 100 units Lisinopril (Prinivil Tab*) 20 mg PO DAILY [facility] Last Admin: 02/08/19 07:57 Dose: 20 mg Metformin HCl (Glucophage*) 500 mg PO BID [facility] Last Admin: 02/08/19 07:56 Dose: 500 mg Multivitamins/Minerals (Theragran/Minerals Tab*) 1 tab PO DAILY [facility] Last Admin: 02/08/19 07:56 Dose: 1 tab Oxycodone HCl (Roxycodone Tab*) 10 mg PO Q4H [facility] Last Admin: 02/08/19 12:12 Dose: 10 mg Polyethylene Glycol/Electrolytes (Miralax*) 17 gm PO 0800,2100 [facility] Last Admin: 02/08/19 12:12 Dose: 17 gm Testosterone (Testosterone Gel 25 Mg/2.5 G) 50 mg TOPICAL DAILY [facility] Last Admin: 02/08/19 08:16 Dose: 50 mg Zolpidem Tartrate (Ambien Tab*) 10 mg PO BEDTIME [facility] Last Admin: 02/07/19 21:29 Dose: 10 mg - Discharge Plan Discharge Plan: Inpatient Hospitalization
[2019-02-08] MEDS: Insulin GLARGINE(*) 1 UNITS UNIT SUBCUT SCH (20:18)
[2019-02-08] MEDS: Zolpidem TAB* 5 MG PO SCH (21:34)
[2019-02-09] MEDS: oxyCODONE TAB* 5 MG TAB PO SCH ×7 (04:00→23:53)
[2019-02-09] MEDS: Lisinopril TAB* 10 MG PO SCH (08:35)
[2019-02-09] MEDS: ARIPiprazole TAB* 5 MG PO SCH (08:35)
[2019-02-09] MEDS: Multivitamins/Minerals TAB PO SCH (08:36)
[2019-02-09] MEDS: hydrOXYzine HCL TAB* 50 MG PO PRN ×3 (08:36→23:53)
[2019-02-09] MEDS: metFORMIN* 500 MG TAB PO SCH ×2 (08:37→19:59)
[2019-02-09] MEDS: Polyethylene Glycol 3350* 17 GM PACKET PO SCH ×2 (08:38→20:00)
[2019-02-09] MEDS: TESTOSTERONE GEL 25 MG (NF) IN 2.5 GM SIZE PACKET TOPICAL SCH (08:42)
[2019-02-09] MEDS ORDERED: PTO:Dulaglutide (NF) 0.75 MG/0.5 ML SYRINGE SUBCUT SCH (13:00)
[2019-02-09] MEDS: Insulin GLARGINE(*) 1 UNITS UNIT SUBCUT SCH (20:01)
[2019-02-09] MEDS: Zolpidem TAB* 5 MG PO SCH (21:16)
[2019-02-10] MEDS: oxyCODONE TAB* 5 MG TAB PO SCH ×5 (04:11→20:42)
[2019-02-10] MEDS: Polyethylene Glycol 3350* 17 GM PACKET PO SCH ×2 (08:29→21:19)
[2019-02-10] MEDS: metFORMIN* 500 MG TAB PO SCH ×2 (08:30→20:40)
[2019-02-10] MEDS: Lisinopril TAB* 10 MG PO SCH (08:30)
[2019-02-10] MEDS: Multivitamins/Minerals TAB PO SCH (08:30)
[2019-02-10] MEDS: ARIPiprazole TAB* 5 MG PO SCH (08:30)
[2019-02-10] MEDS: TESTOSTERONE GEL 25 MG (NF) IN 2.5 GM SIZE PACKET TOPICAL SCH (08:31)
[2019-02-10] MEDS: hydrOXYzine HCL TAB* 50 MG PO PRN (12:38)
--- NOTE | 2019-02-10 17:23 | PN ---
Subjective - Subjective Date of Service: 02/09/19 Service Type: [id number] Hosp care 25 min moderate complexity Subjective: Annette continues to be the same with anxiety and experiences sturttle response with noises. Feels safe on the unit, calm and isolative. Mostly in the milieu but doesn't interact with peers. No nursing concerns. Objective - General Observations Appearance: Disheveled Appears Stated Age: Yes Stature: WNL Posture: WNL Eye Contact: Intermittent Behavior/Activity: WNL - Interaction Observations Attitude Towards Examiner: Cooperative Stated Mood: Dysphoric Affect: Restricted Speech Pattern/Tone: Clear, Appropriate, Normal Volume Thought Process: Coherent, Goal Directed Perception: WNL Thought Content: WNL Hallucination Type: None Delusion Type: None - Cognitive Function Orientation: A&O x 4 Level of Consciousness: Awake, Alert, Appropriate Cognition: WNL Estimated Intelligence: Normal Insight: Mostly Blames Others for Problems Judgment Within Normal Limits: No - Medication Compliance Cooperative with Inpatient Medication Regimen: Yes - Group Participation Participates in Group Activities: No Assessment - Assessment Merits Inpatient Hospitalization: For Stabilization, Pending Safe DC Plan Clinical Impression: Annette is a 43 year old white male with a long history of major depressive disorder and anxiety who comes to the hospital with severely intense thoughts of suicide with a plan. Plan - Plan Treatment Plan: Name: ANNETTE WHALEY Birthdate: 1975 [id number] 02/05/19 Annette's pain medication and Ambien are increased to their maximum doses that they will be prescribed here in the hospital. We talk about ECT or [facility] and he is interested in these. 02/06/19 Annette will be referred to ECT, despite his desire to be discharged to go to a disability hearing in a week or two. Medications remain the same as Annette's mood is dependent almost entirely on the access he has to pain medication. 02/07/19 Annette agrees to ECT. He submitted and rescinded a 72-hour notice today and his distress resolved in large part by wondering/thinking he could contact the spinner concrete pipe by phone. 02/08/19 Annette states he feels better today and wants to go home, but recognizes it is not an option and instead plans for ECT and his disability hearing. He is waiting to hear from his event sales representative to find out if he can attend the disability hearing by phone. Continued Medication Management: Continue Outpt Medication Medications: Current Medications Acetaminophen (Tylenol Tab*) 650 mg PO Q4H PRN PRN Reason: PAIN Last Admin: 02/08/19 11:21 Dose: 650 mg Al Hydrox/Mg Hydrox/Simethicone (Maalox Plus*) 30 ml PO Q4H PRN PRN Reason: INDIGESTION Aripiprazole (Abilify Tab*) 5 mg PO DAILY [facility] Last Admin: 02/10/19 08:30 Dose: 5 mg Docusate Sodium (Colace Cap*) 200 mg PO BID PRN PRN Reason: CONSTIPATION Dulaglutide (Trulicity (Nf)) 0.75 mg SUBCUT WEEKLY [facility] Hydroxyzine HCl (Atarax Tab*) 50 mg PO QID PRN PRN Reason: ANXIETY Last Admin: 02/10/19 12:38 Dose: 50 mg Insulin Glargine (Lantus(*)) 100 units SUBCUT BEDTIME [facility] Last Admin: 02/09/19 20:01 Dose: 100 units Lisinopril (Prinivil Tab*) 20 mg PO DAILY [facility] Last Admin: 02/10/19 08:30 Dose: 20 mg Metformin HCl (Glucophage*) 500 mg PO BID [facility] Last Admin: 02/10/19 08:30 Dose: 500 mg Multivitamins/Minerals (Theragran/Minerals Tab*) 1 tab PO DAILY [facility] Last Admin: 02/10/19 08:30 Dose: 1 tab Oxycodone HCl (Roxycodone Tab*) 10 mg PO Q4H [facility] Last Admin: 02/10/19 16:32 Dose: 10 mg Polyethylene Glycol/Electrolytes (Miralax*) 17 gm PO 0800,2100 [facility] Last Admin: 02/10/19 08:29 Dose: 17 gm Testosterone (Testosterone Gel 25 Mg/2.5 G) 50 mg TOPICAL DAILY [facility] Last Admin: 02/10/19 08:31 Dose: 50 mg Zolpidem Tartrate (Ambien Tab*) 10 mg PO BEDTIME [facility] Last Admin: 02/09/19 21:16 Dose: 10 mg - Discharge Plan Discharge Plan: Outpatient Follow Up [facility]
[2019-02-10] MEDS: Insulin GLARGINE(*) 1 UNITS UNIT SUBCUT SCH (20:43)
[2019-02-10] MEDS ORDERED: PTO:Dulaglutide (NF) 0.75 MG/0.5 ML SYRINGE SUBCUT SCH (21:00)
[2019-02-10] MEDS: Zolpidem TAB* 5 MG PO SCH (21:42)
[2019-02-11] MEDS: hydrOXYzine HCL TAB* 50 MG PO PRN ×3 (00:33→20:33)
[2019-02-11] MEDS: oxyCODONE TAB* 5 MG TAB PO SCH ×7 (00:33→23:55)
[2019-02-11] MEDS: Polyethylene Glycol 3350* 17 GM PACKET PO SCH ×2 (08:42→23:55)
[2019-02-11] MEDS: Lisinopril TAB* 10 MG PO SCH (08:43)
[2019-02-11] MEDS: TESTOSTERONE GEL 25 MG (NF) IN 2.5 GM SIZE PACKET TOPICAL SCH (08:43)
[2019-02-11] MEDS: Multivitamins/Minerals TAB PO SCH (08:44)
[2019-02-11] MEDS: metFORMIN* 500 MG TAB PO SCH ×2 (08:44→20:34)
[2019-02-11] MEDS: ARIPiprazole TAB* 5 MG PO SCH (08:44)
--- NOTE | 2019-02-11 11:37 | PN ---
Subjective - Subjective Date of Service: 02/11/19 Service Type: [id number] Hosp care 35 min high complexity Subjective: Nursing Report: Patient was visible on unit, no chemical restraints or PRNs. Slept overnight without incident. He is not attending group activities. CC: "I want ECT" Patient was seen and evaluated in the common room. He reported that he wants ECT. The ACT team evaluated him earlier and he thinks it will be a good fit for him. The patient reported he feels safe on the unit and is interacting with peers. He reported having an adequate appetite and sleep. Per nursing no behavioral issues or overnight events reported. Patient reported that he is tolerating medications without side effects. Objective - General Observations Appearance: Disheveled Appears Stated Age: Yes Stature: Overweight Posture: WNL Eye Contact: Average Behavior/Activity: WNL - Interaction Observations Attitude Towards Examiner: Cooperative Stated Mood: Euthymic Affect: Blunted Speech Pattern/Tone: Clear Thought Process: Coherent Perception: WNL Thought Content: WNL, Depressive Thought Process: Lethality: Passive Wish Hallucination Type: None Delusion Type: None - Cognitive Function Orientation: A&O x 4 Level of Consciousness: Awake Cognition: WNL - Medication Compliance Cooperative with Inpatient Medication Regimen: Yes - Group Participation Participates in Group Activities: No Assessment - Assessment Clinical Impression: Annette is a 43 year old white male with a long history of major depressive disorder and anxiety who comes to the hospital with severely intense thoughts of suicide with a plan. Plan - Plan Treatment Plan: Name: ANNETTE WHALEY Birthdate: 1975 [id number] #Q30 #Staff pass # ECT referral #Will be set up with ACT team # Continue current medications Hemoglobin A1c 8.3 % (4.0-5.6) H 02/05/19 06:38 Triglycerides 183 mg/dL 02/05/19 06:38 Cholesterol 185 mg/dL 02/05/19 06:38 LDL Cholesterol 120 mg/dL 02/05/19 06:38 Vital Signs Temp Pulse Resp BP Pulse Ox 97.4 F 89 18 121/76 99 02/11/19 08:29 02/11/19 08:29 02/11/19 12:26 02/11/19 08:29 02/11/19 08:29 Continued Medication Management: Continue Outpt Medication Medications: Current Medications Acetaminophen (Tylenol Tab*) 650 mg PO Q4H PRN PRN Reason: PAIN Last Admin: 02/08/19 11:21 Dose: 650 mg Al Hydrox/Mg Hydrox/Simethicone (Maalox Plus*) 30 ml PO Q4H PRN PRN Reason: INDIGESTION Aripiprazole (Abilify Tab*) 5 mg PO DAILY [facility] Last Admin: 02/11/19 08:44 Dose: 5 mg Docusate Sodium (Colace Cap*) 200 mg PO BID PRN PRN Reason: CONSTIPATION Dulaglutide (Trulicity (Nf)) 0.75 mg SUBCUT Q7D [facility] Last Admin: 02/10/19 20:47 Dose: 0.75 mg Hydroxyzine HCl (Atarax Tab*) 50 mg PO QID PRN PRN Reason: ANXIETY Last Admin: 02/11/19 04:59 Dose: 50 mg Insulin Glargine (Lantus(*)) 100 units SUBCUT BEDTIME [facility] Last Admin: 02/10/19 20:43 Dose: 100 units Lisinopril (Prinivil Tab*) 20 mg PO DAILY [facility] Last Admin: 02/11/19 08:43 Dose: 20 mg Metformin HCl (Glucophage*) 500 mg PO BID [facility] Last Admin: 02/11/19 08:44 Dose: 500 mg Multivitamins/Minerals (Theragran/Minerals Tab*) 1 tab PO DAILY [facility] Last Admin: 02/11/19 08:44 Dose: 1 tab Oxycodone HCl (Roxycodone Tab*) 10 mg PO Q4H [facility] Last Admin: 02/11/19 08:44 Dose: 10 mg Polyethylene Glycol/Electrolytes (Miralax*) 17 gm PO 0800,2100 [facility] Last Admin: 02/11/19 08:42 Dose: 17 gm Testosterone (Testosterone Gel 25 Mg/2.5 G) 50 mg TOPICAL DAILY [facility] Last Admin: 02/11/19 08:43 Dose: 50 mg Zolpidem Tartrate (Ambien Tab*) 10 mg PO BEDTIME [facility] Last Admin: 02/10/19 21:42 Dose: 10 mg - Discharge Plan Discharge Plan: Inpatient Hospitalization
[2019-02-11] MEDS: Insulin GLARGINE(*) 1 UNITS UNIT SUBCUT SCH (20:31)
[2019-02-11] MEDS: Zolpidem TAB* 5 MG PO SCH (21:59)
[2019-02-12] MEDS: Acetaminophen TAB* 325 MG PO PRN (02:20)
[2019-02-12] MEDS: oxyCODONE TAB* 5 MG TAB PO SCH ×5 (04:05→20:02)
[2019-02-12] MEDS: metFORMIN* 500 MG TAB PO SCH ×2 (07:37→20:03)
[2019-02-12] MEDS: ARIPiprazole TAB* 5 MG PO SCH (07:37)
[2019-02-12] MEDS: Lisinopril TAB* 10 MG PO SCH (07:37)
[2019-02-12] MEDS: Polyethylene Glycol 3350* 17 GM PACKET PO SCH ×2 (07:38→20:04)
[2019-02-12] MEDS: TESTOSTERONE GEL 25 MG (NF) IN 2.5 GM SIZE PACKET TOPICAL SCH (07:38)
[2019-02-12] MEDS: Multivitamins/Minerals TAB PO SCH (07:38)
--- NOTE | 2019-02-12 11:48 | PN ---
Subjective - Subjective Date of Service: 02/12/19 Service Type: [id number] Hosp care 35 min high complexity Subjective: Nursing Report: Patient was visible on unit, no chemical restraints or PRNs. Slept overnight without incident. He is not attending group activities. CC: "That is so much weight off of my shoulders" Patient was seen and evaluated in the common room. He reported that for the first time he feels hopeful about the future. The reasons he noted were because of his disability hearing. The ACT team evaluated him and he thinks it will be a good fit for him. The patient reported he feels safe on the unit and he is interacting with peers on the unit. He reported having an adequate appetite and sleep. Per nursing no behavioral issues or overnight events reported. Patient reported that he is tolerating medications without side effects. Objective - General Observations Appears Stated Age: Yes Stature: WNL, Overweight Posture: Slumped Eye Contact: Average Behavior/Activity: WNL - Interaction Observations Attitude Towards Examiner: Cooperative Stated Mood: Dysphoric Affect: Blunted Speech Pattern/Tone: Clear Thought Process: Coherent Perception: WNL Thought Content: Depressive Hallucination Type: None Delusion Type: None - Cognitive Function Orientation: A&O x 4 Level of Consciousness: Awake - Medication Compliance Cooperative with Inpatient Medication Regimen: Yes - Group Participation Participates in Group Activities: Yes Assessment - Assessment Merits Inpatient Hospitalization: For Immediate Safety, For Stabilization Clinical Impression: Annette is a 43 year old white male with a long history of major depressive disorder and anxiety who comes to the hospital with severely intense thoughts of suicide with a plan. Plan - Plan Treatment Plan: Name: ANNETTE WHALEY Birthdate: 1975 [id number] #Patient continues to require inpatient hospitalization #Q30 #Staff pass # ECT referral was denied # ACT team accepted him # Continue current medications # Disability hearing tomorrow Hemoglobin A1c 8.3 % (4.0-5.6) H 02/05/19 06:38 Triglycerides 183 mg/dL 02/05/19 06:38 Cholesterol 185 mg/dL 02/05/19 06:38 LDL Cholesterol 120 mg/dL 02/05/19 06:38 Vital Signs Temp Pulse Resp BP Pulse Ox 97.4 F 89 16 121/76 99 02/11/19 08:29 02/11/19 08:29 02/12/19 12:23 02/11/19 08:29 02/11/19 08:29 Continued Medication Management: Continue Outpt Medication Medications: Current Medications Acetaminophen (Tylenol Tab*) 650 mg PO Q4H PRN PRN Reason: PAIN Last Admin: 02/12/19 02:20 Dose: 650 mg Al Hydrox/Mg Hydrox/Simethicone (Maalox Plus*) 30 ml PO Q4H PRN PRN Reason: INDIGESTION Aripiprazole (Abilify Tab*) 5 mg PO DAILY [facility] Last Admin: 02/12/19 07:37 Dose: 5 mg Docusate Sodium (Colace Cap*) 200 mg PO BID PRN PRN Reason: CONSTIPATION Dulaglutide (Trulicity (Nf)) 0.75 mg SUBCUT Q7D [facility] Last Admin: 02/10/19 20:47 Dose: 0.75 mg Hydroxyzine HCl (Atarax Tab*) 50 mg PO QID PRN PRN Reason: ANXIETY Last Admin: 02/11/19 20:33 Dose: 50 mg Insulin Glargine (Lantus(*)) 100 units SUBCUT BEDTIME [facility] Last Admin: 02/11/19 20:31 Dose: 100 units Lisinopril (Prinivil Tab*) 20 mg PO DAILY [facility] Last Admin: 02/12/19 07:37 Dose: 20 mg Metformin HCl (Glucophage*) 500 mg PO BID [facility] Last Admin: 02/12/19 07:37 Dose: 500 mg Multivitamins/Minerals (Theragran/Minerals Tab*) 1 tab PO DAILY [facility] Last Admin: 02/12/19 07:38 Dose: 1 tab Oxycodone HCl (Roxycodone Tab*) 10 mg PO Q4H [facility] Last Admin: 02/12/19 07:37 Dose: 10 mg Polyethylene Glycol/Electrolytes (Miralax*) 17 gm PO 0800,2100 [facility] Last Admin: 02/12/19 07:38 Dose: 17 gm Testosterone (Testosterone Gel 25 Mg/2.5 G) 50 mg TOPICAL DAILY [facility] Last Admin: 02/12/19 07:38 Dose: 50 mg Zolpidem Tartrate (Ambien Tab*) 10 mg PO BEDTIME [facility] Last Admin: 02/11/19 21:59 Dose: 10 mg - Discharge Plan Discharge Plan: Inpatient Hospitalization
[2019-02-12] MEDS: hydrOXYzine HCL TAB* 50 MG PO PRN ×2 (14:29→21:15)
[2019-02-12] MEDS: Zolpidem TAB* 5 MG PO SCH (21:09)
[2019-02-12] MEDS: Insulin GLARGINE(*) 1 UNITS UNIT SUBCUT SCH (21:10)
[2019-02-13] MEDS: oxyCODONE TAB* 5 MG TAB PO SCH ×6 (00:25→20:34)
[2019-02-13] MEDS: Polyethylene Glycol 3350* 17 GM PACKET PO SCH ×2 (08:13→21:35)
[2019-02-13] MEDS: metFORMIN* 500 MG TAB PO SCH ×2 (08:13→20:35)
[2019-02-13] MEDS: ARIPiprazole TAB* 5 MG PO SCH (08:13)
[2019-02-13] MEDS: Multivitamins/Minerals TAB PO SCH (08:13)
[2019-02-13] MEDS: TESTOSTERONE GEL 25 MG (NF) IN 2.5 GM SIZE PACKET TOPICAL SCH (08:13)
[2019-02-13] MEDS: Lisinopril TAB* 10 MG PO SCH (08:14)
--- NOTE | 2019-02-13 11:15 | PN ---
Subjective - Subjective Date of Service: 02/13/19 Service Type: [id number] Hosp care 35 min high complexity Subjective: Nursing Report: Patient was visible on unit, no chemical restraints or PRNs. Slept overnight without incident. He is not attending group activities. CC: "My hearing went well" Patient was seen and evaluated in the common room. He reported that his hearing went well. He is worried because he doesnt know when his next pain management appointment is. He is okay with not getting ECT at this time and plans to consider it at a later time when he has better pain control. He is looking forward to working with the ACT team. The patient reported he feels safe on the unit and he is interacting with peers on the unit. He reported having an adequate appetite and sleep. Per nursing no behavioral issues or overnight events reported. Patient reported that he is tolerating medications without side effects. Objective - General Observations Appears Stated Age: Yes Stature: Overweight Posture: Slumped Eye Contact: Average Behavior/Activity: WNL - Interaction Observations Attitude Towards Examiner: Cooperative Stated Mood: Anxious Affect: Blunted Speech Pattern/Tone: Clear Thought Process: Coherent Perception: WNL Thought Content: WNL Hallucination Type: None Delusion Type: None - Cognitive Function Orientation: A&O x 4 Level of Consciousness: Awake Cognition: WNL - Medication Compliance Cooperative with Inpatient Medication Regimen: Yes - Group Participation Participates in Group Activities: No Assessment - Assessment Merits Inpatient Hospitalization: For Immediate Safety Clinical Impression: Annette is a 43 year old white male with a long history of major depressive disorder and anxiety who comes to the hospital with severely intense thoughts of suicide with a plan. Plan - Plan Treatment Plan: Name: ANNETTE WHALEY Birthdate: 1975 [id number] #Patient continues to require inpatient hospitalization #Q30 #Staff pass # ACT team accepted him and plan to start Monday. # Disability hearing went well #Cymbalta 60mg daily # In process of securing pain management appointment date. Vital Signs Temp Pulse Resp BP Pulse Ox 96.7 F 92 18 114/75 99 02/13/19 07:30 02/13/19 07:30 02/13/19 12:37 02/13/19 07:30 02/13/19 07:30 Hemoglobin A1c 8.3 % (4.0-5.6) H 02/05/19 06:38 Triglycerides 183 mg/dL 02/05/19 06:38 Cholesterol 185 mg/dL 02/05/19 06:38 LDL Cholesterol 120 mg/dL 02/05/19 06:38 Continued Medication Management: Continue Outpt Medication Medications: Current Medications Acetaminophen (Tylenol Tab*) 650 mg PO Q4H PRN PRN Reason: PAIN Last Admin: 02/12/19 02:20 Dose: 650 mg Al Hydrox/Mg Hydrox/Simethicone (Maalox Plus*) 30 ml PO Q4H PRN PRN Reason: INDIGESTION Aripiprazole (Abilify Tab*) 5 mg PO DAILY [facility] Last Admin: 02/13/19 08:13 Dose: 5 mg Docusate Sodium (Colace Cap*) 200 mg PO BID PRN PRN Reason: CONSTIPATION Dulaglutide (Trulicity (Nf)) 0.75 mg SUBCUT Q7D [facility] Last Admin: 02/10/19 20:47 Dose: 0.75 mg Hydroxyzine HCl (Atarax Tab*) 50 mg PO QID PRN PRN Reason: ANXIETY Last Admin: 02/12/19 21:15 Dose: 50 mg Insulin Glargine (Lantus(*)) 100 units SUBCUT BEDTIME [facility] Last Admin: 02/12/19 21:10 Dose: 100 units Lisinopril (Prinivil Tab*) 20 mg PO DAILY [facility] Last Admin: 02/13/19 08:14 Dose: 20 mg Metformin HCl (Glucophage*) 500 mg PO BID [facility] Last Admin: 02/13/19 08:13 Dose: 500 mg Multivitamins/Minerals (Theragran/Minerals Tab*) 1 tab PO DAILY [facility] Last Admin: 02/13/19 08:13 Dose: 1 tab Oxycodone HCl (Roxycodone Tab*) 10 mg PO Q4H [facility] Last Admin: 02/13/19 08:14 Dose: 10 mg Polyethylene Glycol/Electrolytes (Miralax*) 17 gm PO 0800,2100 [facility] Last Admin: 02/13/19 08:13 Dose: 17 gm Testosterone (Testosterone Gel 25 Mg/2.5 G) 50 mg TOPICAL DAILY [facility] Last Admin: 02/13/19 08:13 Dose: 50 mg Zolpidem Tartrate (Ambien Tab*) 10 mg PO BEDTIME [facility] Last Admin: 02/12/19 21:09 Dose: 10 mg - Discharge Plan Discharge Plan: Inpatient Hospitalization
[2019-02-13] MEDS: hydrOXYzine HCL TAB* 50 MG PO PRN ×2 (12:37→21:36)
[2019-02-13] MEDS: DULoxetine DR CAP* 60 MG CAP.DR PO SCH (14:23)
--- NOTE | 2019-02-13 16:57 | PN ---
BSU: Group Therapy Note - Service Type Service Type: [id number] Group Psychotherapy - Medication Education Group: Patient was attentive and participatory in group, and remained in good behavioral control. Patient expressed positive insights regarding relevant treatment interventions. Patient stated understanding of material discussed and had appropriate questions.
[2019-02-13] MEDS: Insulin GLARGINE(*) 1 UNITS UNIT SUBCUT SCH (20:38)
[2019-02-13] MEDS: Zolpidem TAB* 5 MG PO SCH (21:35)
[2019-02-14] MEDS: oxyCODONE TAB* 5 MG TAB PO SCH ×6 (00:30→20:39)
[2019-02-14] MEDS: metFORMIN* 500 MG TAB PO SCH ×2 (08:17→20:39)
[2019-02-14] MEDS: Multivitamins/Minerals TAB PO SCH (08:17)
[2019-02-14] MEDS: DULoxetine DR CAP* 60 MG CAP.DR PO SCH (08:17)
[2019-02-14] MEDS: ARIPiprazole TAB* 5 MG PO SCH (08:17)
[2019-02-14] MEDS: Lisinopril TAB* 10 MG PO SCH (08:18)
[2019-02-14] MEDS: TESTOSTERONE GEL 25 MG (NF) IN 2.5 GM SIZE PACKET TOPICAL SCH (08:18)
[2019-02-14] MEDS: Polyethylene Glycol 3350* 17 GM PACKET PO SCH ×2 (09:27→20:39)
--- NOTE | 2019-02-14 10:21 | PN ---
Subjective - Subjective Date of Service: 02/14/19 Service Type: [id number] Hosp care 35 min high complexity Subjective: Nursing Report: Patient was visible on unit, no chemical restraints or PRNs. Slept overnight without incident. He attended group yesterday CC: " I am better" Patient was seen and evaluated in the common room. Patient reiterates that he is happy that his disability hearing went well. The patient reported he feels safe on the unit and is interacting with peers. He reported having an adequate appetite and sleep. The patient reports attending and participating in day groups. Per nursing no behavioral issues or overnight events reported. Patient reported that he is tolerating medications without side effects. Objective - General Observations Appearance: Disheveled Appears Stated Age: Yes Stature: Overweight Posture: Slumped Eye Contact: Average Behavior/Activity: WNL - Interaction Observations Attitude Towards Examiner: Cooperative Stated Mood: Euthymic Affect: Blunted Speech Pattern/Tone: Clear Thought Process: Coherent Perception: WNL Thought Content: WNL Hallucination Type: None Delusion Type: None - Cognitive Function Orientation: A&O x 4 Level of Consciousness: Awake - Medication Compliance Cooperative with Inpatient Medication Regimen: Yes - Group Participation Participates in Group Activities: Partial Assessment - Assessment Clinical Impression: Annette is a 43 year old white male with a long history of major depressive disorder and anxiety who comes to the hospital with severely intense thoughts of suicide with a plan. Plan - Plan Treatment Plan: Name: ANNETTE WHALEY Birthdate: 1975 [id number] #Patient continues to require inpatient hospitalization #Q30 #Staff pass # ACT team accepted him and plan to start Monday. # Disability hearing went well #Cymbalta 60mg daily # Patient plans to make apain management appointment today #Tenative Discharge Monday Hemoglobin A1c 8.3 % (4.0-5.6) H 02/05/19 06:38 Triglycerides 183 mg/dL 02/05/19 06:38 Cholesterol 185 mg/dL 02/05/19 06:38 LDL Cholesterol 120 mg/dL 02/05/19 06:38 Vital Signs Temp Pulse Resp BP Pulse Ox 96.9 F 92 17 123/79 99 02/14/19 07:45 02/14/19 07:45 02/14/19 08:18 02/14/19 07:45 02/14/19 07:45 Continued Medication Management: Continue Outpt Medication Medications: Current Medications Acetaminophen (Tylenol Tab*) 650 mg PO Q4H PRN PRN Reason: PAIN Last Admin: 02/12/19 02:20 Dose: 650 mg Al Hydrox/Mg Hydrox/Simethicone (Maalox Plus*) 30 ml PO Q4H PRN PRN Reason: INDIGESTION Aripiprazole (Abilify Tab*) 5 mg PO DAILY [facility] Last Admin: 02/14/19 08:17 Dose: 5 mg Docusate Sodium (Colace Cap*) 200 mg PO BID PRN PRN Reason: CONSTIPATION Dulaglutide (Trulicity (Nf)) 0.75 mg SUBCUT Q7D [facility] Last Admin: 02/10/19 20:47 Dose: 0.75 mg Duloxetine HCl (Cymbalta Cap*) 60 mg PO DAILY [facility] Last Admin: 02/14/19 08:17 Dose: 60 mg Hydroxyzine HCl (Atarax Tab*) 50 mg PO QID PRN PRN Reason: ANXIETY Last Admin: 02/13/19 21:36 Dose: 50 mg Insulin Glargine (Lantus(*)) 100 units SUBCUT BEDTIME [facility] Last Admin: 02/13/19 20:38 Dose: 100 units Lisinopril (Prinivil Tab*) 20 mg PO DAILY [facility] Last Admin: 02/14/19 08:18 Dose: 20 mg Metformin HCl (Glucophage*) 500 mg PO BID [facility] Last Admin: 02/14/19 08:17 Dose: 500 mg Multivitamins/Minerals (Theragran/Minerals Tab*) 1 tab PO DAILY [facility] Last Admin: 02/14/19 08:17 Dose: 1 tab Oxycodone HCl (Roxycodone Tab*) 10 mg PO Q4H [facility] Last Admin: 02/14/19 08:18 Dose: 10 mg Polyethylene Glycol/Electrolytes (Miralax*) 17 gm PO 0800,2100 [facility] Last Admin: 02/14/19 09:27 Dose: Not Given Testosterone (Testosterone Gel 25 Mg/2.5 G) 50 mg TOPICAL DAILY [facility] Last Admin: 02/14/19 08:18 Dose: 50 mg Zolpidem Tartrate (Ambien Tab*) 10 mg PO BEDTIME [facility] Last Admin: 02/13/19 21:35 Dose: 10 mg - Discharge Plan Discharge Plan: Inpatient Hospitalization
--- NOTE | 2019-02-14 11:01 | PN ---
BSU: Group Therapy Note - Service Type Service Type: [id number] Group Psychotherapy - Cognitive Behavioral Group Therapy ( CBT):Patient was attentive and participatory in CBT programming this morning, and remained in good behavioral control. Patient expressed positive insights regarding relevant treatment interventions and goals.
[2019-02-14] MEDS: Insulin GLARGINE(*) 1 UNITS UNIT SUBCUT SCH (20:37)
[2019-02-14] MEDS: hydrOXYzine HCL TAB* 50 MG PO PRN (20:41)
[2019-02-14] MEDS: Zolpidem TAB* 5 MG PO SCH (22:00)
[2019-02-15] MEDS: hydrOXYzine HCL TAB* 50 MG PO PRN (01:19)
[2019-02-15] MEDS: oxyCODONE TAB* 5 MG TAB PO SCH ×5 (01:19→16:34)
[2019-02-15] MEDS: Multivitamins/Minerals TAB PO SCH (08:08)
[2019-02-15] MEDS: DULoxetine DR CAP* 60 MG CAP.DR PO SCH (08:08)
[2019-02-15] MEDS: metFORMIN* 500 MG TAB PO SCH (08:08)
[2019-02-15] MEDS: ARIPiprazole TAB* 5 MG PO SCH (08:08)
[2019-02-15] MEDS: Lisinopril TAB* 10 MG PO SCH (08:08)
[2019-02-15] MEDS: TESTOSTERONE GEL 25 MG (NF) IN 2.5 GM SIZE PACKET TOPICAL SCH (08:33)
[2019-02-15] MEDS: Polyethylene Glycol 3350* 17 GM PACKET PO SCH (10:11)
--- NOTE | 2019-02-15 11:02 | DS ---
Subjective - Subjective Service Types: 42041 [facility] Day Mgmt complex over 30 min Discharge Date: 02/15/19 Subjective: CC: " I am better" Patient was seen and evaluated in the common room. The patient reported he feels safe on the unit and is interacting with peers. Patient is being picked up by his father. JUSTIFICATION FOR ADMISSION: The patient is need of 24-hour supervision and care secondary to suicidal ideation with a plan. "This is as done as I can get." HISTORY OF PRESENT ILLNESS: The patient is a 43-year-old single white male with history of depressive disorder and opioid dependent disorder, who has brought in by himself and is here on a voluntary status after coming to the hospital emergency department. Again with unmanageable pain and unmanageable depression. Annette has been to the hospital multiple times in the last 6 months. In fact since October this is his fifth admission. He lives with his dad and his dad's girl friend. Annette still holds some contempt for his father and his father's girl friend, as his dad was "cheating on" Annette's mother, while Annette's mother was dying, with this woman. Annette's stressors include not having money, being diabetic, not having money to buy diabetic food, living with his father and not having his own room, being in so much pain that he can walk only one city block before needing to sit down and rest. Annette struggles to sleep without medication and thus takes Ambien 10. He is not interested in much. He feels very guilty simply for being alive. His energy is low. He cannot concentrate due to feeling depressed and being in pain. His appetite is fine. He is constantly fidgeting and he has suicidal ideation with a plan. PAST PSYCHIATRIC HISTORY: Annette has been to this hospital 4 times before recently the first time on 11/06/18 where he stayed until 11/19/18. He then returned on 12/06/18 and stayed until 12/13/18. He returned to the emergency room on 01/07/19 was admitted on 01/09/19 and was discharged on . Then again on 01/18/19 he came to the [facility] and was discharged the same day. At this point on 02/04/19 he was admitted to the unit. He has suicidal ideation at this time. He does not currently have access to weapons such as guns, but he does have razor blades with which he plans to slit his wrist while he sits in a warm bath tub, hoping that he will give his family less to clean up after he dies. He has been set up with outpatient providers at [facility] and has been there several times. He states his previous psychiatric medications included Cymbalta and Ambien and now Abilify also. He was in therapy in [place] for 5 years. PAST MEDICAL HISTORY: Annette states he cannot walk or stand for more than 15 minutes. He gave the example that if he goes to a store to purchase groceries, he is in so much pain for the rest of the day and he cannot do anything else the rest of the day. He was ordered in the outpatient setting 15 mg of q.6 hours of oxycodone and he states that he is to used to take much more when he was living in [place]. He does have type 2 diabetes, which he states is uncontrolled and his insulin is constantly being increased. He is not adhering to a strictly diabetic diet. He also has hypertension. FAMILY HISTORY: His mother has depression, one brother and one sister has depression, both brothers were alcoholic. Annette is the youngest. SOCIAL HISTORY: Annette was born in [place] and lived there until about age 39. 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 Apparently, his father had a girlfriend for part of that time that his mother was alive and that also bothers Annette. He does not talk about abuse. He is not or partnered. He does not have children. He is not employed. He is trying to get disability and he was denied for the first time. 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 He had hearing a week or two ago that he was 45 minutes late to, so he was rescheduled until the . He has not been in the and he does not have legal problems. REVIEW OF SYSTEMS: Annette reports feeling fatigued. He has shortness of breath as he is so anxious that he is "hyperventilating." He denies heat or cold intolerance, chest pain or abdominal pain. He does have back pain. He denies fevers or changes in weight. PHYSICAL EXAMINATION GENERAL: The patient is well-appearing, well-nourished. Skin color reflects adequate perfusion. VITAL SIGNS: On 02/05/19 at 07:47 temperature was 97.9, pulse 81, respirations 16, O2 sat on room air 99%, blood pressure 134/83. HEENT: Normal head and face inspection. Eyes: EOMI. Conjunctiva clear. RESPIRATORY: Lungs sounds clear to auscultation, breath sounds present. CARDIOVASCULAR: RRR. Pulses are symmetrical in both upper and lower extremities. MUSCULOSKELETAL: Strength range of motion intact. NEUROLOGICAL: Speech is normal. LABORATORY DATA: Most data are within normal limits. Exceptions include white blood cells high at 13.1, MPV low at 7.0, absolute neutrophils high at 9.0. Glucose on 01/18/19 at 0306 is 120. Alkaline phosphatase 121. Hemoglobin A1c 8.3. Triglycerides are 183. Cholesterol 185, LDL cholesterol 120 , HDL cholesterol 28.4. TSH is 0.66. Urine contains blood, leukocyte esterase, white blood cells, and squamous epithelial cells. Urine toxicology screen is positive for opiates. MENTAL STATUS EXAM: Annette is a 6-foot 3-inch, 400-pound man who has red hair that is cut fairly short and has a ceja. He is hyperkinetic, bouncing his foot and shifting his hands almost constantly. He is cooperative, but he is anxious and somewhat irritable. His speech is soft, but has a normal rate and tone. He is dysthymic. He is tearful. He has normal thought process. He is not delusional. He is not having any hallucinations. He is not homicidal. He is suicidal although he does not plan to suicide on the unit. He does have strong plans to suicide should he go home as he is hopeless and helpless. He has fair insight and fair judgment. He is alert and oriented x4. DIAGNOSIS: Major depressive disorder, severe; opioid dependence. Diagnosis on Discharge: Major depressive disorder, partial remission, Opioid dependence. Condition at the time of discharge: At the time of discharge patient showed improvement of sleep and appetite. The patient was not a danger to self or others. The patient denied suicidal ideation , intent or plan. The patient denied homicidal targets, ideation, intent or plan. This patient participated in psychosocial rehabilitation and gained some insight into problems. The patient gained insight into mental illness, triggers, and treatment. The patient took medication as prescribed. The patient denied side effects of medication and objective signs of side effects were not evident. Therapy Resources were offered to the patient. Patient was given a supply of prescriptions at the time of discharge. The patient plans to attend follow up care with the follow up arrangements that were discussed and put in place. Patient was asked to keep appointments as scheduled, take medication as prescribed, have routine follow up care with their primary care physician and refrain from any use of alcohol or drugs. Objective - General Observations Appearance: Disheveled Appears Stated Age: Yes Stature: Overweight Posture: Slumped Eye Contact: Average Behavior/Activity: WNL - Interaction Observations Attitude Towards Examiner: Cooperative Stated Mood: Euthymic Affect: Blunted Speech Pattern/Tone: Clear Thought Process: Coherent Perception: WNL Thought Content: WNL Hallucination Type: None Delusion Type: None - Cognitive Function Orientation: A&O x 4 Level of Consciousness: Awake - Medication Compliance Cooperative with Inpatient Medication Regimen: Yes - Group Participation Participates in Group Activities: Yes Treatment Course & Assessment Clinical Course & Impression: Hospital course part A: Annette is a 43 year old white male with a long history of major depressive disorder and anxiety who comes to the hospital with severely intense thoughts of suicide with a plan. Hospital course part B: Labs ordered included CBC, CMP, UDS, TSH, HBA1c, TSH, Toxicology screen, Urine analysis, and lipid profile. Labs were reviewed and did not require the need for further evaluation. Vital signs were monitored during the course of admission. The patient was admitted to the adult behavioral unit and placed on 15 minute check for safety. At a later time the patient was on Q30 minute observation. With those limits being extended , there were no occurrence of behavioral incidents. The patient did well on the unit and went to groups. Interacted with peers had adequate sleep and regular appetite. Tolerated medication changes without side effects. Group therapy and services were offered. The risks , benefits, and alternative treatment options were discussed as well as of the risks of refusing treatment. Treatment associated risks discussed. After this discussion and made an acknowledgement of this understanding. Follow up care appointments were put in place for follow up care. The importance of monitoring for metabolic changes was discussed and acknowledgement of this understanding was made. Improvements in patient from the time of admission include: Improved affect, sleep and decrease in anxiety. No longer suicidal and no longer having feelings of hopelessness. The patient expressed readiness for discharge home. The patient presents with a broader range of affect, and the absence of depressed mood, delusions, perceptual disturbances. The patient denied suicidal and or homicidal ideation intent or plan. Overall, the patient responded well to inpatient treatment as evidenced by their report of strengthening of coping mechanisms, reduced distress, and more positive outlook on circumstances. Of note there was an improvement of recognizing how emotional state can effect mood and behavior. Safety precautions were put in place which included involving the patient and their family to closely monitor for changes in mental state. In addition, implementing follow up care, screening for the need to remove/securing firearms , weapons and stockpile of medications. Patient/ family instructed to immediately call 911 in the event of a emergency or any safety concerns arise. Patient had disability hearing and went well and is looking forward to getting back home. He is looking forward to outcome of this hearing and stated that the hearing was a lot of weight off his shoulders. PROPERTIES SUPERVISOR indicated last Rx was on 01/24/19 for a 30 day supply of oxycodone 15mg. Patient missed pain clinic appointment due to being in the hospital. Pain clinic was plans to rescheduled at a later time. Filling Pharmacy was contacted and it was decided that due to a overlap in supply of pain medication, that the Rx not be filled. Patient was called to be informed and said he might have to go back to the emergency room due to "feeling crazy again without his medications". He would not elaborate further. He denied suicidal ideation intent or plan. He denied homicidal ideation intent or plan. Patient advised of the lethality and dangerousness of combining medications with benzodiazipines and or alcohol and others substances and acknowledged this understanding. ACT team will be following patient beginning Monday. ECT referral was made and was declined until pain control management is achieved. AIMS was performed and insignificant for involuntary movement disorders. The patient was advised of the 24 hour / 7 days a week availability of the emergency room and to call 911 in the event of an emergency such as being suicidal and/ or homicidal. The patient was informed of the contact information for [facility], Suicide Prevention and Crisis Services, National Suicide Prevention Lifeline, [facility], Alcoholics Anonymous, and [facility]. Medications resumed included: Acetaminophen (Tylenol Tab*) 650 mg PO Q4H PRN PRN Reason: PAIN Last Admin: 02/12/19 02:20 Dose: 650 mg Al Hydrox/Mg Hydrox/Simethicone (Maalox Plus*) 30 ml PO Q4H PRN PRN Reason: INDIGESTION Aripiprazole (Abilify Tab*) 5 mg PO DAILY [facility] Last Admin: 02/15/19 08:08 Dose: 5 mg Docusate Sodium (Colace Cap*) 200 mg PO BID PRN PRN Reason: CONSTIPATION Dulaglutide (Trulicity (Nf)) 0.75 mg SUBCUT Q7D [facility] Last Admin: 02/10/19 20:47 Dose: 0.75 mg Duloxetine HCl (Cymbalta Cap*) 60 mg PO DAILY [facility] Last Admin: 02/15/19 08:08 Dose: 60 mg Hydroxyzine HCl (Atarax Tab*) 50 mg PO QID PRN PRN Reason: ANXIETY Last Admin: 02/15/19 01:19 Dose: 50 mg Insulin Glargine (Lantus(*)) 100 units SUBCUT BEDTIME [facility] Last Admin: 02/14/19 20:37 Dose: 100 units Lisinopril (Prinivil Tab*) 20 mg PO DAILY [facility] Last Admin: 02/15/19 08:08 Dose: 20 mg Metformin HCl (Glucophage*) 500 mg PO BID [facility] Last Admin: 02/15/19 08:08 Dose: 500 mg Multivitamins/Minerals (Theragran/Minerals Tab*) 1 tab PO DAILY [facility] Last Admin: 02/15/19 08:08 Dose: 1 tab Oxycodone HCl (Roxycodone Tab*) 10 mg PO Q4H [facility] Last Admin: 02/15/19 12:35 Dose: 10 mg Polyethylene Glycol/Electrolytes (Miralax*) 17 gm PO 0800,2100 [facility] Last Admin: 02/15/19 10:11 Dose: Not Given Testosterone (Testosterone Gel 25 Mg/2.5 G) 50 mg TOPICAL DAILY [facility] Last Admin: 02/15/19 08:33 Dose: 50 mg Zolpidem Tartrate (Ambien Tab*) 10 mg PO BEDTIME [facility] Last Admin: 02/14/19 22:00 Dose: 10 mg Father was contacted and in agreement with discharge plan. Patient will be discharged to his fathers home and his father will pick him up from the unit upon discharge. Follow up appointment at ACT team this Monday02/18/19 at 10am and PCP provider on 02/20/[address] Hairston Patient informed of follow up appointment times. See more details for follow of care in discharge plan. Risk factors: Age, single, history of depression, history of substance abuse Protective factors: Currently no suicidal ideation, intent or plan. Has support from his father. No history of service. Currently no feelings of hopelessness, not in an occupation of social isolation, no family history of suicide, doesnt have access to firearms. Doesnt have command hallucinations and or psychotic features at this time. No history of alcohol abuse. Not a anniversary of a loss of a loved one. No changes in relationship status, housing, job, or school. Currently future orientated. Patient engaged in treatment and compliant with medication. Merits Inpatient Hospitalization: No Clear for Discharge: Adequate Clinical Respons Discharge Planning - Discharge Planning Discharge Plan: Outpatient Follow Up Outpatient Program: ACT team Recommendations for Continuing Care: Medication Management Medications: Current Medications Acetaminophen (Tylenol Tab*) 650 mg PO Q4H PRN PRN Reason: PAIN Last Admin: 02/12/19 02:20 Dose: 650 mg Al Hydrox/Mg Hydrox/Simethicone (Maalox Plus*) 30 ml PO Q4H PRN PRN Reason: INDIGESTION Aripiprazole (Abilify Tab*) 5 mg PO DAILY [facility] Last Admin: 02/15/19 08:08 Dose: 5 mg Docusate Sodium (Colace Cap*) 200 mg PO BID PRN PRN Reason: CONSTIPATION Dulaglutide (Trulicity (Nf)) 0.75 mg SUBCUT Q7D [facility] Last Admin: 02/10/19 20:47 Dose: 0.75 mg Duloxetine HCl (Cymbalta Cap*) 60 mg PO DAILY [facility] Last Admin: 02/15/19 08:08 Dose: 60 mg Hydroxyzine HCl (Atarax Tab*) 50 mg PO QID PRN PRN Reason: ANXIETY Last Admin: 02/15/19 01:19 Dose: 50 mg Insulin Glargine (Lantus(*)) 100 units SUBCUT BEDTIME [facility] Last Admin: 02/14/19 20:37 Dose: 100 units Lisinopril (Prinivil Tab*) 20 mg PO DAILY [facility] Last Admin: 02/15/19 08:08 Dose: 20 mg Metformin HCl (Glucophage*) 500 mg PO BID [facility] Last Admin: 02/15/19 08:08 Dose: 500 mg Multivitamins/Minerals (Theragran/Minerals Tab*) 1 tab PO DAILY [facility] Last Admin: 02/15/19 08:08 Dose: 1 tab Oxycodone HCl (Roxycodone Tab*) 10 mg PO Q4H [facility] Last Admin: 02/15/19 08:08 Dose: 10 mg Polyethylene Glycol/Electrolytes (Miralax*) 17 gm PO 0800,2100 [facility] Last Admin: 02/15/19 10:11 Dose: Not Given Testosterone (Testosterone Gel 25 Mg/2.5 G) 50 mg TOPICAL DAILY [facility] Last Admin: 02/15/19 08:33 Dose: 50 mg Zolpidem Tartrate (Ambien Tab*) 10 mg PO BEDTIME [facility] Last Admin: 02/14/19 22:00 Dose: 10 mg Discharge Planning: Prescriptions provided for discharge [x] Yes [] No Follow up care details as per social work arrangements. Patient response to discharge plan: [] eager for discharge [x] agreeable with discharge plan [] ambivalent about discharge [] disagrees with discharge today
[2019-02-15 11:27] VITALS: BP 135/80
--- NOTE | 2019-02-15 11:40 | PN ---
[facility]: Group Therapy Note - Service Type Service Type: [id number] Group Psychotherapy - Cognitive Behavioral Group Therapy ( CBT):Patient was attentive and participatory in CBT programming this morning, and remained in good behavioral control. Patient expressed positive insights regarding relevant treatment interventions and goals.
== END 2019-02-15 16:50 | disposition home or self-care (01) | DRG 751 ==
LOC: ED 08:46 → BSU 13:26
PROVIDERS: ADMIT Psychiatry & Neurology Psychiatry; ATTEND Psychiatry & Neurology Psychiatry
PROC: GZHZZZZ Group Psychotherapy (ICD-10-PCS; principal; 2019-02-13)
DX: F32.2 Major depressive disorder, single episode, severe without psychotic features (principal); F11.20 Opioid dependence, uncomplicated; Z68.43 Body mass index [BMI] 50.0-59.9, adult; I10 Essential (primary) hypertension; E11.42 Type 2 diabetes mellitus with diabetic polyneuropathy; F41.9 Anxiety disorder, unspecified; E66.3 Overweight; F90.9 Attention-deficit hyperactivity disorder, unspecified type; Z82.49 Family history of ischemic heart disease and other diseases of the circulatory system; Z81.1 Family history of alcohol abuse and dependence; Z81.8 Family history of other mental and behavioral disorders; Z56.0 Unemployment, unspecified; Z82.0 Family history of epilepsy and other diseases of the nervous system
CPT/HCPCS: 36415; 80061; 83036; 90853; 99231; 99232; 99233; 99238; 99284; A9270-GY; J1885

== ENCOUNTER 2019-02-16 11:18 | Emergency (ER) | payer OTHER ==
--- NOTE | 2019-02-16 11:32 | ED ---
Psychiatric Complaint - HPI Summary HPI Summary: This patient is a 43 year old M presenting to [facility] with a chief complaint of suicidal ideation today. Patient was discharged yesterday from the [facility]. He reports feeling dangerous and panicked. He states he always feels like hurting himself. Denies HI. Patient additionally reports chronic low back pain for which he is prescribed oxycodone. Patient states he ran out of pain medication. PCMP reviewed: Prescription filled on 01/24/19 for a 30 day supply of oxycodone. - History Of Current Complaint Chief Complaint: EDSuicidal Time Seen by Provider: 02/16/19 11:25 Hx Obtained From: Patient Onset/Duration: Lasting Days Timing: Constant Character: Depressed, Anxious Aggravating Factor(s): Medication Non-compliance Related History: Positive For: Prior Psychiatric Issues Has Suicidal: Reports: Thoughts Has Homicidal: Denies: Thoughts - Allergies/Home Medications Allergies/Adverse Reactions: Allergies Allergy/AdvReac Type Severity Reaction Status Date / Time No Known Allergies Allergy Verified 02/16/19 11:21 Home Medications: Home Medications oxyCODONE TAB* [Roxycodone TAB 5 mg*] 15 mg PO Q6H PRN MDD 60mg 02/16/19 [ History Confirmed 02/16/19] PMH/Surg Hx/FS Hx/Imm Hx Endocrine/Hematology History: Reports: Hx Diabetes Cardiovascular History: Reports: Hx Hypertension Denies: Hx Pacemaker/ICD Respiratory History: Denies: Hx Asthma, Hx Sleep Apnea GI History: Reports: Hx Hiatal Hernia Denies: Hx Gastroesophageal Reflux Disease History: Denies: Hx Chronic Renal Failure, Hx Renal Disease Musculoskeletal History: Reports: Hx Back Problems - L4-5 herniated disc, Hx Tendonitis - bilateral knees Sensory History: Reports: Hx Contacts or Glasses, Other Sensory Impairments - BILATERAL LEWER EXTREMETY NEUROPATHY Denies: Hx Hearing Aid Opthamlomology History: Reports: Hx Contacts or Glasses, Other Sensory Impairments - BILATERAL LEWER EXTREMETY NEUROPATHY Neurological History: Reports: Other Neuro Impairments/Disorders - NEUROPATHY Psychiatric History: Reports: Hx Anxiety, Hx Attention Deficit Hyperactivity Disorder, Hx Depression, Hx Inpatient Treatment, Hx Community Mental Health Tx, Hx Substance Abuse - Roxycodone Denies: Hx Eating Disorder, Hx Panic Disorder, Hx Post Traumatic Stress Disorder, Hx Schizophrenia, Hx Bipolar Disorder, Hx Suicide Attempt, Hx of Violent Episodes Against Others - Surgical History Surgery Procedure, Year, and Place: TONSILECTOMY Infectious Disease History: No Infectious Disease History: Denies: Traveled Outside the [place] in Last 30 Days - Family History Known Family History: Positive: Hypertension, Diabetes, Other - depression, alcoholism - Social History Alcohol Use: None Hx Substance Use: No Substance Use Type: Reports: None Hx Tobacco Use: No Smoking Status (MU): Never Smoked Tobacco Review of Systems Positive: Myalgia Positive: Anxious, Depressed, Other - SI All Other Systems Reviewed And Are Negative: Yes Physical Exam - Summary Physical Exam Summary: Appearance: Well-appearing, obese, lying in bed comfortably Skin: Warm, dry, no obvious rash Eyes: sclera anicteric, no conjunctival pallor ENT: mucous membranes moist, pharynx appears normal Neck: Supple, nontender Respiratory: Clear to auscultation, no signs of respiratory distress Cardiovascular: Normal S1, S2. No murmurs. Normal distal pulses in tibial and radial bilaterally. Abdomen: Soft, nontender, normal active bowel sounds present Musculoskeletal: Normal, Strength/ROM Intact Neurological: A&Ox3, awake and alert, mentation is normal, speech is fluent and appropriate Psychiatric: affect is normal, does not appear anxious or depressed Triage Information Reviewed: Yes Vital Signs On Initial Exam: Initial Vitals Temp Pulse Resp BP Pulse Ox 97.1 F 109 14 138/82 97 02/16/19 11:21 02/16/19 11:21 02/16/19 11:21 02/16/19 11:21 02/16/19 11:21 Vital Signs Reviewed: Yes Diagnostics - Vital Signs Vital Signs Temp Pulse Resp BP Pulse Ox 02/16/19 11:21 97.1 F 109 14 138/82 97 - Laboratory Lab Statement: Any lab studies that have been ordered have been reviewed, and results considered in the medical decision making process. Course/Dx - Course Course Of Treatment: 43 year old M presenting to [facility] with a chief complaint of suicidal ideation today. Patient additionally reports chronic low back pain for which he is prescribed oxycodone. Patient states he ran out of pain medication. PCMP reviewed: Prescription filled on 01/24/19 for a 30 day supply of oxycodone. Patient eloped after further pain medication was not provided. - Differential Dx/Clinical Impression Provider Diagnosis: Opioid use disorder Discharge - Sign-Out/Discharge Documenting (check all that apply): Patient Departure - eloped Patient Received Moderate/Deep Sedation with Procedure: No - Discharge Plan Condition: Good Disposition: ELOPEMENT Patient Education Materials: Opioid Use Disorder (ED) Referrals: Marika Schroeder MD [Primary Care Provider] - - Billing Disposition and Condition Condition: GOOD Disposition: Elopement - Attestation Statements Document Initiated by Scribe: Yes Documenting Scribe: Astrid Velasco Provider For Whom Ashley is Documenting (Include Credential): Rikki Rivera MD Scribe Attestation: Astrid Mallory, scribed for Rikki Rivera MD on 02/19/19 at 1113. Scribe Documentation Reviewed: Yes Provider Attestation: The documentation as recorded by the Astrid braga accurately reflects the service I personally performed and the decisions made by Rikki fernandez MD Status of Scribe Document: Viewed
[2019-02-16 13:25] VITALS: BP 00/00
== END 2019-02-16 13:23 | disposition left against medical advice (07) ==
LOC: ED 11:18
DX: F11.10 Opioid abuse, uncomplicated (principal); E11.9 Type 2 diabetes mellitus without complications; I10 Essential (primary) hypertension; Z79.899 Other long term (current) drug therapy; Z81.1 Family history of alcohol abuse and dependence; Z83.3 Family history of diabetes mellitus; Z82.49 Family history of ischemic heart disease and other diseases of the circulatory system; Z81.8 Family history of other mental and behavioral disorders
CPT/HCPCS: 99284